=== PATIENT | male | born 1960 | race Caucasian/White ===

== ENCOUNTER 2021-01-13 13:12 | Outpatient (CLI) | payer MEDICARE, MEDICAID, SELFPAY ==
--- NOTE | ~2021-01-13 | CT_ITS ---
EXAMINATION: CT lumbar spine wo con DATE: 01/13/2021 13:51 INDICATION: Low back pain. TECHNIQUE: Computed tomography (CT) of the lumbar spine was performed without intravenous contrast. A utomated exposure control and iterative reconstruction technique were employed. The dose-length produ ct was 1297.72 mGy-cm. COMPARISON: CT lumbar spine 07/30/2016 FINDINGS: There is 3 degrees levocurvature of lumbar spine. There are changes of anterior fusion proc edures from L3-L4 through L5-S1 with interbody devices and L5-S1 plate and screws. There are changes of posterior fusion procedure from L3 to S1 with pedicle screws from L3-L5 on the right and L3-S1 on the left. There are lucencies around the left S1 screw, consistent with loosening. There are L3-L5 la minectomies. Vertebral body heights are normal. Intervertebral disc heights are normal. Central spina l canal is developmentally small at L2. The following disc levels are specifically discussed: L1-L2: The disc does not extend beyond the endplate margin. There is severe right and mild left facet joint osteoarthritis. There is no neural foraminal stenosis. There is no central canal stenosis. L2-L3: The disc does not extend beyond the endplate margin. There is mild bilateral facet joint osteo arthritis. There is no neural foraminal stenosis. There is mild central canal stenosis. L3-L4: There is mild bilateral facet joint hypertrophy. There is moderate right and mild left neural foraminal stenosis. There is mild central canal stenosis with posterior decompression. L4-L5: There is moderate right facet joint hypertrophy. There is moderate bilateral neural foraminal stenosis. There is mild central canal stenosis with posterior decompression. L5-S1: There is mild right and moderate left facet joint hypertrophy. There is mild bilateral neural foraminal stenosis. There is mild central canal stenosis with posterior decompression. IMPRESSION: 1. Anterior fusion procedures from L3-L4 through L5-S1. 2. Posterior fusion procedure from L3 to S1 with lucency around the left S1 screw, consistent with lo osening. 3. Moderate lumbar spondylosis. Reviewed, dictated and finalized at location A. IMPRESSION: 1. Anterior fusion procedures from L3-L4 through L5-S1. 2. Posterior fusion procedure from L3 to S1 with lucency around the left S1 scr ew, consistent with loosening. 3. Moderate lumbar spondylosis.
== END 2021-01-13 13:13 | disposition home or self-care (01) ==
DX: M47.817 Spondylosis without myelopathy or radiculopathy, lumbosacral region (principal); M54.40 Lumbago with sciatica, unspecified side; Z98.1 Arthrodesis status; M47.815 Spondylosis without myelopathy or radiculopathy, thoracolumbar region; M48.05 Spinal stenosis, thoracolumbar region; M48.07 Spinal stenosis, lumbosacral region
CPT/HCPCS: 72131

== ENCOUNTER 2021-04-01 08:59 | Outpatient (CLI) | payer MEDICARE, MEDICAID, SELFPAY ==
--- NOTE | 2021-04-01 06:57 | NEURO_ITS ---
PATIENT NUMBER: [id number] IMPRESSION: # Known diabetic with history of two lower back surgeries. Complains of pain and numbness lower extremities, left greater than right. # Neuropathy motor and sensory axonal type. # Needle/EMG exam revealed neurogenic changes in muscles. # Suggestive of diabetic neuropathy with lower root involvement as well. Nerve Conduction Studies Anti Sensory Summary Table Stim Site NR Peak (ms) P-T Amp (?V) Site1 Site2 Delta-P (ms) Dist (cm) Jeremy (m/s) Left Sup Fibular Anti Sensory (Ant Lat Mall) 14 cm 3.9 19.6 14 cm Ant Lat Mall 3.9 16.0 41 Right Sup Fibular Anti Sensory (Ant Lat Mall) 14 cm 3.0 25.9 14 cm Ant Lat Mall 3.0 16.0 53 Left Sural Anti Sensory (Lat Mall) Calf NR Calf Lat Mall 16.0 Right Sural Anti Sensory (Lat Mall) Calf 3.6 12.5 Calf Lat Mall 3.6 16.0 44 Motor Summary Table Stim Site NR Onset (ms) O-P Amp (mV) Site1 Site2 Delta-0 (ms) Dist (cm) Jeremy (m/s) Left Peroneal Motor (Vastus Med) Ankle 5.1 0.1 Popit Ankle 11.2 40.0 36 Popit 16.3 0.0 Right Peroneal Motor (Vastus Med) Ankle 5.2 0.4 Popit Ankle 10.5 39.0 37 Popit 15.7 0.4 Left Tibial Motor (Abd Mata Brev) Ankle 5.7 0.0 Knee Ankle 10.9 45.0 41 Knee 16.6 0.5 Right Tibial Motor (Abd Mata Brev) Ankle 6.4 0.1 Knee Ankle 12.0 44.0 37 Knee 18.4 0.2 F Wave Studies NR F-Lat (ms) L-R F-Lat (ms) Left Peroneal (Mrkrs) (EDB) 66.67 6.00 Right Peroneal (Mrkrs) (EDB) 72.67 6.00 Left Tibial (Mrkrs) (Abd Hallucis) 66.00 9.33 Right Tibial (Mrkrs) (Abd Hallucis) 75.33 9.33 EMG Side Muscle Nerve Root Ins Act Fibs Amp Dur Recrt Comment Right AntTibialis Dp Br Fibular L4-5 Nml Nml Nml >12ms Reduced Right Gastroc Tibial S1-2 Nml Nml Nml >12ms Reduced Right Fibularis Long Sup Br Fibular L5-S1 Nml Nml Nml >12ms Reduced Right Flex Dig Long Tibial L5-S2 Nml Nml Nml >12ms Reduced Right Ext Dig Brev Dp Br Fibular L5, S1 Nml Nml Nml >12ms Reduced Left AntTibialis Dp Br Fibular L4-5 Nml Nml Nml >12ms Reduced Left Gastroc Tibial S1-2 Nml Nml Nml >12ms Reduced Left Fibularis Long Sup Br Fibular L5-S1 Nml Nml Nml >12ms Reduced Left Flex Dig Long Tibial L5-S2 Nml Nml Nml >12ms Reduced Left Ext Dig Brev Dp Br Fibular L5, S1 Nml Nml Nml >12ms Reduced MTDD
== END 2021-04-01 09:00 | disposition home or self-care (01) ==
PROVIDERS: PCP Internal Medicine; Visit Provider Neurological Surgery
DX: M54.41 Lumbago with sciatica, right side (principal); M54.42 Lumbago with sciatica, left side; G62.89 Other specified polyneuropathies
CPT/HCPCS: 95886; 95910

== ENCOUNTER 2021-10-29 16:21 | Outpatient (CLI) | payer MEDICARE, MEDICAID, SELFPAY ==
[2021-10-29 18:53] LABS: SARS-CoV-2 RNA PCR Negative (Negative)
== END 2021-10-29 16:22 | disposition home or self-care (01) ==
LOC: CHSLAB 16:25
DX: R05.9 Cough, unspecified (principal); Z20.822 Contact with and (suspected) exposure to COVID-19
CPT/HCPCS: C9803; U0003; U0005

== ENCOUNTER 2022-02-03 12:32 | Outpatient (CLI) | payer MEDICARE, MEDICAID, SELFPAY ==
--- NOTE | ~2022-02-03 | MR_ITS ---
EXAMINATION: MR lumbar spine wo/w con DATE: 02/03/2022 13:32 INDICATION: Low back pain. Lumbar nephropathy. TECHNIQUE: Magnetic resonance imaging (MRI) of the lumbar spine was performed without and with 18 mL MultiHance intravenous contrast. Sequences included sagittal T2-weighted FSE, sagittal T2-weighted FS FSE, and sagittal and axial T1-weighted FSE. Postcontrast sequences included axial T2-weighted FSE a nd axial and sagittal T1-weighted FS FSE. COMPARISON: Lumbar spine MRI 11/22/2019 FINDINGS: Bone alignment is normal. Vertebral body heights are normal. There are changes of anterior and posterior fusion procedures from L3 to S1 with discectomies, interbody devices, and pedicle screw s. The distal spinal cord signal intensity is normal. The conus medullaris is at L1. The following di sc levels are specifically discussed: L1-L2: The disc does not extend beyond the endplate margin. There is moderate right and mild left fac et joint osteoarthritis. There is no neural foraminal stenosis. There is no central canal stenosis. L2-L3: The disc is bulging. There is mild bilateral facet joint osteoarthritis. There is mild bilater al neural foraminal stenosis. There is mild central canal stenosis. L3-L4: There is mild bilateral facet joint hypertrophy. There is mild bilateral neural foraminal sten osis. There is no central canal stenosis. There is posterior decompression. L4-L5: There is moderate bilateral facet joint hypertrophy. There is mild right and moderate left lucio ral foraminal stenosis. There is no central canal stenosis. There is posterior decompression. L5-S1: There is moderate right and severe left facet joint hypertrophy. There is moderate bilateral n eural foraminal stenosis. There is no central canal stenosis. IMPRESSION: 1. Moderate lumbar spondylosis. 2. Anterior posterior fusion procedures from L3 to S1, new from 11/22/2019. Reviewed, dictated and finalized at location A.
[2022-02-03 13:08] LABS: Estimated Glomerular Filt Rate > 60
== END 2022-02-03 12:33 | disposition home or self-care (01) ==
PROVIDERS: PCP Internal Medicine; Visit Provider Nurse Practitioner Family
DX: M47.27 Other spondylosis with radiculopathy, lumbosacral region (principal); M48.07 Spinal stenosis, lumbosacral region; Z98.1 Arthrodesis status
CPT/HCPCS: 72158; A9577

== ENCOUNTER 2022-04-12 10:09 | Emergency (ER) | payer MEDICARE, MEDICAID, SELFPAY ==
[2022-04-12 10:12] VITALS: BP 162/86; PULSE 78; RESP 16; TEMP 36.9; O2SAT 99
--- NOTE | 2022-04-12 10:33 | ED.EYEPROB ---
HPI - Eye Problem General Chief complaint: Eye Problems Stated complaint: both eyes Time Seen by Provider: 04/12/22 10:33 History of Present Illness HPI Narrative: 61-year-old male patient is here with complaints of irritation of both eyes right being the worst than the left. 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 Right after that he worked with the saw and was exposed to some dust. He states that the pain and discomfort and irritation of the eyes started a little while after the exposure and has continued through the night. Patient denies any foreign body sensation in the eyes. He denies any pain. He states that he has significant photophobia and has needed to wear dark glasses throughout the morning. Reports no other injuries. Does not wear contact lenses and does not have any eye surgeries in the past. Related Data Home Medications Medication Instructions Recorded Confirmed buprenorphine 10 mcg/hour weekly 1 patch topical WEEKLY 04/12/22 04/12/22 transdermal patch dulaglutide 1.5 mg/0.5 mL 1.5 mg subcut WEEKLY 04/12/22 04/12/22 subcutaneous pen injector (Trulicity) insulin degludec 200 unit/mL (3 76 unit subcut DAILY 04/12/22 04/12/22 mL) subcutaneous pen (Tresiba FlexTouch U-200 insulin) metformin 850 mg tablet 1 tablet PO BID 04/12/22 04/12/22 pravastatin 20 mg tablet 1 tablet PO DAILY 04/12/22 04/12/22 pregabalin 150 mg capsule 1 cap PO BID 04/12/22 04/12/22 Allergies Allergy/AdvReac Type Severity Reaction Status Date / Time NKA Allergy Unknown Unknown Uncoded 04/12/22 10:40 Review of Systems Review of Systems: All systems reviewed & are unremarkable except as noted in HPI and below PMFSH Past Medical History Medical History (Updated 04/12/22 @ 10:58 by Re Jarvis MD) Diabetes 1.5, 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 Hypercholesterolemia Hypertension Insomnia Low back pain Surgical History Surgical History (Updated 04/12/22 @ 10:52 by Re Jarvis MD) Status post laminectomy Social History Social History Social History: smoking marjauna at night to help with rest Smoking status: Current every day smoker Alcohol intake: never Exam Const: General: healthy appearing, no acute distress and alert Nutritional Appearance: well nourished Orientation/consciousness: patient oriented x3 Limitations: no limitations HENMT: Head: normal to inspection Ears: external ears normal General nose exam: Normal external nose present Eyes: Conjunctivae: conjunctival abnormality ( Conjunctiva injection) bilateral Pupils: Equal, round and reactive pupils present EOM: EOMs intact bilaterally Direct Ophthalmoscopy: photophobia Other: fluorescein uptake is negative Neck: Neck: normal visual inspection Chest: Chest palpation & inspection: normal inspection of the chest Resp: Effort & Inspection: normal respiratory effort Cardio: Rate: regular rate Rhythm: regular rhythm Skin: General skin exam: normal color Rashes: no rashes Wounds: no wounds Neuro: General: patient oriented x3, moves all extremities, no meningeal signs, no focal motor deficits and CN's II-XI intact bilaterally Cranial nerves: Yes Nystagmus not present Speech: normal speech Gait exam (Neuro): Normal gait present Extrem: General: normal to inspection Psych: Mental Status: mental status grossly normal Course Course Emergency Course: welding wiseman to the eyes have been discussed with the patient and the family. The patient has been advised to wear dark glasses to avoid any exposure to light and strain to the eyes. He is also advised to use eye stream to wash his eyes frequently during the day. I will prescribe him and antibacterial ophthalmic solution. He is also advised to use [id number] refresh or Systane. Di
[2022-04-12] MEDS: FLUORESCEIN SOD 1 MG/STRIP (10:48)
[2022-04-12] MEDS: DACRIOSE EYE IRRIGATION 118 ML BOTTLE (10:48)
[2022-04-12] MEDS: TETRACAINE HCL 0.5% OPHTH SOLN 4 ML BTL 1 DROP (10:48)
== END 2022-04-12 11:15 | disposition home or self-care (01) ==
PROVIDERS: Emergency Provider Emergency Medicine; PCP Internal Medicine
DX: H57.13 Ocular pain, bilateral (principal); W89.0XXA Exposure to welding light (arc), initial encounter
CPT/HCPCS: 99283; A9270

== ENCOUNTER 2022-10-14 09:45 | Outpatient (CLI) | payer MEDICARE, MEDICAID, SELFPAY ==
--- NOTE | ~2022-10-14 | NM_ITS ---
EXAM: NM gastric emptying study DATE: 10/14/2022 14:16 INDICATION: Diarrhea. TECHNIQUE: A gastric emptying study was performed using the methodology of Daljit SANTOS, et al. J Nucl Med 2007; 48:568-572. The patient was given a meal consisting of 2 scrambled eggs labeled with 1 mCi Tc-99m sulfur colloid, 2 slices of toast, two packages of jam, and approximately 120 mL of water. Si multaneous anterior and posterior 1-min images of the abdomen were obtained with the patient supine a t multiple time points over a total period of 4 hours. The geometric mean of anterior and posterior v iews was determined, and the percentage retention was calculated for each time point. COMPARISON: None. FINDINGS: Gastric retention of the radiotracer-labeled meal was 102%, 92%, and 66% at the 1-hour, 2- hour, and 4-hour time points, respectively. With this technique, apparent rapid gastric emptying is s uggested by <30% gastric retention at 1 hour. Delayed gastric emptying is defined by gastric retentio n of >90% at 1 hour, >60% retention at 2 hours, or >10% retention at 4 hours. IMPRESSION: 1. Delayed gastric emptying. Reviewed, dictated and finalized at location A. RAM DIRECTOR/TRAFFIC DIRECTOR
== END 2022-10-14 09:46 | disposition home or self-care (01) ==
PROVIDERS: PCP Internal Medicine; Visit Provider Internal Medicine Gastroenterology
DX: R19.7 Diarrhea, unspecified (principal)
CPT/HCPCS: 78264; A9541

== ENCOUNTER 2022-11-24 09:27 | Outpatient (CLI) | payer MEDICARE, MEDICAID, SELFPAY ==
--- NOTE | ~2022-11-24 | CT_ITS ---
EXAMINATION: CT cervical spine wo con DATE: 11/24/2022 10:08 INDICATION: Possible cervical spinal fusion. TECHNIQUE: Computed tomography (CT) of the cervical spine was performed without intravenous contrast. Automated exposure control and iterative reconstruction technique were employed. The dose-length pro duct was 485.14 mGy-cm. COMPARISON: None FINDINGS: Mild reversal of the normal cervical lordosis. There is anterior and posterior fusion without instrum entation at C5-C6. There is severe disc height loss at C6-C7 with appearance suggesting possible atte mpted anterior fusion with likely bone graft material incorporated to the inferior endplate of C6 but without definitive solid osseous fusion to C7. Unfused disc heights are normal. Moderate to severe d isc height loss at C3-C4 and C4-C5. Atherosclerotic calcific a cyst at the bilateral carotid bulbs Ce rvical soft tissues are otherwise unremarkable. Mild paraseptal emphysema at the apices of lungs. The following disc levels are specifically discussed: C2-C3: There is mild bilateral uncovertebral joint osteoarthritis. There is mild left and moderate ri ght facet joint osteoarthritis. There is minimal bilateral neural foraminal stenosis. There is no kenyetta tral canal stenosis. C3-C4: Posterior disc osteophyte complex is present. There is severe left and moderate to severe righ t uncovertebral joint osteoarthritis. There is moderate left and mild to moderate right facet joint o steoarthritis. There is mild right and mild to moderate left neural foraminal stenosis. There is mild central canal stenosis. C4-C5: Disc is bulging. There is severe bilateral uncovertebral joint osteoarthritis. There is mild b ilateral facet joint osteoarthritis. There is moderate right and moderate to severe left neural lizbeth inal stenosis. There is mild to moderate central canal stenosis. C5-C6: Disc space, bilateral uncovertebral and facet joints are fused, all with mild associated hyper trophic changes. There is mild right and minimal left neural foraminal stenosis. There is mild centra l canal stenosis. C6-C7: Posterior endplate osteophytes. There is moderate bilateral uncovertebral joint osteoarthritis . There is mild bilateral facet joint osteoarthritis. There is mild right and moderate left neural fo raminal stenosis. There is mild central canal stenosis. C7-T1: There is minimal bilateral uncovertebral joint osteoarthritis. There is severe left and modera te to severe right facet joint osteoarthritis. There is mild right and mild to moderate left neural f oraminal stenosis. There is no central canal stenosis. IMPRESSION: 1. Moderate to severe cervical spondylosis with solid anterior and posterior spinal fusion at C5-C6. 2. Suggestion of attempted anterior spinal fusion at C6-C7 with incorporation of bone graft to the in ferior aspect of C6 but without solid fusion to C7. Reviewed, dictated and finalized at location B. 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 Moderate to severe cervical spondylosis with solid anterior and posterior sp inal fusion at C5-C6. 2. Suggestion of attempted anterior spinal fusion at C6-C7 with incorporation o f bone graft to the inferior aspect of C6 but without solid fusion to C7.
--- NOTE | ~2022-11-24 | XR_ITS ---
Lumbosacral Spine: AP and lateral views, with neutral, flexion, and extension positioning Clinical History: Pain Findings: No acute fracture or subluxation seen. There is posterior fusion hardware extending from L3 through S1, with bilateral rods and transpedicular screws present. Anterior fixation is present acro ss the L5-S1 disc space. Probable laminectomy defects at L4 and L5. Disc fusion cages are present at the L3-L4, L4-L5, and L5-S1 disc spaces. L1-L2 and L2-L3 disc spaces are preserved. No instability se en on flexion or extension views. The sacroiliac joints are normally outlined. Impression: Extensive postoperative change at the lower lumbar spine, as detailed above. No fracture or subluxation seen. No instability identified. Reviewed, dictated and finalized at [facility]. TIONAL DIRECTOR Impression: Extensive postoperative change at the lower lumbar spine, as detailed above. No fracture or subluxation seen. No instability identified.
== END 2022-11-24 09:28 | disposition home or self-care (01) ==
LOC: CHSIMG 09:30
PROVIDERS: PCP Internal Medicine
DX: M54.16 Radiculopathy, lumbar region (principal); Z98.1 Arthrodesis status; M43.02 Spondylolysis, cervical region
CPT/HCPCS: 72110; 72125

== ENCOUNTER 2023-04-20 10:14 | Outpatient (CLI) | payer MEDICARE, MEDICAID, SELFPAY ==
--- NOTE | ~2023-04-20 | CT_ITS ---
EXAMINATION: CT lung screening DATE: 04/20/2023 10:31 INDICATION: Personal history of nicotine dependence TECHNIQUE: Computed tomography (CT) of the chest was performed without intravenous contrast. The dose -length product was 169.95 mGy-cm. Automated exposure control and iterative reconstruction technique were employed. COMPARISON: None FINDINGS: No significant pleural or pericardial effusion. Heart size normal. There is atherosclerosis of the aorta and coronary arteries. No thoracic lymphadenopathy. There is cirrhosis of the liver. Th ere is emphysema. No focal airspace consolidation. No endobronchial lesions. No pneumothorax. There i s a 3 mm right upper lobe nodule, image 35. There are a few small additional nodules measuring 2 mm o r less bilaterally. Mild thoracic spondylosis. Moderate lower cervical spondylosis. IMPRESSION: 1. Lung-RADS category 2: Benign appearance or behavior. Continue annual screening with noncontrast lo w-dose chest CT in 12 months. Reviewed, dictated and finalized at location [] IMPRESSION: 1. Lung-RADS category 2: Benign appearance or behavior. Continue annual screeni ng with noncontrast low-dose chest CT in 12 months.
== END 2023-04-20 10:15 | disposition home or self-care (01) ==
LOC: CHSIMG 10:16
PROVIDERS: PCP Internal Medicine; Visit Provider Internal Medicine
DX: Z12.2 Encounter for screening for malignant neoplasm of respiratory organs (principal); Z87.891 Personal history of nicotine dependence
CPT/HCPCS: 71271

== ENCOUNTER 2024-01-02 16:23 | Outpatient (CLI) | payer MEDICARE, MEDICAID, SELFPAY ==
--- NOTE | ~2024-01-02 | XR_ITS ---
EXAMINATION: XR hip BI 2V w AP pelvis DATE: 01/02/2024 17:01 INDICATION: Bilateral hip pain TECHNIQUE: Two views of each hip were obtained. COMPARISON: None FINDINGS: Bone alignment is normal. There is no fracture. There is mild osteoarthritis of the hips. S urgical changes are noted in the lumbosacral spine. There is possible asymmetric thickening of the ri ght gluteus muscles compared to the left. IMPRESSION: 1. Mild osteoarthritis of the hips without acute osseous abnormality. Possible asymmetric thickening of the right gluteus muscles compared to the left. Reviewed, dictated and finalized at location L. OW PUMPER
== END 2024-01-02 16:24 | disposition home or self-care (01) ==
LOC: CHSIMG 16:26
PROVIDERS: PCP Nurse Practitioner Acute Care; Visit Provider Nurse Practitioner Acute Care
DX: M16.0 Bilateral primary osteoarthritis of hip (principal); M25.551 Pain in right hip; M25.552 Pain in left hip
CPT/HCPCS: 73521

== ENCOUNTER 2024-04-30 10:06 | Outpatient (CLI) | payer MEDICARE, MEDICAID, SELFPAY ==
--- NOTE | ~2024-04-30 | US_ITS ---
EXAMINATION: US aorta [facility] scrn DATE: 04/30/2024 10:44 INDICATION: Abdominal aortic aneurysm screening TECHNIQUE: Grayscale, color Doppler, and pulsed Doppler images of the aorta and common iliac arteries were obtained. COMPARISON: None. FINDINGS: The proximal aorta measures 2.5 cm. The region of the mid and distal aorta and common iliac arteries is obscured by shadowing bowel gas. IMPRESSION: 1. 2.5 cm diameter proximal abdominal aorta with nondiagnostic assessment of the mid and distal aorta which obscured by shadowing bowel gas. Reviewed, dictated and finalized at location B. IMPRESSION: 1. 2.5 cm diameter proximal abdominal aorta with nondiagnostic assessment of th e mid and distal aorta which obscured by shadowing bowel gas.
--- NOTE | ~2024-04-30 | US_ITS ---
COMPLETE ABDOMINAL ULTRASOUND Ordering provider: Roseanna Yung, History: . screening for AAA/splenomegaly/HX of missy dependence . Comparison: None. FINDINGS: LIVER: Normal size and echotexture. No focal hepatic lesions or perihepatic fluid collections are karla ntified. Normal flow of the portal vein. GALLBLADDER: Multiple stones. No evidence for sludge, gallbladder wall thickening or pericholecystic fluid collections. The wall measures 3.1 mm. . A negative sonographic Cheney's sign was noted. BILIARY DUCTS: No evidence for intra or extrahepatic biliary dilation. Common bile duct measures 3.6 mm in diameter which is within normal limits. PANCREAS: Not well demonstrated. SPLEEN: Normal size, echotexture and contour and measures 15 cm in length. KIDNEYS: Right measures 10.2x 4.4x 4 cm in length and the left 11.9x 4.3x 4.7 cm in length. There is no evidence for hydronephrosis, solid renal mass, renal calculi or perinephric fluid collections. No renal cysts. UPPER ABDOMINAL AORTA: Not visualized. IVC: Not visualized. FREE FLUID: None. IMPRESSION: Cholelithiasis with no evidence of cholecystitis. Splenomegaly. Otherwise, Unremarkable complete ultr asound of the abdomen. Reviewed, dictated and finalized at location A. IMPRESSION: Cholelithiasis with no evidence of cholecystitis. Splenomegaly. Otherwise, Unre markable complete ultrasound of the abdomen.
--- NOTE | ~2024-04-30 | CT_ITS ---
EXAMINATION: CT lung screening DATE: 04/30/2024 10:49 INDICATION: history of nicotine dependence, no chest complaints TECHNIQUE: Computed tomography (CT) of the chest was performed without intravenous contrast. Addition al 3D reconstructions utilizing coronal maximum intensity projection (MIP) were performed. Automated exposure control and iterative reconstruction technique were employed. The dose-length product was 14 6.53 mGy-cm. COMPARISON: 04/20/2023 FINDINGS: Mild emphysema. Interval increase in size of a previously 6 x 4 mm, currently 8 x 5 mm spiculated nod ule at the right apex. Unchanged 2 mm potentially calcified nodule at the superior segment of the lef t lower lobe. No significant change in scattered peripheral predominant irregular septal line thicken ing and mild groundglass opacity in both lungs consistent with chronic interstitial lung disease most consistent with scarring but an interstitial pneumonia (DIP) pattern. No pneumonia, pulmonary edema or pleural effusion. Heart size normal. Atherosclerotic coronary artery calcific lesion. Thoracic aor ta is normal in caliber. No pathologically enlarged thoracic lymphadenopathy. Nodular liver surface c onsistent with cirrhosis. Mild thoracic spondylosis. IMPRESSION: 1. Lung-RADS category 4A: Suspicious, 5-15% chance of malignancy. Recommend 3 month follow-up low-dos e noncontrast chest CT. Reviewed, dictated and finalized at location B. IMPRESSION: 1. Lung-RADS category 4A: Suspicious, 5-15% chance of malignancy. Recommend 3 m onth follow-up low-dose noncontrast chest CT.
== END 2024-04-30 10:07 | disposition home or self-care (01) ==
PROVIDERS: PCP Internal Medicine; Visit Provider Internal Medicine
DX: R16.1 Splenomegaly, not elsewhere classified (principal); Z13.6 Encounter for screening for cardiovascular disorders; Z87.891 Personal history of nicotine dependence; K80.20 Calculus of gallbladder without cholecystitis without obstruction; R91.8 Other nonspecific abnormal finding of lung field
CPT/HCPCS: 71271; 76700; 76706

== ENCOUNTER 2024-07-07 06:57 | Emergency (ER) | payer MEDICARE, MEDICAID, SELFPAY ==
--- NOTE | 2024-07-07 07:01 | ED.BACK ---
HPI - Back Pain/Injury General Chief Complaint: Back Pain/Injury Stated Complaint: Back Pain Time Seen by Provider: 07/07/24 07:00 Source: patient Mode of arrival: ambulatory Limitations: no limitations History of Present Illness HPI Narrative: 63-year-old male with a history of diabetes mellitus, dyslipidemia, chronic back pain status post surgery status post epidural pain injection on 06/19/2024 presents to the ED with --worsening of his low back pain with radiation to the left medial and posterior thigh. -- Muscle cramps involving the thighs the patient does not have any bladder or bowel involvement. No motor or sensory loss of his load lower extremities. The patient is ambulatory. -- Increased frequency of micturition. Patient is on buprenorphine for possible opiate use disorder. MD elicited complaint: back pain Pertinent past history: prior back pain Onset (ago): day(s) Timing: constant and progressively worsening Severity: severe Similar Symptoms Previously: Yes Quality: burning Location: lumbar spine Radiation: buttocks Exacerbating factors: movement Relieving factors: other ( Leaning forwards) Associated symptoms: denies other symptoms and increased urinary frequency Work related injury: No Related Data Home Medications Medication Instructions Recorded Confirmed buprenorphine 10 mcg/hour weekly 1 patch topical WEEKLY 04/12/22 04/12/22 transdermal patch dulaglutide 1.5 mg/0.5 mL 1.5 mg subcut WEEKLY 04/12/22 04/12/22 subcutaneous pen injector (Trulicity) insulin degludec 200 unit/mL (3 76 unit subcut DAILY 04/12/22 04/12/22 mL) subcutaneous pen (Tresiba FlexTouch U-200 insulin) metformin 850 mg tablet 1 tablet PO BID 04/12/22 04/12/22 pravastatin 20 mg tablet 1 tablet PO DAILY 04/12/22 04/12/22 pregabalin 150 mg capsule 1 cap PO BID 04/12/22 04/12/22 Allergies Allergy/AdvReac Type Severity Reaction Status Date / Time No Known Allergies Allergy Verified 07/07/24 07:25 Review of Systems Review of Systems: All systems reviewed & are unremarkable except as noted in HPI and below Constitutional: Constitutional: Reports as per HPI and Reports no additional constitutional complaints Eyes: Eyes: Reports as per HPI and Reports no additional eye complaints ENT: Reports system reviewed and no additional complaints, except as documented and Reports as per HPI Cardiovascular: Cardiovascular: Reports as per HPI and Reports no additional cardiovascular complaints Respiratory: Respiratory: Reports as per HPI and Reports no additional respiratory complaints Gastrointestinal: Gastrointestinal: Reports as per HPI and Reports no additional gastrointestinal complaints Genitourinary: Genitourinary: Reports no additional male genitourinary complaints and Reports as per HPI Musculoskeletal: Musculoskeletal: Reports no additional musculoskeletal complaints and Reports as per HPI Integumentary/Breasts: Skin/Breast: Reports system reviewed and no additional complaints, except as docu and Reports as per HPI Neurologic: Reports system reviewed and no additional complaints, except as documented and Reports as per HPI Psychiatric: Psychiatric: Reports no additional psychiatric complaints and Reports as per HPI Endocrine: Endocrine: Reports no additional endocrine complaints, Reports as per HPI and Reports polyuria Hematologic/Lymphatic: Hematologic/Lymphatic: Reports no additional hematologic/lymphatic complaints and Reports as per HPI Allergic/Immunologic: Allergic/Immunologic: Reports no additional allergic/immunologic complaints and Reports as per HPI PMFSH Past Medical History Medical History Diabetes 1.5, 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 Hypercholesterolemia Hypertension Insomnia Low back pain Surgical History Surgical History Status post laminectomy Social History Socia
[2024-07-07 07:03] VITALS: BP 154/99; PULSE 96; RESP 20; TEMP 36.6; O2SAT 96
[2024-07-07 07:20] LABS: Glucose Point of Care 429 mg/dl (65-105)
[2024-07-07 07:29] LABS: Appearance Urine Clear (Clear); Color Urine Yellow (Yellow); Specific Grav Ur 1.015 (1.010-1.020)
[2024-07-07 07:30] LABS: Add Urine Microscopic? NO; Bilirubin Urine Negative (Negative); Blood Urine Negative (Negative); Glucose Urine UA 3+ (Negative); Ketones Urine Negative (Negative); Leukocyte Esterase Ur Negative LEU/UL (Negative); Nitrate Urine Negative (Negative); Protein Urine Negative (Negative); Urobilinogen Urine Negative mg/dL (0.2-1.0)
[2024-07-07] MEDS: HYDROmorphone HCL INJ (*CRX) 2 MG/ML VIAL 1 MG IM (07:43)
[2024-07-07] MEDS: ONDANSETRON HCL ODT 4 MG TABLET PO (07:46)
[2024-07-07] MEDS: INSULIN HUMAN REGULAR (*BKC) 1,000 UNITS/10 ML VIAL 5 UNITS SUB-Q (07:46)
[2024-07-07 08:38] VITALS: BP 135/83; PULSE 89; RESP 18; TEMP 36.8; O2SAT 95
[2024-07-07 11:15] LABS: Creatinine Urine 81.5 mg/dL
[2024-07-07 11:20] LABS: MALB Creatinine Ratio 95.5 mg/g (0-30); Microalbumin Urine Random 77.8 mg/L (0-16.7)
== END 2024-07-07 08:40 | disposition home or self-care (01) ==
PROVIDERS: Emergency Provider Internal Medicine Critical Care Medicine; PCP Internal Medicine
DX: M54.50 Low back pain, unspecified (principal); G89.29 Other chronic pain; E13.65 Other specified diabetes mellitus with hyperglycemia; E78.5 Hyperlipidemia, unspecified; E13.9 Other specified diabetes mellitus without complications; I10 Essential (primary) hypertension
CPT/HCPCS: 81003; 82043; 82948; 96372; 99283; A9270; J1170; J1815

== ENCOUNTER 2024-07-07 08:36 | Outpatient (CLI) | payer MEDICARE, MEDICAID, SELFPAY ==
[2024-07-07 09:04] LABS: Basophils Absolute Auto 0.06 K/mm3 (0.00-0.10); Basophils Percent Auto 0.5 % (0.0-1.0); Eosinophils Absolute Auto 0.12 K/mm3 (0.02-0.50); Eosinophils Percent Auto 1.1 % (1.0-6.0); Hematocrit 44.9 % (37.0-46.0); Hemoglobin 15.3 g/dL (12.4-15.3); Immature Granulocyte Absolute 0.13 K/mm3 (0.00-0.00); Immature Granulocyte Percent A 1.2 % (0.0-0.0); Lymphocytes Absolute Auto 2.22 K/mm3 (1.10-4.50); Lymphocytes Percent Auto 20.2 % (18.0-42.0); Mean Corpuscular HGB Conc 34.1 g/dL (32-36); Mean Corpuscular Hemoglobin 33.8 pg (27.0-31.0); Mean Corpuscular Volume 99.3 fL (78.0-102.0); Mean Platelet Volume 11.2 fl (8.7-11.0); Monocytes Absolute Auto 0.62 K/mm3 (0.10-0.90); Monocytes Percent Auto 5.6 % (2.0-11.0); Neutrophils Absolute Auto 7.86 K/mm3 (1.70-7.20); Neutrophils Percent Auto 71.4 % (50.0-70.0); Platelet Count Result 112 K/mm3 (150-420); Red Blood Count 4.52 M/mm3 (4.70-6.10); Red Cell Distribution Width 13.2 % (11.6-14.4)
[2024-07-07 10:29] LABS: Alanine Aminotransferase 64 U/L (6-50); Albumin Level 4.3 g/dL (3.5-5.1); Alkaline Phosphatase 98 U/L (38-126); Anion Gap 12 mmol/L (4-12); Aspartate Amino Transferase 27 U/L (17-59); Bilirubin,Total 0.7 mg/dL (0.2-1.3); Blood Urea Nitrogen 18 mg/dL (9-20); Calcium 9.4 mg/dL (8.4-10.2); Carbon Dioxide 23 mmol/L (22-30); Chloride 96 mmol/L (98-107); Cholesterol 185 mg/dL (0-200); Estimated Glomerular Filt Rate > 60; Glucose 445 mg/dL (65-110); HDL Direct 43 mg/dL; LDL Cholesterol Calculated 111 mg/dL (<130); Osmolality Calculated 292 mOsm/kg (285-295); Potassium 4.6 mmol/L (3.4-5.0); Sodium 131 mmol/L (137-145); Triglycerides 155 mg/dL (<150)
[2024-07-07 10:41] LABS: Hemoglobin A1C 10.5 % (<5.7)
[2024-07-07 10:54] LABS: Prostate Specific Antigen 0.8 ng/mL (< OR = 4.0)
== END 2024-07-07 08:37 | disposition home or self-care (01) ==
PROVIDERS: PCP Internal Medicine; Visit Provider Internal Medicine
DX: E11.42 Type 2 diabetes mellitus with diabetic polyneuropathy (principal); Z12.5 Encounter for screening for malignant neoplasm of prostate
CPT/HCPCS: 36415; 80053; 80061; 83036; 84153; 85025; G0103

== ENCOUNTER 2024-07-13 15:06 | Emergency (ER) | payer MEDICARE, MEDICAID, SELFPAY ==
--- NOTE | ~2024-07-13 | XR_ITS ---
EXAMINATION: XR chest 2V DATE: 07/13/2024 15:42 INDICATION: Hyperglycemia TECHNIQUE: frontal and lateral views of the chest were obtained. COMPARISON: Chest radiograph dated chest CT dated 04/30/2024 FINDINGS: The lungs are clear with no focal airspace opacities, pulmonary edema, pleural effusion or pneumothor ax. The cardiomediastinal silhouette is normal. Mild thoracic spondylosis. IMPRESSION: 1. No acute cardiopulmonary disease. Reviewed, dictated and finalized at location B.
[2024-07-13 15:15] VITALS: BP 176/93; PULSE 96; RESP 20; TEMP 36.4; O2SAT 98
[2024-07-13 15:15] LABS: Glucose Point of Care > 450 mg/dl (65-105)
--- NOTE | 2024-07-13 15:19 | ECG_ITS ---
Test Date: 2024-07-13 15:52:19 Measurements Intervals [place] Rate: 75 P: 77 CO: 148 QRS: -43 QRSD: 112 T: 69 QT: 364 QTc: 407 Interpretive Statements SINUS RHYTHM LEFT AXIS DEVIATION INTRAVENTRICULAR CONDUCTION DELAY EARLY PRECORDIAL R/S TRANSITION MINIMAL Q WAVES- HIGH LATERAL LEADS BORDERLINE ECG No previous ECG available for comparison Electronically Signed On 07-13-2024 16:11:59 CDT by Karson Ponce D.O.
--- NOTE | 2024-07-13 15:19 | ED.GENADULT ---
HPI - General Adult General Chief complaint: Unspecified Stated complaint: leg pain and elevated blood sugar Time Seen by Provider: 07/13/24 15:19 Source: patient Limitations: no limitations History of Present Illness HPI narrative: Six 4 years [age] white male came to the ED by private car complaining of blood glucose of 550 prior to arrival to the emergency room. His telling me that he have a steroid injection at the lower back on June 19 and his blood glucose been high since got worse today. He denies any fever, chills, nausea, vomiting, abdominal pain or chest pain. patient reports pain behind the left knee and at the top of the left foot been going for the last few days, weeks. Patient was seen at our emergency room 6 days ago for the same complaint and was seen by his family physician 3 days ago for the same complaint who increased his insulin level and started him on baclofen and ibuprofen without improvement. Patient is telling me that he is not able to get hold of his pain management physician. Last lower back MRI more than 1 year ago. Patient been checking his blood glucose 4 times a day Related Data Home Medications Medication Instructions Recorded Confirmed buprenorphine 10 mcg/hour weekly 1 patch topical WEEKLY 04/12/22 07/13/24 transdermal patch dulaglutide 1.5 mg/0.5 mL 1.5 mg subcut WEEKLY 04/12/22 07/13/24 subcutaneous pen injector (Trulicity) insulin degludec 200 unit/mL (3 76 unit subcut DAILY 04/12/22 07/13/24 mL) subcutaneous pen (Tresiba FlexTouch U-200 insulin) baclofen 20 mg tablet 20 mg PO DAILY 07/13/24 07/13/24 ezetimibe 10 mg tablet 10 mg PO DAILY 07/13/24 07/13/24 ibuprofen 800 mg tablet 800 mg PO DAILY 07/13/24 07/13/24 lisinopril 10 mg tablet 10 mg PO DAILY 07/13/24 07/13/24 nortriptyline 25 mg capsule 25 mg PO DAILY 07/13/24 07/13/24 zolpidem 10 mg tablet 10 mg PO DAILY 07/13/24 07/13/24 Allergies Allergy/AdvReac Type Severity Reaction Status Date / Time niacin AdvReac Flushing Verified 07/13/24 15:15 Review of Systems Review of Systems: All systems reviewed & are unremarkable except as noted in HPI and below PMFSH Past Medical History Medical History Diabetes 1.5, 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 Hypercholesterolemia Hypertension Insomnia Low back pain Surgical History Surgical History Status post laminectomy Social History Social History Social History: smoking marjauna at night to help with rest Smoking status: Current every day smoker Alcohol intake: never Exam Narrative: General appearance: Well-developed, well-nourished Skin: Normal color Head: Normocephalic, nontraumatic Eyes: Clear conjunctiva ENT: Oropharynx normal, ears normal, nose normal Neck: Supple, nontender Chest and respiratory: Airway patent, no respiratory distress, no accessory muscle use Heart: Regular rate/rhythm Abdomen: Soft, nontender, no organomegaly, quiet bowel sounds Vascular: Normal peripheral pulses, normal capillary refill. Musculoskeletal: Left lower leg showed diffuse tenderness posteriorly, slightly darker than the right lower leg, 1+ edema, palpable pedal pulse Neurologic: Alert and oriented ?3, Course Vital Signs Vital signs: Vital Signs Oxygen Delivery Room Air 07/13/24 15:06 Temperature 36.4 C 07/13/24 15:27 Pulse Rate 96 07/13/24 15:27 Respiratory Rate 20 07/13/24 15:27 Blood Pressure 176/93 H 07/13/24 15:27 Pulse Oximetry 98 07/13/24 15:27 Oxygen Delivery Room Air 07/13/24
[2024-07-13 15:27] VITALS: BP 176/93; PULSE 96; RESP 20; TEMP 36.4; O2SAT 98
[2024-07-13 15:51] LABS: Basophils Absolute Auto 0.05 K/mm3 (0.00-0.10); Basophils Percent Auto 0.6 % (0.0-1.0); Eosinophils Absolute Auto 0.12 K/mm3 (0.02-0.50); Eosinophils Percent Auto 1.4 % (1.0-6.0); Hematocrit 41.5 % (37.0-46.0); Hemoglobin 14.5 g/dL (12.4-15.3); Immature Granulocyte Absolute 0.14 K/mm3 (0.00-0.00); Immature Granulocyte Percent A 1.7 % (0.0-0.0); Lymphocytes Percent Auto 27.3 % (18.0-42.0); Mean Corpuscular HGB Conc 34.9 g/dL (32-36); Mean Corpuscular Hemoglobin 34.7 pg (27.0-31.0); Mean Corpuscular Volume 99.3 fL (78.0-102.0); Mean Platelet Volume 10.1 fl (8.7-11.0); Monocytes Absolute Auto 0.41 K/mm3 (0.10-0.90); Monocytes Percent Auto 4.9 % (2.0-11.0); Neutrophils Absolute Auto 5.41 K/mm3 (1.70-7.20); Neutrophils Percent Auto 64.1 % (50.0-70.0); Platelet Count Result 110 K/mm3 (150-420); Red Blood Count 4.18 M/mm3 (4.70-6.10); Red Cell Distribution Width 13.2 % (11.6-14.4); White Blood Count 8.4 K/mm3 (4.8-10.8)
[2024-07-13 15:58] LABS: Add Urine Microscopic? NO; Appearance Urine Clear (Clear); Bilirubin Urine Negative (Negative); Blood Urine Negative (Negative); Color Urine Light Yellow (Yellow); Glucose Urine UA 3+ (Negative); Ketones Urine Negative (Negative); Leukocyte Esterase Ur Negative LEU/UL (Negative); Nitrate Urine Negative (Negative); Protein Urine Negative (Negative); Urobilinogen Urine 0.2 mg/dL (0.2-1.0)
[2024-07-13] MEDS: SODIUM CHLORIDE 0.9% IV 2,000 ML 999 ML IV CONT (16:01)
[2024-07-13 16:06] LABS: Alanine Aminotransferase 59 U/L (16-63); Albumin Level 3.8 g/dL (3.4-5.0); Alkaline Phosphatase 128 U/L (46-116); Anion Gap 6 mmol/L (4-12); Aspartate Amino Transferase 18 U/L (15-37); Bilirubin,Total 0.4 mg/dL (0.00-1.00); Blood Urea Nitrogen 16 mg/dL (7-18); Calcium 9.6 mg/dL (8.5-10.1); Carbon Dioxide 31 mmol/L (21-32); Chloride 98 mmol/L (98-108); Estimated CRCL calculation 59 ml/min; Estimated Glomerular Filt Rate > 60; Glucose 392 mg/dL (70-99); Osmolality Calculated 297 mOsm/kg (285-295); Potassium 4.5 mmol/L (3.5-5.1); Sodium 135 mmol/L (136-145); Total Protein 7.7 g/dL (6.4-8.2)
[2024-07-13 16:07] LABS: INR 0.9; Partial Thromboplastin Time 23.3 Sec (23.9-30.70); Prothrombin Time 10.1 Seconds (9.50-12.1)
[2024-07-13 16:08] LABS: HCO3 VBG 23.3 mEq/l (24.0-30.0); PCO2 VBG 39.7 mmHg (42.0-48.0); PO2 VBG 32.7 mmHg (35.0-45.0); pH VBG 7.39 (7.33-7.43)
[2024-07-13 16:09] LABS: Device ROOM AIR
[2024-07-13 16:23] LABS: D Dimer 8.86 mg/L (0.19-0.50)
[2024-07-13] MEDS: INSULIN HUMAN REGULAR (*BKC) 1,000 UNITS/10 ML VIAL 9 UNITS IV PUSH (16:42)
[2024-07-13] MEDS: APIXABAN 2.5 MG TABLET 10 MG PO (16:59)
[2024-07-13 17:18] LABS: Glucose Point of Care 222 mg/dl (65-105)
[2024-07-13 17:52] VITALS: BP 145/85; PULSE 60; RESP 16; TEMP 36.6; O2SAT 98
== END 2024-07-13 17:52 | disposition home or self-care (01) ==
PROVIDERS: Emergency Provider Emergency Medicine; PCP Internal Medicine
DX: E13.65 Other specified diabetes mellitus with hyperglycemia (principal); M79.605 Pain in left leg; I10 Essential (primary) hypertension; Z79.4 Long term (current) use of insulin
CPT/HCPCS: 36415; 71046; 80053; 81003; 82803; 82948; 85025; 85380; 85610; 85730; 93005; 96361; 96374; 99284; A9270; J1815; J7030

== ENCOUNTER 2024-07-16 07:05 | Outpatient (CLI) | payer MEDICARE, MEDICAID, SELFPAY ==
--- NOTE | ~2024-07-16 | US_ITS ---
Duplex Sonography of the left extremity: Indication: Pain and swelling Findings: Sagittal and transverse B-mode images as well as color-flow imaging were performed on the l eft femoral and popliteal veins. B-mode examination was done without and with compression in the tra nsverse plane. There is good visualization of the common femoral, proximal profunda femoral, superfi cial femoral, greater saphenous, and popliteal veins. There is echogenic thrombus occluding the left SFV at its proximal, mid, and distal portions, extendi ng through the left popliteal vein, left gastrocnemius vein, left posterior tibial vein, and left per lozano vein. These vessels are all noncompressible, with absence of flow. The left common femoral vein, left profunda femoral vein, and the proximal portion of the left greate r saphenous vein demonstrate normal flow and compressibility. Impression: Extensive occlusive DVT involving the left SFV, left popliteal vein, and left calf veins, as detailed above. Reviewed, dictated and finalized at location M. Impression: Extensive occlusive DVT involving the left SFV, left popliteal vein, and left c snf veins, as detailed above.
== END 2024-07-16 07:06 | disposition home or self-care (01) ==
LOC: CHSIMG 07:08
PROVIDERS: PCP Internal Medicine; Visit Provider Emergency Medicine
DX: M79.89 Other specified soft tissue disorders (principal); I82.432 Acute embolism and thrombosis of left popliteal vein; I82.492 Acute embolism and thrombosis of other specified deep vein of left lower extremity
CPT/HCPCS: 93971

== ENCOUNTER 2024-07-16 07:38 | Emergency (ER) | payer MEDICARE, MEDICAID, SELFPAY ==
[2024-07-16 07:38] VITALS: BP 150/87; PULSE 88; RESP 20; TEMP 36.6; O2SAT 98
--- NOTE | 2024-07-16 07:50 | ED.LOWEXIN ---
HPI - Extremity Injury (Lower) General Chief Complaint: Extremity Injury, Lower Stated Complaint: DVT Time Seen by Provider: 07/16/24 07:42 History of Present Illness HPI Narrative: Pt was seen here 07/13 for elevated blood sugar and left lower extremity pain and swelling. No ultrasound available so patient given dose of eliquis here and given Rx for 10 mg BID which patient did not get filled due to issue with insurance coverage. Pt denies chest pain or SOB. The pain and swelling in leg has been present for at least a week. Pt returned today for venous doppler which is apparently positive for DVT. Related Data Home Medications Medication Instructions Recorded Confirmed buprenorphine 10 mcg/hour weekly 1 patch topical WEEKLY 04/12/22 07/13/24 transdermal patch dulaglutide 1.5 mg/0.5 mL 1.5 mg subcut WEEKLY 04/12/22 07/13/24 subcutaneous pen injector (Trulicity) insulin degludec 200 unit/mL (3 76 unit subcut DAILY 04/12/22 07/13/24 mL) subcutaneous pen (Tresiba FlexTouch U-200 insulin) baclofen 20 mg tablet 20 mg PO DAILY 07/13/24 07/13/24 ezetimibe 10 mg tablet 10 mg PO DAILY 07/13/24 07/13/24 ibuprofen 800 mg tablet 800 mg PO DAILY 07/13/24 07/13/24 lisinopril 10 mg tablet 10 mg PO DAILY 07/13/24 07/13/24 nortriptyline 25 mg capsule 25 mg PO DAILY 07/13/24 07/13/24 zolpidem 10 mg tablet 10 mg PO DAILY 07/13/24 07/13/24 Allergies Allergy/AdvReac Type Severity Reaction Status Date / Time niacin AdvReac Flushing Verified 07/16/24 07:51 Review of Systems Review of Systems: All systems reviewed & are unremarkable except as noted in HPI and below PMFSH Past Medical History Medical History Diabetes 1.5, 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 Hypercholesterolemia Hypertension Insomnia Low back pain Surgical History Surgical History Status post laminectomy Social History Social History Social History: smoking marjauna at night to help with rest Smoking status: Current every day smoker Alcohol intake: never Exam Const: General: healthy appearing and no acute distress Nutritional Appearance: well nourished Orientation/consciousness: patient oriented x3 Limitations: no limitations Neck: Neck: normal visual inspection Chest: Chest palpation & inspection: normal inspection of the chest Resp: Effort & Inspection: normal respiratory effort Auscultation: clear to auscultation bilaterally Cardio: Rate: regular rate Rhythm: regular rhythm GI: GI Palp: Yes Soft to palpation Auscultation: normal bowel sounds Skin: General skin exam: normal color Rashes: no rashes Wounds: no wounds Neuro: General: patient oriented x3, moves all extremities, no meningeal signs and no focal motor deficits Speech: normal speech Extrem: Other: left leg swollen with mild pitting edema. DP pulses present. Psych: Mental Status: mental status grossly normal Affect: normal affect Attitude: cooperative Course Vital Signs Vital signs: Vital Signs Temperature 97.8 F 07/16/24 07:38 Pulse Rate 88 07/16/24 07:38 Respiratory Rate 20 07/16/24 07:38 Blood Pressure 150/87 H 07/16/24 07:38 Pulse Oximetry 98 07/16/24 07:38 Oxygen Delivery Room Air 07/16/24 07:38 Temperature 97.8 F 07/16/24 07:38 Pulse Rate 88 07/16/24 07:38 Respiratory Rate 20 07/16/24 07:38 Blood Pressure 150/87 H 07/16/24 07:38 Pulse Oximetry 98 07/16/24 07:38 Oxygen Delivery Room Air 07/16/24 07:38 MDM - Extremity Injury (Lower) MDM Narrative Medical decision making narrative: Pt here from ultrasound. Pt has extensive DVT in left leg and has free floating section of thrombus as well. will consult vascular surgery. Pt would prefer [facility] in [place] so will start there. Will repeat some labs and await consult for possible torres
--- NOTE | 2024-07-16 08:21 | PC.NURSE ---
Two 4 and two 6 [place] wraps were applied to pt's left leg, toes to groin, by Kaleigh valencia. Pt has intact sensation, pedal pulse and cap refill after wraps applied. No discomfort noted. Pt states leg feels better with wraps on.
[2024-07-16 08:33] LABS: Basophils Absolute Auto 0.03 K/mm3 (0.00-0.10); Basophils Percent Auto 0.5 % (0.0-1.0); Eosinophils Percent Auto 1.5 % (1.0-6.0); Hematocrit 39.5 % (37.0-46.0); Hemoglobin 13.3 g/dL (12.4-15.3); Immature Granulocyte Absolute 0.08 K/mm3 (0.00-0.00); Immature Granulocyte Percent A 1.2 % (0.0-0.0); Lymphocytes Absolute Auto 1.89 K/mm3 (1.10-4.50); Lymphocytes Percent Auto 28.9 % (18.0-42.0); Mean Corpuscular HGB Conc 33.7 g/dL (32-36); Mean Corpuscular Hemoglobin 33.9 pg (27.0-31.0); Mean Corpuscular Volume 100.8 fL (78.0-102.0); Mean Platelet Volume 10.2 fl (8.7-11.0); Monocytes Percent Auto 6.1 % (2.0-11.0); Neutrophils Absolute Auto 4.03 K/mm3 (1.70-7.20); Neutrophils Percent Auto 61.8 % (50.0-70.0); Platelet Count Result 114 K/mm3 (150-420); Red Blood Count 3.92 M/mm3 (4.70-6.10); Red Cell Distribution Width 13.6 % (11.6-14.4); White Blood Count 6.5 K/mm3 (4.8-10.8)
--- NOTE | 2024-07-16 08:35 | PC.NURSE ---
Pt states that he has to go home and take care of some business at his house before he can be transferred. Doctor talked to pt about risks and benefits of leaving. Pt verbalized understanding and states that he has to leave, but he will return samy. Pt is alert and oriented and understands risks of leaving.
[2024-07-16 08:42] LABS: INR 0.9; Partial Thromboplastin Time 24.4 Sec (23.9-30.70); Prothrombin Time 10.3 Seconds (9.50-12.1)
[2024-07-16 08:44] LABS: Alanine Aminotransferase 46 U/L (16-63); Albumin Level 3.3 g/dL (3.4-5.0); Alkaline Phosphatase 103 U/L (46-116); Anion Gap 8 mmol/L (4-12); Aspartate Amino Transferase 14 U/L (15-37); Bilirubin,Total 0.6 mg/dL (0.00-1.00); Blood Urea Nitrogen 14 mg/dL (7-18); Carbon Dioxide 28 mmol/L (21-32); Chloride 100 mmol/L (98-108); Estimated CRCL calculation 64 ml/min; Estimated Glomerular Filt Rate > 60; Glucose 386 mg/dL (70-99); Osmolality Calculated 298 mOsm/kg (285-295); Potassium 3.8 mmol/L (3.5-5.1); Sodium 136 mmol/L (136-145); Total Protein 6.9 g/dL (6.4-8.2)
--- NOTE | 2024-07-16 09:34 | PC.NURSE ---
Pt just called ER and states that sister is taking him directly to [facility] for admission.
--- NOTE | 2024-07-16 09:41 | PC.NURSE ---
Spoke to Jocy at [facility] and told her that pt left AMA and he called and said is having his sister drive him to [facility].
== END 2024-07-16 08:53 | disposition left against medical advice (07) ==
PROVIDERS: Emergency Provider Emergency Medicine; PCP Internal Medicine
DX: I82.492 Acute embolism and thrombosis of other specified deep vein of left lower extremity (principal); E13.9 Other specified diabetes mellitus without complications; I10 Essential (primary) hypertension; Z79.4 Long term (current) use of insulin; Z79.899 Other long term (current) drug therapy
CPT/HCPCS: 36415; 80053; 85025; 85610; 85730; 99283

== ENCOUNTER 2024-09-11 12:49 | Outpatient (CLI) | payer MEDICARE, MEDICAID, SELFPAY ==
--- NOTE | ~2024-09-11 | CT_ITS ---
EXAMINATION:CT diagnostic chest wo con DATE: 09/11/2024 13:03 INDICATION: Lung nodule. TECHNIQUE: Computed tomography (CT) of the chest was performed without intravenous contrast. Automate d exposure control and iterative reconstruction technique were employed. The dose-length product (DLP ) was 276.88 mGy-cm. COMPARISON: Chest CT 04/30/2024, 04/20/23 FINDINGS: There is mild scarring at the lung apices. There is mild emphysema. There is a 6 mm nodule in right upper lobe. No pleural effusion. The heart size is normal. There are coronary artery calcifi cations. No pericardial effusion. There is ectasia of ascending aorta measuring 4.1 cm. The liver dem onstrates a nodular surface contour, consistent with cirrhosis. There is severe cervical spondylosis and moderate thoracic spondylosis. IMPRESSION: 1. 6 mm pulmonary nodule, stable from 04/30/2024 and increased in size from 08/20/2023, probably benign . Noncontrast low-dose chest CT is recommended in 6 months. 2. Cirrhosis of the liver. Reviewed, dictated and finalized at location A. OR [employer]ER IMPRESSION: 1. 6 mm pulmonary nodule, stable from 04/30/2024 and increased in size from 08/20, probably benign. Noncontrast low-dose chest CT is recommended in 6 month s. 2. Cirrhosis of the liver.
== END 2024-09-11 12:50 | disposition home or self-care (01) ==
PROVIDERS: PCP Internal Medicine; Visit Provider Internal Medicine
DX: R91.8 Other nonspecific abnormal finding of lung field (principal); K74.60 Unspecified cirrhosis of liver
CPT/HCPCS: 71250

== ENCOUNTER 2024-09-14 12:56 | Outpatient (CLI) | payer MEDICARE, MEDICAID, SELFPAY ==
--- NOTE | ~2024-09-14 | CT_ITS ---
EXAMINATION: CT lumbar spine wo con DATE: 09/14/2024 13:16 INDICATION: Degeneration of intervertebral disc of lumbar spine. TECHNIQUE: Computed tomography (CT) of the lumbar spine was performed without intravenous contrast. A utomated exposure control and iterative reconstruction technique were employed. The dose-length produ ct was 1058.88 mGy-cm. COMPARISON: Lumbar spine CT 01/13/2021 FINDINGS: There is 3 degrees levocurvature of thoracic lumbar spine. There are changes of anterior fu hemanth procedure at L5-S1 with interbody device and anterior plate and screws. There is no interbody br idging bone. There are changes of anterior fusion procedures at L3-L4 and L4-L5 with interbody device s and healed interbody bone graft. There are changes of posterior fusion procedure from L3 to S1 with pedicle screws. The following disc levels are specifically discussed: L1-L2: The disc is bulging. There is severe right and moderate left facet joint osteoarthritis. There is mild left neural foraminal stenosis. There is mild central canal stenosis. L2-L3: The disc is bulging. There is severe bilateral facet joint osteoarthritis. There is moderate b ilateral neural foraminal stenosis. There is moderate central canal stenosis. L3-L4: There is mild bilateral facet joint hypertrophy. There is mild bilateral neural foraminal sten osis. There is no central canal stenosis. There is posterior decompression. L4-L5: There is mild right facet joint hypertrophy. There is moderate bilateral neural foraminal sten osis. There is no central canal stenosis. There is posterior decompression. L5-S1: There is severe bilateral facet joint osteoarthritis. There is mild right and moderate left ne ural foraminal stenosis. There is mild central canal stenosis. There is posterior decompression. IMPRESSION: 1. Moderate lumbar spondylosis with interval worsening at L2-L3. 2. Anterior and posterior fusion procedures from L3 to S1. Reviewed, dictated and finalized at location A. T COOPER
== END 2024-09-14 12:57 | disposition home or self-care (01) ==
LOC: CHSIMG 12:57
PROVIDERS: PCP Internal Medicine
DX: M51.369 Other intervertebral disc degeneration, lumbar region without mention of lumbar back pain or lower extremity pain (principal); M43.06 Spondylolysis, lumbar region; Z98.1 Arthrodesis status
CPT/HCPCS: 72131

== ENCOUNTER 2024-09-21 16:08 | Outpatient (RCR) | payer MEDICARE, MEDICAID, SELFPAY ==
--- NOTE | 2024-09-21 16:57 | OPREHPOC ---
Outpatient Therapy Plan of Care This is a Multidisciplinary Plan of Care that may contain components documented by all disciplines (PT, OT, and ST.) PT Problem 1 PT Problem #1 Knowledge Deficit PT Goal 1 Goal / Goal Update 1. independent and compliant with HEP Target Visit 6 PT Problem 2 PT Problem #2 Pain PT Goal 1 Goal / Goal Update 1. decrease pain at worst to 6/10 or less in the lower back and legs Target Visit 12 PT Problem 3 PT Problem #3 Impaired Range of Motion PT Goal 1 Goal / Goal Update 1. patient to display lumbar active flexion to ankles 2. patient to display lumbar active side bending to 30 degrees or better bilat Target Visit 12 PT Problem 4 PT Problem #4 Impaired Strength PT Goal 1 Goal / Goal Update 1. improve bilateral hip strength to 4+/5 or better overall Target Visit 12 PT Problem 5 PT Problem #5 Impaired Functional Mobil PT Goal 1 Goal / Goal Update 1. oswestry to display 40% or less functional deficits 2. patient to ambulate 6 minutes without rest for 800ft or more without L LE circumduction 3. patient to display mild hip flexor and quadriceps tightness or less. Target Visit 12
--- NOTE | 2024-09-21 16:57 | PTOPEVAL1 ---
Assessment and note entered by JT File, PT Evaluation Information Assessment Status Evaluation ICD-10 Condition Codes (PT) Pain in low back M54.50 Other ICD-10 Condition Codes ( Z98.1; M53.3 PT) Onset 09/14/24 Subjective Information patient reports he is coming to PT for back and leg pain. he reports he is struggling to walk due to the increase in pain in his legs. he reports he will become unable to move and then has to bend over/sit to rest to relieve his pain. he reports it is difficult to get around his house without sitting to rest. he reports he did develop some blood clots in the lower legs back in may, but has been treating with medication since. he reports has to sleep on his stomach with 3 pillows under his hips just to get comfortable. he reports he is going to have surgery, but is unable to have it while still on the blood thinners from his clots. he has tried several injections since 2019 that have not helped. Reported Pain Level Pain Score 3: Self Report Assessment PT Clinical Summary mr. springer is a 64 yo man who presents to skilled PT services for evaluation and treatment of lumbar spine pain. he presents today with decreased lumbar rom, pain, paraspinal mm hypertonicity, hip mm tightness, and hip/core weakness. he is limited in ambulation, and displays altered gait mechanics. he shows signs and symptoms consistent with a lumbar spinal stenosis. continued skilled PT is indicated to improve patients objective/functional deficits and return to prior level walking and functional activity performance. Plan of Care Interventions Electrical Stimulation,Gait Training,Hot Pack/Cold Pack,Manual Therapy,Neuro Re-education,Patient/ Caregiver Educati,Therapeutic Activities, Therapeutic Exercise PT Services Indicated Yes Treatment Frequency and 3x weekly for 12 visits Duration These treatments will address the objective and functional deficits as defined above. The patient will be advanced safely and appropriately in order for the patient to progress towards his/her prior level of function. Additional exercises will be introduced and as well as a comprehensive home exercise program upon discharge, if needed, ?to ensure carryover of functional gains achieved in the clinic. This treatment plan has been reviewed and agreement upon by the patient.
--- NOTE | 2024-09-25 17:10 | PCPTNOTE ---
Cancelled session due to pain. Pt reports he has been in pain since his session Tuesday and would like to hold until he sees his doctor tomorrow (09/26/24).
--- NOTE | 2024-11-08 16:00 | OPREHPOC ---
Outpatient Therapy Plan of Care This is a Multidisciplinary Plan of Care that may contain components documented by all disciplines (PT, OT, and ST.) PT Problem 1 PT Problem #1 Knowledge Deficit PT Goal 1 Goal / Goal Update 1. independent and compliant with HEP Target Visit 6 PT Problem 2 PT Problem #2 Pain PT Goal 1 Goal / Goal Update 1. decrease pain at worst to 5/10 or less in the lower back and legs Target Visit 12 PT Problem 3 PT Problem #3 Impaired Range of Motion PT Goal 1 Goal / Goal Update 1. patient to display lumbar active flexion to ankles 2. patient to display lumbar active side bending to 30 degrees or better bilat Target Visit 12 PT Problem 4 PT Problem #4 Impaired Strength PT Goal 1 Goal / Goal Update 1. improve bilateral hip strength to 4+/5 or better overall Target Visit 12 PT Problem 5 PT Problem #5 Impaired Functional Mobility PT Goal 1 Goal / Goal Update 1. oswestry to display 40% or less functional deficits 2. patient to ambulate 6 minutes without rest for 800ft or more without L LE circumduction 3. patient to display mild hip flexor and quadriceps tightness or less. Target Visit 12
--- NOTE | 2024-11-08 16:00 | PTOPREEVAL ---
Assessment and note entered by JT File, PT Evaluation Information Assessment Status Re-evaluation ICD-10 Condition Codes (PT) Pain in low back M54.50 Other ICD-10 Condition Codes ( Z98.1; M53.3 PT) Onset 09/14/24 Subjective Information patient reports he had a lot of pain after his first therapy visit back in August. he reports he was avoiding coming back due to the pain, but just learned that he is not going to be able to get his surgery on the lower back as soon as he thought. he reports he continues to have the most issue with his L hip and cramping down the L LE. he reports pain is the worst with standing, walking, and doing dishes. he reports sitting on the edge of a chair and leaning forward reduces his pain and symptoms. Reported Pain Level Pain Score 3: Self Report Assessment PT Clinical Summary mr. springer is a 64 yo man who returns to skilled PT services after his initial evaluation on 09/21. he was away from PT due to pain caused in the lower back and down the L LE from his initial evaluation. however, he reports he is now willing to try and come back and work on developing other exercises that wont hurt, but will decrease his pain. he presents today with continued lumbar decreased rom, hip mm weakness, and abnormal gait/ posture. continued skilled PT is indicated to improve his objective/functional deficits and improve his quality of life/functional performance leading up to lumbar surgery. Plan of Care Interventions Electrical Stimulation,Gait Training,Hot Pack/Cold Pack,Manual Therapy,Neuro Re-education,Patient/ Caregiver Education,Therapeutic Activities, Therapeutic Exercise PT Services Indicated Yes Treatment Frequency and return to skilled PT 2x weekly for 10 more visits Duration from today (12 total). These treatments will address the objective and functional deficits as defined above. The patient will be advanced safely and appropriately in order for the patient to progress towards his/her prior level of function. Additional exercises will be introduced and as well as a comprehensive home exercise program upon discharge, if needed, ?to ensure carryover of functional gains achieved in the clinic. This treatment plan has been reviewed and agreement upon by the patient.
--- NOTE | 2024-12-13 15:55 | PCPTNOTE ---
Cancelled session today. Reports he cannot make it.
== END 2024-12-20 23:59 | disposition home or self-care (01) ==
LOC: CHSPT 16:08
DX: M51.360 Other intervertebral disc degeneration, lumbar region with discogenic back pain only (principal); M53.3 Sacrococcygeal disorders, not elsewhere classified; Z98.1 Arthrodesis status
CPT/HCPCS: 97014; 97110; 97161; 97164; 97530; G0283

== ENCOUNTER 2024-11-20 19:30 | Emergency (ER) | payer MEDICARE, MEDICAID, SELFPAY ==
--- NOTE | ~2024-11-20 | US_ITS ---
EXAMINATION: US venous doppler [facility] DATE: 11/20/2024 20:19 INDICATION: Left leg pain and swelling TECHNIQUE: Grayscale ultrasound images without and with compression and Doppler ultrasound images of the left lower extremity veins were obtained. COMPARISON: 07/16/2024 FINDINGS: The visualized portions of left common femoral vein, profunda (deep) femoral vein and femoral veins a re patent. Noncompressibility and absence of flow is identified within the left popliteal, posterior tibial and peroneal veins. This is improved from previous examination dated 07/16/2024 when the thrombus included the left femoral vein in addition to the popliteal, posterior tibial and peroneal veins. Greater saphenous vein outflow is patent. IMPRESSION: Recanalization of the femoral vein with persistent thrombus in the popliteal, posterior tibial and pe roneal veins. Reviewed, dictated and finalized at location A. ONAL CARE WORKER IMPRESSION: Recanalization of the femoral vein with persistent thrombus in the popliteal, p osterior tibial and peroneal veins.
[2024-11-20 19:45] VITALS: BP 138/88; PULSE 97; RESP 14; TEMP 36.6; O2SAT 100
--- NOTE | 2024-11-20 21:00 | ED.GENADULT ---
HPI - General Adult General Chief complaint: Extremity Problem,Nontraumatic Stated complaint: leg pain, concern for dvt Time Seen by Provider: 11/20/24 20:56 History of Present Illness HPI narrative: Patient is a 64-year-old gentleman who presents emergency department chief complaint of left leg pain. Patient reports he has prior history of DVT reports that he was diagnosed back in July and is currently on Eliquis the patient reports not miss any doses of his blood thinner reports that he was at physical therapy today and reported that his leg was bothering him a little bit more than normal the patient denies chest pain denies shortness of breath reports he has been compliant with his blood thinner. Related Data Home Medications ?Medication ?Instructions ?Recorded ?Confirmed ?Last Taken ?Type buprenorphine 10 mcg/hour weekly 1 patch topical WEEKLY 04/12/22 07/16/24 Unknown History transdermal patch dulaglutide 1.5 mg/0.5 mL 1.5 mg subcut WEEKLY 04/12/22 07/16/24 Unknown History subcutaneous pen injector (Trulicity) baclofen 20 mg tablet 20 mg PO DAILY 07/13/24 07/16/24 Unknown History ezetimibe 10 mg tablet 10 mg PO DAILY 07/13/24 07/16/24 Unknown History ibuprofen 800 mg tablet 800 mg PO DAILY 07/13/24 07/16/24 Unknown History lisinopril 10 mg tablet 10 mg PO DAILY 07/13/24 07/16/24 Unknown History nortriptyline 25 mg capsule 25 mg PO DAILY 07/13/24 07/16/24 Unknown History zolpidem 10 mg tablet 10 mg PO DAILY 07/13/24 07/16/24 Unknown History Allergies Allergy/AdvReac Type Severity Reaction Status Date / Time niacin AdvReac Flushing Verified 07/16/24 07:51 Review of Systems Review of Systems: A 10 system review of systems was completed on the patient and is negative except for what is stated in the HPI. Nursing and ancillary documentation was reviewed. PMFSH Past Medical History Medical History Low back pain Hypercholesterolemia Hypertension Diabetes 1.5, managed as type 1 Insomnia Failed back syndrome Surgical History Surgical History Status post laminectomy Social History Social History Social History: smoking marjauna at night to help with rest Smoking status: Current every day smoker Alcohol intake: never Exam Narrative: GENERAL: Well-appearing, well-nourished, and in no acute distress. HEAD: Normocephalic, atraumatic. EYES: PERRLA and EOMI. ENT: Nares clear, no rhinorrhea or epistaxis. Mucous membranes moist. NECK: Supple. CHEST: Clear to auscultation. No respiratory distress. HEART: Regular rate and rhythm. No murmur heard. Normal peripheral pulses. ABDOMEN: Soft, nontender, nondistended, normal active bowel sounds. EXTREMITIES: Normal range of motion. No edema. SKIN: Warm, dry, no rash. NEURO: No focal deficits. Alert and oriented x3. PSYCH: Normal mood and affect. Course Vital Signs Vital signs: Vital Signs Temperature 36.6 C 11/20/24 19:45 Pulse Rate 97 11/20/24 19:45 Respiratory Rate 14 11/20/24 19:45 Blood Pressure 138/88 11/20/24 19:45 Pulse Oximetry 100 11/20/24 19:45 Oxygen Delivery Room Air 11/20/24 19:45 Temperature 36.6 C 11/20/24 19:45 Pulse Rate 97 11/20/24 19:45 Respiratory Rate 14 11/20/24 19:45 Blood Pressure 138/88 11/20/24 19:45 Pulse Oximetry 100 11/20/24 19:45 Oxygen Delivery Room Air 11/20/24 19:45 Medical Decision Making [facility] Narrative Medical decision making narrative: Differential diagnosis includes DVT, chronic DVT Ultrasound showed no evidence of acute DVT there was evidence of chronic DVT that is improved from his previous ultrasound Vital Signs Vital Signs: Vital Signs Temperature 36.6 C 11/20/24 19:45 Pulse Rate 97 11/20/24 19:45 Respiratory Rate 14 11/20/24 19:45 Blood Pressure 138/88 11/20/24 19:45 Pulse Oximetry 100 11/20/24 19:45 Oxygen Delivery Room Air 11/20/24 19:45 Temperature 36.6 C 11/20/24 19:45 Pulse Rate 97 11/20/24 19:45 Respiratory Rate 14 11/20/24 19:45 Blood Pressure 138/88 11/20/24 19:45 Pulse Oximetry 100 11/20/24 19:45 Oxygen Delivery Room Air 11/20/24 19:45 Discharge Plan Discharge Clinical Impression: Leg pain, left Patient Disposition: Home, Self-Care Condition: Stable Instructions: Antibiotic Form, Leg Pain (ED) Patient Language: Luxembourgish Prescriptions: No Action buprenorphine 10 mcg/hour patch weekly 1 patch topical WEEKLY Trulicity 1.5 mg/0.5 mL pen injector 1.5 mg SUBCUT WEEKLY ibuprofen 800 mg tablet 800 mg PO DAILY baclofen 20 mg tablet 20 mg PO DAILY nortriptyline 25 mg capsule 25 mg PO DAILY lisinopril 10 mg tablet 10 mg PO DAILY zolpidem 10 mg tablet 10 mg PO DAILY ezetimibe 10 mg tablet 10 mg PO DAILY Eliquis 5 mg tablet 10 mg PO BID Qty: 10 0RF Follow-up/Referrals: UNKNOWN,DOCTOR [Primary Care Provider] - Time of Disposition: 21:02
[2024-11-20 21:12] VITALS: BP 171/94; PULSE 88; RESP 16; O2SAT 95
--- OUTSIDE RECORDS SUMMARY | 2024-11-22 20:27 | XMS_ITS | Patient Health Summary ---
Author Organization [facility] Address [address] [place] [address] Care Team Providers Care Hydrologist Name Role Phone Roseanna Yung MD Primary Care Provider [phone] Note from [facility],non-owned Affiliates and Associated Physician Practices is [facility] organization consisting of ambulatory clinics and hospital sitesin [place], [place], [place] and [place]. This disclosure is being madepursuant to the Care Everywhere program and may not contain all information available regarding this patient. Last updated 18.[facility] Allergies * Hmg-Coa-R Inhibitors(Unknown) * Niacin(Other,Unknown) -Low Criticality Medications * Be aware that medications may not be up to date on this document. Alwaysverify current medications with the patient. * ezetimibe (ZETIA) 10 MG tablet(Started 09/10/2020) Take 10 mg by mouth once daily * glimepiride (AMARYL) 2 MG tablet(Started 11/03/2020) Take 2 mg by mouth 2 times daily * insulin degludec (TRESIBA FLEXTOUCH) 200 UNIT/ML pen(Started 12/06/2019) Tresiba FlexTouch U-200 insulin 200 unit/mL (3 mL) subcutaneous pen * lisinopril (PRINIVIL; ZESTRIL) 20 MG tablet(Started 10/30/2020) Take 20 mg by mouth once daily * metFORMIN (GLUCOPHAGE) 850 MG tablet(Started 01/14/2020) Take 850 mg by mouth 2 times daily * pravastatin (PRAVACHOL) 20 MG tablet(Started 09/10/2020) Take 20 mg by mouth once daily * pregabalin (LYRICA) 150 MG capsule(Started 11/19/2020) Take 150 mg by mouth once daily * zolpidem (AMBIEN) 10 MG tablet(Started 03/13/2021) TAKE ONE TABLET BY MOUTH NIGHTLY AT BEDTIME NEEDED FOR SLEEP * oxyCODONE, immediate release, (OXY-IR) 15 MG tablet(Started 05/05/2021) Social History Tobacco Use Types Packs/Day Years Used Date Smoking Tobacco: Every Day Smokeless Tobacco: Never Alcohol Use Standard Drinks/Week Comments Never 0 (1 standard drink = 0.6 oz pur e alcohol) AUDIT-C Answer Date Recorded Q1: How often do you have a drink containing alc ohol? 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 Scanned Document NEUROLOGY ORDERABLES * IMAGING RADIOLOGY XRAY RESULTS ORDER (01/13/2021) Anatomical Region Laterality Modality Other Narrative 01/13/2021 Ordered by an unspecified provider. Scanned Document IMAGING Care Teams Hydrologist Relationship Specialty Start Date End Date Roseanna Yung MD [facility] [address] [phone] PCP - General 11/20/20
--- OUTSIDE RECORDS SUMMARY | 2024-11-22 20:27 | XMS_ITS | Clinical Summary ---
Author Organization [facility] [employer] Address [address] [place] [address] Care Team Providers Care Microarray Operations Vice President Name Role Phone Roseanna Yung MD Primary Care Provider [phone] Source Comments [facility] [employer],non-owned Affiliates and Associated Physician Practices is amultiple site organization consisting of ambulatory clinics and hospital sitesin [place], [place], [place]. This disclosure is being madepursuant to the Care Everywhere program and may not contain all information available regarding this patient. Last updated 18.[facility] [employer] Allergies Active Allergy Reactions Criticality Noted Date Comments Hmg-Coa-R Inhibitors Unknown 02/27/2019 Niacin Other,Unknown Low 08/11/2015 Hot Flashes Hot flash Medications * Be aware that medications may not be up to date on this document. Alwaysverify current medications with the patient. Medication Sig Dispensed Refills Start Date End Date Status ezetimibe (ZETIA) 10 MG tablet Take 10 mg by mouth once daily 09/10/2020 Active glimepiride (AMARYL) 2 MG tablet Take 2 mg by mouth 2 times daily 11/03/2020 Active insulin degludec (TRESIBA FLEXTOUCH) 200 UNIT/ML pen Tresiba FlexTouch U-200 insulin 200 unit/mL (3 mL) subcutaneous pen 12/06/2019 Active lisinopril (PRINIVIL; ZESTRIL) 20 MG tablet Take 20 mg by mouth once daily 10/30/2020 Active metFORMIN (GLUCOPHAGE) 850 MG tablet Take 850 mg by mouth 2 times daily 01/14/2020 Active pravastatin (PRAVACHOL) 20 MG tablet Take 20 mg by mouth once daily 09/10/2020 Active pregabalin (LYRICA) 150 MG capsule Take 150 mg by mouth once daily 11/19/2020 Active zolpidem (AMBIEN) 10 MG tablet TAKE ONE TABLET BY MOUTH NIGHTLY AT BEDTIME NEEDED FOR SLEEP 03/13/2021 Active oxyCODONE, immediate release, (OXY-IR) 15 MG tablet 05/05/2021 Active Social History Tobacco Use Types Packs/Day Years [...] T Respiratory Rate 18 01/05/2021 11:04 AM 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 Oxygen Saturation 98% 05/11/2021 9:29 AM CDT Inhaled Oxygen Concentration - - Weight 99.3 kg (219 lb) 05/11/2021 9:29 AM CDT Height 180.3 cm (5' 11 ) 05/11/2021 9:29 AM CDT Body Mass Index 30.54 05/11/2021 9:29 AM CDT Plan of Treatment Health Maintenance Due Date Last Done Comments COLOGUARD (AGES 45-75) - COL ON CA SCREENING 1958 COLON MONITORING 1958 COLONOSCOPY - COLON CA SCREENING 1958 CT COLONOGRAPHY - COLON CA SCREENING 1958 Colorectal Cancer Screening 1958 FIT - COLON CA SCREENING 1958 FLEX SIG - COLON CA SCREENING 1958 HEPATITIS C SCREENING 07/03/1976 DTAP/TDAP/TD VACCINES (1 - Tdap) 1977 PNEUMOCOCCAL VACCINE 50+ (1 of 2 - PCV) 1977 ZOSTER VACCINE (1 of 2) 2008 SCREENING FOR DIABETES 01/05/2021 AAA SCREENING 2023 COVID-19 VACCINE (1 - 2023-2 5 season) 2024 INFLUENZA VACCINE (#1) 2024 DEPRESSION SCREENING 10/31/2024 MEDICARE AWV ? CALENDAR YEAR 2024 Respiratory Syncytial Virus (RSV) Vaccine Pt: or over 60 yrs (1 - 1-dose 75+ series) 2033 HEPATITIS B VACCINE Aged Out No longe r eligible based on patient's age to complete this topic HIB VACCINE Aged Out No longer eligi ble based on patient's age to complete this topic HPV VACCINE Aged Out No longer eligi ble based on patient's age to complete this topic MENINGOCOCCAL (Group B) VACCINE Aged Out No longer eligible based on patient's age to complete this topic MENINGOCOCCAL VACCINE Aged Out No rey shay eligible based on patient's age to complete this topic Care Teams Microarray Operations Vice President Relationship Specialty Start Date End Date Roseanna Yung MD [address] [place] [address] [place] [phone] PCP - General 11/20/20
--- OUTSIDE RECORDS SUMMARY | 2024-11-22 20:27 | XMS_ITS | Referral Summary ---
Author Organization [facility] [employer] Address [address] [place] [address] Care Team Providers Care State Comptroller Name Role Phone Roseanna Yung MD Primary Care Provider [phone] Source Comments [facility] [employer],non-owned Affiliates and Associated Physician Practices is amultiple site organization consisting of ambulatory clinics and hospital sitesin [place], [place], [place] and [place]. This disclosure is being madepursuant to the Care Everywhere program and may not contain all information available regarding this patient. 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
--- OUTSIDE RECORDS SUMMARY | 2024-11-22 20:27 | XMS_ITS | CONTINUITY OF CARE DOCUMENT ---
Author Name vernon junior Address Unknown Organization [facility] Address [address] [place] [address] Phone [phone] Care Team Providers Care Straightening Roll Operator Name Role Phone Rolly MAYERS, Harriett Unavailable [phone] TUAN MAYERS, JARAD Unavailable [phone] INSURANCE PROVIDERS Payer name Policy type / Coverage type [place] red democrat [place] [employer] Medicaid 1 [id number] [place] [employer] Medicare [id number]
--- OUTSIDE RECORDS SUMMARY | 2024-11-22 20:28 | XMS_ITS | Referral Summary ---
Author Organization [facility] Address [facility] [place] [address] Care Team Providers Care Stock Checkerer Name Role Phone Roseanna Yung MD Primary Care Provider [phone] Priya Hoyt MD Unavailable Gerald Templeton Ud, MD Unavailable Encounters Date Type Department Care Team Description 11/08/2024 Telephone [facility] Medical [facility] Internal Medicine [address] [place] [address] [address] [place] [address] Angelia Rice RN Diabetes 10/19/2024 Telephone [facility] Internal Medicine [address] [place] [address] [address] [place] [address] Roseanna Yung MD Med Refill 09/14/2024 Telephone [facility] Internal Medicine [address] [place] [address] [address] [place] [address] Roseanna Yung MD 09/14/2024 Orders Only [facility] [address] [place] [address] [address] [place] [address] Alejandro Lawrence MD Degeneration of intervertebral disc of lumbar region with discogenic back pain (Primary Dx); Lumbar pain; Low back pain, unspecified back pain laterality, unspecified chronicity, unspecified whether sciatica present; Sacroiliac joint pain; S/P lumbar and lumbosacral fusion by anterior technique; S/P lumbar fusion 09/12/2024 2:35 PM EXCELLENCE COACH - 09/12/2024 11:59 PM EXCELLENCE COACH Hospital Encounter [facility] Diag Imaging [address] [place] [id number] Degeneration of intervertebral disc of lumbar region Discharge Disposition: Discharge to home or self care 09/12/2024 2:00 PM EXCELLENCE COACH Office Visit [facility] [address] [place] [address] [address] [place] [phone] Alejandro Lawrence MD Lumbar pain (Primary Dx); Degeneration of intervertebral disc of lumbar region 09/11/2024 Orders Only [facility] Health Information Management [address] [place] [address] Roseanna Yung MD 09/11/2024 Telephone [facility] Medical [facility] Internal Medicine [address] [place] [address] [address] [place] [address] Keisha Torres Unsuccessful Phone Call 1 ([facility] Med Adherece - past due) 09/07/2024 ACO Clinical Pharmacist [facility] Accountable Care Organization [address] [place] [address] Enid Quinteros [facility] 08/31/2024 Telephone [facility] Medical [facility] Internal Medicine [address] [place] [address] [address] [place] [address] Roseanna Yung MD Medical Question/Miscellaneou s 08/27/2024 2:45 PM CDT Office Visit [facility] Medical [facility] Internal Medicine [address] [place] [address] [address] [place] [phone] Roseanna Yung MD Hypertension, essential (Primary Dx); DVT (deep venous thrombosis) (CMS/HCC) ([facility]); BMI 27.0-27.9,adult; Degeneration of intervertebral disc of lumbar region with lower extremity pain; Mixed hyperlipidemia; DM type 2 with diabetic peripheral neuropathy ([facility]); Statin myopathy from Last 3 Months Allergies Active Allergy Reactions Criticality Noted Date Comments Niacin Unknown 02/27/2019 Hot flash Utjahgs-Bhp-Ptp Reductase Inhibitors Muscle pain Medium 02/27/2019 Medications pen needle, diabetic (BD Ultra-Fine Mini Pen Needle) 31 gauge x 01/13 needleIndicat ions:DM type 2 with diabetic peripheral neuropathy (HCC) Use four times daily 200 each Active blood glucose diagnostic stripIndicati ons:DM type 2 with diabetic peripheral neuropathy (HCC) Use 4 times daily 200 strip Active apixaban (ELIQUIS) 5 mg tablet Take 1 tablet (5 mg total) by mouth 2 (two) times a day 60 tablet 5 Active nortriptyline (PAMELOR) 25 mg capsule Take 1 capsule (25 mg total) by mouth nightly Active lisinopriL (PRINIVIL,ZES TRIL) 10 mg tablet TAKE ONE TABLET BY MOUTH DAILY 100 tablet 1 024 Active zolpidem (AMBIEN) 5 mg tablet TAKE ONE TABLET BY MOUTH BEDTIME NEEDED FOR SLEEP 30 tablet 2 024 Active ezetimibe (ZETIA) 10 mg tablet TAKE ONE TABLET BY MOUTH DAILY 90 tablet 1 024 Active baclofen (LIORESAL) 20 mg tablet TAKE ONE TABLET BY MOUTH THREE TIMES A DAY 30 tablet 025 Active dulaglutide (Trulicity) 0.75 mg/0.5 mL pen injector INJECT 0.75MG SUBCUTANEOUSLY EVERY 7 DAYS 2 mL 1 025 Active sildenafiL (VIAGRA) 100 mg tablet Take 1 tablet (100 mg total) by mouth as needed for erectile dysfunction 6 tablet 025 Active insulin degludec (TRESIBA) 200 unit/mL (3 mL) pen for injection Inject 0.22 mL (44 Units total) under the skin daily 025 Active varenicline tartrate (CHANTIX ANDREWS) 0.5 mg (11)- 1 mg (42) tablet Use as directed on package instructions, try to quit smoking after 1 week. 53 tablet 3 024 2023 insulin degludec (TRESIBA) 200 unit/mL (3 mL) pen for injection Inject 0.18 mL (36 Units total) under the skin daily 15 mL 3 024 2024 Discontinued Trulicity 0.75 mg/0.5 mL pen injector INJECT 0.75MG SUBCUTANEOUSLY EVERY 7 DAYS 2 mL 5 024 2024 Discontinued baclofen (LIORESAL) 20 mg tablet TAKE ONE TABLET BY MOUTH THREE TIMES A DAY 30 tablet 1 024 2024 Discontinued sildenafiL (VIAGRA) 100 mg tablet TAKE ONE TABLET BY MOUTH DAILY NEEDED FOR ERECTILE DYSFUNCTION 6 tablet 024 2024 Discontinued(R eorder) insulin degludec (TRESIBA) 200 unit/mL (3 mL) pen for injection Inject 0.2 mL (40 Units total) under the skin daily 025 2024 Discontinued Active Problems Problem Noted Date Diagnosed Date DVT (deep venous thrombosis) ([facility]) Assessment & Plan (08/27/2024 3:20 PM CDT): Patient has bilateral leg DVT. He is on Eliquis 5 mg b.i.d.. We will continue treatment for 6 months because of the extent of DVT. Assessment & Plan (07/25/2024 4:15 PM CDT): Patient has bilateral leg DVT. He is on Eliquis 5 mg b.i.d.. We will continue treatment for 6 months because of the extent of DVT. Statin myopathy 07/07/2023 Overview (09/07/2024): Do not recommend statin re-trial given history of intolerance (myopathy). Provider to consider billing statin myopathy (G72.0) with assessment/plan in note on annual basis Assessment & Plan (09/07/2024 12:33 PM EXCELLENCE COACH): Patient has myopathy with statins Assessment & Plan (04/10/2024 7:46 AM CDT): Patient could not take statins because of muscle ache and weakness Assessment & Plan (01/05/2024 2:55 PM EXCELLENCE COACH): Patient could not take statins because of muscle ache and weakness Assessment & Plan (07/07/2023 12:30 PM CDT): Patient has myalgia with statins. Thrombocytopenia 07/06/2023 Assessment & Plan (07/07/2023 7:56 AM CDT): Patient has mild thrombocytopenia. He is asymptomatic. Will continue to monitor platelet count Acute back pain less than 4 weeks duration 05/24 Obesity, Class I, BMI 30-34.9 05/24/2023 Diarrhea 08/23/2022 Assessment & Plan (09/08/2022 1:27 PM EXCELLENCE COACH): Patient continue to have for persistent diarrhea. Stool test was negative. CBC and SMA 7 were unremarkable. We made him a referral to see a sole stapler welt for colonoscopy. He said his appointment is in October. Will see if we can make the appointment sooner. Patient was advised to continue to increase fluid intake Assessment & Plan (08/23/2022 12:06 PM CDT): Patient with diarrhea for the last 3-4 weeks. Will obtain stool for ova and parasite and culture and obtain CBC and SMA 7. Continue to increase fluid intake. Continue Lomotil as needed. Will stop metformin because it can cause diarrhea. Also we will stop pravastatin because he said his symptoms started when the dose of pravastatin was increased from 20-40 mg daily. Will evaluate him again in couple of weeks. Gait disorder 06/22/2022 Assessment & Plan (06/22/2022 3:51 PM CDT): The patient complains of difficulty walking outside the house because of severe lower back pain with radiation down his legs. The patient may benefit from scooter to help him with his daily activities. He has enough strength in his upper extremities to use a scooter. He has enough space in the house for the use of the scooter as well. Will make him a referral with PT to see if he is eligible for scooter Primary insomnia 08/28/2020 Assessment & Plan (07/07/2023 7:55 AM CDT): Controlled on Ambien Assessment & Plan (09/08/2021 4:10 PM EXCELLENCE COACH): Controlled on Ambien Assessment & Plan (12/10/2020 1:17 PM EXCELLENCE COACH): Patient has persistent insomnia. Increase Ambien to 10 mg q.h.s. p.r.n. Assessment & Plan (08/28/2020 12:17 PM CDT): Patient will be started on Ambien 5 mg q.h.s. p.r.n. Pulmonary nodules 06/23/2020 Assessment & Plan (04/10/2024 12:53 PM CDT): Lung scan in March 2023 was benign. Repeat lung scan Assessment & Plan (01/05/2024 2:55 PM EXCELLENCE COACH): Repeat CT scan in March 2024 Assessment & Plan (07/07/2023 12:30 PM CDT): Lung scan in March 2023 was benign Assessment & Plan (04/06/2023 7:41 AM CDT): Advised to have lung scan done soon Assessment & Plan (08/23/2022 8:12 AM CDT): Patient is due for repeated CT lung scan Assessment & Plan (03/22/2022 5:01 PM CDT): Last CT of the chest was in July 2021 with no change in the size of pulmonary nodules Assessment & Plan (12/23/2021 4:35 PM EXCELLENCE COACH): No change in the size of pulmonary nodules on CT scan of the lungs in July 2021 Assessment & Plan (09/08/2021 4:11 PM EXCELLENCE COACH): CT lung screen showed no change in the size of pulmonary nodules in July 2021 Assessment & Plan (06/09/2021 1:33 PM CDT): Repeat CT lung screen Assessment & Plan (03/09/2021 11:58 AM CDT): To pulmonary nodules up to 1.6 cm with no change in size in July 2020 Assessment & Plan (06/23/2020 3:31 PM CDT): Will repeat CT lung screen Mild episode of recurrent major depressive disor gabriele 09/18/2019 Assessment & Plan (04/10/2024 12:52 PM CDT): Stable without medications Assessment & Plan (10/06/2023 7:53 AM EXCELLENCE COACH): Continue duloxetine Assessment & Plan (07/07/2023 7:55 AM CDT): Continue duloxetine Assessment & Plan (04/06/2023 7:40 AM CDT): Continue duloxetine Assessment & Plan (08/23/2022 8:10 AM CDT): Patient with recurrent symptoms of depression. Will start him on Cymbalta 60 mg daily and he will call for persistent symptoms Assessment & Plan (06/22/2022 3:48 PM CDT): Patient with recurrent symptoms of depression. Will start him on Cymbalta 60 mg daily and he will call for persistent symptoms Assessment & Plan (03/22/2022 5:01 PM CDT): Stable without medications Assessment & Plan (03/09/2021 11:56 AM CDT): Stable without medications Assessment & Plan (06/23/2020 3:30 PM CDT): Stable without medications Assessment & Plan (03/05/2020 2:04 PM CDT): Controlled on current medication Assessment & Plan (12/06/2019 3:14 PM EXCELLENCE COACH): Patient feels fine without medications. No suicidal ideations. Assessment & Plan (09/18/2019 3:47 PM EXCELLENCE COACH): The patient has mild depression and we will start him on Wellbutrin 150 mg daily and he can take melatonin as needed for insomnia and will evaluate him again in few months. The patient will call if he has suicidal ideations . Spider bite 07/10/2019 Smoking 06/18/2019 Assessment & Plan (04/10/2024 7:46 AM CDT): Discussed smoking cessation and different methods to help with that. Discussed the risks of smoking including COPD, CAD and lung cancer etc. Total time spent was 4 minutes. Assessment & Plan (01/05/2024 2:58 PM EXCELLENCE COACH): Discussed smoking cessation and different methods to help with that. Discussed the risks of smoking including COPD, CAD and lung cancer etc. Total time spent was 4 minutes. Assessment & Plan (06/22/2022 3:49 PM CDT): Patient continues to smoke. He tried nicotine patches and they did not work for him. He understand risks including cancer Assessment & Plan (03/22/2022 5:01 PM CDT): Discussed smoking cessation and different methods to help with that. Discussed the risks of smoking including COPD, CAD and lung cancer etc. Total time spent was 3 minutes. Assessment & Plan (12/23/2021 4:37 PM EXCELLENCE COACH): Discussed smoking cessation and different methods to help with that. Discussed the risks of smoking including COPD, CAD and lung cancer etc. Total time spent was 4 minutes. Assessment & Plan (09/09/2021 1:57 PM EXCELLENCE COACH): Discussed smoking cessation and different methods to help with that. Discussed the risks of smoking including COPD, CAD and lung cancer etc. Total time spent was 4 minutes. Assessment & Plan (06/09/2021 1:33 PM CDT): Discussed smoking cessation and different methods to help with that. Discussed the risks of smoking including COPD, CAD and lung cancer etc. Total time spent was 3 minutes. Assessment & Plan (03/09/2021 11:55 AM CDT): Patient said that he quit smoking Assessment & Plan (06/23/2020 3:29 PM CDT): Discussed smoking cessation and different methods to help with that. Discussed the risks of smoking including COPD, CAD and lung cancer etc. the patient wants to proceed with Chantix. We will start him on the medication. Side effects were explained. The patient use the medication in the past with good results. Assessment & Plan (12/06/2019 3:13 PM EXCELLENCE COACH): Discussed smoking cessation and different methods to help with that. Discussed the risks of smoking including COPD, CAD and lung cancer etc. Total time spent was 3 minutes. Assessment & Plan (09/18/2019 3:46 PM EXCELLENCE COACH): CT lung screen in May 2019 was benign. Repeat in 1 year Assessment & Plan (06/18/2019 5:22 PM CDT): Discussed smoking cessation and different methods to help with that. Discussed the risks of smoking including COPD, CAD and lung cancer etc. Total time spent was [address] lung screen and we discussed the benefits and risks of the procedure and the patient wants to proceed. Tubular adenoma 06/18/2019 Assessment & Plan (01/05/2024 2:56 PM EXCELLENCE COACH): Colonoscopy in August 2022 showed 1 polyp and repeat in 5 years as per the GI doctor. Assessment & Plan (03/22/2022 5:02 PM CDT): Follow-up with GI doctor for colonoscopy Assessment & Plan (06/09/2021 1:33 PM CDT): Repeat colonoscopy [place] [address] Gandhi Assessment & Plan (12/10/2020 12:55 PM EXCELLENCE COACH): Repeat colonoscopy in [address] Gandhi Assessment & Plan (06/18/2019 5:30 PM CDT): Colonoscopy in March [address] Gandhi and repeat the colonoscopy in 3 years Mixed hyperlipidemia 03/06/2019 Assessment & Plan (08/27/2024 3:20 PM CDT): Controlled on current medications. Continue low-fat diet. Will continue to monitor . Assessment & Plan (04/10/2024 7:46 AM CDT): Controlled on current medications. Continue low-fat diet. Will continue to monitor . Assessment & Plan (01/05/2024 2:55 PM EXCELLENCE COACH): Controlled on current medications. Continue low-fat diet. Will continue to monitor . Assessment & Plan (10/06/2023 7:53 AM EXCELLENCE COACH): Controlled on current medications. Continue low-fat diet. Will continue to monitor . Assessment & Plan (07/07/2023 7:55 AM CDT): Controlled on current medications. Continue low-fat diet. Will continue to monitor . Assessment & Plan (04/06/2023 7:41 AM CDT): Controlled on current medications. Continue low-fat diet. Will continue to monitor . Assessment & Plan (08/23/2022 12:07 PM CDT): I will stop pravastatin temporary because the patient said his symptoms started when the dose of pravastatin was increased to 40 mg daily. Will evaluate him again in 2 weeks Assessment & Plan (06/22/2022 3:49 PM CDT): Increase pravastatin to 40 mg q.h.s. Assessment & Plan (03/22/2022 5:01 PM CDT): Controlled on current medications. Continue low-fat diet. Will continue to monitor . Assessment & Plan (12/23/2021 4:34 PM EXCELLENCE COACH): Resume pravastatin 20 mg q.h.s. and continue Zetia and we discussed diet and will repeat the blood work in few months Assessment & Plan (09/08/2021 4:10 PM EXCELLENCE COACH): Controlled on current medications. Continue low-fat diet. Will continue to monitor . Assessment & Plan (06/09/2021 1:32 PM CDT): Controlled on current medications. Continue low-fat diet. Will continue to monitor . Assessment & Plan (03/09/2021 11:55 AM CDT): Controlled on current medications. Continue low-fat diet. Will continue to monitor . Assessment & Plan (12/10/2020 12:55 PM EXCELLENCE COACH): Controlled on current medications. Continue low-fat diet. Will continue to monitor . Assessment & Plan (06/23/2020 3:30 PM CDT): Controlled on current medications. Continue low-fat diet. Will continue to monitor . Assessment & Plan (03/05/2020 2:04 PM CDT): Controlled on current medications. Continue low-fat diet. Will continue to monitor . He was advised to take fish oil 2 g daily Assessment & Plan (12/06/2019 3:13 PM EXCELLENCE COACH): Discussed diet and exercise. We will add Vascepa 2 g twice daily and repeat blood work in few months Assessment & Plan (09/18/2019 3:46 PM EXCELLENCE COACH): Controlled on current medications. Continue low-fat diet. Will continue to monitor . Assessment & Plan (06/17/2019 5:03 PM CDT): Controlled on current medications. Continue low-fat diet. Will continue to monitor . Assessment & Plan (03/06/2019 4:48 PM CDT): Triglyceride is very high most likely secondary to uncontrolled diabetes mellitus. We had a very lengthy discussion about diet. Patient needs to avoid high fat and high carb diet. We will continue to my DM type 2 with diabetic peripheral neuropathy Assessment & Plan (08/27/2024 3:21 PM CDT): Patient said that his blood sugar readings are much better. They are mainly below 200. He did not start Humalog. He is on Tresiba 30 units daily. Will increase Tresiba to 35 units daily. Continue Trulicity. Continue diet. Assessment & Plan (07/25/2024 4:15 PM CDT): Hemoglobin A1c is 10.9. Patient was started in the hospital on Humalog 10 units before each meal and he thought that he can stop Tresiba so his sugar is running high in the 300 range. I told him to resume Tresiba 30 units daily and continue Humalog before each meal. He will continue Trulicity as well. The patient will call us in 1 week with readings. Discussed the importance of compliance with diet. Assessment & Plan (07/09/2024 4:48 PM CDT): Patient with diabetes mellitus. He received epidural injection recently and his sugar runs in the 400 range. We will start him on Tresiba 30 units daily. He will continue his other medications. He will check his sugar on regular basis. He will call us back with readings in 3-4 days. Assessment & Plan (04/10/2024 12:55 PM CDT): Patient could not find Trulicity at the pharmacy. We will replace it with Ozempic 2 mg subQ once a week, discussed low carbohydrate diet, advised to exercise on regular basis, advised to have annual eye exam. We will continue to monitor. Assessment & Plan (01/05/2024 2:55 PM EXCELLENCE COACH): Hemoglobin A1c 7.2. Increase Trulicity to 3 mg subQ once a week. Discussed the importance of diet. Ambulate as tolerated. Advised to have eye exam. Assessment & Plan (10/06/2023 7:52 AM EXCELLENCE COACH): Continue current medications, discussed low carbohydrate diet, advised to exercise on regular basis, advised to have annual eye exam. We will continue to monitor. Assessment & Plan (07/07/2023 7:55 AM CDT): Continue current medications, discussed low carbohydrate diet, advised to exercise on regular basis, advised to have annual eye exam. We will continue to monitor. Assessment & Plan (04/06/2023 7:40 AM CDT): Continue current medications, discussed low carbohydrate diet, advised to exercise on regular basis, advised to have annual eye exam. We will continue to monitor. Assessment & Plan (08/23/2022 12:06 PM CDT): Will stop metformin because of diarrhea. Continue insulin. Continue to check the sugar on regular basis Assessment & Plan (06/22/2022 3:48 PM CDT): Will cut down Tresiba to 70 units daily and stop glimepiride because of excellent hemoglobin A1c at 5.5. Continue Trulicity and metformin Assessment & Plan (03/22/2022 5:01 PM CDT): Continue current medications, discussed low carbohydrate diet, advised to exercise on regular basis, advised to have annual eye exam. We will continue to monitor. Assessment & Plan (12/23/2021 4:34 PM EXCELLENCE COACH): Patient will be started on Trulicity 0.75 mg once a week for couple of weeks then 1.5 mg once a week and side effects were explained and samples were given and instructions were given. He will continue with other medications. Discussed the importance of diet. Assessment & Plan (09/09/2021 1:56 PM EXCELLENCE COACH): Continue current medications, discussed low carbohydrate diet, advised to exercise on regular basis, advised to have annual eye exam. We Continue current medications, discussed low carbohydrate diet, advised to exercise on regular basis, advised to have annual eye exam. We will continue to monitor. will continue to monitor. Assessment & Plan (06/09/2021 1:32 PM CDT): Continue current medications, discussed low carbohydrate diet, advised to exercise on regular basis, advised to have annual eye exam. We will continue to monitor. Assessment & Plan (03/09/2021 11:55 AM CDT): Increase Basaglar to 75 units daily. Continue other medications. We discussed the importance of diet and increasing activity as tolerated. Advised to have annual eye exam Assessment & Plan (12/10/2020 1:17 PM EXCELLENCE COACH): Increase Tresiba to 70 units daily and advised to continue other medications and watch diet and if the sugar drops he can cut down the dose back to 66 units daily and will obtain A1c before next visit Assessment & Plan (08/28/2020 12:16 PM CDT): Continue current medications, discussed low carbohydrate diet, advised to exercise on regular basis, advised to have annual eye exam. We will continue to monitor. Assessment & Plan (06/23/2020 3:29 PM CDT): Continue current medications, discussed low carbohydrate diet, advised to exercise on regular basis, advised to have annual eye exam. We will continue to monitor. Assessment & Plan (03/05/2020 2:03 PM CDT): Continue current medications, discussed low carbohydrate diet, advised to exercise on regular basis, advised to have annual eye exam. We will continue to monitor. Assessment & Plan (12/06/2019 3:12 PM EXCELLENCE COACH): We discussed again diet and exercise and weight loss. We will increase Tresiba to 66 units daily and repeat A1c before next visit Assessment & Plan (09/18/2019 3:46 PM EXCELLENCE COACH): Continue current medications, discussed low carbohydrate diet, advised to exercise on regular basis, advised to have annual eye exam. We will continue to monitor. Assessment & Plan (06/17/2019 5:02 PM CDT): Continue current medications, discussed low carbohydrate diet, advised to exercise on regular basis, advised to have annual eye exam. We will continue to monitor. Assessment & Plan (03/06/2019 4:46 PM CDT): Blood sugar is not controlled secondary to noncompliance with diet and medications. We had a lengthy discussion about diet and exercise. We will change his insulin to Tresiba 60 units daily for compliance reason. The patient was advised to check his sugars twice a day and call us with readings in 1-2 weeks. Patient was advised to have annual eye exam. Peripheral polyneuropathy 01/04/2018 Assessment & Plan (04/10/2024 7:46 AM CDT): Neuropathy secondary to diabetes mellitus. Continue gabapentin Assessment & Plan (10/06/2023 7:52 AM EXCELLENCE COACH): Neuropathy secondary to diabetes mellitus. 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 Continue gabapentin Assessment & Plan (03/22/2022 5:01 PM CDT): Continue Lyrica Assessment & Plan (12/23/2021 4:34 PM EXCELLENCE COACH): Continue Lyrica Assessment & Plan (09/08/2021 4:10 PM EXCELLENCE COACH): Continue Lyrica Assessment & Plan (06/09/2021 1:32 PM CDT): Controlled on Lyrica Assessment & Plan (03/09/2021 11:55 AM CDT): Continue Lyrica Assessment & Plan (12/06/2019 3:13 PM EXCELLENCE COACH): Patient with chronic neuropathy secondary to diabetes and chronic back pain and he is followed by the neurologist Assessment & Plan (09/18/2019 3:46 PM EXCELLENCE COACH): The patient has mild neuropathy secondary to diabetes. He is not on medications. Assessment & Plan (06/17/2019 5:02 PM CDT): Peripheral neuropathy secondary to diabetes mellitus and it is mild with no change Assessment & Plan (03/06/2019 4:47 PM CDT): The patient is not on medications. He was on Lyrica but it did not help. Degeneration of intervertebral disc of lumbar re gion 12/14/2017 Assessment & Plan (08/27/2024 3:20 PM CDT): Has an appointment to see the neurosurgeon Assessment & Plan (07/25/2024 4:14 PM CDT): Patient with chronic back pain with multiple surgeries and injections and surgical interventions. Patient complains of persistent pain. He tried multiple pain medications in the past as well. We will make him a referral to see a neurosurgeon again. Assessment & Plan (07/09/2024 4:49 PM CDT): Patient with chronic back pain with multiple interventions. It seems that he had recent steroid injection about 2 weeks ago and he complains of severe pain in his lower back with radiation down his left leg. He went to the emergency room for that. Patient is maintained on Butrans. We will start him on ibuprofen 800 mg t.i.d. p.r.n. and baclofen 20 mg t.i.d. p.r.n. and he was advised strongly to call his maintenance painter because of worsened pain and he verbalized understanding. Assessment & Plan (04/10/2024 12:53 PM CDT): Patient with chronic back pain. We will refill Butrans. Follow-up with pain management. Patient had multiple surgeries. He is aids followed by neurosurgeon. He was seen by orthopedic doctors as well. He continues to have pain Assessment & Plan (04/06/2023 9:38 AM CDT): Patient with chronic back pain. We will refill Butrans. Follow-up with pain management. Will make him a referral to see another neurosurgeon. Assessment & Plan (06/22/2022 3:50 PM CDT): Patient with degenerative disc disease of the lumbar spine. Status post multiple laminectomies. Patient is under the care of pain management. Assessment & Plan (10/05/2021 3:05 PM EXCELLENCE COACH): Patient was started to see a new pain management practice recently and he had recent injections and physical therapy with improvement in his symptoms. He likes to get off oxycodone. I told him to discuss that with the pain management. Assessment & Plan (09/09/2021 1:56 PM EXCELLENCE COACH): Will make him a referral to see a neurosurgeon and Pain Management. Will obtain x-rays of the hips to be sure that there is no issues with his hips as a cause of his lower back pain Assessment & Plan (12/10/2020 12:54 PM EXCELLENCE COACH): Status laminectomy. Patient has persistent symptoms and he is followed by pain management Assessment & Plan (08/28/2020 12:16 PM CDT): Status post laminectomy with persistent left leg pain. The patient was advised to follow up with the neurosurgeon because of the severity of the pain. Will make him a referral to see pain management and his neurologist again. Assessment & Plan (06/23/2020 3:31 PM CDT): Status post laminectomy and followed by the neurosurgeon Assessment & Plan (06/17/2019 5:02 PM CDT): The patient with chronic back pain status post multiple epidural injections by Pain Management and previous laminectomy and he is followed by a neurologist Assessment & Plan (03/06/2019 4:46 PM CDT): Followed by pain management Lumbar radicular pain 12/23/2016 Assessment & Plan (01/05/2024 2:57 PM EXCELLENCE COACH): Patient is followed by the pain specialist Assessment & Plan (03/22/2022 5:00 PM CDT): Patient with chronic back pain status post multiple epidural injections and pain medications and laminectomy. He continues to have pain. He has follow-up with the pain management tomorrow. He had recent epidural injection. He had recent MRI of the lumbar spine. Will make him a referral to see a neurosurgeon again for another opinion. Assessment & Plan (12/23/2021 4:34 PM EXCELLENCE COACH): Patient is under the care of pain management Assessment & Plan (12/06/2019 3:13 PM EXCELLENCE COACH): The patient has a chronic back pain with recent MRI that showed large bulged disc and will make him a referral to see the spine surgeon for 2nd opinion Sciatica 10/20/2016 ED (erectile dysfunction) 04/21/2016 Hypertension, essential 10/08/2013 Assessment & Plan (08/27/2024 3:21 PM CDT): Continue lisinopril and low-salt Assessment & Plan (07/25/2024 4:15 PM CDT): Continue current medications. Discussed low-salt diet. Discussed exercise on regular basis. Will continue to monitor Assessment & Plan (04/10/2024 7:45 AM CDT): Continue current medications. Discussed low-salt diet. Discussed exercise on regular basis. Will continue to monitor Assessment & Plan (01/05/2024 2:55 PM EXCELLENCE COACH): Blood pressure is running on the low side. Will cut down lisinopril to 10 mg daily. Discussed low-salt diet. Discussed exercise on regular basis. Will continue to monitor Assessment & Plan (10/06/2023 12:18 PM EXCELLENCE COACH): Blood pressure is running on the low side. Will cut down lisinopril to 10 mg daily. Discussed low-salt diet. Discussed exercise on regular basis. Will continue to monitor Assessment & Plan (07/07/2023 7:55 AM CDT): Continue current medications. Discussed low-salt diet. Discussed exercise on regular basis. Will continue to monitor Assessment & Plan (04/06/2023 7:40 AM CDT): Continue current medications. Discussed low-salt diet. Discussed exercise on regular basis. Will continue to monitor Assessment & Plan (08/23/2022 8:11 AM CDT): Continue current medications. Discussed low-salt diet. Discussed exercise on regular basis. Will continue to monitor Assessment & Plan (06/22/2022 3:48 PM CDT): Continue current medications. Discussed low-salt diet. Discussed exercise on regular basis. Will continue to monitor Assessment & Plan (03/22/2022 5:01 PM CDT): Continue current medications. Discussed low-salt diet. Discussed exercise on regular basis. Will continue to monitor Assessment & Plan (12/23/2021 4:34 PM EXCELLENCE COACH): Continue current medications. Discussed low-salt diet. Discussed exercise on regular basis. Will continue to monitor Assessment & Plan (09/08/2021 4:09 PM EXCELLENCE COACH): Continue current medications. Discussed low-salt diet. Discussed exercise on regular basis. Will continue to monitor Assessment & Plan (06/09/2021 1:32 PM CDT): Continue current medications. Discussed low-salt diet. Discussed exercise on regular basis. Will continue to monitor Assessment & Plan (03/09/2021 11:55 AM CDT): Continue current medications. Discussed low-salt diet. Discussed exercise on regular basis. Will continue to monitor Assessment & Plan (12/10/2020 12:55 PM EXCELLENCE COACH): Continue current medications. Discussed low-salt diet. Discussed exercise on regular basis. Will continue to monitor Assessment & Plan (08/28/2020 12:16 PM CDT): Continue current medications. Discussed low-salt diet. Discussed exercise on regular basis. Will continue to monitor Assessment & Plan (06/23/2020 3:29 PM CDT): Continue current medications. Discussed low-salt diet. Discussed exercise on regular basis. Will continue to monitor Assessment & Plan (03/05/2020 2:04 PM CDT): Continue current medications. Discussed low-salt diet. Discussed exercise on regular basis. Will continue to monitor Assessment & Plan (12/06/2019 3:13 PM EXCELLENCE COACH): Continue current medications. Discussed low-salt diet. Discussed exercise on regular basis. Will continue to monitor Assessment & Plan (06/17/2019 5:03 PM CDT): Continue current medications. Discussed low-salt diet. Discussed exercise on regular basis. Will continue to monitor Assessment & Plan (03/06/2019 4:47 PM CDT): Continue current medications. Discussed low-salt diet. Discussed exercise on regular basis. Will continue to monitor Arthritis 10/08/2013 Immunizations Name Administration Dates Next Due Influenza, Unspecified 08/27/2024(Deferr ed: Patient Refused),04/10/2024(Deferred: Patient Refused),10/06/2023(Deferred: Patient decision),07/07/2023(Deferred: Patient decision),11/04/2022(Deferred: Patient decision) Pfizer SARS-CoV-2 Monovalent Vaccination (12+ Yrs) PURPLE 04/29/2021,04/07/2021 Pneumococcal Conjugate Pcv20 10/06/2023 Social History Tobacco Use Types Packs/Day Years Used Date Smoking Tobacco: Every Day Cigarettes 1 51.1 Started: 1973 Passive Smoke Exposure: Current Smokeless Tobacco: Never Tobacco Cessation:Ready to Q uit: Not Asked; Counseling Given: Not Answered Alcohol Use Standard Drinks/Week Comments Not Currently 0 (1 standard drink = 0.6 oz pur e alcohol) [facility] Utilities Answer Date Recorded In the past 12 months has th e electric, gas, oil, or water company threatened to shut off services in your home? No 07/17/2024 Social Connection and Isolat ion Panel [NHANES] Answer Date Recorded In a typical week, how many times do you talk on the phone with family, friends, or neighbors? More than three times a week 07/17/2024 How often do you get togethe r with friends or relatives? More than three times a week 07/17/2024 How often do you attend chur ch or restorationism services? Never 07/17/2024 Do you belong to any clubs o r organizations such as islam groups, unions, fraternal or athletic groups, or school groups? No 07/17/2024 How often do you attend meet ings of the clubs or organizations you belong to? Never 07/17/2024 Are you , , di vorced, , never , or living with a partner? 07/17/2024 AUDIT-C Answer Date Recorded Q1: How often do you have a drink containing alcohol? Never 08/27/2024 Q2: How many drinks containi ng alcohol do you have on a typical day when you are drinking? Patient does not drink Q3: How often do you have si x or more drinks on one occasion? Never 08/27/2024 Overall Financial Resource Strain (CARDIA) Answe r Date Recorded How hard is it for you to pa y for the very basics like food, housing, medical care, and heating? Not hard at all 07/17/2024 PHQ-2 Answer Date Recorded PHQ-2 Total Score (If total score is 3 or more points, staff should administer the PHQ-9) 2 08/27/2024 Hunger Vital Sign Answer Date Recorded Within the past 12 months, y ou worried that your food would run out before you got the money to buy more. Never true 07/17/20 24 Within the past 12 months, t he food you bought just didn't last and you didn't have money to get more. Never true 07/17/2024 PRAPARE - Transportation Answer Date Re corded In the past 12 months, has l ack of transportation kept you from medical appointments or from getting medications? No 07/01 In the past 12 months, has l ack of transportation kept you from meetings, work, or from getting things needed for daily living? No 07/17/2024 Housing Stability Vital Sign Answer Michael e Recorded In the last 12 months, was t here a time when you were not able to pay the mortgage or rent on time? No 07/17/2024 In the past 12 months, how m any times have you moved where you were living? 0 07/17/2024 At any time in the past 12 m [facility], were you homeless or living in a correction (including now)? No 07/17/2024 Personal Safety Answer Date Recorded Have you ever been in or are you currently in a harmful physical or emotional relationship or is someone making you feel afraid or unsafe? Denies 07/16/2024 Sex and Gender Information Value Date Recorded Sex Assigned at Not on file Legal Sex Male 6:35 AM EXCELLENCE COACH Gender Identity Not on file Sexual Orientation Not on file Occupation Industry Job Start Date Job End Date On Disability Not on file Not on file Not on file Last Filed Vital Signs Vital Sign Reading Time Taken Comments Blood Pressure 134/81 09/12/2024 1:58 PM EXCELLENCE COACH Pulse 82 09/12/2024 1:58 PM EXCELLENCE COACH Temperature 36.6 ??C (97.8 ??F) 08/27/2024 2:50 PM CD T Respiratory Rate 16 08/27/2024 2:50 PM CDT Oxygen Saturation 96% 09/12/2024 1:58 PM EXCELLENCE COACH Inhaled Oxygen Concentration - - Weight 90.1 kg (198 lb 9.6 oz) 09/12/2024 1:58 P M EXCELLENCE COACH Height 177.8 cm (5' 10 ) 09/12/2024 1:58 PM EXCELLENCE COACH Body Mass Index 28.5 09/12/2024 1:58 PM EXCELLENCE COACH Plan of Treatment Not on file Goals Goal Patient Goal Type Associated Problems Recent Progress Patient-Stated? Author CCM Chronic Pain Care Plan Chronic Care Management No Shellie Anna, NATALIE Note: Problem: Chronic Pain Goals: 1. Minimize further functional decline 2. Maximize quality of life 3. Control pain Strategies: - Activity/exercise program recommendation - Conservative stepwise pain medicine strategy with multi-disciplinary approach - Recommend healthy lifestyle strategies and compensatory methods as needed Reduce the likelihood of falling Lifestyle Shellie Milton, RN Note: Below are four things you can do to prevent falls: Begin an exercise program to improve your leg strength & balance Ask your doctor or pharmacist to review your medicines Get annual eye check-ups & update your eyeglasses Make your home safer by: Removing clutter & tripping hazards Putting railings on all stairs & adding grab bars in the bathroom Having good lighting, especially on stairs Contact your local community or [facility] for information on exercise, fall prevention programs, or options for improving home safety. Procedures Procedure Name Priority Date/Time Associated Diagnosis Comments XR LUMBAR SPINE ROUTINE W FLEX EXT Schedule Routine, Read Routine (OP Routine) 09/12/2024 2:53 PM EXCELLENCE COACH Degeneration of intervertebral disc of lumbar region XR SCOLIOSIS AP LAT Schedule Routine, Read Routine (OP Routine) 09/12/2024 2:53 PM EXCELLENCE COACH Degeneration of intervertebral disc of lumbar region SCAN - RADIOLOGY/IMAGING 09/11/2024 EGFR Routine 07/18/2024 1:44 AM CDT HEMOGLOBIN A1C Routine 07/16/2024 11:02 PM CDT LIPID PANEL Routine 01/04/2024 9:04 AM EXCELLENCE COACH DM type 2 with diabetic peripheral neuropathy (CMS/HCC) (HCC) Mixed hyperlipidemia ALBUMIN CREATININE RATIO, URINE Routine 06/16/2023 11:22 AM CDT DM type 2 with diabetic peripheral neuropathy (CMS/HCC) (HCC) PSA SCREEN Routine 06/16/2023 11:22 AM CDT Prostate cancer screening HM LUNG CANCER SCREENING Routine 04/20/2023 COLONOSCOPY Routine 09/16/2022 HEPATITIS C ANTIBODY Routine 06/09/2022 12:00 PM CDT DIABETIC EYE EXAM Routine 06/04/2022 DIABETES FOOT EXAM Routine 12/23/2021 from Last 3 Months or Most Recently Relevant to Health Maintenance Results * XR Spine Lumbar Incl Bending Views 6 or More Views (09/12/2024 2:53 PM EXCELLENCE COACH) Anatomical Region Laterality Modality L-spine N/A Computed Radiogr aphy 09/12/2024 8:58 PM EXCELLENCE COACH Narrative 09/12/2024 9:00 PM EXCELLENCE COACH EXAM DESCRIPTION: XR SCOLIOSIS AP AND LATERAL; XR SPINE LUMBAR INCL BENDING VIEWS 6 OR MORE VIEWS REASON FOR STUDY: back pain ?? Pt sts lower back pain since surgery in April of 2020. Pt ambulatory. ?? ; lumbar pain ?? Pt sts lower back pain since surgery in April of 2020. Pt ambulatory. ? FINDINGS: Two views thoracolumbar spine and subsequently 6 views lumbar spine submitted with comparison 04/20/2024. There is long segment dextrocurvature of the thoracic spine. ??No acute fractures are identified. ??There is bnnw-yk-qkmyxhdv multilevel thoracic degenerative disc disease. ??L3-S1 combined anterior posterior spinal fusion is present. ??There is mild L2-L3 degenerative disc disease. ??Arterial atherosclerosis is present. ??Prior posterior decompression is noted. ?? Flexion-extension views demonstrate mild anterolisthesis of L2 on L3. IMPRESSION: L3-S1 combined anterior posterior spinal fusion with posterior decompression. Mild L2-L3 degenerative disc disease with mild anterolisthesis on flexion-extension views. Mcmf-yg-ttrhdglj multilevel thoracic degenerative disc disease. Long segment dextrocurvature of the thoracic spine. THIS IS AN ELECTRONICALLY VERIFIED FINAL REPORT 09/12/2024 9:00 PM - Electronically signed by ??Teddy Brar M.D. D: ??09/12/2024 9:00 PM T: Report ID: [id number] Reading Location: ??[id number] Procedure Note Teddy Brar MD - 09/12/2024 EXAM DESCRIPTION: XR SCOLIOSIS AP AND LATERAL; XR SPINE LUMBAR INCL BENDING VIEWS 6 OR MORE VIEWS REASON FOR STUDY: back pain Pt sts lower back pain since surgery in April of 2020. Pt ambulatory. ; lumbar pain Pt sts lower back pain since surgery in April of 2020. Pt ambulatory. FINDINGS: Two views thoracolumbar spine and subsequently 6 views lumbarspine submitted with comparison 04/20/2024. There is long segment dextrocurvature of the thoracic spine. No acute fractures are identified. There is hhbj-rb-opxqsfgm multilevel thoracic degenerative disc disease. L3-S1 combined anterior posterior spinalfusion is present. There is mild L2-L3 degenerative disc disease. Arterial atherosclerosis is present. Prior posterior decompression is noted. Flexion-extension views demonstrate mild anterolisthesis of L2 on L3. IMPRESSION: L3-S1 combined anterior posterior spinal fusion with posteriordecompression. Mild L2-L3 degenerative disc disease with mild anterolisthesis on flexion-extension views. Ewss-tw-ypgyexhp multilevel thoracic degenerative disc disease. Long segment dextrocurvature of the thoracic spine. THIS IS AN ELECTRONICALLY VERIFIED FINAL REPORT 09/12/2024 9:00 PM - Electronically signed by Teddy Brar M.D. T: Report ID: [id number] Reading Location: [place] [id number] us Alejandro Lawrence MD IMG XR PROCEDURES Final Result * XR Scoliosis 2 or 3 Views (09/12/2024 2:53 PM EXCELLENCE COACH) Anatomical Region Laterality Modality Spine N/A Computed Radiogr aphy 09/12/2024 8:58 PM EXCELLENCE COACH Narrative 09/12/2024 9:00 PM EXCELLENCE COACH EXAM DESCRIPTION: XR SCOLIOSIS AP AND LATERAL; XR SPINE LUMBAR INCL BENDING VIEWS 6 OR MORE VIEWS REASON FOR STUDY: back pain ?? Pt sts lower back pain since surgery in April of 2020. Pt ambulatory. ?? ; lumbar pain ?? Pt sts lower back pain since surgery in April of 2020. Pt ambulatory. ? FINDINGS: Two views thoracolumbar spine and subsequently 6 views lumbar spine submitted with comparison 04/20/2024. There is long segment dextrocurvature of the thoracic spine. ??No acute fractures are identified. ??There is mslc-cm-byjhlsbq multilevel thoracic degenerative disc disease. ??L3-S1 combined anterior posterior spinal fusion is present. ??There is mild L2-L3 degenerative disc disease. ??Arterial atherosclerosis is present. ??Prior posterior decompression is noted. ?? Flexion-extension views demonstrate mild anterolisthesis of L2 on L3. IMPRESSION: L3-S1 combined anterior posterior spinal fusion with posterior decompression. Mild L2-L3 degenerative disc disease with mild anterolisthesis on flexion-extension views. Pyli-ky-uwqgklya multilevel thoracic degenerative disc disease. Long segment dextrocurvature of the thoracic spine. THIS IS AN ELECTRONICALLY VERIFIED FINAL REPORT 09/12/2024 9:00 PM - Electronically signed by ??Teddy Brar M.D. D: ??09/12/2024 9:00 PM T: Report ID: [id number] Reading Location: ??[id number] Procedure Note Teddy Brar MD - 09/12/2024 EXAM DESCRIPTION: XR SCOLIOSIS AP AND LATERAL; XR SPINE LUMBAR INCL BENDING VIEWS 6 OR MORE VIEWS REASON FOR STUDY: back pain Pt sts lower back pain since surgery in April of 2020. Pt ambulatory. ; lumbar pain Pt sts lower back pain since surgery in April of 2020. Pt ambulatory. FINDINGS: Two views thoracolumbar spine and subsequently 6 views lumbarspine submitted with comparison 04/20/2024. There is long segment dextrocurvature of the thoracic spine. No acute fractures are identified. There is cdmn-ro-tmjuiyrd multilevel thoracic degenerative disc disease. L3-S1 combined anterior posterior spinalfusion is present. There is mild L2-L3 degenerative disc disease. Arterial atherosclerosis is present. Prior posterior decompression is noted. Flexion-extension views demonstrate mild anterolisthesis of L2 on L3. IMPRESSION: L3-S1 combined anterior posterior spinal fusion with posteriordecompression. Mild L2-L3 degenerative disc disease with mild anterolisthesis on flexion-extension views. Wvsf-zl-xgysjmhr multilevel thoracic degenerative disc disease. Long segment dextrocurvature of the thoracic spine. THIS IS AN ELECTRONICALLY VERIFIED FINAL REPORT 09/12/2024 9:00 PM - Electronically signed by Teddy Brar M.D. T: Report ID: [id number] Reading Location: [id number] us Alejandro Lawrence MD IMG XR PROCEDURES Final Result * SCAN - RADIOLOGY/IMAGING (09/11/2024) Anatomical Region Laterality Modality Other us Roseanna Yung MD Final Resul t * eGFR (07/18/2024 1:44 AM CDT) eGFR >90 >=60 mL/min/1. 73 m2 Comment: Interpretive Data Reference Interval Normal ?>/= 90 mL/min/1.73m2 Mildly decreased* ? 60 - 89 mL/min/1.73m2 Mildly to moderately decreased ?45 - 59 mL/min/1.73m2 Moderately to severely decreased ??30 - 44 mL/min/1.73m2 Severely decreased ?15 - 29 mL/min/1.73m2 Kidney Failure ?< 15 ??mL/min/1.73m2 *Relative to young adult level Estimated glomerular filtration rate is determined by the 2020 CKD-EPI equation recommended by the National Kidney Foundation (A Unifying Approach to GFR Estimation: Recommendations of the NKF-ASK Task Force on Reassessing the Inclusion of Race in Diagnosing Kidney Disease, JASN 202). The CKD-EPI equation should not be used for patients with unstable renal function and has not been validated in children and those over 70. Current interpretive data was last reviewed 2021. Blood 07/18/2024 1:44 AM CDT 07/18/2024 1:58 AM CDT us Ivno Mattson DO LAB BLOOD ORDERABLES Final R esult [facility] [address] [facility] Department [place] [address] * (ABNORMAL) Hemoglobin A1c (07/16/2024 11:02 PM CDT) Hgb A1C 10.9(H) 4.0 - 5.6 % Estimated Average Glucose 266 mg/dL [facility]IR[facility] WALKER Comment: The ADA recommends reporting an estimated Average Glucose (eAG) with all Hemoglobin A1c results using the equation derived from a study of 507 normal and diabetic adults. ??Minority populations were underrepresented and children were not included. ?? (Diabetes Care 31:5703-6961, 2008). ??The eAG is not equivalent to a fasting glucose. Blood 07/16/2024 11:0 2 PM CDT 07/16/2024 11:13 PM CDT us Ivon Mattson DO LAB BLOOD ORDERABLES Final R esult [facility]IRA [address] [facility] Department [place] [address] * (ABNORMAL) Lipid panel (01/04/2024 9:04 AM EXCELLENCE COACH) Pathologist [facility] Cholesterol 178 <200 mg/dL [facility] HDL 28(L) > OR = 40 mg/dL [facility] Triglycerides 157(H) <150 mg/dL [facility] LDL 123(H) mg/dL (calc) [facility] Comment: Reference range: <100 Desirable range <100 mg/dL for primary prevention; ?? <70 mg/dL for patients with CHD or diabetic patients with > or = 2 CHD risk factors. LDL-C is now calculated using the Reinier-Luke calculation, which is a validated novel method providing better accuracy than the Friedewald equation in the estimation of LDL-C. Reinier RENTERIA et al. CONSTANCE. 2013;310(19): 9061-7765 (http://education.Chatous.Follicum/faq/OCL252) Chol/HDL ratio 6.4(H) <5.0 (calc) [facility] Non-HDL, (LDL+VLDL) 150(H) <130 mg/dL (calc) [facility] Comment: For patients with diabetes plus 1 major ASCVD risk factor, treating to a non-HDL-C goal of <100 mg/dL (LDL-C of <70 mg/dL) is considered a therapeutic option. Blood 01/04/2024 9:04 AM EXCELLENCE COACH 01/04/2024 9:05 AM EXCELLENCE COACH Narrative [facility] - 01/05/2024 5:38 AM EXCELLENCE COACH FASTING:YES FASTING: YES Roseanna Yung MD LAB BLOOD ORDERABLES Final Result Performing Organization Address [facility] de Phone Number [facility] [address] [place] [address] * PSA screen (06/16/2023 11:22 AM CDT) PSA 0.52 < OR = 4.00 ng/mL [facility] Comment: The total PSA value from this assay system is standardized against the WHO standard. The test result will be approximately 20% lower when compared to the equimolar-standardized total PSA ([place]). Comparison of serial PSA results should be interpreted with this fact in mind. This test was performed using the Siemens chemiluminescent method. Values obtained from different assay methods cannot be used interchangeably. PSA levels, regardless of value, should not be interpreted as absolute evidence of the presence or absence of disease. Blood 06/16/2023 11:2 2 AM CDT 06/16/2023 11:22 AM CDT Narrative [facility] - 06/17/2023 3:03 PM CDT FASTING:YES FASTING: YES Roseanna Yung MD LAB BLOOD ORDERABLES Final Result Performing Organization Address [facility] de Phone Number [facility] [address] [place] [address] * Albumin Creatinine Ratio, Urine (06/16/2023 11:22 AM CDT) Creatinine, ur 163 20 - 320 mg/dL [facility] Microalbumin, ur 1.3 See Note: mg/dL [facility] Comment: Reference Range: Reference Range Not established Microalbumin/creat ratio 8 <30 mcg/mg creat [facility] Comment: The ADA defines abnormalities in albumin excretion as follows: Albuminuria Category ?Result (mcg/mg creatinine) Normal to Mildly increased ?? <30 Moderately increased ? 30-299 Severely increased ? > OR = 300 The ADA recommends that at least two of three specimens collected within a 3-6 month period be abnormal before considering a patient to be within a diagnostic category. Urine 06/16/2023 11:2 2 AM CDT 06/16/2023 11:22 AM CDT Narrative [facility] - 06/17/2023 3:03 PM CDT FASTING:YES FASTING: YES Roseanna Yung MD LAB URINE ORDERABLES Final Result [facility] [address] [place] [address] * LUNG CANCER SCREENING (04/20/2023) Historical Provider HEALTH MAINTENANCE Final Result * (ABNORMAL) Colonoscopy (09/16/2022) Anatomical Region Laterality Modality Other Impressions 09/16/2022 Tubular adenoma, repeat in 5 years Historical Provider ENDOSCOPY PROCEDURES Evon l Result * Hepatitis C antibody (06/09/2022 12:00 PM CDT) Hep C Ab NON-REACTI VE NON-REACT LAI [facility] SIGNAL TO CUT-OFF 0.01 <1.00 [facility] Comment: HCV antibody was non-reactive. There is no laboratory evidence of HCV infection. In most cases, no further action is required. However, if recent HCV exposure is suspected, a test for HCV RNA (test code 86047) is suggested. For additional information please refer to http://education.Little Bird/faq/XZN43g7 (This link is being provided for informational/ educational purposes only.) 06/09/2022 12:0 0 PM CDT 06/09/2022 12:01 PM CDT Roseanna Yung MD LAB MICROBIOLOGY - GENERAL ORDERABLES Final Result [facility] [id number] [place] [address] * Diabetic Eye Exam (06/04/2022) Narrative Kayla Barriga MA - 06/04/2022 normal Historical Provider HEALTH MAINTENANCE Final Result * DIABETES FOOT EXAM (12/23/2021) SCRIBED DIABETIC FOOT EXAM Normal Historical Provider HEALTH MAINTENANCE Final Result from Last 3 Months or Most Recently Relevant to Health Maintenance Insurance [employer] [facility] MEDIC[facility] Address: [address] [address] [place] [address] MEDICARE SOLUTIONS [employer] Advance Directives For more information, please contact: [phone] * Full Code (Latest Code Status on File) Date Activated Date Inactivated Comments 07/16/2024 6:28 PM 07/18/2024 9:01 PM Care Teams Stock Checkerer Relationship Specialty Start Date End Date Roseanna Yung MD [address] [facility] [address] [place] [address] PCP - General 12/14/17 Priya Hoyt MD [address] [facility] [address] [facility] [facility] [place] [address] Consulting Physician Pain Management 05/13/22 Gerald Templeton Ud, MD [address] [facility] [address] [facility] [place] [address] Consulting Physician Surgery 06/21/23
--- OUTSIDE RECORDS SUMMARY | 2024-11-22 20:28 | XMS_ITS | Encounter Summary ---
Author Organization [facility] Facility Care Team Providers Care Subsystems Engineer Name Role Phone Roseanna Yung MD Primary Care Provider [phone] Priya Hoyt MD Unavailable Gerald Templeton Ud, MD Unavailable Encounter Details Date Type Department Care Team (Latest Contact Info) Description 05/16/2018 Orders Only [facility] Provider, MD Edson [address] [place] [id number] Social History Tobacco Use Types Packs/Day Years Used Date Smoking Tobacco: Every Day Sex and Gender Information Value Date Recorded Sex Assigned at Not on file 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 Historical Provider [facility] RIANA BARDALES Final Result documented in this encounter Visit Diagnoses Not on filedocumented in this encounter Additional Health Concerns Infection Onset Date Last Indicated Resolved Time COVID: Suspected 10/29/2021 10/29/2021 11/12/2021 3:07 AM FIELD SUPERVISOR documented as of this encounter Care Teams Subsystems Engineer Relationship Specialty Start Date End Date Roseanna Yung MD [address] [facility] [address] [place] [address] PCP - General 12/14/17 Priya Hoyt MD [address] [facility] [address] [facility] [address] Consulting Physician Pain Management 05/13/22 Gerald Templeton Ud, MD [address] [facility] [address] [facility] [place], [place] [id number] Consulting Physician Surgery 06/21/23 documented as of this encounter
--- OUTSIDE RECORDS SUMMARY | 2024-11-22 20:28 | XMS_ITS | Encounter Summary ---
Author Organization [facility] Healthcare Address [address] [place] [address] Care Team Providers Care Gaming Cashier Name Role Phone Roseanna Yung MD Primary Care Provider [phone] Priya Hoyt MD Unavailable Gerald Templeton Ud, MD Unavailable Encounter Details Date Type Department Care Team (Late st Contact Info) Description 12/03/2022 Telephone [facility] [address] [place] [address], [address] [place] [address] Hayley Noguera RN Social History Tobacco Use Types Packs/Day Years Used Date Smoking Tobacco: Every Day Cigarettes 0.3 45 Smokeless Tobacco: Never Alcohol Use Standard Drinks/Week Comments Not Currently 0 (1 standard drink = 0.6 oz pur e alcohol) AUDIT-C Answer Date Recorded Q1: How often do you have a drink containing alcohol? Never 09/08/2022 Q2: How many drinks containi ng alcohol do you have on a typical day when you are drinking? Patient does not drink Q3: How often do you have si x or more drinks on one occasion? 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 Gender Identity Not on file Sexual Orientation Not on file documented as of this encounter Plan of Treatment Not on file documented as of this encounter Visit Diagnoses Not on filedocumented in this encounter Care Teams Gaming Cashier Relationship Specialty Start Date End Date Roseanna Yung MD [address] [facility] [address] [place] [address] PCP - General 12/14/17 Priya Hoyt MD [address] [facility] [address] [facility] [place], [place] [id number] Consulting Physician Pain Management 05/13/22 Gerald Templeton Ud, MD [address] [facility] [address] [facility] [place], [place] [id number] Consulting Physician Surgery 06/21/23 documented as of this encounter
--- OUTSIDE RECORDS SUMMARY | 2024-11-22 20:28 | XMS_ITS | Encounter Summary ---
Author Organization [facility] Healthcare Address [address] [place] [address] Care Team Providers Care Oracle Pl Sql Developer Name Role Phone Roseanna Yung MD Primary Care Provider [phone] Priya Hoyt MD Unavailable Gerald Templeton Ud, MD Unavailable Encounter Details Date Type Department Care Team (Late st Contact Info) Description 04/30/2024 Orders Only [facility] [address] [place] [id number] Roseanna Yung MD [address] [facility] [address] [address] Social History Tobacco Use Types Packs/Day Years Used Date Smoking Tobacco: Every Day Cigarettes 1 51.1 Started: 1975 Passive Smoke Exposure: Current Smokeless Tobacco: Never Alcohol Use Standard Drinks/Week Comments Not Currently 0 (1 standard drink = 0.6 oz pur e alcohol) AUDIT-C Answer Date Recorded Q1: How often do you have a drink containing alcohol? Never 04/20/2024 Q2: How many drinks containi ng alcohol do you have on a typical day when you are drinking? Patient does not drink Q3: How often do you have si x or more drinks on one occasion? 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 Gender Identity Not on file Sexual Orientation Not on file Occupation Industry Job Start Date Job End Date On Disability Not on file Not on file Not on file documented as of this encounter Plan of Treatment Not on file documented as of this encounter Procedures Procedure Name Priority Date/Time Associated Diagnosis Comments SCAN - RADIOLOGY/IMAGING 04/30/2024 documented in this encounter Results * SCAN - RADIOLOGY/IMAGING (04/30/2024) Anatomical Region Laterality Modality Other Roseanna Yung MD Edited Resu lt - Final documented in this encounter Visit Diagnoses Not on filedocumented in this encounter Care Teams Oracle Pl Sql Developer Relationship Specialty Start Date End Date Roseanna Yung MD [address] [facility] [address] [place] [address] PCP - General 12/14/17 Priya Hoyt MD [address] [facility] [address] [place] [address] Consulting Physician Pain Management 05/13/22 Gerald Templeton Ud, MD [address] [facility] [address] [place] [address] Consulting Physician Surgery 06/21/23 documented as of this encounter
--- OUTSIDE RECORDS SUMMARY | 2024-11-22 20:28 | XMS_ITS | Clinical Summary ---
Author Organization [facility] at the [facility] Address [address] [place] [address] Care Team Providers Care Pattern Storage Clerk Name Role Phone Roseanna Yung MD Primary Care Provider [phone] Priya Hoyt MD Unavailable Gerald Templeton Ud, MD Unavailable Allergies Active Allergy Reactions Criticality Noted Date Comments Niacin Unknown 02/27/2019 Hot flash Hnbslsj-Yac-Zyi Reductase Inhibitors Muscle pain Medium 02/27/2019 Medications pen needle, diabetic (BD Ultra-Fine Mini Pen Needle) 31 gauge x 3/16 needleIndicat ions:DM type 2 with diabetic peripheral neuropathy (HCC) Use four times daily 200 each Active blood glucose diagnostic stripIndicati ons:DM type 2 with diabetic peripheral neuropathy (HCC) Use 4 times daily 200 strip 024 Active apixaban (ELIQUIS) 5 mg tablet Take 1 tablet (5 mg total) by mouth 2 (two) times a day 60 tablet 5 024 Active nortriptyline (PAMELOR) 25 mg capsule Take 1 capsule (25 mg total) by mouth nightly 024 Active lisinopriL (PRINIVIL,ZES TRIL) 10 mg tablet TAKE ONE TABLET BY MOUTH DAILY 100 tablet 1 024 Active zolpidem (AMBIEN) 5 mg tablet TAKE ONE TABLET BY MOUTH BEDTIME NEEDED FOR SLEEP 30 tablet 2 Active ezetimibe (ZETIA) 10 mg tablet TAKE ONE TABLET BY MOUTH DAILY 90 tablet 1 Active baclofen (LIORESAL) 20 mg tablet TAKE ONE TABLET BY MOUTH THREE TIMES A DAY 30 tablet Active dulaglutide (Trulicity) 0.75 mg/0.5 mL pen injector INJECT 0.75MG SUBCUTANEOUSLY EVERY 7 DAYS 2 mL 1 Active sildenafiL (VIAGRA) 100 mg tablet Take 1 tablet (100 mg total) by mouth as needed for erectile dysfunction 6 tablet Active insulin degludec (TRESIBA) 200 unit/mL (3 mL) pen for injection Inject 0.22 mL (44 Units total) under the skin daily Active varenicline tartrate (CHANTIX ANDREWS) 0.5 mg [...] ERECTILE DYSFUNCTION 6 tablet 024 2024 Discontinued(R ruma) insulin degludec (TRESIBA) 200 unit/mL (3 mL) pen for injection Inject 0.2 mL (40 Units total) under the skin daily 025 2024 Discontinued Active Problems Problem Noted Date Diagnosed Date DVT (deep venous thrombosis) ([facility] [place]) Assessment & Plan (08/27/2024 3:20 PM CDT): [...] basis Assessment & Plan (09/07/2024 12:33 PM MINING PLANT OPERATOR): Patient has myopathy with statins Assessment & Plan (04/10/2024 7:46 AM CDT): Patient could not take statins because of muscle ache and weakness Assessment & Plan (01/05/2024 2:55 PM MINING PLANT OPERATOR): Patient could not take statins because of [...] 08/23/2022 Assessment & Plan (09/08/2022 1:27 PM MINING PLANT OPERATOR): Patient continue to have for persistent diarrhea. Stool test was negative. CBC and SMA 7 were unremarkable. We made him a referral to see a flower planter for colonoscopy. He said his appointment is [...] Ambien Assessment & Plan (09/08/2021 4:10 PM MINING PLANT OPERATOR): Controlled on Ambien Assessment & Plan (12/10/2020 1:17 PM MINING PLANT OPERATOR): Patient has persistent insomnia. Increase Ambien to 10 mg q.h.s. p.r.n. Assessment & Plan (08/28/2020 12:17 PM CDT): Patient will be started on Ambien 5 mg q.h.s. p.r.n. Pulmonary nodules 06/23/2020 Assessment & Plan (04/10/2024 12:53 PM CDT): Lung scan in March 2023 was benign. Repeat lung scan Assessment & Plan (01/05/2024 2:55 PM MINING PLANT OPERATOR): Repeat CT scan in March 2024 Assessment [...] nodules Assessment & Plan (12/23/2021 4:35 PM MINING PLANT OPERATOR): No change in the size of pulmonary nodules on CT scan of the lungs in July 2021 Assessment & Plan (09/08/2021 4:11 PM MINING PLANT OPERATOR): CT lung screen showed no change in [...] medications Assessment & Plan (10/06/2023 7:53 AM MINING PLANT OPERATOR): Continue duloxetine Assessment & Plan (07/07/2023 7:55 [...] medication Assessment & Plan (12/06/2019 3:14 PM MINING PLANT OPERATOR): Patient feels fine without medications. No suicidal ideations. Assessment & Plan (09/18/2019 3:47 PM MINING PLANT OPERATOR): The patient has mild depression and we [...] minutes. Assessment & Plan (01/05/2024 2:58 PM MINING PLANT OPERATOR): Discussed smoking cessation and different methods to [...] minutes. Assessment & Plan (12/23/2021 4:37 PM MINING PLANT OPERATOR): Discussed smoking cessation and different methods to help with that. Discussed the risks of smoking including COPD, CAD and lung cancer etc. Total time spent was 4 minutes. Assessment & Plan (09/09/2021 1:57 PM MINING PLANT OPERATOR): Discussed smoking cessation and different methods to [...] results. Assessment & Plan (12/06/2019 3:13 PM MINING PLANT OPERATOR): Discussed smoking cessation and different methods to help with that. Discussed the risks of smoking including COPD, CAD and lung cancer etc. Total time spent was 3 minutes. Assessment & Plan (09/18/2019 3:46 PM MINING PLANT OPERATOR): CT lung screen in May 2019 was [...] 06/18/2019 Assessment & Plan (01/05/2024 2:56 PM MINING PLANT OPERATOR): Colonoscopy in August 2022 showed 1 polyp and repeat in 5 years as per the GI doctor. Assessment & Plan (03/22/2022 5:02 PM CDT): Follow-up with GI doctor for colonoscopy Assessment & Plan (06/09/2021 1:33 PM CDT): Repeat colonoscopy in [address] Gandhi Assessment & Plan (12/10/2020 12:55 PM MINING PLANT OPERATOR): Repeat colonoscopy in [address] Gandhi [...] . Assessment & Plan (01/05/2024 2:55 PM MINING PLANT OPERATOR): Controlled on current medications. Continue low-fat diet. Will continue to monitor . Assessment & Plan (10/06/2023 7:53 AM MINING PLANT OPERATOR): Controlled on current medications. Continue low-fat diet. [...] . Assessment & Plan (12/23/2021 4:34 PM MINING PLANT OPERATOR): Resume pravastatin 20 mg q.h.s. and continue Zetia and we discussed diet and will repeat the blood work in few months Assessment & Plan (09/08/2021 4:10 PM MINING PLANT OPERATOR): Controlled on current medications. Continue low-fat diet. Will continue to monitor . Assessment & Plan (06/09/2021 1:32 PM CDT): Controlled on current medications. Continue low-fat diet. Will continue to monitor . Assessment & Plan (03/09/2021 11:55 AM CDT): Controlled on current medications. Continue low-fat diet. Will continue to monitor . Assessment & Plan (12/10/2020 12:55 PM MINING PLANT OPERATOR): Controlled on current medications. Continue low-fat diet. [...] daily Assessment & Plan (12/06/2019 3:13 PM MINING PLANT OPERATOR): Discussed diet and exercise. We will add Vascepa 2 g twice daily and repeat blood work in few months Assessment & Plan (09/18/2019 3:46 PM MINING PLANT OPERATOR): Controlled on current medications. Continue low-fat diet. [...] monitor. Assessment & Plan (01/05/2024 2:55 PM MINING PLANT OPERATOR): Hemoglobin A1c 7.2. Increase Trulicity to 3 mg subQ once a week. Discussed the importance of diet. Ambulate as tolerated. Advised to have eye exam. Assessment & Plan (10/06/2023 7:52 AM MINING PLANT OPERATOR): Continue current medications, discussed low carbohydrate diet, [...] monitor. Assessment & Plan (12/23/2021 4:34 PM MINING PLANT OPERATOR): Patient will be started on Trulicity 0.75 mg once a week for couple of weeks then 1.5 mg once a week and side effects were explained and samples were given and instructions were given. He will continue with other medications. Discussed the importance of diet. Assessment & Plan (09/09/2021 1:56 PM MINING PLANT OPERATOR): Continue current medications, discussed low carbohydrate diet, [...] exam Assessment & Plan (12/10/2020 1:17 PM MINING PLANT OPERATOR): Increase Tresiba to 70 units daily and [...] monitor. Assessment & Plan (12/06/2019 3:12 PM MINING PLANT OPERATOR): We discussed again diet and exercise and weight loss. We will increase Tresiba to 66 units daily and repeat A1c before next visit Assessment & Plan (09/18/2019 3:46 PM MINING PLANT OPERATOR): Continue current medications, discussed low carbohydrate diet, [...] gabapentin Assessment & Plan (10/06/2023 7:52 AM MINING PLANT OPERATOR): Neuropathy secondary to diabetes mellitus. 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 Continue gabapentin Assessment & Plan (03/22/2022 5:01 PM CDT): Continue Lyrica Assessment & Plan (12/23/2021 4:34 PM MINING PLANT OPERATOR): Continue Lyrica Assessment & Plan (09/08/2021 4:10 PM MINING PLANT OPERATOR): Continue Lyrica Assessment & Plan (06/09/2021 1:32 PM CDT): Controlled on Lyrica Assessment & Plan (03/09/2021 11:55 AM CDT): Continue Lyrica Assessment & Plan (12/06/2019 3:13 PM MINING PLANT OPERATOR): Patient with chronic neuropathy secondary to diabetes and chronic back pain and he is followed by the neurologist Assessment & Plan (09/18/2019 3:46 PM MINING PLANT OPERATOR): The patient has mild neuropathy secondary to [...] he was advised strongly to call his airbrush painter because of worsened pain and he [...] management. Assessment & Plan (10/05/2021 3:05 PM MINING PLANT OPERATOR): Patient was started to see a new pain management practice recently and he had recent injections and physical therapy with improvement in his symptoms. He likes to get off oxycodone. I told him to discuss that with the pain management. Assessment & Plan (09/09/2021 1:56 PM MINING PLANT OPERATOR): Will make him a referral to see a neurosurgeon and Pain Management. Will obtain x-rays of the hips to be sure that there is no issues with his hips as a cause of his lower back pain Assessment & Plan (12/10/2020 12:54 PM MINING PLANT OPERATOR): Status laminectomy. Patient has persistent symptoms and [...] 12/23/2016 Assessment & Plan (01/05/2024 2:57 PM MINING PLANT OPERATOR): Patient is followed by the pain specialist [...] opinion. Assessment & Plan (12/23/2021 4:34 PM MINING PLANT OPERATOR): Patient is under the care of pain management Assessment & Plan (12/06/2019 3:13 PM MINING PLANT OPERATOR): The patient has a chronic back pain [...] monitor Assessment & Plan (01/05/2024 2:55 PM MINING PLANT OPERATOR): Blood pressure is running on the low side. Will cut down lisinopril to 10 mg daily. Discussed low-salt diet. Discussed exercise on regular basis. Will continue to monitor Assessment & Plan (10/06/2023 12:18 PM MINING PLANT OPERATOR): Blood pressure is running on the low [...] monitor Assessment & Plan (12/23/2021 4:34 PM MINING PLANT OPERATOR): Continue current medications. Discussed low-salt diet. Discussed exercise on regular basis. Will continue to monitor Assessment & Plan (09/08/2021 4:09 PM MINING PLANT OPERATOR): Continue current medications. Discussed low-salt diet. Discussed [...] monitor Assessment & Plan (12/10/2020 12:55 PM MINING PLANT OPERATOR): Continue current medications. Discussed low-salt diet. Discussed [...] monitor Assessment & Plan (12/06/2019 3:13 PM MINING PLANT OPERATOR): Continue current medications. Discussed low-salt diet. Discussed exercise on regular basis. Will continue to monitor Assessment & Plan (06/17/2019 5:03 PM CDT): Continue current medications. Discussed low-salt diet. Discussed exercise on regular basis. Will continue to monitor Assessment & Plan (03/06/2019 4:47 PM CDT): Continue current medications. Discussed low-salt diet. Discussed exercise on regular basis. Will continue to monitor Arthritis 10/08/2013 Encounters Date Type Department Care Team Description 11/08/2024 Telephone [facility] Medical [facility] Internal Medicine [address] [place] [address] [place] [phone] Angelia Rice RN Diabetes 10/19/2024 Telephone [facility] Internal Medicine [address] [place] [address] [place] [phone] Roseanna Yung MD Med Refill 09/14/2024 Telephone [facility] Internal Medicine [address] [place] [address] [place] [phone] Roseanna Yung MD 09/14/2024 Orders Only [facility] Neurosurgery Clinic [address] [place] [address], [address] [place] [phone] Alejandro Lawrence MD Degeneration of intervertebral disc of lumbar region with discogenic back pain (Primary Dx); Lumbar pain; Low back pain, unspecified back pain laterality, unspecified chronicity, unspecified whether sciatica present; Sacroiliac joint pain; S/P lumbar and lumbosacral fusion by anterior technique; S/P lumbar fusion 09/12/2024 2:35 PM MINING PLANT OPERATOR - 09/12/2024 11:59 PM MINING PLANT OPERATOR Hospital Encounter [facility] Di[facility] Imaging [address] [place] [phone] Degeneration of intervertebral disc of lumbar region Discharge Disposition: Discharge to home or self care 09/12/2024 2:00 PM MINING PLANT OPERATOR Office Visit [facility] Neurosurgery [facility] [address] [place] [address], [address] [place] [address] Alejandro Lawrence MD Lumbar pain (Primary Dx); Degeneration of intervertebral disc of lumbar region 09/11/2024 Orders Only [facility] Health Information Management [address] [place] [address] Roseanna Yung MD 09/11/2024 Telephone [facility] Internal Medicine [address] [place] [address] [address] [place] [address] Keisha Torres Unsuccessful Phone Call 1 ([facility] Med Adherece - past due) 09/07/2024 ACO Clinical Pharmacist [facility] Accountable Care Organization [address] [place] [address] Enid Quinteros [facility] 08/31/2024 Telephone [facility] Internal Medicine [address] [place] [address] [address] [place] [address] Roseanna Yung MD Medical Question/Miscellaneou s 08/27/2024 2:45 PM CDT Office Visit [facility] Medical [facility] Internal Medicine [address] [place] [address] [address] [place] [phone] Roseanna Yung MD Hypertension, essential (Primary Dx); DVT (deep venous thrombosis) (CMS/HCC) (HCC); BMI 27.0-27.9,adult; Degeneration of intervertebral disc of lumbar region with lower extremity pain; Mixed hyperlipidemia; DM type 2 with diabetic peripheral neuropathy (HCC); Statin myopathy from Last 3 Months Immunizations Name Administration Dates Next Due Influenza, Unspecified 08/27/2024(Deferr ed: Patient Refused),04/10/2024(Deferred: Patient Refused),10/06/2023(Deferred: Patient decision),07/07/2023(Deferred: Patient decision),11/04/2022(Deferred: Patient decision) Pfizer SARS-CoV-2 Monovalent Vaccination (12+ Yrs) PURPLE 04/29/2021,04/07/2021 Pneumococcal Conjugate Pcv20 10/06/2023 Surgical History Surgery Date Site/Laterality Comments BACK SURGERY 05/27/2020 Back Surgery - (Added by TW Conv) NECK SURGERY 10/31/2002 - 10/30/2003 Neck Surgery - (Added by TRANG Conv) SPINAL FUSION SPINAL CORD STIMULATOR IMPLANT 10/31/2006 - 10/30/2007 APPENDECTOMY 10/31/1967 - 10/30/1968 TONSILLECTOMY 10/31/1965 - 10/30/1966 Medical History Medical History Date Comments HTN (hypertension) Diabetes (HCC) HLD (hyperlipidemia) ED (erectile dysfunction) Low back pain Family History Medical History Relation Name Comments Heart disease Father Family history of cardiac disorder - (Added by TW Conv) Heart disease Mother Family history of cardiac disorder - (Added by TW Conv) Relation Name Status Comments Father Mother Social History Tobacco Use Types Packs/Day Years Used Date Smoking Tobacco: Every Day Cigarettes 1 51.1 Started: 1973 Passive Smoke Exposure: Current Smokeless Tobacco: Never Tobacco Cessation:Ready to Q uit: Not Asked; Counseling Given: Not Answered Alcohol Use Standard Drinks/Week Comments Not Currently 0 (1 standard drink = 0.6 oz pur e alcohol) [facility] Utilities Answer Date Recorded In the past [...] often do you attend chur ch or evangelical services? Never 07/17/2024 Do you belong to any clubs o r organizations such as adventist groups, unions, fraternal or athletic groups, or [...] any time in the past 12 m [facility], were you homeless or living in a half-way (including now)? No 07/17/2024 Personal Safety Answer Date Recorded Have you ever been in or are you currently in a harmful physical or emotional relationship or is someone making you feel afraid or unsafe? Denies 07/16/2024 Sex and Gender Information Value Date Recorded Sex Assigned at Not on file Legal Sex Male 6:35 AM MINING PLANT OPERATOR Gender Identity Not on file Sexual Orientation Not on file Occupation Industry Job Start Date Job End Date On Disability Not on file Not on file Not on file Obstetrics History Last Filed Vital Signs Vital Sign Reading Time Taken Comments Blood Pressure 134/81 09/12/2024 1:58 PM MINING PLANT OPERATOR Pulse 82 09/12/2024 1:58 PM MINING PLANT OPERATOR Temperature 36.6 ??C (97.8 ??F) 08/27/2024 2:50 PM CD T Respiratory Rate 16 08/27/2024 2:50 PM CDT Oxygen Saturation 96% 09/12/2024 1:58 PM MINING PLANT OPERATOR Inhaled Oxygen Concentration - - Weight 90.1 kg (198 lb 9.6 oz) 09/12/2024 1:58 P M MINING PLANT OPERATOR Height 177.8 cm (5' 10 ) 09/12/2024 1:58 PM MINING PLANT OPERATOR Body Mass Index 28.5 09/12/2024 1:58 PM MINING PLANT OPERATOR Plan of Treatment Health Maintenance Due Date Last Done Comments Hepatitis B Screening 1978 Dilated Eye Exam 06/04/2023 06/04/2022, 02/2022, 06/04/2022, Additional history exists Abdominal Aortic Aneurysm (A AA) Screen 2023 Well Visit 65+ 2023 Lung Cancer Screening 04/20/2024 04/20/2023 , 07/27/2021, 07/25/2020, Additional history exists Albumin Creatinine Ratio, Urine 06/16/2024 06/16/2023, 06/09/2022, 12/09/2021, Additional history exists Foot Exam 10/06/2024 10/06/2023, 12/02, 03/09/2021 Lipid Panel 01/03/2025 01/04/2024, 05/31, 06/09/2022, Additional history exists Hemoglobin A1C 01/13/2025 07/16/2024, 03/31, 01/04/2024, Additional history exists Prostate Cancer Screening-PSA 06/16/2025, 03/18/2022, 03/05/2021, Additional history exists eGFR 07/18/2025 07/18/2024, 07/01, 07/17/2024, Additional history exists Depression Screening 08/27/2025 08/27/2024, 07/25/2024, 04/10/2024, Additional history exists Fall Risk Assessment 08/27/2025 08/27/2024, 07/25/2024, 07/18/2024, Additional history exists Colon Cancer Screening-Colonoscopy 09/16/2027 09/16/2022, 03/28/2019, 11/06/2013 Covid-19 Vaccine Discontinued 11/07/2021, , 04/07/2021 Hepatitis C Screening Completed 06/09/2022, 022 Colon Cancer Screening-CT Colonography Discontinued 09/16/2022, 03/28/2019, 11/06/2013 Colon Cancer Screening-DNA Stool Discontinued 09/16/2022, 03/28/2019, 11/06/2013 Colon Cancer Screening-FIT Discontinued 09/16, 03/28/2019, 11/06/2013 Colon Cancer Screening-Sigmoidoscopy Discontinued 09/16/2022, 03/28/2019, 11/06/2013 Pneumococcal vaccine 65+ Completed 10/06/2023 DTaP/Tdap/Td Vaccine Discontinued Influenza Vaccine Discontinued Zoster Vaccine Discontinued Goals Goal Patient Goal Type Associated Problems Recent Progress Patient-Stated? Author CCM Chronic Pain Care Plan Chronic Care Management No Shellie Anna, RN Note: Problem: Chronic Pain Goals: 1. Minimize further functional decline 2. Maximize quality of life 3. Control pain Strategies: - Activity/exercise program recommendation - Conservative stepwise pain medicine strategy with multi-disciplinary approach - Recommend healthy lifestyle strategies and compensatory methods as needed Reduce the likelihood of falling Lifestyle No Shellie Anna, NATALIE Note: Below are four things you can [...] on stairs Contact your local community or [facility] for information on exercise, fall prevention programs, or options for improving home safety. Procedures Procedure Name Priority Date/Time Associated Diagnosis Comments XR LUMBAR SPINE ROUTINE W FLEX EXT Schedule Routine, Read Routine (OP Routine) 09/12/2024 2:53 PM MINING PLANT OPERATOR Degeneration of intervertebral disc of lumbar region XR SCOLIOSIS AP LAT Schedule Routine, Read Routine (OP Routine) 09/12/2024 2:53 PM MINING PLANT OPERATOR Degeneration of intervertebral disc of lumbar region SCAN - RADIOLOGY/IMAGING 09/11/2024 EGFR Routine 07/18/2024 1:44 AM CDT HEMOGLOBIN A1C Routine 07/16/2024 11:02 PM CDT LIPID PANEL Routine 01/04/2024 9:04 AM MINING PLANT OPERATOR DM type 2 with diabetic peripheral neuropathy (CMS/HCC) (HCC) Mixed hyperlipidemia ALBUMIN CREATININE RATIO, URINE Routine 06/16/2023 11:22 AM CDT DM type 2 with diabetic peripheral neuropathy (CMS/HCC) (HCC) PSA SCREEN Routine 06/16/2023 11:22 AM CDT Prostate cancer screening LUNG CANCER SCREENING Routine 04/20/2023 COLONOSCOPY Routine 09/16/2022 HEPATITIS C ANTIBODY Routine 06/09/2022 12:00 PM CDT DIABETIC EYE EXAM Routine 06/04/2022 DIABETES FOOT EXAM Routine 12/23/2021 from Last 3 Months or Most Recently Relevant to Health Maintenance Results * XR Spine Lumbar Incl Bending Views 6 or More Views (09/12/2024 2:53 PM MINING PLANT OPERATOR) Anatomical Region Laterality Modality L-spine N/A Computed Radiogr aphy 09/12/2024 8:58 PM MINING PLANT OPERATOR Narrative 09/12/2024 9:00 PM MINING PLANT OPERATOR EXAM DESCRIPTION: XR SCOLIOSIS AP AND LATERAL; [...] ??No acute fractures are identified. ??There is emcz-vk-acipktoq multilevel thoracic degenerative disc disease. ??L3-S1 combined anterior posterior spinal fusion is present. ??There is mild L2-L3 degenerative disc disease. ??Arterial atherosclerosis is present. ??Prior posterior decompression is noted. ?? Flexion-extension views demonstrate mild anterolisthesis of L2 on L3. IMPRESSION: L3-S1 combined anterior posterior spinal fusion with posterior decompression. Mild L2-L3 degenerative disc disease with mild anterolisthesis on flexion-extension views. Ddlq-fj-irzkyrmk multilevel thoracic degenerative disc disease. Long segment dextrocurvature of the thoracic spine. THIS IS AN ELECTRONICALLY VERIFIED FINAL REPORT 09/12/2024 9:00 PM - Electronically signed by ??Teddy Brar M.D. D: ??09/12/2024 9:00 PM T: Report ID: [id number] Reading Location: ??[id number] Procedure Note Teddy Brar MD - 09/12/2024 [...] No acute fractures are identified. There is mxrg-qv-xswuknbt multilevel thoracic degenerative disc disease. L3-S1 combined anterior posterior spinalfusion is present. There is mild L2-L3 degenerative disc disease. Arterial atherosclerosis is present. Prior posterior decompression is noted. Flexion-extension views demonstrate mild anterolisthesis of L2 on L3. IMPRESSION: L3-S1 combined anterior posterior spinal fusion with posteriordecompression. Mild L2-L3 degenerative disc disease with mild anterolisthesis on flexion-extension views. Xkzf-mz-fpgswghr multilevel thoracic degenerative disc disease. Long segment dextrocurvature of the thoracic spine. THIS IS AN ELECTRONICALLY VERIFIED FINAL REPORT 09/12/2024 9:00 PM - Electronically signed by Teddy Brar M.D. T: Report ID: [id number] Reading Location: [id number] Alejandro Lawrence MD IMG XR PROCEDURES Final Result * XR Scoliosis 2 or 3 Views (09/12/2024 2:53 PM MINING PLANT OPERATOR) Anatomical Region Laterality Modality Spine N/A Computed Radiogr aphy 09/12/2024 8:58 PM MINING PLANT OPERATOR Narrative 09/12/2024 9:00 PM MINING PLANT OPERATOR EXAM DESCRIPTION: XR SCOLIOSIS AP AND LATERAL; [...] ??No acute fractures are identified. ??There is chch-tu-warbyoag multilevel thoracic degenerative disc disease. ??L3-S1 combined anterior posterior spinal fusion is present. ??There is mild L2-L3 degenerative disc disease. ??Arterial atherosclerosis is present. ??Prior posterior decompression is noted. ?? Flexion-extension views demonstrate mild anterolisthesis of L2 on L3. IMPRESSION: L3-S1 combined anterior posterior spinal fusion with posterior decompression. Mild L2-L3 degenerative disc disease with mild anterolisthesis on flexion-extension views. Aygs-of-juwlrasn multilevel thoracic degenerative disc disease. Long segment dextrocurvature of the thoracic spine. THIS IS AN ELECTRONICALLY VERIFIED FINAL REPORT 09/12/2024 9:00 PM - Electronically signed by ??Teddy Brar M.D. D: ??09/12/2024 9:00 PM T: Report ID: [id number] Reading Location: ??[id number] Procedure Note Teddy Brar MD - 09/12/2024 [...] No acute fractures are identified. There is fcof-gb-qfudxheg multilevel thoracic degenerative disc disease. L3-S1 combined anterior posterior spinalfusion is present. There is mild L2-L3 degenerative disc disease. Arterial atherosclerosis is present. Prior posterior decompression is noted. Flexion-extension views demonstrate mild anterolisthesis of L2 on L3. IMPRESSION: L3-S1 combined anterior posterior spinal fusion with posteriordecompression. Mild L2-L3 degenerative disc disease with mild anterolisthesis on flexion-extension views. Apsa-vz-clcqxkje multilevel thoracic degenerative disc disease. Long segment dextrocurvature of the thoracic spine. THIS IS AN ELECTRONICALLY VERIFIED FINAL REPORT 09/12/2024 9:00 PM - Electronically signed by Teddy Brar M.D. T: Report ID: [id number] Reading Location: [place] [address] Alejandro Lawrence MD IMG XR PROCEDURES Final Result * SCAN - RADIOLOGY/IMAGING (09/11/2024) Anatomical Region Laterality Modality Other Roseanna Yung MD Final Resul t * [...] of Race in Diagnosing Kidney Disease, JASN 2020). The CKD-EPI equation should not be used for patients with unstable renal function and has not been validated in children and those over 70. Current interpretive data was last reviewed 2021. Blood 07/18/2024 1:44 AM CDT 07/18/2024 1:58 AM CDT Ivon Mattson LAB BLOOD ORDERABLES Final R esult Performing Organization Address [facility] de Phone Number SHIRA [address] [place], [place] [phone] * (ABNORMAL) Hemoglobin A1c (07/16/2024 11:02 PM CDT) Pathologist [facility] Hgb A1C 10.9(H) 4.0 - 5.6 % Estimated Average Glucose 266 mg/dL SHIRA Comment: The ADA recommends reporting an estimated Average Glucose (eAG) with all Hemoglobin A1c results using the equation derived from a study of 507 normal and diabetic adults. ??Minority populations were underrepresented and children were not included. ?? (Diabetes Care 31:5188-2218, 2008). ??The eAG is not equivalent to a fasting glucose. Blood 07/16/2024 11:0 2 PM CDT 07/16/2024 11:13 PM CDT Ivon Srinivasan LAB BLOOD ORDERABLES Final R esult Performing Organization Address [facility] Co de Phone Number SHIRA [address] [place], [place] [phone] * (ABNORMAL) Lipid panel (01/04/2024 9:04 AM MINING PLANT OPERATOR) [facility] Cholesterol 178 <200 mg/dL [facility] [...] factors. LDL-C is now calculated using the Reinier-Butler calculation, which is a validated novel method providing better accuracy than the Friedewald equation in the estimation of LDL-C. Reinier SS et al. CONSTANCE. 2013;310(19): 6592-2454 (http://education.[employer]/faq/YPH515) Chol/HDL ratio 6.4(H) <5.0 (calc) [facility] Non-HDL, (LDL+VLDL) 150(H) <130 mg/dL (calc) [facility] Comment: For patients with diabetes plus 1 major ASCVD risk factor, treating to a non-HDL-C goal of <100 mg/dL (LDL-C of <70 mg/dL) is considered a therapeutic option. Blood 01/04/2024 9:04 AM MINING PLANT OPERATOR 01/04/2024 9:05 AM MINING PLANT OPERATOR Narrative [facility] - 01/05/2024 5:38 AM MINING PLANT OPERATOR FASTING:YES FASTING: YES us Roseanna Yung MD LAB BLOOD ORDERABLES Final Result [facility] [address] [place] [address] * PSA screen (06/16/2023 11:22 AM CDT) PSA 0.52 < OR = 4.00 ng/mL [facility] Comment: The total PSA value from this assay system is standardized against the WHO standard. The test result will be approximately 20% lower when compared to the equimolar-standardized total PSA (Stefany Kvng). Comparison of serial PSA results should be [...] BLOOD ORDERABLES Final Result Performing Organization Address City/[facility] Co de Phone Number [facility] [address] [place] [address] * Albumin Creatinine Ratio, Urine (06/16/2023 11:22 [...] Yung MD LAB URINE ORDERABLES Final Result Performing Organization Address [facility]/ZIP Co de Phone Number [facility] [address] [address] [facility] [place] [address] * HM LUNG CANCER SCREENING (04/20/2023) Historical Provider HEALTH MAINTENANCE Final Result * (ABNORMAL) Colonoscopy (09/16/2022) Anatomical Region Laterality Modality Other Impressions 09/16/2022 Tubular adenoma, repeat in 5 years Historical Provider ENDOSCOPY PROCEDURES Evon l Result * Hepatitis C antibody (06/09/2022 12:00 PM CDT) Hep C Ab NON-REACTI VE NON-REACT LAI [facility] SIGNAL TO CUT-OFF 0.01 <1.00 [facility] Comment: HCV antibody was non-reactive. There is no laboratory evidence of HCV infection. In most cases, no further action is required. However, if recent HCV exposure is suspected, a test for HCV RNA (test code 36278) is suggested. For additional information please refer to http://education.[employer]/faq/FXU38n9 (This link is being provided for informational/ educational purposes only.) 06/09/2022 12:0 0 PM CDT 06/09/2022 12:01 PM CDT Roseanna Yung MD LAB MICROBIOLOGY - GENERAL ORDERABLES Final Result [facility] [address] [place] [address] * Diabetic Eye Exam (06/04/2022) Narrative Kayla Barriga MA - 06/04/2022 normal Historical Provider HEALTH MAINTENANCE Final Result * DIABETES FOOT EXAM (12/23/2021) SCRIBED DIABETIC FOOT EXAM Normal Historical Provider HEALTH MAINTENANCE Final Result from Last 3 Months or Most Recently Relevant to Health Maintenance Insurance IDPA MEDICARE [employer] MED[employer] SOLUTIONS [facility] MEDICARE SOLUTIONS IDPA Advance Directives For more information, please contact: [phone] * Full Code (Latest Code Status on File) Date Activated Date Inactivated Comments 07/16/2024 6:28 PM 07/18/2024 9:01 PM Care Teams Pattern Storage Clerk Relationship Specialty Start Date End Date Roseanna Yung MD [address] [place] [address] PCP - General 12/14/17 Priya Hoyt MD [address] [place] [address] Consulting Physician Pain Management 05/13/22 Gerald Templeton Ud, MD [address] [place] [address] Consulting Physician Surgery 06/21/23
--- OUTSIDE RECORDS SUMMARY | 2024-11-22 20:35 | XMS_ITS | CONTINUITY OF CARE DOCUMENT ---
Author Name vernon junior Address Unknown Organization [facility] Address [address] [facility] [address] [place] [address] Phone [phone] Care Team Providers Care Clinical Nursing Manager Name Role Phone Rolly MAYERS, Harriett Unavailable TUAN MAYERS, JARAD Unavailable [phone] INSURANCE PROVIDERS Payer name Policy type / Coverage type [place] red democrat ID HEALTHCARE AND FAMILY SERVICES Medicaid 1 [id number] [place] MED[place] Medicare [id number]
== END 2024-11-20 21:15 | disposition home or self-care (01) ==
LOC: ANHED 21:03
PROVIDERS: Emergency Provider Emergency Medicine
DX: M79.662 Pain in left lower leg (principal); Z86.718 Personal history of other venous thrombosis and embolism; Z79.01 Long term (current) use of anticoagulants; E78.00 Pure hypercholesterolemia, unspecified; I10 Essential (primary) hypertension; E13.9 Other specified diabetes mellitus without complications; Z79.85 Long-term (current) use of injectable non-insulin antidiabetic drugs
CPT/HCPCS: 93971; 99284

== ENCOUNTER 2024-12-25 15:03 | Outpatient (RCR) | payer MEDICARE, MEDICAID, SELFPAY | END 2024-12-25 20:00 | disposition home or self-care (01) | LOC: CHSPT 15:03 | DX: M51.360 Other intervertebral disc degeneration, lumbar region with discogenic back pain only (principal); M53.3 Sacrococcygeal disorders, not elsewhere classified; Z98.1 Arthrodesis status | CPT/HCPCS: 99199 ==

== ENCOUNTER 2025-02-02 10:02 | Outpatient (CLI) | payer MEDICARE, MEDICAID, SELFPAY ==
--- OUTSIDE RECORDS SUMMARY | 2025-02-02 10:09 | XMS_ITS | CONTINUITY OF CARE DOCUMENT ---
Author Name vernon junior Address Unknown Organization [facility] Address [address] [address] [facility] [address] [place] [address] Phone [phone] Care Team Providers Care Entertainment Agent Name Role Phone Rolly MAYERS, Harriett Unavailable TUAN MAYERS, JARAD Unavailable [phone] INSURANCE PROVIDERS Payer name Policy type / Coverage type [place] red alliance party ID HEALTHCARE AND FAMILY SERVICES Medicaid 1 [id number] [place] MEDIC[place] Medicare [id number]
--- OUTSIDE RECORDS SUMMARY | 2025-02-02 10:09 | XMS_ITS | Encounter Summary ---
Author Organization [facility] Healthcare Address [address] [place] [address] Care Team Providers Care Real Estate Photographer Name Role Phone Roseanna Yung MD Primary Care Provider [phone] Priya Hoyt MD Unavailable Gerald Templeton Ud, MD Unavailable Encounter Details Date Type Department Care Team (Late st Contact Info) Description 04/30/2024 Orders Only [facility] Health Information Management [address] [place] [address] Roseanna Yung MD [address] [facility] [address] [address] Social History Tobacco Use Types Packs/Day Years Used Date Smoking Tobacco: Every Day Cigarettes 1 51.3 Started: 1973 Passive Smoke Exposure: Current Smokeless [...] on file 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 Gender Identity Not on file Sexual Orientation Not on file Occupation Industry Job Start Date Job End Date On Disability Not on file Not on file Not on file documented as of this encounter Plan of Treatment Upcoming Encounters Date Type Department Care Team (Latest Contact Info) Description 02/26/2025 7:30 AM CDT Hospital Encounter [facility] [place] [address] [place] [address] Alejandro Lawrence MD [address] [place] [address] 02/26/2025 7:30 AM CDT Anesthesia Event [facility] [place] [address] [place] [address] Zully Salgado, SANJANA [address] [place] [address] 02/26/2025 7:30 AM CDT - 02/26/2025 9:30 AM CDT Surgery [facility] [place] [address] [place] [address] Alejandro Lawrence MD [address] [place] [address] LUMBAR 2-LUMBAR 3 MINIMALLY INVASIVE DECOMPRESSION Scheduled Procedures Name Priority Associated Diagnoses Date/Ti me DECOMPRESSION LUMBAR LAMINECTOMY Adjacent segment disease of lumbar spine with history of fusion procedure S/P lumbar spinal fusion Neurogenic claudication due to lumbar spinal stenosis 02/26/2025 7:30 AM CDT documented as of this encounter Procedures Procedure Name Priority Date/Time Associated Diagnosis Comments SCAN - RADIOLOGY/IMAGING 04/30/2024 documented in this encounter Results * SCAN - RADIOLOGY/IMAGING (04/30/2024) Anatomical Region Laterality Modality Other us Roseanna Yung MD Edited Resu lt - Final documented in this encounter Visit Diagnoses Not on filedocumented in this encounter Care Teams Real Estate Photographer Relationship Specialty Start Date End Date Roseanna Yung MD [address] [facility] [address] [address] PCP - General 12/14/17 Priya Hoyt MD [address] [facility], [address] [address] Consulting Physician Pain Management 05/13/22 Gerald Templeton Ud, MD [facility], [address] [address] Consulting Physician Surgery 06/21/23 documented as of this encounter
--- OUTSIDE RECORDS SUMMARY | 2025-02-02 10:09 | XMS_ITS | Encounter Summary ---
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 Gender Identity Not on file Sexual Orientation Not on file documented as of this encounter Plan of Treatment Upcoming Encounters Date Type Department Care Team (Latest Contact Info) Description 02/26/2025 7:30 AM CDT Hospital Encounter [facility] OR [address] [place] [address] Alejandro Lawrence MD [address] [place] [address] 02/26/2025 7:30 AM CDT Anesthesia Event [facility] [place] [address] [place] [address] Zully Salgado NP [address] [facility] [address] 02/26/2025 7:30 AM CDT - 02/26/2025 9:30 AM CDT Surgery [facility] [place] [address] [place] [address] Alejandro Lawrence MD [address] [place] [address] LUMBAR 2-LUMBAR 3 MINIMALLY INVASIVE DECOMPRESSION Scheduled Procedures Name Priority Associated Diagnoses Date/Ti me DECOMPRESSION LUMBAR LAMINECTOMY Adjacent segment disease of lumbar spine with history of fusion procedure S/P lumbar spinal fusion Neurogenic claudication due to lumbar spinal stenosis 02/26/2025 7:30 AM CDT documented as of this encounter Visit Diagnoses Not on filedocumented in this encounter Care Teams Cmv Driver Relationship Specialty Start Date End Date Roseanna Yung MD [address] [facility] [address] [address] PCP - General 12/14/17 Priya Hoyt MD [address] [facility], [address] [address] Consulting Physician Pain Management 05/13/22 Gerald Templeton Ud, MD [address] [facility], [place] [address] Consulting Physician Surgery 06/21/23 documented as of this encounter
--- OUTSIDE RECORDS SUMMARY | 2025-02-02 10:09 | XMS_ITS | Encounter Summary ---
Author Organization [facility] Facility Care Team Providers Care Discharge Door Operator Name Role Phone Roseanna Yung MD Primary Care Provider [phone] Priya Hoyt MD Unavailable Gerald Templeton Ud, MD Unavailable Encounter Details Date Type Department Care Team (Latest Contact Info) Description 05/16/2018 Orders Only [facility] Provider, MD Edson [address] [place] [address] Social History Tobacco Use Types Packs/Day Years Used Date Smoking Tobacco: Every Day Sex and Gender Information Value Date Recorded Sex Assigned at Not on file Legal Sex 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 Gender Identity Not on file Sexual Orientation Not on file documented as of this encounter Plan of Treatment Upcoming Encounters Date Type Department Care Team (Latest Contact Info) Description 02/26/2025 7:30 AM CDT Hospital Encounter [facility] [place] [address] [place] [address] Alejandro Lawrence MD [address] [place] [address] 02/26/2025 7:30 AM CDT Anesthesia Event [facility] [place] [address] [place] [address] Zully Salgado, ESL INSTRUCTIONAL ASSISTANT [address] [facility] [place] [address] 02/26/2025 7:30 AM CDT - 02/26/2025 9:30 AM CDT Surgery [facility] [place] [address] [place] [address] Alejandro Lawrence MD [address] [facility] [address] [place] [address] LUMBAR 2-LUMBAR 3 MINIMALLY INVASIVE DECOMPRESSION Scheduled [...] COVID: Suspected 10/29/2021 10/29/2021 11/12/2021 3:07 AM 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 documented as of this encounter Care Teams Discharge Door Operator Relationship Specialty Start Date End Date Roseanna Yung MD [address] [facility] [address] [place] [address] PCP - General 12/14/17 Priya Hoyt MD [address] [facility], [facility] [address] [place] [address] Consulting Physician Pain Management 05/13/22 JarethGerald ragland Ud, MD [address] [facility], [place] [address] Consulting Physician Surgery 06/21/23 documented as of this encounter
--- OUTSIDE RECORDS SUMMARY | 2025-02-02 10:09 | XMS_ITS | Referral Summary ---
Author Organization [facility] Address [address] [place] [address] Care Team Providers Care River Tester Name Role Phone Roseanna Yung MD Primary Care Provider [phone] Priya Hoyt MD Unavailable Gerald Templeton Ud, MD Unavailable Encounters Date Type Department Care Team Description 01/28/2025 ACO Clinical Pharmacist [facility] Care Organization [address] [place] [id number] Enid Quinteros RPh 01/24/2025 Documentation [facility] [address] [place] [address] 3, [address] [place] [address] Melissa Starr RN 01/21/2025 2:30 PM CDT Office Visit [facility] [address] [place] [address] 3, [address] [place] [address] Luis Porter PA Adjacent segment disease of lumbar spine with history of fusion procedure (Primary Dx); S/P lumbar spinal fusion; S/P lumbar and lumbosacral fusion by anterior technique; Neurogenic claudication due to lumbar spinal stenosis 01/17/2025 2:30 PM CDT Office Visit [facility] Internal [facility] [address] [place] [address] Roseanna Yung MD DM type 2 with diabetic peripheral neuropathy (HCC) (Primary Dx); DVT (deep venous thrombosis) (HCC); Mixed hyperlipidemia; Hypertension, essential; Statin myopathy; BMI 29.0-29.9,adult; Prostate cancer screening; Pulmonary nodules; Primary insomnia; Degeneration of intervertebral disc of lumbar region with discogenic back pain; Smoking 01/14/2025 Telephone [facility] Internal Medicine [address] [place] [phone] Roseanna Yung MD Diabetes 01/04/2025 ACO Clinical Pharmacist [address] [address] Aliyah Javier [facility] 12/18/2024 Telephone [facility] Internal Medicine [address] [place] [phone] Roseanna Yung MD Diabetes 12/17/2024 Telephone [facility] Internal Medicine [address] [place] [phone] Roseanna Yung MD 11/29/2024 Telephone [facility] Internal Medicine [address] [place] [phone] Roseanna Yung MD Diabetes 11/23/[address] [address] Farzana Kline Successful Phone Call ([facility]) 11/08/2024 Telephone [facility] Medical [facility] Internal Medicine [address] [place] [phone] Angelia Rice RN Diabetes from Last 3 Months Allergies Active Allergy Reactions Criticality Noted Date Comments Niacin Unknown 02/27/2019 Hot flash Hodmoyf-Fke-Zor Reductase Inhibitors Muscle pain Medium 02/27/2019 Medications [...] TABLET BY MOUTH DAILY 100 tablet 1 Active ezetimibe (ZETIA) 10 mg tablet TAKE ONE TABLET BY MOUTH DAILY 90 tablet 1 Active baclofen (LIORESAL) 20 mg tablet Take 1 tablet (20 mg total) by mouth 3 (three) times a day 30 tablet Active insulin degludec (TRESIBA) 200 unit/mL (3 mL) pen for injection Inject 0.3 mL (60 Units total) under the skin daily 15 mL 2 Active sildenafiL (VIAGRA) 100 mg tablet TAKE 1 TABLET (100 MG TOTAL) BY MOUTH NEEDED FOR ERECTILE DYSFUNCTION 6 tablet 1 Active zolpidem (AMBIEN) 5 mg tablet TAKE ONE TABLET BY MOUTH BEDTIME NEEDED 30 tablet 2 Active dulaglutide (Trulicity) 0.75 mg/0.5 mL pen injector Inject 0.5 mL (0.75 mg total) under the skin every 7 days 2 mL 5 Active varenicline tartrate (CHANTIX) 1 mg tabletIndicat ions:Smoking Cessation Take 1 tablet (1 mg total) by mouth 2 (two) times a day Take with full glass of water. 60 tablet 3 025 2024 Active sildenafiL (VIAGRA) 100 mg tablet Take 1 tablet (100 mg total) by mouth as needed for erectile dysfunction 6 tablet 3 025 2024 Discontinued zolpidem (AMBIEN) 5 mg tablet TAKE ONE TABLET BY MOUTH BEDTIME NEEDED 30 tablet 025 2024 Discontinued insulin degludec (TRESIBA) 200 unit/mL (3 mL) pen for injection Inject 0.29 mL (58 Units total) under the skin daily 025 2024 Discontinued dulaglutide (Trulicity) 0.75 mg/0.5 mL pen injector INJECT 0.75 MG SUBCUTANEOUSLY ONCE A WEEK 2 mL 025 2024 Discontinued(R eorder) Active Problems Problem Noted Date Diagnosed Date S/P lumbar spinal fusion 01/24/2025 DVT (deep venous thrombosis) 07/16/2024 Assessment & Plan (01/17/2025 5:08 PM CDT): Patient is maintained on Eliquis. Will continue Eliquis for the time being Assessment & Plan (08/27/2024 3:20 PM CDT): [...] extent of DVT. Statin myopathy 07/07/2023 Overview (01/28/2025): Stable off statin. Must bill annually to remove from statin quality measure. Assessment & Plan (01/17/2025 5:09 PM CDT): Patient has myopathy with statins Assessment & Plan (09/07/2024 12:33 PM CATALYST SUPERVISOR): Patient has myopathy with statins Assessment & Plan (04/10/2024 7:46 AM CDT): Patient could not take statins because of muscle ache and weakness Assessment & Plan (01/05/2024 2:55 PM CATALYST SUPERVISOR): Patient could not take statins because of muscle ache and weakness Assessment & Plan (07/07/2023 12:30 PM CDT): Patient has myalgia with statins. Thrombocytopenia 07/06/2023 Assessment & Plan (07/07/2023 7:56 AM CDT): Patient has mild thrombocytopenia. He is asymptomatic. Will continue to monitor platelet count Neurogenic claudication due to lumbar spinal jose nosis 05/24/2023 Obesity, Class I, BMI 30-34.9 05/24/2023 Diarrhea 08/23/2022 Assessment & Plan (09/08/2022 1:27 PM CATALYST SUPERVISOR): Patient continue to have for persistent diarrhea. Stool test was negative. CBC and SMA 7 were unremarkable. We made him a referral to see a perishable freight inspector for colonoscopy. He said his appointment is [...] scooter Primary insomnia 08/28/2020 Assessment & Plan (01/17/2025 5:09 PM CDT): Controlled on Ambien Assessment & Plan (07/07/2023 7:55 AM CDT): Controlled on Ambien Assessment & Plan (09/08/2021 4:10 PM CATALYST SUPERVISOR): Controlled on Ambien Assessment & Plan (12/10/2020 1:17 PM CATALYST SUPERVISOR): Patient has persistent insomnia. Increase Ambien to 10 mg q.h.s. p.r.n. Assessment & Plan (08/28/2020 12:17 PM CDT): Patient will be started on Ambien 5 mg q.h.s. p.r.n. Pulmonary nodules 06/23/2020 Assessment & Plan (01/17/2025 5:09 PM CDT): Repeat lung scan in February 2025 Assessment & Plan (04/10/2024 12:53 PM CDT): Lung scan in March 2023 was benign. Repeat lung scan Assessment & Plan (01/05/2024 2:55 PM CATALYST SUPERVISOR): Repeat CT scan in March 2024 Assessment [...] nodules Assessment & Plan (12/23/2021 4:35 PM CATALYST SUPERVISOR): No change in the size of pulmonary nodules on CT scan of the lungs in July 2021 Assessment & Plan (09/08/2021 4:11 PM CATALYST SUPERVISOR): CT lung screen showed no change in [...] medications Assessment & Plan (10/06/2023 7:53 AM CATALYST SUPERVISOR): Continue duloxetine Assessment & Plan (07/07/2023 7:55 [...] medication Assessment & Plan (12/06/2019 3:14 PM CATALYST SUPERVISOR): Patient feels fine without medications. No suicidal ideations. Assessment & Plan (09/18/2019 3:47 PM CATALYST SUPERVISOR): The patient has mild depression and we will start him on Wellbutrin 150 mg daily and he can take melatonin as needed for insomnia and will evaluate him again in few months. The patient will call if he has suicidal ideations . Spider bite 07/10/2019 Smoking 06/18/2019 Assessment & Plan (01/17/2025 5:11 PM CDT): Discussed again the importance of complete smoking cessation. He had good results with Chantix in the past. He likes to start Chantix again. Prescription was given. Assessment & Plan (04/10/2024 7:46 AM CDT): Discussed smoking cessation and different methods to help with that. Discussed the risks of smoking including COPD, CAD and lung cancer etc. Total time spent was 4 minutes. Assessment & Plan (01/05/2024 2:58 PM CATALYST SUPERVISOR): Discussed smoking cessation and different methods to [...] minutes. Assessment & Plan (12/23/2021 4:37 PM CATALYST SUPERVISOR): Discussed smoking cessation and different methods to help with that. Discussed the risks of smoking including COPD, CAD and lung cancer etc. Total time spent was 4 minutes. Assessment & Plan (09/09/2021 1:57 PM CATALYST SUPERVISOR): Discussed smoking cessation and different methods to [...] results. Assessment & Plan (12/06/2019 3:13 PM CATALYST SUPERVISOR): Discussed smoking cessation and different methods to help with that. Discussed the risks of smoking including COPD, CAD and lung cancer etc. Total time spent was 3 minutes. Assessment & Plan (09/18/2019 3:46 PM CATALYST SUPERVISOR): CT lung screen in May 2019 was [...] 06/18/2019 Assessment & Plan (01/05/2024 2:56 PM CATALYST SUPERVISOR): Colonoscopy in August 2022 showed 1 polyp and repeat in 5 years as per the GI doctor. Assessment & Plan (03/22/2022 5:02 PM CDT): Follow-up with GI doctor for colonoscopy Assessment & Plan (06/09/2021 1:33 PM CDT): Repeat colonoscopy in [address] Gandhi Assessment & Plan (12/10/2020 12:55 PM CATALYST SUPERVISOR): Repeat colonoscopy in [address] Gandhi Assessment & Plan (06/18/2019 5:30 PM CDT): Colonoscopy in March [address] Gandhi and repeat the colonoscopy in 3 years Mixed hyperlipidemia 03/06/2019 Overview (01/28/2025): Do not recommend statin re-trial given history of intolerance (myopathy). Provider to bill Statin myopathy (G72.0) with assessment/plan in note annually to remove patient from statin quality measure(s). Consider non-statin therapy (e.g., Repatha, Praulent, Leqvio) to improve LDL. Cuauhtemoc available for cost assistance through [employer]. Phone number to enroll or online at [email or web address] Assessment & Plan (01/17/2025 5:09 PM CDT): Controlled on current medications. Continue low-fat diet. Will continue to monitor . Assessment & Plan (08/27/2024 3:20 PM CDT): Controlled on current medications. Continue low-fat diet. Will continue to monitor . Assessment & Plan (04/10/2024 7:46 AM CDT): Controlled on current medications. Continue low-fat diet. Will continue to monitor . Assessment & Plan (01/05/2024 2:55 PM CATALYST SUPERVISOR): Controlled on current medications. Continue low-fat diet. Will continue to monitor . Assessment & Plan (10/06/2023 7:53 AM CATALYST SUPERVISOR): Controlled on current medications. Continue low-fat diet. [...] . Assessment & Plan (12/23/2021 4:34 PM CATALYST SUPERVISOR): Resume pravastatin 20 mg q.h.s. and continue Zetia and we discussed diet and will repeat the blood work in few months Assessment & Plan (09/08/2021 4:10 PM CATALYST SUPERVISOR): Controlled on current medications. Continue low-fat diet. Will continue to monitor . Assessment & Plan (06/09/2021 1:32 PM CDT): Controlled on current medications. Continue low-fat diet. Will continue to monitor . Assessment & Plan (03/09/2021 11:55 AM CDT): Controlled on current medications. Continue low-fat diet. Will continue to monitor . Assessment & Plan (12/10/2020 12:55 PM CATALYST SUPERVISOR): Controlled on current medications. Continue low-fat diet. [...] daily Assessment & Plan (12/06/2019 3:13 PM CATALYST SUPERVISOR): Discussed diet and exercise. We will add Vascepa 2 g twice daily and repeat blood work in few months Assessment & Plan (09/18/2019 3:46 PM CATALYST SUPERVISOR): Controlled on current medications. Continue low-fat diet. [...] with diabetic peripheral neuropathy Assessment & Plan (01/17/2025 5:07 PM CDT): Continue current medications. Blood work was ordered again. Assessment & Plan (08/27/2024 3:21 PM CDT): [...] monitor. Assessment & Plan (01/05/2024 2:55 PM CATALYST SUPERVISOR): Hemoglobin A1c 7.2. Increase Trulicity to 3 mg subQ once a week. Discussed the importance of diet. Ambulate as tolerated. Advised to have eye exam. Assessment & Plan (10/06/2023 7:52 AM CATALYST SUPERVISOR): Continue current medications, discussed low carbohydrate diet, [...] monitor. Assessment & Plan (12/23/2021 4:34 PM CATALYST SUPERVISOR): Patient will be started on Trulicity 0.75 mg once a week for couple of weeks then 1.5 mg once a week and side effects were explained and samples were given and instructions were given. He will continue with other medications. Discussed the importance of diet. Assessment & Plan (09/09/2021 1:56 PM CATALYST SUPERVISOR): Continue current medications, discussed low carbohydrate diet, [...] exam Assessment & Plan (12/10/2020 1:17 PM CATALYST SUPERVISOR): Increase Tresiba to 70 units daily and [...] monitor. Assessment & Plan (12/06/2019 3:12 PM CATALYST SUPERVISOR): We discussed again diet and exercise and weight loss. We will increase Tresiba to 66 units daily and repeat A1c before next visit Assessment & Plan (09/18/2019 3:46 PM CATALYST SUPERVISOR): Continue current medications, discussed low carbohydrate diet, [...] gabapentin Assessment & Plan (10/06/2023 7:52 AM CATALYST SUPERVISOR): Neuropathy secondary to diabetes mellitus. 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 Continue gabapentin Assessment & Plan (03/22/2022 5:01 PM CDT): Continue Lyrica Assessment & Plan (12/23/2021 4:34 PM CATALYST SUPERVISOR): Continue Lyrica Assessment & Plan (09/08/2021 4:10 PM CATALYST SUPERVISOR): Continue Lyrica Assessment & Plan (06/09/2021 1:32 PM CDT): Controlled on Lyrica Assessment & Plan (03/09/2021 11:55 AM CDT): Continue Lyrica Assessment & Plan (12/06/2019 3:13 PM CATALYST SUPERVISOR): Patient with chronic neuropathy secondary to diabetes and chronic back pain and he is followed by the neurologist Assessment & Plan (09/18/2019 3:46 PM CATALYST SUPERVISOR): The patient has mild neuropathy secondary to diabetes. He is not on medications. Assessment & Plan (06/17/2019 5:02 PM CDT): Peripheral neuropathy secondary to diabetes mellitus and it is mild with no change Assessment & Plan (03/06/2019 4:47 PM CDT): The patient is not on medications. He was on Lyrica but it did not help. Adjacent segment disease of lumbar spine with history of fusion procedure 12/14/2017 Assessment & Plan (01/17/2025 5:10 PM CDT): Managed by the neurosurgeon Assessment & Plan (08/27/2024 3:20 PM CDT): [...] he was advised strongly to call his mirror painter because of worsened pain and he [...] management. Assessment & Plan (10/05/2021 3:05 PM CATALYST SUPERVISOR): Patient was started to see a new pain management practice recently and he had recent injections and physical therapy with improvement in his symptoms. He likes to get off oxycodone. I told him to discuss that with the pain management. Assessment & Plan (09/09/2021 1:56 PM CATALYST SUPERVISOR): Will make him a referral to see a neurosurgeon and Pain Management. Will obtain x-rays of the hips to be sure that there is no issues with his hips as a cause of his lower back pain Assessment & Plan (12/10/2020 12:54 PM CATALYST SUPERVISOR): Status laminectomy. Patient has persistent symptoms and [...] 12/23/2016 Assessment & Plan (01/05/2024 2:57 PM CATALYST SUPERVISOR): Patient is followed by the pain specialist [...] opinion. Assessment & Plan (12/23/2021 4:34 PM CATALYST SUPERVISOR): Patient is under the care of pain management Assessment & Plan (12/06/2019 3:13 PM CATALYST SUPERVISOR): The patient has a chronic back pain with recent MRI that showed large bulged disc and will make him a referral to see the spine surgeon for 2nd opinion Sciatica 10/20/2016 ED (erectile dysfunction) 04/21/2016 Hypertension, essential 10/08/2013 Assessment & Plan (01/17/2025 5:08 PM CDT): Continue current medications. Discussed low-salt diet. Discussed exercise on regular basis. Will continue to monitor Assessment & Plan (08/27/2024 3:21 PM CDT): Continue lisinopril and low-salt Assessment & Plan (07/25/2024 4:15 PM CDT): Continue current medications. Discussed low-salt diet. Discussed exercise on regular basis. Will continue to monitor Assessment & Plan (04/10/2024 7:45 AM CDT): Continue current medications. Discussed low-salt diet. Discussed exercise on regular basis. Will continue to monitor Assessment & Plan (01/05/2024 2:55 PM CATALYST SUPERVISOR): Blood pressure is running on the low side. Will cut down lisinopril to 10 mg daily. Discussed low-salt diet. Discussed exercise on regular basis. Will continue to monitor Assessment & Plan (10/06/2023 12:18 PM CATALYST SUPERVISOR): Blood pressure is running on the low [...] monitor Assessment & Plan (12/23/2021 4:34 PM CATALYST SUPERVISOR): Continue current medications. Discussed low-salt diet. Discussed exercise on regular basis. Will continue to monitor Assessment & Plan (09/08/2021 4:09 PM CATALYST SUPERVISOR): Continue current medications. Discussed low-salt diet. Discussed [...] monitor Assessment & Plan (12/10/2020 12:55 PM CATALYST SUPERVISOR): Continue current medications. Discussed low-salt diet. Discussed [...] monitor Assessment & Plan (12/06/2019 3:13 PM CATALYST SUPERVISOR): Continue current medications. Discussed low-salt diet. Discussed exercise on regular basis. Will continue to monitor Assessment & Plan (06/17/2019 5:03 PM CDT): Continue current medications. Discussed low-salt diet. Discussed exercise on regular basis. Will continue to monitor Assessment & Plan (03/06/2019 4:47 PM CDT): Continue current medications. Discussed low-salt diet. Discussed exercise on regular basis. Will continue to monitor Arthritis 10/08/2013 Immunizations Immunization Administration Dates Next Due Influenza, Unspecified 08/27/2024(Deferr ed: Patient Refused),04/10/2024(Deferred: Patient Refused),10/06/2023(Deferred: Patient decision),07/07/2023(Deferred: Patient decision),11/04/2022(Deferred: Patient decision) Pfizer SARS-CoV-2 Monovalent Vaccination (12+ Yrs) PURPLE 04/29/2021,04/07/2021 Pneumococcal Conjugate Pcv20 10/06/2023 Social History Tobacco Use Types Packs/Day Years Used Date Smoking Tobacco: Former Cigarettes 1 51.3 S tarted: 1974 Passive Smoke Exposure: Current Smokeless Tobacco: Never Tobacco Cessation:Counseling Given: Not Answered Passive Exposure Comments:pt reported he quit 2 weeks ago Alcohol Use Standard Drinks/Week Comments Not Currently 0 (1 standard drink = 0.6 oz pur e alcohol) [facility] Utilities Answer Date Recorded In the past 12 months has [employer], gas, oil, or water [employer] threatened to shut off services in your [...] often do you attend chur ch or spiritism services? Never 07/17/2024 Do you belong to [...] you have a drink containing alcohol? Never 01/21/2025 Q2: How many drinks containi ng alcohol do you have on a typical day when you are drinking? Patient does not drink Q3: How often do you have si x or more drinks on one occasion? Never 01/21/2025 Overall Financial Resource Strain (CARDIA) Answe r [...] any time in the past 12 m [facility], were you homeless or living in a alf (including now)? No 07/17/2024 Personal Safety Answer Date Recorded Have you ever been in or are you currently in a harmful physical or emotional relationship or is someone making you feel afraid or unsafe? Denies 07/16/2024 Sex and Gender Information Value Date Recorded Sex Assigned at Not on file Legal Sex Male 6:35 AM CATALYST SUPERVISOR Gender Identity Not on file Sexual Orientation Not on file Occupation Industry Job Start Date Job End Date On Disability Not on file Not on file Not on file Last Filed Vital Signs Vital Sign Reading Time Taken Comments Blood Pressure 120/71 01/21/2025 2:09 PM CDT Pulse 72 01/21/2025 2:09 PM CDT Temperature 36.8 C (98.2 F) 01/17/2025 2:20 PM CDT Respiratory Rate 20 01/21/2025 2:09 PM CDT Oxygen Saturation 96% 01/21/2025 2:09 PM CDT Inhaled Oxygen Concentration - - Weight 93.4 kg (206 lb) 01/21/2025 2:09 PM CDT Height 177.8 cm (5' 10 ) 01/21/2025 2:09 PM CDT Body Mass Index 29.56 01/21/2025 2:09 PM CDT Plan of Treatment Upcoming Encounters Date Type Department Care Team (Latest Contact Info) Description 02/26/2025 7:30 AM CDT Hospital Encounter [facility] [place] [address] [place] [id number] Alejandro Lawrence MD [address] [place] [address] 02/26/2025 7:30 AM CDT Anesthesia Event [address] [address] Zully Salgado NP [address] [place] [address] 02/26/2025 7:30 AM CDT - 02/26/2025 9:30 AM CDT Surgery [facility] [address] [place] [address] Alejandro Lawrence MD [address] [place] [address] LUMBAR 2-LUMBAR 3 MINIMALLY INVASIVE DECOMPRESSION Scheduled Procedures Name Priority Associated Diagnoses Date/Ti me DECOMPRESSION LUMBAR LAMINECTOMY Adjacent segment disease of lumbar spine with history of fusion procedure S/P lumbar spinal fusion Neurogenic claudication due to lumbar spinal stenosis 02/26/2025 7:30 AM CDT Goals Goal Patient Goal Type Associated Problems [...] on stairs Contact your local community or senior center for information on exercise, fall prevention programs, or options for improving home safety. Procedures Procedure Name Priority Date/Time Associated Diagnosis Comments HM DIABETES EYE EXAM Routine 12/13/2024 9:24 AM CATALYST SUPERVISOR EGFR Routine 07/18/2024 1:44 AM CDT HEMOGLOBIN A1C Routine 07/16/2024 11:02 PM CDT LIPID PANEL Routine 01/04/2024 9:04 AM CATALYST SUPERVISOR DM type 2 with diabetic peripheral neuropathy (HCC) Mixed hyperlipidemia ALBUMIN CREATININE RATIO, URINE Routine 06/16/2023 11:22 AM CDT DM type 2 with diabetic peripheral neuropathy (HCC) PSA SCREEN Routine 06/16/2023 11:22 AM CDT Prostate cancer screening COLONOSCOPY Routine 09/16/2022 HEPATITIS C ANTIBODY Routine 06/09/2022 12:00 PM CDT DIABETES FOOT EXAM Routine 12/23/2021 from Last 3 Months or Most Recently Relevant to Health Maintenance Results * DIABETES EYE EXAM (12/13/2024 9:24 AM CATALYST SUPERVISOR) SCRIBED DIABETIC DILATED EYE EXAM Normal us Historical Provider HEALTH MAINTENANCE Final Result * eGFR (07/18/2024 1:44 AM CDT) eGFR >90 >=60 mL/min/1. 73 m2 Comment: Interpretive Data Reference Interval Normal >/= 90 mL/min/1.73m2 Mildly decreased* 60 - 89 mL/min/1.73m2 Mildly to moderately decreased 45 - 59 mL/min/1.73m2 Moderately to severely decreased 30 - 44 mL/min/1.73m2 Severely decreased 15 - 29 mL/min/1.73m2 Kidney Failure < 15 mL/min/1.73m2 *Relative to young adult level Estimated glomerular [...] CDT Ivon Mattson LAB BLOOD ORDERABLES Final [facility] Organization Address [facility] de Phone Number SHIRA [address] [address] * (ABNORMAL) Hemoglobin A1c (07/16/2024 11:02 PM CDT) Pathologist [facility] Hgb A1C 10.9(H) 4.0 - 5.6 % Estimated Average Glucose 266 mg/dL SHIRA Comment: The ADA recommends reporting an estimated Average Glucose (eAG) with all Hemoglobin A1c results using the equation derived from a study of 507 normal and diabetic adults. Minority populations were underrepresented and children were not included. (Diabetes Care 31:7431-6141, 2008). The eAG is not equivalent to a fasting glucose. Blood 07/16/2024 11:0 2 PM CDT 07/16/2024 11:13 PM CDT Ivon Mattson LAB BLOOD ORDERABLES Final [facility] Performing Organization Address [facility] de Phone Number SHIRA [address] [address] * (ABNORMAL) Lipid panel (01/04/2024 9:04 AM CATALYST SUPERVISOR) [facility] Cholesterol 178 <200 mg/dL [facility] HDL 28(L) > OR = 40 mg/dL [facility] Triglycerides 157(H) <150 mg/dL [facility] LDL 123(H) mg/dL (calc) [facility] Comment: Reference range: <100 Desirable range <100 mg/dL for primary prevention; <70 mg/dL for patients with CHD or diabetic patients with > or = 2 CHD risk factors. LDL-C is now calculated using the Leslie calculation, which is a validated novel method providing better accuracy than the Friedewald equation in the estimation of LDL-C. Reinier RENTERIA et al. CONSTANCE. 2013;310(19): 1218-4146 (http://education.[employer]ential.[employer] Data Integrity/faq/ZIP699) Chol/HDL ratio 6.4(H) <5.0 (calc) [facility] Non-HDL, (LDL+VLDL) 150(H) <130 mg/dL (calc) [facility] Comment: For patients with diabetes plus 1 major ASCVD risk factor, treating to a non-HDL-C goal of <100 mg/dL (LDL-C of <70 mg/dL) is considered a therapeutic option. Blood 01/04/2024 9:04 AM CATALYST SUPERVISOR 01/04/2024 9:05 AM CATALYST SUPERVISOR Narrative [facility] - 01/05/2024 5:38 AM CATALYST SUPERVISOR FASTING:YES FASTING: YES Roseanna Yung MD LAB BLOOD ORDERABLES Final Result Performing Organization Address [facility] de Phone Number [facility] [address] [place] [address] * PSA screen (06/16/2023 11:22 AM CDT) PSA 0.52 < OR = 4.00 ng/mL [facility] Comment: The total PSA value from this assay system is standardized against the WHO standard. The test result will be approximately 20% lower when compared to the equimolar-standardized total PSA (Stefany Carlin). Comparison of serial PSA results should be [...] BLOOD ORDERABLES Final Result Performing Organization Address [facility] Co de Phone Number [facility] [address] [address] [address] * Albumin Creatinine Ratio, Urine (06/16/2023 11:22 AM CDT) Creatinine, ur 163 20 - 320 mg/dL [facility] Microalbumin, ur 1.3 See Note: mg/dL [facility] Comment: Reference Range: Reference Range Not established Microalbumin/creat ratio 8 <30 mcg/mg creat [facility] Comment: The ADA defines abnormalities in albumin excretion as follows: Albuminuria Category Result (mcg/mg creatinine) Normal to Mildly increased <30 Moderately increased 30-299 Severely increased > OR = 300 The ADA recommends that at least two of three specimens collected within a 3-6 month period be abnormal before considering a patient to be within a diagnostic category. Urine 06/16/2023 11:2 2 AM CDT 06/16/2023 11:22 AM CDT Narrative [facility] - 06/17/2023 3:03 PM CDT FASTING:YES FASTING: YES Roseanna Yung MD LAB URINE ORDERABLES Final Result [facility] [address] [address] [place] [address] * (ABNORMAL) Colonoscopy (09/16/2022) Anatomical Region Laterality Modality Other Impressions 09/16/2022 Tubular adenoma, repeat in 5 years Historical Provider ENDOSCOPY PROCEDURES Evon l Result * Hepatitis C antibody (06/09/2022 12:00 PM CDT) Hep C Ab NON-REACTI VE NON-REACT LAI [facility] SIGNAL TO CUT-OFF 0.01 <1.00 [facility] Comment: HCV antibody was non-reactive. There is no laboratory evidence of HCV infection. In most cases, no further action is required. However, if recent HCV exposure is suspected, a test for HCV RNA (test code 27448) is suggested. For additional information please refer to http://education.[employer]/faq/FEQ44e0 (This link is being provided for informational/ educational purposes only.) 06/09/2022 12:0 0 PM CDT 06/09/2022 12:01 PM CDT Roseanna Yung MD LAB MICROBIOLOGY - GENERAL ORDERABLES Final Result [facility] [address] [address] [facility] [place] [address] * DIABETES FOOT EXAM (12/23/2021) SCRIBED DIABETIC FOOT EXAM Normal Historical Provider HEALTH MAINTENANCE Final Result from Last 3 Months or Most Recently Relevant to Health Maintenance Insurance IDPA [facility] MEDICARE [facility]VANT[facility] MEDICARE Address: [address] [address] [place] [address] [facility] MEDICARE [facility] MEDICARE Address: [address] [address] [place] [address] [employer] [facility] MEDICARE ADVANTAGE [employer] Advance Directives For more information, please contact: [phone] * Full Code (Latest Code Status on File) Date Activated Date Inactivated Comments 07/16/2024 6:28 PM 07/18/2024 9:01 PM Care Teams River Tester Relationship Specialty Start Date End Date Roseanna Yung MD [address] [facility] [address] [address] PCP - General 12/14/17 Priya Hoyt MD [facility] [address] [facility] [address] Consulting Physician Pain Management 05/13/22 Gerald Templeton Ud, MD [address] [place] [address] [address] [facility] [address] Consulting Physician Surgery 06/21/23
--- OUTSIDE RECORDS SUMMARY | 2025-02-02 10:10 | XMS_ITS | Clinical Summary ---
Author Organization [facility] at the [facility] Address [address] [place] [address] Care Team Providers Care Material Crew Supervisor Name Role Phone Roseanna Yung MD Primary Care Provider [phone] Priya Hoyt MD Unavailable Gerald Templeton Ud, MD Unavailable Allergies Active Allergy Reactions Criticality Noted Date Comments Niacin Unknown 02/27/2019 Hot flash Jzatmmr-Qgl-Dla Reductase Inhibitors Muscle pain Medium 02/27/2019 Medications [...] MOUTH DAILY 100 tablet 1 024 Active ezetimibe (ZETIA) 10 mg tablet TAKE ONE TABLET BY MOUTH DAILY 90 tablet 1 024 Active baclofen (LIORESAL) 20 mg tablet Take [...] NEEDED FOR ERECTILE DYSFUNCTION 6 tablet 1 025 Active zolpidem (AMBIEN) 5 mg tablet TAKE [...] A WEEK 2 mL 025 2024 Discontinued(R eomoon) Active Problems Problem Noted Date Diagnosed Date [...] statins Assessment & Plan (09/07/2024 12:33 PM HARD TILE SETTER): Patient has myopathy with statins Assessment & Plan (04/10/2024 7:46 AM CDT): Patient could not take statins because of muscle ache and weakness Assessment & Plan (01/05/2024 2:55 PM HARD TILE SETTER): Patient could not take statins because of [...] 08/23/2022 Assessment & Plan (09/08/2022 1:27 PM HARD TILE SETTER): Patient continue to have for persistent diarrhea. Stool test was negative. CBC and SMA 7 were unremarkable. We made him a referral to see a information systems security manager for colonoscopy. He said his appointment is [...] Ambien Assessment & Plan (09/08/2021 4:10 PM HARD TILE SETTER): Controlled on Ambien Assessment & Plan (12/10/2020 1:17 PM HARD TILE SETTER): Patient has persistent insomnia. Increase Ambien to [...] scan Assessment & Plan (01/05/2024 2:55 PM HARD TILE SETTER): Repeat CT scan in March 2024 Assessment [...] nodules Assessment & Plan (12/23/2021 4:35 PM HARD TILE SETTER): No change in the size of pulmonary nodules on CT scan of the lungs in July 2021 Assessment & Plan (09/08/2021 4:11 PM HARD TILE SETTER): CT lung screen showed no change in [...] medications Assessment & Plan (10/06/2023 7:53 AM HARD TILE SETTER): Continue duloxetine Assessment & Plan (07/07/2023 7:55 [...] medication Assessment & Plan (12/06/2019 3:14 PM HARD TILE SETTER): Patient feels fine without medications. No suicidal ideations. Assessment & Plan (09/18/2019 3:47 PM HARD TILE SETTER): The patient has mild depression and we [...] minutes. Assessment & Plan (01/05/2024 2:58 PM HARD TILE SETTER): Discussed smoking cessation and different methods to [...] minutes. Assessment & Plan (12/23/2021 4:37 PM HARD TILE SETTER): Discussed smoking cessation and different methods to help with that. Discussed the risks of smoking including COPD, CAD and lung cancer etc. Total time spent was 4 minutes. Assessment & Plan (09/09/2021 1:57 PM HARD TILE SETTER): Discussed smoking cessation and different methods to [...] results. Assessment & Plan (12/06/2019 3:13 PM HARD TILE SETTER): Discussed smoking cessation and different methods to help with that. Discussed the risks of smoking including COPD, CAD and lung cancer etc. Total time spent was 3 minutes. Assessment & Plan (09/18/2019 3:46 PM HARD TILE SETTER): CT lung screen in May 2019 was [...] 06/18/2019 Assessment & Plan (01/05/2024 2:56 PM HARD TILE SETTER): Colonoscopy in August 2022 showed 1 polyp and repeat in 5 years as per the GI doctor. Assessment & Plan (03/22/2022 5:02 PM CDT): Follow-up with GI doctor for colonoscopy Assessment & Plan (06/09/2021 1:33 PM CDT): Repeat colonoscopy in [address] Gandhi Assessment & Plan (12/10/2020 12:55 PM HARD TILE SETTER): Repeat colonoscopy in [address] Gandhi [...] LDL. Cuauhtemoc available for cost assistance through [employer]. Phone number to enroll or online at [email or web address] Assessment & Plan (01/17/2025 5:09 PM CDT): Controlled on current medications. Continue low-fat diet. Will continue to monitor . Assessment & Plan (08/27/2024 3:20 PM CDT): Controlled on current medications. Continue low-fat diet. Will continue to monitor . Assessment & Plan (04/10/2024 7:46 AM CDT): Controlled on current medications. Continue low-fat diet. Will continue to monitor . Assessment & Plan (01/05/2024 2:55 PM HARD TILE SETTER): Controlled on current medications. Continue low-fat diet. Will continue to monitor . Assessment & Plan (10/06/2023 7:53 AM HARD TILE SETTER): Controlled on current medications. Continue low-fat diet. [...] . Assessment & Plan (12/23/2021 4:34 PM HARD TILE SETTER): Resume pravastatin 20 mg q.h.s. and continue Zetia and we discussed diet and will repeat the blood work in few months Assessment & Plan (09/08/2021 4:10 PM HARD TILE SETTER): Controlled on current medications. Continue low-fat diet. Will continue to monitor . Assessment & Plan (06/09/2021 1:32 PM CDT): Controlled on current medications. Continue low-fat diet. Will continue to monitor . Assessment & Plan (03/09/2021 11:55 AM CDT): Controlled on current medications. Continue low-fat diet. Will continue to monitor . Assessment & Plan (12/10/2020 12:55 PM HARD TILE SETTER): Controlled on current medications. Continue low-fat diet. [...] daily Assessment & Plan (12/06/2019 3:13 PM HARD TILE SETTER): Discussed diet and exercise. We will add Vascepa 2 g twice daily and repeat blood work in few months Assessment & Plan (09/18/2019 3:46 PM HARD TILE SETTER): Controlled on current medications. Continue low-fat diet. [...] monitor. Assessment & Plan (01/05/2024 2:55 PM HARD TILE SETTER): Hemoglobin A1c 7.2. Increase Trulicity to 3 mg subQ once a week. Discussed the importance of diet. Ambulate as tolerated. Advised to have eye exam. Assessment & Plan (10/06/2023 7:52 AM HARD TILE SETTER): Continue current medications, discussed low carbohydrate diet, [...] monitor. Assessment & Plan (12/23/2021 4:34 PM HARD TILE SETTER): Patient will be started on Trulicity 0.75 mg once a week for couple of weeks then 1.5 mg once a week and side effects were explained and samples were given and instructions were given. He will continue with other medications. Discussed the importance of diet. Assessment & Plan (09/09/2021 1:56 PM HARD TILE SETTER): Continue current medications, discussed low carbohydrate diet, [...] exam Assessment & Plan (12/10/2020 1:17 PM HARD TILE SETTER): Increase Tresiba to 70 units daily and [...] monitor. Assessment & Plan (12/06/2019 3:12 PM HARD TILE SETTER): We discussed again diet and exercise and weight loss. 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 Continue gabapentin Assessment & Plan (03/22/2022 5:01 PM CDT): Continue Lyrica Assessment & Plan (12/23/2021 4:34 PM HARD TILE SETTER): Continue Lyrica Assessment & Plan (09/08/2021 4:10 PM HARD TILE SETTER): Continue Lyrica Assessment & Plan (06/09/2021 1:32 PM CDT): Controlled on Lyrica Assessment & Plan (03/09/2021 11:55 AM CDT): Continue Lyrica Assessment & Plan (12/06/2019 3:13 PM HARD TILE SETTER): Patient with chronic neuropathy secondary to diabetes and chronic back pain and he is followed by the neurologist Assessment & Plan (09/18/2019 3:46 PM HARD TILE SETTER): The patient has mild neuropathy secondary to [...] he was advised strongly to call his card painter because of worsened pain and he [...] management. Assessment & Plan (10/05/2021 3:05 PM HARD TILE SETTER): Patient was started to see a new pain management practice recently and he had recent injections and physical therapy with improvement in his symptoms. He likes to get off oxycodone. I told him to discuss that with the pain management. Assessment & Plan (09/09/2021 1:56 PM HARD TILE SETTER): Will make him a referral to see a neurosurgeon and Pain Management. Will obtain x-rays of the hips to be sure that there is no issues with his hips as a cause of his lower back pain Assessment & Plan (12/10/2020 12:54 PM HARD TILE SETTER): Status laminectomy. Patient has persistent symptoms and [...] 12/23/2016 Assessment & Plan (01/05/2024 2:57 PM HARD TILE SETTER): Patient is followed by the pain specialist [...] opinion. Assessment & Plan (12/23/2021 4:34 PM HARD TILE SETTER): Patient is under the care of pain management Assessment & Plan (12/06/2019 3:13 PM HARD TILE SETTER): The patient has a chronic back pain [...] monitor Assessment & Plan (01/05/2024 2:55 PM HARD TILE SETTER): Blood pressure is running on the low side. Will cut down lisinopril to 10 mg daily. Discussed low-salt diet. Discussed exercise on regular basis. Will continue to monitor Assessment & Plan (10/06/2023 12:18 PM HARD TILE SETTER): Blood pressure is running on the low [...] monitor Assessment & Plan (12/23/2021 4:34 PM HARD TILE SETTER): Continue current medications. Discussed low-salt diet. Discussed exercise on regular basis. Will continue to monitor Assessment & Plan (09/08/2021 4:09 PM HARD TILE SETTER): Continue current medications. Discussed low-salt diet. Discussed [...] monitor Assessment & Plan (12/10/2020 12:55 PM HARD TILE SETTER): Continue current medications. Discussed low-salt diet. Discussed [...] monitor Assessment & Plan (12/06/2019 3:13 PM HARD TILE SETTER): Continue current medications. Discussed low-salt diet. Discussed [...] Care Team Description 01/28/2025 ACO Clinical Pharmacist [address] [address] Enid Quinteros RPh 01/24/2025 Documentation [facility] Neurosurgery [facility] [address] [place] [address] [address], [address] [place] [address] Melissa Starr RN 01/21/2025 2:30 PM CDT Office Visit [facility] Neuro[facility] [address] [place] [address] 3, [address] [place] [phone] Luis Porter PA Adjacent segment disease of lumbar spine with history of fusion procedure (Primary Dx); S/P lumbar spinal fusion; S/P lumbar and lumbosacral fusion by anterior technique; Neurogenic claudication due to lumbar spinal stenosis 01/17/2025 2:30 PM CDT Office Visit [facility] Internal Medicine [address] [place] [address] [address] [place] [phone] Roseanna Yung MD DM type 2 with diabetic peripheral neuropathy (HCC) (Primary Dx); DVT (deep venous thrombosis) (HCC); Mixed hyperlipidemia; Hypertension, essential; Statin myopathy; BMI 29.0-29.9,adult; Prostate cancer screening; Pulmonary nodules; Primary insomnia; Degeneration of intervertebral disc of lumbar region with discogenic back pain; Smoking 01/14/2025 Telephone [facility] Medicine [address] [place] [address] [address] [place] [phone] Roseanna Yung MD Diabetes 01/04/2025 ACO Clinical Pharmacist [address] [address] Aliyah Javier RPh 12/18/2024 Telephone [facility] Internal Medicine [address] [facility] [facility] [address] [place] [phone] Roseanna Yung MD Diabetes 12/17/2024 Telephone [facility] Internal Medicine [address] [place] [phone] Roseanna Yung MD 11/29/2024 Telephone [facility] Internal Medicine [address] [place] [phone] Roseanna Yung MD Diabetes 11/23/2024 Telephone [facility] Care Organization [address] [place] [address] Farzana Kline Successful Phone Call ([facility]) 11/08/2024 Telephone [facility] Internal Medicine [address] [place] [address] [place] [phone] Angelia Rice, third loader from Last 3 Months Immunizations Immunization Administration Dates Next Due Influenza, Unspecified 08/27/2024(Deferr ed: Patient Refused),04/10/2024(Deferred: Patient Refused),10/06/2023(Deferred: Patient decision),07/07/2023(Deferred: Patient decision),11/04/2022(Deferred: Patient decision) Pfizer SARS-CoV-2 Monovalent Vaccination (12+ Yrs) PURPLE 04/29/2021,04/07/2021 Pneumococcal Conjugate Pcv20 10/06/2023 Surgical History Surgery Date Site/Laterality Comments BACK SURGERY 05/27/2020 Back Surgery - (Added by TRANG Conv) NECK SURGERY 10/31/2002 - 10/30/2003 Neck [...] Tobacco: Former Cigarettes 1 51.3 S tarted: 1973 Passive Smoke Exposure: Current Smokeless Tobacco: Never Tobacco Cessation:Counseling Given: Not Answered Passive Exposure Comments:pt reported he quit 2 weeks ago Alcohol Use Standard Drinks/Week Comments Not Currently 0 (1 standard drink = 0.6 oz pur e alcohol) [facility] Utilities Answer Date Recorded In the past 12 months has th e [employer], gas, oil, or water [employer] threatened to shut off services in your [...] week 07/17/2024 How often do you attend [facility] or druze services? Never 07/17/2024 Do you belong to any clubs o r organizations such as jehovah's witness groups, unions, fraternal or athletic groups, or [...] any time in the past 12 [place], were you homeless or living in a long-term (including now)? No 07/17/2024 Personal Safety Answer Date Recorded Have you ever been in or are you currently in a harmful physical or emotional relationship or is someone making you feel afraid or unsafe? Denies 07/16/2024 Sex and Gender Information Value Date Recorded Sex Assigned at Not on file Legal Sex Male 6:35 AM HARD TILE SETTER Gender Identity Not on file Sexual Orientation [...] Description 02/26/2025 7:30 AM CDT Hospital Encounter [facility] OR [address] [place] [address] Alejandro Lawrence MD [address] [place] [address] 02/26/2025 7:30 AM CDT Anesthesia Event [facility] OR [address] [place] [address] Zully Salgado BAND SAWMILL OPERATOR [address] [place] [address] 02/26/2025 7:30 AM CDT - 02/26/2025 9:30 AM CDT Surgery [facility] OR [address] [place] [address] Alejandro Lawrence MD [address] [place] [address] LUMBAR 2-LUMBAR 3 MINIMALLY INVASIVE DECOMPRESSION Scheduled Procedures Name Priority Associated Diagnoses Date/Ti me DECOMPRESSION LUMBAR LAMINECTOMY Adjacent segment disease of lumbar spine with history of fusion procedure S/P lumbar spinal fusion Neurogenic claudication due to lumbar spinal stenosis 02/26/2025 7:30 AM CDT Health Maintenance Due Date Last Done Comments Hepatitis B Screening 1978 Abdominal Aortic Aneurysm (A AA) Screen 2023 Well Visit 65+ 2023 Albumin Creatinine Ratio, Urine 06/16/2024 06/16/2023, 06/09/2022, [...] 08/27/2025 08/27/2024, 07/25/2024, 07/18/2024, Additional history exists Dilated Eye Exam 12/13/2025 12/13/2024, 02/2022, 06/04/2022, Additional history exists Colon Cancer Screening-Colonoscopy 09/16/2027 [...] likelihood of falling Lifestyle No Shellie Anna, RN Note: Below are four things you [...] on stairs Contact your local community or [facility] for information on exercise, fall prevention programs, or options for improving home safety. Procedures Procedure Name Priority Date/Time Associated Diagnosis Comments DIABETES EYE EXAM Routine 12/13/2024 9:24 AM HARD TILE SETTER EGFR Routine 07/18/2024 1:44 AM CDT HEMOGLOBIN A1C Routine 07/16/2024 11:02 PM CDT LIPID PANEL Routine 01/04/2024 9:04 AM HARD TILE SETTER DM type 2 with diabetic peripheral neuropathy [...] * DIABETES EYE EXAM (12/13/2024 9:24 AM HARD TILE SETTER) SCRIBED DIABETIC DILATED EYE EXAM Normal us [...] AM CDT 07/18/2024 1:58 AM CDT Ivon Srinivasan Pins LAB BLOOD ORDERABLES Final R esult Performing Organization Address [facility] de Phone Number [place] [address] [facility] [place] [address] * (ABNORMAL) Hemoglobin A1c (07/16/2024 11:02 PM CDT) Hgb A1C 10.9(H) 4.0 - 5.6 % Estimated Average Glucose 266 mg/dL SHIRA Comment: The ADA recommends reporting an estimated Average Glucose (eAG) with all Hemoglobin A1c results using the equation derived from a study of 507 normal and diabetic adults. Minority populations were underrepresented and children were not included. (Diabetes Care 31:9791-4944, 2008). The eAG is not equivalent to a fasting glucose. Blood 07/16/2024 11:0 2 PM CDT 07/16/2024 11:13 PM CDT Ivon Srinivasan Pins LAB BLOOD ORDERABLES Final R Real Time Genomicsult Performing Organization Address City/[facility] Co de Phone Number [facility] [address] Department [place] [address] * (ABNORMAL) Lipid panel (01/04/2024 9:04 AM HARD TILE SETTER) Cholesterol 178 <200 mg/dL [facility] [...] LDL-C. Reinier RENTERIA et al. CONSTANCE. 2013;310(19): 9850-8282 (http://education.Gusto/faq/LCJ638) Chol/HDL ratio 6.4(H) <5.0 (calc) [facility] Non-HDL, (LDL+VLDL) 150(H) <130 mg/dL (calc) [facility] Comment: For patients with diabetes plus 1 major ASCVD risk factor, treating to a non-HDL-C goal of <100 mg/dL (LDL-C of <70 mg/dL) is considered a therapeutic option. Blood 01/04/2024 9:04 AM HARD TILE SETTER 01/04/2024 9:05 AM HARD TILE SETTER Narrative [facility] - 01/05/2024 5:38 AM HARD TILE SETTER FASTING:YES FASTING: YES us Roseanna Yung MD LAB BLOOD ORDERABLES Final Result [facility] [address] [address] [address] * PSA screen (06/16/2023 11:22 AM CDT) [...] Final Result Performing Organization Address [facility] Co de Phone Number [facility] [address] [place] [address] * Albumin Creatinine Ratio, Urine (06/16/2023 11:22 AM CDT) Pathologist [facility] Creatinine, ur 163 20 - 320 mg/dL [...] URINE ORDERABLES Final Result Performing Organization Address City/[facility]/ZIP Co de Phone Number [facility] [address] [place] [address] * (ABNORMAL) Colonoscopy (09/16/2022) Anatomical Region Laterality Modality Other Impressions 09/16/2022 Tubular adenoma, repeat in 5 years Historical Provider ENDOSCOPY PROCEDURES Evon l Result * Hepatitis C antibody (06/09/2022 12:00 PM CDT) Hep C Ab NON-REACTI VE NON-REACT LAI [email or web address] SIGNAL TO CUT-OFF 0.01 <1.00 [facility] Comment: HCV antibody was non-reactive. There is no laboratory evidence of HCV infection. In most cases, no further action is required. However, if recent HCV exposure is suspected, a test for HCV RNA (test code 77634) is suggested. For additional information please refer to http://education.Telepo/faq/CGL72x7 (This link is being provided for informational/ educational purposes only.) 06/09/2022 12:0 0 PM CDT 06/09/2022 12:01 PM CDT Roseanna Yung MD LAB MICROBIOLOGY - GENERAL ORDERABLES Final Result [facility] [address] [place] [address] * DIABETES FOOT EXAM (12/23/2021) SCRIBED DIABETIC FOOT EXAM Normal Historical Provider HEALTH MAINTENANCE Final Result from Last 3 Months or Most Recently Relevant to Health Maintenance Insurance IDPA [facility] MEDICARE ADVANTAGE [facility] MEDICARE ADVANTAGE IDPA [facility] MEDICARE ADVANT[facility] Address: [address] [address] [place] [address] IDPA Advance Directives For more information, please contact: [phone] * Full Code (Latest Code Status on File) Date Activated Date Inactivated Comments 07/16/2024 6:28 PM 07/18/2024 9:01 PM Care Teams Material Crew Supervisor Relationship Specialty Start Date End Date Roseanna Yung MD [address] [place] [address] [address] PCP - General 12/14/17 Priya Hoyt MD [address] [place] [address] [facility], [address] [address] Consulting Physician Pain Management 05/13/22 Gerald Templeton Ud, MD [address] [place] [address] [facility], [address] [address] Consulting Physician Surgery 06/21/23
--- OUTSIDE RECORDS SUMMARY | 2025-02-02 10:10 | XMS_ITS | Clinical Summary ---
Author Organization [facility] Address [address] [place] [address] Care Team Providers Care Milling Machine Operator Gear Name Role Phone Roseanna Yung MD Primary Care Provider [phone] Source Comments [facility],non-owned Affiliates and Associated Physician Practices is amultiple site organization consisting of ambulatory clinics and hospital sitesin [place], [place], [place] and [place]. This disclosure is being madepursuant to the Care Everywhere program and may not contain all information available regarding this patient. Last updated 18.[facility] Allergies Active Allergy Reactions Criticality Noted Date [...] 70 05/11/2021 9:29 AM CDT Temperature 36.6 C (97.9 F) 05/11/2021 9:29 AM CDT Respiratory Rate 18 01/05/2021 11:04 AM RN SECURITY Oxygen Saturation 98% 05/11/2021 9:29 AM CDT [...] Tdap) 1977 PNEUMOCOCCAL VACCINE 50+ (1 of 1 - PCV) 2008 ZOSTER VACCINE (1 of 2) 2008 SCREENING FOR DIABETES 01/05/2021 AAA SCREENING 2023 COVID-19 VACCINE (1 - 2023-2 5 season) 2024 DEPRESSION SCREENING 10/31/2024 MEDICARE AWV CALENDAR YEAR 2024 INFLUENZA VACCINE (Season Ended) 2025 Respiratory Syncytial Virus (RSV) Vaccine Pt: or [...] to complete this topic MENINGOCOCCAL (Group B) VACC INE SHARED DECISION-MAKING Aged Out No longer eligibl e based on patient's age to complete this topic MENINGOCOCCAL GROUPS A/C/Y/W VACCINE Aged Out No longer eligible b ased on patient's age to complete this topic Care Teams Milling Machine Operator Gear Relationship Specialty Start Date End Date Roseanna Yung MD [facility] [address] [phone] PCP - General 11/20/20
[2025-02-02 10:58] LABS: Creatinine Urine 339.88 mg/dL (40-278); Total Protein Urine Random 62.2 mg/dL (0.0-11.9); Ur Ttl Prot Creatinine Ratio 0.18 mg/mg (0-0.20)
[2025-02-02 11:04] LABS: Hemoglobin A1C 8.4 % (<5.7)
[2025-02-02 11:44] LABS: Alanine Aminotransferase 50 U/L (16-63); Albumin Level 4.1 g/dL (3.4-5.0); Alkaline Phosphatase 104 U/L (46-116); Anion Gap 7 mmol/L (4-12); Aspartate Amino Transferase 19 U/L (15-37); Bilirubin,Total 0.7 mg/dL (0.00-1.00); Blood Urea Nitrogen 14 mg/dL (7-18); Calcium 9.3 mg/dL (8.5-10.1); Carbon Dioxide 30 mmol/L (21-32); Chloride 102 mmol/L (98-108); Cholesterol 163 mg/dL (0-200); Estimated Glomerular Filt Rate > 60; Glucose 189 mg/dL (70-99); HDL Direct 31 mg/dL (40-60); LDL Cholesterol Calculated 105 mg/dL (<130); Osmolality Calculated 293 mOsm/kg (285-295); Potassium 4.4 mmol/L (3.5-5.1); Prostate Specific Antigen 1.1 ng/mL (< OR = 4.0); Sodium 139 mmol/L (136-145); Total Protein 7.3 g/dL (6.4-8.2); Triglycerides 135 mg/dL (0-150)
== END 2025-02-02 10:03 | disposition home or self-care (01) ==
PROVIDERS: PCP Internal Medicine; Visit Provider Internal Medicine
DX: E11.42 Type 2 diabetes mellitus with diabetic polyneuropathy (principal); Z12.5 Encounter for screening for malignant neoplasm of prostate
CPT/HCPCS: 36415; 80053; 80061; 82570; 83036; 84153; 84156; G0103

== ENCOUNTER 2025-02-21 10:31 | Outpatient (CLI) | payer MEDICARE, MEDICAID, SELFPAY ==
--- NOTE | ~2025-02-21 | US_ITS ---
EXAMINATION: US carotid duplex BI DATE: 02/21/2025 11:04 INDICATION: Left carotid bruit. Preoperative evaluation. TECHNIQUE: Grayscale, color Doppler, and pulsed Doppler images of the cervical carotid arteries were obtained. The degree of vessel stenosis is placed in one of the following categories: normal, <50%, 5 0-69%, >=70% but less than near-occlusion, near-occlusion, or total occlusion. Note that percent sten osis relative to normal distal artery lumen diameter is indirectly measured from velocity measurement s as described by Cuauhtemoc, et al. Radiology 2003; 229:340-346. COMPARISON: None. FINDINGS: RIGHT: The right common carotid artery (CCA) peak systolic velocity (PSV) is 88 cm/s. The right internal car otid artery (ICA) PSV is 448 cm/s. The right ICA end-diastolic velocity (EDV) is 184 cm/s. The right ICA/CCA PSV ratio is 5.1. Grayscale and color Doppler images yield an estimate of >=70% (but less levon n near occlusion) diameter reduction from plaque in the ICA. The external carotid artery (ECA) PSV is 530 cm/s. There is antegrade flow in the right vertebral artery. LEFT: The left CCA PSV is 538 cm/s with severe stenosis in the left common carotid artery proximal to the c arotid bulb. The left ICA PSV is 102 cm/s. The left ICA EDV is 35 cm/s. The left ICA/CCA PSV ratio is 0.19. Grayscale and color Doppler images yield an estimate of <50% diameter reduction from plaque in the ICA. The ECA PSV is 100 cm/s. There is antegrade flow in the left vertebral artery. IMPRESSION: 1. >=70% (but less than near occlusion) stenosis in the right internal carotid artery. 2. <50% stenosis in the left internal carotid artery. 3. Additional severe >=70% stenosis in the left common carotid artery proximal to the bifurcation. Reviewed, dictated and finalized at location A.
--- OUTSIDE RECORDS SUMMARY | 2025-02-21 11:51 | XMS_ITS | Encounter Summary ---
Author Organization [facility] Healthcare Address [address] [place] [address] Care Team Providers Care Legal Billing Analyst Name Role Phone Roseanna Yung MD Primary Care Provider [phone] Priya Hoyt MD Unavailable Gerald Templeton Ud, MD Unavailable Encounter Details Date Type Department Care Team (Late st Contact Info) Description 04/30/2024 Orders Only [facility] Information Management [address] [place] [address] Roseanna Yung MD [address] [facility] [address] [address] Social History Tobacco Use Types [...] on file 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 Gender Identity Not on file Sexual Orientation Not on file Occupation Industry Job Start Date Job End Date On Disability Not on file Not on file Not on file documented as of this encounter Plan of Treatment Upcoming Encounters Date Type Department Care Team (Latest Contact Info) Description 02/26/2025 7:30 AM CDT Hospital Encounter [facility] OR [address] [place] [address] Alejandro Lawrence MD [address] [place] [address] Preop examination (Primary Dx); Subjective carotid bruit 02/26/2025 7:30 AM CDT Anesthesia Event [facility] OR [address] [place] [address] Zully Salgado, ENVIRONMENTAL COMPLIANCE INSPECTOR [address] [place] [address] 02/26/2025 7:30 AM CDT - 02/26/2025 9:30 AM CDT Surgery [facility] OR [address] [place] [address] Alejandro Lawrence MD [address] [place] [address] LUMBAR 2-LUMBAR 3 MINIMALLY INVASIVE DECOMPRESSION Scheduled [...] on filedocumented in this encounter Care Teams Legal Billing Analyst Relationship Specialty Start Date End Date Roseanna Yung MD [address] [facility] [address] [address] PCP - General 12/14/17 Priya Hoyt MD 4700 [facility], [address] [address] Consulting Physician Pain Management 05/13/22 Gerald Templeton Ud, MD 4700 [facility], [address] [address] Consulting Physician Surgery 06/21/23 02/11/25 documented as of this encounter
--- OUTSIDE RECORDS SUMMARY | 2025-02-21 11:51 | XMS_ITS | CONTINUITY OF CARE DOCUMENT ---
Author Name vernon junior Address Unknown Organization [facility] Address [address] [facility] [address] [place] [address] Phone [phone] Care Team Providers Care Vp Site Name Role Phone Rolly MAYERS, Harriett Unavailable TUAN MAYERS, JARAD Unavailable [phone] INSURANCE PROVIDERS Payer name Policy type / Coverage type Jeff red republican [employer] Medicaid 1 [id number] [place] [employer] Medicare [id number]
--- OUTSIDE RECORDS SUMMARY | 2025-02-21 11:51 | XMS_ITS | Encounter Summary ---
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 Gender Identity Not on file Sexual Orientation Not on file documented as of this encounter Plan of Treatment Upcoming Encounters Date Type Department Care Team (Latest Contact Info) Description 02/26/2025 7:30 AM CDT Hospital Encounter [facility] OR [address] [place] [address] Alejandro Lawrence MD [address] [place] [address] Preop examination (Primary Dx); Subjective carotid bruit 02/26/2025 7:30 AM CDT Anesthesia Event [facility] [place] [address] [place] [address] Zully Salgado NP [facility] [place] [address] 02/26/2025 7:30 AM CDT - 02/26/2025 9:30 AM CDT Surgery [facility] [place] [address] [place] [address] Alejandro Lawrence MD [address] [place] [address] LUMBAR 2-LUMBAR 3 MINIMALLY INVASIVE DECOMPRESSION Scheduled Procedures Name Priority Associated Diagnoses Date/Ti me DECOMPRESSION LUMBAR LAMINECTOMY Adjacent segment disease of lumbar spine with history of fusion procedure S/P lumbar spinal fusion Neurogenic claudication due to lumbar spinal stenosis 02/26/2025 7:30 AM CDT documented as of this encounter Visit Diagnoses Not on filedocumented in this encounter Care Teams Configuration Developer Relationship Specialty Start Date End Date Roseanna Yung MD 46[address] [facility] [address] [address] PCP - General 12/14/17 Priya Hoyt MD 47[address] [facility] [address] Consulting Physician Pain Management 05/13/22 Gerald Templeton Ud, MD 4700 [facility], [address] [address] Consulting Physician Surgery 06/21/23 02/11/25 documented as of this encounter
--- OUTSIDE RECORDS SUMMARY | 2025-02-21 11:51 | XMS_ITS | Encounter Summary ---
Author Organization [facility] Facility Care Team Providers Care Bander And Cellophaner Machine Name Role Phone Roseanna Yung MD Primary Care Provider [phone] Priya Hoyt MD Unavailable Gerald Templeton Ud, MD Unavailable Encounter Details Date Type Department Care Team (Latest Contact Info) Description 05/16/2018 Orders Only [facility] Provider, MD Edson [address] [place] [address] Social History Tobacco Use Types Packs/Day Years Used Date Smoking Tobacco: Every Day Sex and Gender Information Value Date Recorded Sex Assigned at Not on file 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 Gender Identity Not on file Sexual Orientation Not on file documented as of this encounter Plan of Treatment Upcoming Encounters Date Type Department Care Team (Latest Contact Info) Description 02/26/2025 7:30 AM CDT Hospital Encounter [facility] OR [address] [place] [address] Alejandro Lawrence MD [facility] [address] [place] [address] Preop examination (Primary Dx); Subjective carotid bruit 02/26/2025 7:30 AM CDT Anesthesia Event [facility] [place] [address] [place] [address] Zully Salgado, PATIENT CARRIER [address] [place] [address] 02/26/2025 7:30 AM CDT - 02/26/2025 9:30 AM CDT Surgery [facility] OR [address] [place] [address] Alejandro Lawrence MD [address] [place] [address] LUMBAR 2-LUMBAR 3 MINIMALLY INVASIVE DECOMPRESSION Scheduled [...] AM CDT Ordered by an unspecified provider. us Historical Provider [facility] RIANA BARDALES Final Result documented in this encounter Visit Diagnoses Not on filedocumented in this encounter Additional Health Concerns Infection Onset Date Last Indicated Resolved Time COVID: Suspected 10/29/2021 10/29/2021 11/12/2021 3:07 AM PILLOWCASE FOLDER documented as of this encounter Care Teams Bander And Cellophaner Machine Relationship Specialty Start Date End Date Roseanna Yung MD [address] [facility] [address] [place] [address] PCP - General 12/14/17 Pirya Hoyt MD [address] [facility], [facility] [address] [place] [address] Consulting Physician Pain Management 05/13/22 Gerald Templeton Ud, MD 47[address] [facility] [place] [address] Consulting Physician Surgery 06/21/23 02/11/25 documented as of this encounter
--- OUTSIDE RECORDS SUMMARY | 2025-02-21 11:52 | XMS_ITS | Clinical Summary ---
Author Organization [facility] (formerly [facility]) at the 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 Name Role Phone Roseanna Yung MD Primary Care Provider [phone] Priya Hoyt MD Unavailable Allergies Active Allergy Reactions Criticality Noted Date Comments Niacin Unknown 02/27/2019 Hot flash Uwegkwh-Ffc-[id number] Reductase Inhibitors Muscle pain Medium 02/27/2019 Medications pen needle, diabetic (BD Ultra-Fine Mini Pen Needle) 31 gauge x 3/16 needleIndicat ions:DM type 2 with diabetic peripheral neuropathy (HCC) Use four times daily 200 each 07/25/20 24 Active blood glucose diagnostic stripIndicati ons:DM type 2 with diabetic peripheral neuropathy (HCC) Use 4 times daily 200 strip 07/25/20 24 Active nortriptyline (PAMELOR) 25 mg capsule Take 1 capsule (25 mg total) by mouth nightly 08/13/20 24 Active lisinopriL (PRINIVIL,ZES TRIL) 10 mg tablet TAKE ONE TABLET BY MOUTH DAILY 100 tablet 1 09/12/20 24 Active Additional Information Patient taking differently:10 mg oralNightly, Informant: Self, Reported on 02/12/2025 ezetimibe (ZETIA) 10 mg tablet TAKE ONE TABLET BY MOUTH DAILY 90 tablet 1 09/17/20 24 Active zolpidem (AMBIEN) 5 mg tablet TAKE ONE TABLET BY MOUTH BEDTIME NEEDED 30 tablet 2 01/18/20 25 Active Additional Information Patient taking differently: 5 mg oral Nightly, Informant: Self, Reported on 02/12/2025 varenicline tartrate (CHANTIX) 1 mg tabletIndicat ions:Smoking Cessation Take 1 tablet (1 mg total) by mouth 2 (two) times a day Take with full glass of water. 60 tablet 3 01/18/20 25 025 Active tirzepatide (Mounjaro) 5 mg/0.5 mL pen injector injection Inject 0.5 mL (5 mg total) under the skin every 7 days 2 mL 5 02/05/20 25 Active Eliquis 5 mg tablet TAKE ONE TABLET BY MOUTH TWICE A DAY 60 tablet 5 02/06/20 25 Active baclofen (LIORESAL) 20 mg tablet TAKE ONE TABLET BY MOUTH THREE TIMES A DAY 30 tablet 02/09/20 25 Active Additional Information Patient taking differently:20 mg oral 3 times daily,Only takes at bedtime, Informant: Self, Reported on 02/12/2025 acetaminophen 500 mg capsule Take 1 capsule (500 mg total) by mouth every 4 (four) hours as needed for mild pain (pain scale 1-4) Active sildenafiL (VIAGRA) 100 mg tablet TAKE ONE TABLET BY MOUTH NEEDED FOR ERECTILE DISFUNCTION 100 tablet 1 02/20/20 25 Active insulin degludec (TRESIBA) 200 unit/mL (3 mL) pen for injection Inject 0.34 mL (68 Units total) under the skin daily 02/22/20 25 Active apixaban (ELIQUIS) 5 mg tablet Take 1 tablet (5 mg total) by mouth 2 (two) times a day 60 tablet 5 08/16/20 24 025 Discontinued baclofen (LIORESAL) 20 mg tablet Take 1 tablet (20 mg total) by mouth 3 (three) times a day 30 tablet 12/11/19 25 025 Discontinued insulin degludec (TRESIBA) 200 unit/mL (3 mL) pen for injection Inject 0.3 mL (60 Units total) under the skin daily 15 mL 2 01/08/20 25 025 Discontinued(Re order) sildenafiL (VIAGRA) 100 mg tablet TAKE 1 TABLET (100 MG TOTAL) BY MOUTH NEEDED FOR ERECTILE DYSFUNCTION 6 tablet 1 01/11/20 25 025 Discontinued dulaglutide (Trulicity) 0.75 mg/0.5 mL pen injector Inject 0.5 mL (0.75 mg total) under the skin every 7 days 2 mL 5 01/18/20 25 025 Discontinued(Th erapy completed) insulin degludec (TRESIBA) 200 unit/mL (3 mL) pen for injection Inject 0.33 mL (66 Units total) under the skin daily 15 mL 2 02/05/20 25 025 Discontinued insulin degludec (TRESIBA) 200 unit/mL (3 mL) pen for injection Inject 0.33 mL (66 Units total) under the skin daily 9 mL 1 02/09/20 25 025 Discontinued Active Problems Problem Noted Date Diagnosed [...] from statin quality measure. Assessment & Plan (02/04/2025 1:02 PM CDT): Patient has myopathy with statins Assessment & Plan (01/17/2025 5:09 PM CDT): Patient has myopathy with statins Assessment & Plan (09/07/2024 12:33 PM SHIP FITTER): Patient has myopathy with statins Assessment & Plan (04/10/2024 7:46 AM CDT): Patient could not take statins because of muscle ache and weakness Assessment & Plan (01/05/2024 2:55 PM SHIP FITTER): Patient could not take statins because of [...] 08/23/2022 Assessment & Plan (09/08/2022 1:27 PM SHIP FITTER): Patient continue to have for persistent diarrhea. Stool test was negative. CBC and SMA 7 were unremarkable. We made him a referral to see a event marketing intern for colonoscopy. He said his appointment is [...] Ambien Assessment & Plan (09/08/2021 4:10 PM SHIP FITTER): Controlled on Ambien Assessment & Plan (12/10/2020 1:17 PM SHIP FITTER): Patient has persistent insomnia. Increase Ambien to 10 mg q.h.s. p.r.n. Assessment & Plan (08/28/2020 12:17 PM CDT): Patient will be started on Ambien 5 mg q.h.s. p.r.n. Pulmonary nodules 06/23/2020 Assessment & Plan (02/04/2025 1:01 PM CDT): Repeat lung scan in February 2025 Assessment & Plan (01/17/2025 5:09 PM CDT): Repeat lung scan in February 2025 Assessment & Plan (04/10/2024 12:53 PM CDT): Lung scan in March 2023 was benign. Repeat lung scan Assessment & Plan (01/05/2024 2:55 PM SHIP FITTER): Repeat CT scan in March 2024 Assessment [...] nodules Assessment & Plan (12/23/2021 4:35 PM SHIP FITTER): No change in the size of pulmonary nodules on CT scan of the lungs in July 2021 Assessment & Plan (09/08/2021 4:11 PM SHIP FITTER): CT lung screen showed no change in [...] medications Assessment & Plan (10/06/2023 7:53 AM SHIP FITTER): Continue duloxetine Assessment & Plan (07/07/2023 7:55 [...] medication Assessment & Plan (12/06/2019 3:14 PM SHIP FITTER): Patient feels fine without medications. No suicidal ideations. Assessment & Plan (09/18/2019 3:47 PM SHIP FITTER): The patient has mild depression and we will start him on Wellbutrin 150 mg daily and he can take melatonin as needed for insomnia and will evaluate him again in few months. The patient will call if he has suicidal ideations . Spider bite 07/10/2019 Tobacco use 06/18/2019 Assessment & Plan (02/04/2025 5:24 PM CDT): Patient said that he quit smoking in December 2024. Patient was encouraged not to start smoking again. Assessment & Plan (01/17/2025 5:11 PM CDT): [...] minutes. Assessment & Plan (01/05/2024 2:58 PM SHIP FITTER): Discussed smoking cessation and different methods to [...] minutes. Assessment & Plan (12/23/2021 4:37 PM SHIP FITTER): Discussed smoking cessation and different methods to help with that. Discussed the risks of smoking including COPD, CAD and lung cancer etc. Total time spent was 4 minutes. Assessment & Plan (09/09/2021 1:57 PM SHIP FITTER): Discussed smoking cessation and different methods to [...] results. Assessment & Plan (12/06/2019 3:13 PM SHIP FITTER): Discussed smoking cessation and different methods to help with that. Discussed the risks of smoking including COPD, CAD and lung cancer etc. Total time spent was 3 minutes. Assessment & Plan (09/18/2019 3:46 PM SHIP FITTER): CT lung screen in May 2019 was [...] 06/18/2019 Assessment & Plan (01/05/2024 2:56 PM SHIP FITTER): Colonoscopy in August 2022 showed 1 polyp and repeat in 5 years as per the GI doctor. Assessment & Plan (03/22/2022 5:02 PM CDT): Follow-up with GI doctor for colonoscopy Assessment & Plan (06/09/2021 1:33 PM CDT): Repeat colonoscopy [place] [address] Gandhi Assessment & Plan (12/10/2020 12:55 PM SHIP FITTER): Repeat colonoscopy in [address] Gandhi [...] LDL. Cuauhtemoc available for cost assistance through [employer]. Phone number to enroll or online at [email or web address] Assessment & Plan (02/04/2025 5:23 PM CDT): Cholesterol is slightly elevated. Patient is on Zetia 10 mg daily. He could not tolerate statins. We discussed nystatin therapy and he wants to try to watch his diet more closely has he does not consume healthy food. Patient understands risks including CAD and CVA. Assessment & Plan (01/17/2025 5:09 PM CDT): Controlled on current medications. Continue low-fat diet. Will continue to monitor . Assessment & Plan (08/27/2024 3:20 PM CDT): Controlled on current medications. Continue low-fat diet. Will continue to monitor . Assessment & Plan (04/10/2024 7:46 AM CDT): Controlled on current medications. Continue low-fat diet. Will continue to monitor . Assessment & Plan (01/05/2024 2:55 PM SHIP FITTER): Controlled on current medications. Continue low-fat diet. Will continue to monitor . Assessment & Plan (10/06/2023 7:53 AM SHIP FITTER): Controlled on current medications. Continue low-fat diet. [...] . Assessment & Plan (12/23/2021 4:34 PM SHIP FITTER): Resume pravastatin 20 mg q.h.s. and continue Zetia and we discussed diet and will repeat the blood work in few months Assessment & Plan (09/08/2021 4:10 PM SHIP FITTER): Controlled on current medications. Continue low-fat diet. Will continue to monitor . Assessment & Plan (06/09/2021 1:32 PM CDT): Controlled on current medications. Continue low-fat diet. Will continue to monitor . Assessment & Plan (03/09/2021 11:55 AM CDT): Controlled on current medications. Continue low-fat diet. Will continue to monitor . Assessment & Plan (12/10/2020 12:55 PM SHIP FITTER): Controlled on current medications. Continue low-fat diet. [...] daily Assessment & Plan (12/06/2019 3:13 PM SHIP FITTER): Discussed diet and exercise. We will add Vascepa 2 g twice daily and repeat blood work in few months Assessment & Plan (09/18/2019 3:46 PM SHIP FITTER): Controlled on current medications. Continue low-fat diet. [...] with diabetic peripheral neuropathy Assessment & Plan (02/04/2025 5:22 PM CDT): Hemoglobin A1c is 8.4. We will increase Tresiba from 60 units daily to 66 units daily. We will stop Trulicity and start him on Mounjaro 2.5 mg subQ once a week and increase the dose to 5 mg subQ once a week and side effects were explained. Continue to check the sugar on regular basis. Assessment & Plan (01/17/2025 5:07 PM CDT): [...] monitor. Assessment & Plan (01/05/2024 2:55 PM SHIP FITTER): Hemoglobin A1c 7.2. Increase Trulicity to 3 mg subQ once a week. Discussed the importance of diet. Ambulate as tolerated. Advised to have eye exam. Assessment & Plan (10/06/2023 7:52 AM SHIP FITTER): Continue current medications, discussed low carbohydrate diet, [...] monitor. Assessment & Plan (12/23/2021 4:34 PM SHIP FITTER): Patient will be started on Trulicity 0.75 mg once a week for couple of weeks then 1.5 mg once a week and side effects were explained and samples were given and instructions were given. He will continue with other medications. Discussed the importance of diet. Assessment & Plan (09/09/2021 1:56 PM SHIP FITTER): Continue current medications, discussed low carbohydrate diet, [...] exam Assessment & Plan (12/10/2020 1:17 PM SHIP FITTER): Increase Tresiba to 70 units daily and [...] monitor. Assessment & Plan (12/06/2019 3:12 PM SHIP FITTER): We discussed again diet and exercise and weight loss. We will increase Tresiba to 66 units daily and repeat A1c before next visit Assessment & Plan (09/18/2019 3:46 PM SHIP FITTER): Continue current medications, discussed low carbohydrate diet, [...] exam. Peripheral polyneuropathy 01/04/2018 Assessment & Plan (02/04/2025 1:01 PM CDT): Neuropathy secondary to diabetes mellitus. Continue gabapentin Assessment & Plan (04/10/2024 7:46 AM CDT): Neuropathy secondary to diabetes mellitus. Continue gabapentin Assessment & Plan (10/06/2023 7:52 AM SHIP FITTER): Neuropathy secondary to diabetes mellitus. 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 Continue gabapentin Assessment & Plan (03/22/2022 5:01 PM CDT): Continue Lyrica Assessment & Plan (12/23/2021 4:34 PM SHIP FITTER): Continue Lyrica Assessment & Plan (09/08/2021 4:10 PM SHIP FITTER): Continue Lyrica Assessment & Plan (06/09/2021 1:32 PM CDT): Controlled on Lyrica Assessment & Plan (03/09/2021 11:55 AM CDT): Continue Lyrica Assessment & Plan (12/06/2019 3:13 PM SHIP FITTER): Patient with chronic neuropathy secondary to diabetes and chronic back pain and he is followed by the neurologist Assessment & Plan (09/18/2019 3:46 PM SHIP FITTER): The patient has mild neuropathy secondary to [...] of fusion procedure 12/14/2017 Assessment & Plan (02/04/2025 1:03 PM CDT): Managed by the neurosurgeon. He is scheduled for decompression Assessment & Plan (01/17/2025 5:10 PM CDT): [...] he was advised strongly to call his automatic paint sprayer operator because of worsened pain and he verbalized [...] management. Assessment & Plan (10/05/2021 3:05 PM SHIP FITTER): Patient was started to see a new pain management practice recently and he had recent injections and physical therapy with improvement in his symptoms. He likes to get off oxycodone. I told him to discuss that with the pain management. Assessment & Plan (09/09/2021 1:56 PM SHIP FITTER): Will make him a referral to see a neurosurgeon and Pain Management. Will obtain x-rays of the hips to be sure that there is no issues with his hips as a cause of his lower back pain Assessment & Plan (12/10/2020 12:54 PM SHIP FITTER): Status laminectomy. Patient has persistent symptoms and [...] 12/23/2016 Assessment & Plan (01/05/2024 2:57 PM SHIP FITTER): Patient is followed by the pain specialist [...] opinion. Assessment & Plan (12/23/2021 4:34 PM SHIP FITTER): Patient is under the care of pain management Assessment & Plan (12/06/2019 3:13 PM SHIP FITTER): The patient has a chronic back pain with recent MRI that showed large bulged disc and will make him a referral to see the spine surgeon for 2nd opinion Sciatica 10/20/2016 ED (erectile dysfunction) 04/21/2016 Hypertension, essential 10/08/2013 Assessment & Plan (02/04/2025 1:01 PM CDT): Continue current medications. Discussed low-salt diet. Discussed exercise on regular basis. Will continue to monitor Assessment & Plan (01/17/2025 5:08 PM CDT): [...] monitor Assessment & Plan (01/05/2024 2:55 PM SHIP FITTER): Blood pressure is running on the low side. Will cut down lisinopril to 10 mg daily. Discussed low-salt diet. Discussed exercise on regular basis. Will continue to monitor Assessment & Plan (10/06/2023 12:18 PM SHIP FITTER): Blood pressure is running on the low [...] monitor Assessment & Plan (12/23/2021 4:34 PM SHIP FITTER): Continue current medications. Discussed low-salt diet. Discussed exercise on regular basis. Will continue to monitor Assessment & Plan (09/08/2021 4:09 PM SHIP FITTER): Continue current medications. Discussed low-salt diet. Discussed [...] monitor Assessment & Plan (12/10/2020 12:55 PM SHIP FITTER): Continue current medications. Discussed low-salt diet. Discussed [...] monitor Assessment & Plan (12/06/2019 3:13 PM SHIP FITTER): Continue current medications. Discussed low-salt diet. Discussed [...] Encounters Date Type Department Care Team Description 02/20/2025 Telephone [facility] Medical [facility] Internal Medicine [address] [place] [phone] Roseanna Yung MD Diabetes 02/12/2025 2:00 PM CDT Pre-Admission Testing [facility] PreAdmission Testing [address] [place] [phone] Adjacent segment disease of lumbar spine with history of fusion procedure; S/P lumbar spinal fusion; Neurogenic claudication due to lumbar spinal stenosis; Type 2 diabetes mellitus without complication, unspecified whether skilled nursing insulin use (HCC); Pain in other specified joint 02/08/2025 Orders Only [facility] PreAdmission Testing [address] [place] [phone] Ifeoma Castro RN 02/04/2025 3:45 PM CDT Office Visit [facility] Medical [facility] Internal Medicine [address] [place] [phone] Roseanna Yung MD DM type 2 with diabetic peripheral neuropathy (HCC) (Primary Dx); Hypertension, essential; Peripheral polyneuropathy; Pulmonary nodules; Statin myopathy; Mixed hyperlipidemia; Adjacent segment disease of lumbar spine with history of fusion procedure; BMI 29.0-29.9,adult; Encounter for abdominal aortic aneurysm (AAA) screening; Personal history of nicotine dependence; Tobacco use 02/02/2025 Orders Only [facility] Information Management [address] [place] [phone] Scanning, Provider 01/28/2025 ACO Clinical Pharmacist [address] [address] Enid Quinteros [facility] 01/24/2025 Documentation [facility] [address] [place] [address] [address], [address] [place] [address] Melissa Starr RN 01/21/2025 2:30 PM CDT Office Visit [facility] Neurosurgery [facility] [address] [place] [address], [address] [place] [address] Luis Porter PA Adjacent segment disease of lumbar spine with history of fusion procedure (Primary Dx); S/P lumbar spinal fusion; S/P lumbar and lumbosacral fusion by anterior technique; Neurogenic claudication due to lumbar spinal stenosis 01/17/2025 2:30 PM CDT Office Visit [facility] Internal Medicine [address] [place] [address] [address] [place] [phone] Roseanna Yung MD DM type 2 with diabetic peripheral neuropathy (HCC) (Primary Dx); DVT (deep venous thrombosis) (HCC); Mixed hyperlipidemia; Hypertension, essential; Statin myopathy; BMI 29.0-29.9,adult; Prostate cancer screening; Pulmonary nodules; Primary insomnia; Degeneration of intervertebral disc of lumbar region with discogenic back pain; Smoking 01/14/2025 Telephone [facility] Internal Medicine [address] [place] [address] [address] [place] [phone] Roseanna Yung MD Diabetes 01/04/2025 ACO Clinical Pharmacist [address] [place] [address] Aliyah Javier Dario 12/18/2024 Telephone [facility] Internal Medicine [address] [place] [address] [place] [phone] Roseanna Yung MD Diabetes 12/17/2024 Telephone [facility] Internal Medicine [address] [place] [phone] Roseanna Yung MD 11/29/2024 Telephone [facility] Internal Medicine [address] [place] [address] [place] [phone] Roseanna Yung MD Diabetes 11/23/[address] [address] Farzana Kline Successful Phone Call ([facility]) from Last 3 Months Immunizations Immunization Administration Dates Next Due Influenza, Unspecified 08/27/2024(Deferr ed: Patient Refused),04/10/2024(Deferred: Patient Refused),10/06/2023(Deferred: Patient decision),07/07/2023(Deferred: Patient decision),11/04/2022(Deferred: Patient decision) Pfizer SARS-CoV-2 Monovalent Vaccination (12+ Yrs) PURPLE 04/29/2021,04/07/2021 Pneumococcal Conjugate Pcv20 10/06/2023 Surgical History Surgery Date Site/Laterality Comments BACK SURGERY 05/27/2020 hardware cage- fusion NECK SURGERY 10/31/2002 - 10/30/2003 Neck Surgery - (Added by TW Conv) C3-4 SPINAL CORD STIMULATOR IMPLANT 10/31/2006 - 10/30/2007 removed APPENDECTOMY 10/31/1967 - 10/30/1968 TONSILLECTOMY 10/31/1965 - 10/30/1966 HAND SURGERY Right LAMINECTOMY 10/31/2006 - 10/30/2007 sometime [id number] HAND SURGERY Right knuckle surgery- infection COLONOSCOPY Medical History Medical History Date Comments HTN (hypertension) HLD (hyperlipidemia) ED (erectile dysfunction) Low back pain Type 2 diabetes mellitus (HCC) I DDM. finger stick, running in the 200's Full dentures History of DVT (deep vein thrombosis) Bilateral leg cramps has to slee p on stomach, takes Baclofen nightly Cervical myelopathy (HCC) Neurogenic claudication Family History Medical History Relation Name Comments Heart disease Father Family history of cardiac disorder - (Added by TW Conv) Heart disease Mother Family history of cardiac disorder - (Added by TW Conv) Relation Name Status Comments Father Mother Social History Tobacco Use Types Packs/Day Years Used Date Smoking Tobacco: Former Cigarettes 1 51.2 1 974 - 01/04/2025 Passive Smoke Exposure: Current Smokeless Tobacco: Never Tobacco Cessation:Counseling Given: Not Answered Comments:Stopped smoking end of december 2024 Passive Exposure Comments:pt reported he quit 2 weeks ago Alcohol Use Standard Drinks/Week Comments Not Currently 0 (1 standard drink = 0.6 oz pur e alcohol) [facility] Utilities Answer Date Recorded In the [...] often do you attend chur ch or buddhist services? Never 07/17/2024 Do you belong to any clubs o r organizations such as samaritan groups, unions, fraternal or athletic groups, or school groups? No 07/17/2024 How often do you attend meet ings of the clubs or organizations you belong to? Never 07/17/2024 Are you , , di vorced, , never , or living with a partner? 07/17/2024 AUDIT-C Answer Date Recorded Q1: How often do you have a drink containing alc ohol? Monthly or less 02/12/2025 Q2: How many drinks containi ng alcohol do you have on a typical day when you are drinking? 1 or 2 02/12/2025 Q3: How often do you have si x or more drinks on one occasion? Never 02/12/2025 Overall Financial Resource Strain (CARDIA) Answe r Date Recorded How hard is it for you to pa y for the very basics like food, housing, medical care, and heating? Not hard at all 07/17/2024 PHQ-2 Answer Date Recorded PHQ-2 Total Score (If total score is 3 or more points, staff should administer the PHQ-9) 0 02/04/2025 Hunger Vital Sign Answer Date Recorded Within [...] any time in the past 12 m [facility], were you homeless or living in a penitentiary (including now)? No 07/17/2024 Personal Safety Answer Date Recorded Have you ever been in or are you currently in a harmful physical or emotional relationship or is someone making you feel afraid or unsafe? Denies 02/12/2025 Sex and Gender Information Value Date Recorded Sex Assigned at Not on file Legal Sex Male 6:35 AM SHIP FITTER Gender Identity Not on file Sexual Orientation Not on file Occupation Industry Job Start Date Job End Date On Disability Not on file Not on file Not on file Obstetrics History Last Filed Vital Signs Vital Sign Reading Time Taken Comments Blood Pressure 141/70 02/12/2025 1:53 PM CDT Pulse 84 02/12/2025 1:53 PM CDT Temperature 36.3 C (97.3 F) 02/12/2025 1:53 PM CDT Respiratory Rate 18 02/12/2025 1:53 PM CDT Oxygen Saturation 97% 02/12/2025 1:53 PM CDT Inhaled Oxygen Concentration - - Weight 90.3 kg (199 lb) 02/12/2025 1:53 PM CDT Height 177.8 cm (5' 10 ) 02/12/2025 1:53 PM CDT Body Mass Index 28.55 02/12/2025 1:53 PM CDT Plan of Treatment Upcoming Encounters Date Type Department Care Team (Latest Contact Info) Description 02/26/2025 7:30 AM CDT Hospital Encounter [facility] [place] [address] [place] [phone] Alejandro Lawrence MD [address] [place] [address] Preop examination (Primary Dx); Subjective carotid bruit 02/26/2025 7:30 AM CDT Anesthesia Event [facility] [place] [address] [place] [phone] Zully Salgado NP [address] [place] [phone] 02/26/2025 7:30 AM CDT - 02/26/2025 9:30 AM CDT Surgery [facility] [place] [address] [place] [phone] Alejandro Lawrence MD [address] [place] [address] LUMBAR 2-LUMBAR 3 MINIMALLY INVASIVE DECOMPRESSION Scheduled Procedures Name Priority Associated Diagnoses Date/Ti me DECOMPRESSION LUMBAR LAMINECTOMY Adjacent segment disease of lumbar spine with history of fusion procedure S/P lumbar spinal fusion Neurogenic claudication due to lumbar spinal stenosis 02/26/2025 7:30 AM CDT Health Maintenance Due Date Last Done Comments Hepatitis B Screening 1978 Abdominal Aortic Aneurysm (A AA) Screen 2023 Lung Cancer Screening 04/20/2024 04/20/2023 , 07/27/2021, 07/25/2020, Additional history exists Albumin Creatinine Ratio, Urine 06/16/2024 06/16/2023, 06/09/2022, 12/09/2021, Additional history exists Foot Exam 10/06/2024 10/06/2023, 12/02, 03/09/2021 Lipid Panel 01/03/2025 01/04/2024, 05/31, 06/09/2022, Additional history exists Prostate Cancer Screening-PSA 06/16/2025, 03/18/2022, 03/05/2021, Additional history exists Hemoglobin A1C 08/14/2025 02/12/2025, 07/01, 04/10/2024, Additional history exists Dilated Eye Exam 12/13/2025 12/13/2024, 02/2022, 06/04/2022, Additional history exists Depression Screening 02/04/2026 02/04/2025, 08/27/2024, 07/25/2024, Additional history exists Well Visit 65+ 02/04/2026 02/04/2025 Fall Risk Assessment 02/12/2026 02/12/2025, 02/04/2025, 08/27/2024, Additional history exists eGFR 02/12/2026 02/12/2025, 07/01, 07/18/2024, Additional history exists Colon Cancer Screening-Colonoscopy [...] Care Plan Chronic Care Management No Shellie Anna RN Note: Problem: Chronic Pain Goals: 1. Minimize further functional decline 2. Maximize quality of life 3. Control pain Strategies: - Activity/exercise program recommendation - Conservative stepwise pain medicine strategy with multi-disciplinary approach - Recommend healthy lifestyle strategies and compensatory methods as needed Reduce the likelihood of falling Lifestyle No Shellie Anna RN Note: Below are four things you [...] on stairs Contact your local community or [facility] for information on exercise, fall prevention programs, or options for improving home safety. Medical Devices Implanted Type Area Knife Operator Device Identifier Shelf Expiration Date Model / Serial / Lot Hardware To Back Back Procedures Procedure Name Priority Date/Time Associated Diagnosis Comments EGFR Routine 02/12/2025 2:03 PM CDT Adjacent segment disease of lumbar spine with history of fusion procedure S/P lumbar spinal fusion Neurogenic claudication due to lumbar spinal stenosis DIFFERENTIAL AUTO Routine 02/12/2025 2:0 3 PM CDT Adjacent segment disease of lumbar spine with history of fusion procedure S/P lumbar spinal fusion Neurogenic claudication due to lumbar spinal stenosis ANTIBODY SCREEN Routine 02/12/2025 2:03 PM CDT Adjacent segment disease of lumbar spine with history of fusion procedure S/P lumbar spinal fusion Neurogenic claudication due to lumbar spinal stenosis ABO/RH Routine 02/12/2025 2:03 PM CDT Adjacent segment disease of lumbar spine with history of fusion procedure S/P lumbar spinal fusion Neurogenic claudication due to lumbar spinal stenosis CBC WITH AUTO DIFFERENTIAL Routine 02/12/2025 2:03 PM CDT Adjacent segment disease of lumbar spine with history of fusion procedure S/P lumbar spinal fusion Neurogenic claudication due to lumbar spinal stenosis PROTIME-INR Routine 02/12/2025 2:03 PM CDT Adjacent segment disease of lumbar spine with history of fusion procedure S/P lumbar spinal fusion Neurogenic claudication due to lumbar spinal stenosis Pain in other specified joint APTT Routine 02/12/2025 2:03 PM CDT Adjacent segment disease of lumbar spine with history of fusion procedure S/P lumbar spinal fusion Neurogenic claudication due to lumbar spinal stenosis Pain in other specified joint COMPREHENSIVE METABOLIC PANEL Routine 02/12/2025 2:03 PM CDT Adjacent segment disease of lumbar spine with history of fusion procedure S/P lumbar spinal fusion Neurogenic claudication due to lumbar spinal stenosis TYPE AND SCREEN 14 DAY Routine 02/12/2025 2:03 PM CDT Adjacent segment disease of lumbar spine with history of fusion procedure S/P lumbar spinal fusion Neurogenic claudication due to lumbar spinal stenosis HEMOGLOBIN A1C Routine 02/12/2025 2:03 PM CDT Adjacent segment disease of lumbar spine with history of fusion procedure S/P lumbar spinal fusion Neurogenic claudication due to lumbar spinal stenosis Type 2 diabetes mellitus without complication, unspecified whether skilled nursing insulin use (HCC) INFECTION PREVENTION MRSA ONLY (STAPHYLOCOCCUS AUREUS) PCR Routine 02/12/2025 2:03 PM CDT Adjacent segment disease of lumbar spine with history of fusion procedure S/P lumbar spinal fusion Neurogenic claudication due to lumbar spinal stenosis SCAN - LABS 02/02/2025 DIABETES EYE EXAM Routine 12/13/2024 9:24 AM SHIP FITTER LIPID PANEL Routine 01/04/2024 9:04 AM SHIP FITTER DM type 2 with diabetic peripheral neuropathy [...] Recently Relevant to Health Maintenance Results * eGFR (02/12/2025 2:03 PM CDT) eGFR 81 >=60 mL/min/1. 73 m2 Comment: Interpretive Data [...] interpretive data was last reviewed 2021. Blood 02/12/2025 2:03 PM CDT 02/12/2025 2:07 PM CDT us Alejandro Lawrence MD LAB BLOOD ORDERABLES Fin al Result [facility] [address] [facility] Department [place] [address] * Differential, auto (02/12/2025 2:03 PM CDT) Neutrophil abs 4.76 1.50 - 6.50 K/cumm Imm gran abs 0.05 0.00 - 0.10 K/cumm [facility] Lymphocyte abs 1.90 0.80 - 3.30 K/cumm [facility] Monocyte abs 0.35 0.20 - 0.80 K/cumm [facility] Eosinophil abs 0.06 0.00 - 0.50 K/cumm [facility] Basophil abs 0.04 0.00 - 0.10 K/cumm [facility] Neutrophil pct 66.5 % [facility] Comment: Interpretive Data Percent cell count reference ranges are not reported, since discordance with absolute values may lead to misinterpretation of CBC data. Current Interpretive Data was last revised on 2018. Imm gran pct 0.7 % [facility] Comment: Interpretive Data Percent cell count reference ranges are not reported, since discordance with absolute values may lead to misinterpretation of CBC data. Current Interpretive Data was last revised on 2018. Lymphocyte pct 26.5 % [facility] Comment: Interpretive Data Percent cell count reference ranges are not reported, since discordance with absolute values may lead to misinterpretation of CBC data. Current Interpretive Data was last revised on 2018. Monocyte pct 4.9 % [facility] Comment: Interpretive Data Percent cell count reference ranges are not reported, since discordance with absolute values may lead to misinterpretation of CBC data. Current Interpretive Data was last revised on 2018. Eosinophil pct 0.8 % [facility] Comment: Interpretive Data Percent cell count reference ranges are not reported, since discordance with absolute values may lead to misinterpretation of CBC data. Current Interpretive Data was last revised on 2018. Basophil pct 0.6 % [facility] Comment: Interpretive Data Percent cell count reference ranges are not reported, since discordance with absolute values may lead to misinterpretation of CBC data. Current Interpretive Data was last revised on 2018. Blood 02/12/2025 2:03 PM CDT 02/12/2025 2:07 PM CDT us Alejandro Lawrence MD LAB BLOOD ORDERABLES Fin al Result [facility] [id number] [facility] Department [place] [address] * Infection Prevention MRSA Only (Staphylococcus aureus) PCR Nasal (02/12/2025 2:03 PM CDT) [facility] PCR Scrn, Methicillin resistant Staphylococcus aureus (MRSA) Not Detected Not Detected Comment: Interpretive Data Testing performed using Nucleic Acid Amplification with the [employer] Xpert MRSA NxG Assay. This assay detects target DNA from mecA, mecC and the SCCmec insertion site of Staphylococcus aureus using Real-Time PCR and has been cleared by the FDA. Performance characteristics have been verified by the [facility]. Current Interpretive Data was last revised on 2023 Nasal 02/12/2025 2:03 PM CDT 02/12/2025 2:07 PM CDT us Alejandro Lawrence MD LAB MICROBIOLOGY - [facility] AL ORDERABLES Final Result [facility] [address] [facility] Department [place] [address] * (ABNORMAL) CBC with auto differential (02/12/2025 2:03 PM CDT) [facility] WBC 7.16 3.80 - 9.90 K/cumm Hgb 13.8 13.0 - 17.5 g/dL [facility] Hct 40.0 38.9 - 50.3 % [facility] Plt 131(L) 150 - 400 K/cumm [facility] MPV 10.5 9.1 - 12.3 fL [facility] RBC 4.08(L) 4.30 - 5.80 M/cumm [facility] MCV 98.0(H) 81.3 - 96.4 fL [facility] MCH 33.8(H) 27.1 - 33.3 pg [facility] MCHC 34.5 32.3 - 35.7 g/dL [facility] RDW CV 13.5 11.1 - 14.9 % [facility] RDW SD 48.2(H) 35.7 - 48.1 fL [facility] NRBC abs 0.00 0.00 - 0.01 K/cumm [facility] Blood 02/12/2025 2:03 PM CDT 02/12/2025 2:07 PM CDT Alejandro Lawrence MD LAB BLOOD ORDERABLES Fin al Result Performing Organization Address [facility] de Phone Number [address] [address] * ABO/Rh (02/12/2025 2:03 PM CDT) ABO/Rh O Positive Blood 02/12/2025 2:03 PM CDT 02/12/2025 2:07 PM CDT Narrative [facility] - 02/12/2025 2:50 PM CDT Is this test being ordered in advance for a procedure?->Yes Expected date of procedure:->02/26/25 Has the patient been transfused in the past 3 months?->No Alejandro Lawrence MD LAB BLOOD BANK TEST ORDE RABLES Final Result Performing Organization Address [facility] de Phone Number [address] [address] * aPTT (02/12/2025 2:03 PM CDT) Pathologist [facility] aPTT 30 22 - 37 sec Comment: Interpretive data aPTT test has not been evaluated for monitoring heparin therapy. The anti-Xa is the preferred test. Current interpretive data was last revised on 2019. Blood 02/12/2025 2:03 PM CDT 02/12/2025 2:07 PM CDT Alejandro Lawrence MD LAB BLOOD ORDERABLES Fin al Result Performing Organization Address [facility] de Phone Number [address] [place] [address] * (ABNORMAL) Protime-INR (02/12/2025 2:03 PM CDT) PT 15.2(H) 12.0 - 14.6 sec Comment:Ref Range High INR 1.2 0.9 - 1.2 [facility] Comment: Ref Range High Interpretive data Oral anticoagulant therapeutic ranges: Venous thromboembolism prophylaxis or treatment: 2.0-3.0 CARDIOLOGY Standard range: 2.0-3.0 High-intensity range: 2.5-3.5 Refer to indication-specific guidelines for appropriate target ranges for prosthetic heart valve replacement. Current interpretive data was last revised on 2019. Blood 02/12/2025 2:03 PM CDT 02/12/2025 2:07 PM CDT Alejandro Lawrence MD LAB BLOOD ORDERABLES Fin al Result Performing Organization Address [facility] Co de Phone Number [address] [place] [address] * Antibody screen (02/12/2025 2:03 PM CDT) Ana, indirect, Gel Interpretation Negative ABSC Blood 02/12/2025 2:03 PM CDT 02/12/2025 2:07 PM CDT Narrative [facility] - 02/12/2025 2:50 PM CDT Is this test being ordered in advance for a procedure?->Yes Expected date of procedure:->02/26/25 Has the patient been transfused in the past 3 months?->No Alejandro Lawrence MD LAB BLOOD BANK TEST ORDE RABLES Final Result Performing Organization Address [facility] de Phone Number [address] [place] [address] * (ABNORMAL) Hemoglobin A1c (02/12/2025 2:03 PM CDT) Hgb A1C 8.7(H) 4.0 - 5.6 % Estimated Average Glucose 203 mg/dL [facility] Comment: The ADA recommends reporting an estimated Average Glucose (eAG) with all Hemoglobin A1c results using the equation derived from a study of 507 normal and diabetic adults. Minority populations were underrepresented and children were not included. (Diabetes Care 31:1912-1339, 2008). The eAG is not equivalent to a fasting glucose. Blood 02/12/2025 2:03 PM CDT 02/12/2025 2:07 PM CDT us Alejandro Lawrence MD LAB BLOOD ORDERABLES Fin al Result [facility] [address] [facility] Department [place] [address] * (ABNORMAL) Comprehensive metabolic panel (02/12/2025 2:03 PM CDT) Sodium 131(L) 135 - 145 mmol/L Potassium, pl 4.5 3.3 - 4.9 mmol/L [facility] Chloride 95(L) 97 - 110 mmol/L [facility] CO2 22 22 - 32 mmol/L [facility] Anion gap 14 2 - 15 mmol/L [facility] BUN 20 6 - 25 mg/dL [facility] Creatinine 1.02 0.80 - 1.30 mg/dL [facility] Glucose 269(H) 70 - 199 mg/dL [facility] Comment: Interpretive Data Fasting glucose >/= 126 mg/dl is diagnostic for diabetes. Fasting is defined as no caloric intake for at least 8 hours. Fasting glucose between 100 mg/dl to 125 mg/dl is diagnostic of prediabetes. In a patient with classic symptoms of hyperglycemia or hyperglycemic crisis, a random glucose >/= 200 mg/dl is diagnostic for diabetes. In the absence of unequivocal hyperglycemia, results should be confirmed by repeat testing. The classification and Diagnosis of Diabetes Diabetes Care 202; 46: S19-S40. Current interpretive data was last revised 2022. Calcium 9.8 8.5 - 10.3 mg/dL [facility] Bilirubin, total 0.8 0.1 - 1.2 mg/dL [facility] Protein, pl 7.2 6.5 - 8.5 g/dL [facility] Albumin 4.3 3.5 - 5.0 g/dL [facility] Alk phos 92 40 - 130 Units/L [facility] ALT 38 7 - 55 Units/L [facility] AST 35 10 - 50 Units/L [facility] Blood 02/12/2025 2:03 PM CDT 02/12/2025 2:07 PM CDT Alejandro Lawrence MD LAB BLOOD ORDERABLES Fin al Result [facility] [address] [facility] Department [place] [address] * SCAN - LABS (02/02/2025) Provider Scanning Final Result * DIABETES EYE EXAM (12/13/2024 9:24 AM SHIP FITTER) SCRIBED DIABETIC DILATED EYE EXAM Normal Historical Provider HEALTH MAINTENANCE Final Result * (ABNORMAL) Lipid panel (01/04/2024 9:04 AM SHIP FITTER) Cholesterol 178 <200 mg/dL [facility] [...] LDL-C. Reinier RENTERIA et al. CONSTANCE. 2013;310(19): 9851-4882 (http://education.VocalizeLocal.Arachno/faq/CZP273) Chol/HDL ratio 6.4(H) <5.0 (calc) [facility] Non-HDL, (LDL+VLDL) 150(H) <130 mg/dL (calc) [facility] Comment: For patients with diabetes plus 1 major ASCVD risk factor, treating to a non-HDL-C goal of <100 mg/dL (LDL-C of <70 mg/dL) is considered a therapeutic option. Blood 01/04/2024 9:04 AM SHIP FITTER 01/04/2024 9:05 AM SHIP FITTER Narrative [facility] - 01/05/2024 5:38 AM SHIP FITTER FASTING:YES FASTING: YES Roseanna Yung MD LAB BLOOD ORDERABLES Final Result Performing Organization Address [facility] de Phone Number [facility] [address] [place] [address] * PSA screen (06/16/2023 11:22 AM CDT) [...] BLOOD ORDERABLES Final Result Performing Organization Address [facility] de Phone Number [facility] [address] [place] [address] * Albumin Creatinine Ratio, Urine (06/16/2023 11:22 [...] URINE ORDERABLES Final Result Performing Organization Address City/[facility] Co de Phone Number [facility] [address] [place] [address] * LUNG CANCER SCREENING (04/20/2023) Historical Provider [...] a test for HCV RNA (test code 83095) is suggested. For additional information please refer to http://education.Tapastreet.Arachno/faq/XLT98h0 (This link is being provided for informational/ educational purposes only.) 06/09/2022 12:0 0 PM CDT 06/09/2022 12:01 PM CDT Roseanna Yung MD LAB MICROBIOLOGY - GENERAL ORDERABLES Final Result [facility] [address] [address] [place] [id number] * DIABETES FOOT EXAM (12/23/2021) SCRIBED DIABETIC FOOT EXAM Normal us Historical Provider MD HEALTH MAINTENANCE Final Result from Last 3 Months or Most Recently Relevant to Health Maintenance Insurance IDPA [facility] MEDICARE ADVANTAGE [facility] MEDICARE ADVANTAGE IDPA [facility] MEDICARE ADVANTAGE IDPA Advance Directives For more information, please contact: [phone] * Full Code (Latest Code Status on File) Date Activated Date Inactivated Comments 07/16/2024 6:28 PM 07/18/2024 9:01 PM Care Teams Supervisor Pipeline Maintenance Relationship Specialty Start Date End Date Roseanna Yung MD [address] [facility] [address] [address] PCP - General 12/14/17 Priya Hoyt MD [address] [facility], [address] [address] Consulting Physician Pain Management 05/13/22
--- OUTSIDE RECORDS SUMMARY | 2025-02-21 11:52 | XMS_ITS | Encounter Summary ---
Author Organization [facility] Healthcare Address [address] [place] [address] Care Team Providers Care Broadcast Journalist Name Role Phone Roseanna Yung MD Primary Care Provider [phone] Priya Hoyt MD Unavailable Reason for Visit * Reason Onset Date Comments Diabetes 02/20/2025 Encounter Details Date Type Department Care Team (Late st Contact Info) Description 02/20/2025 Telephone [facility] Internal Medicine [address] [place] [phone] Roseanna Yung MD [address] [place] [id number] Diabetes Social History Tobacco Use Types Packs/Day Years Used Date Smoking Tobacco: Former Cigarettes 1 51.2 1 974 - 01/04/2025 Passive Smoke Exposure: Current Smokeless Tobacco: Never Comments:Stopped smoking end of december 2024 Passive Exposure Comments:pt reported he quit 2 weeks ago Alcohol Use Standard Drinks/Week Comments Not Currently 0 (1 standard drink = 0.6 oz pur e alcohol) [facility] Utilities Answer Date Recorded In the past 12 months has e electric, gas, oil, or water company [...] often do you attend chur ch or pentecostalism services? Never 07/17/2024 Do you belong to any clubs o r organizations such as jew groups, unions, fraternal or athletic groups, or [...] any time in the past [address] [facility], were you homeless or living in a prison (including now)? No 07/17/2024 Personal Safety Answer Date Recorded Have you ever been in or are you currently in a harmful physical or emotional relationship or is someone making you feel afraid or unsafe? Denies 02/12/2025 Sex and Gender Information Value Date Recorded Sex Assigned at Not on file Legal Sex Male 6:35 AM [employer] Gender Identity Not on file Sexual Orientation Not on file Occupation Industry Job Start Date Job End Date On Disability Not on file Not on file Not on file documented as of this encounter Ordered Prescriptions Prescription Sig Dispense Quantity Refills Last Filled Start Date End Date insulin degludec (TRESIBA) 200 unit/mL (3 mL) pen for injection Inject 0.34 mL (68 Units total) under the skin daily 02/21/2025 documented in this encounter Miscellaneous Notes * Addendum Note - Michelle Nolasco LPN - 02/21/2025 8:09 AM CDTAddended by: MICHELLE NOLASCO on: 02/21/2025 08:09 AM Modules accepted: Orders * Telephone Encounter - Michelle Nolasco LPN - 02/21/2025 8:09 AM CDT Pt notified and dose updated on med list. * Telephone Encounter - Roseanna Yung MD - 02/20/2025 4:48 PM CDT Increase insulin to 68 units daily and call again in 1 week * Telephone Encounter - Angelia Rice RN - 02/20/2025 3:55 PM CDT Good afternoon, Below are BG readings for a mutual patient that is currently enrolled in [facility]s Caresignal Remote Monitoring Program. A telephonically based phone call/text message system developed to help monitor patient???s readings and symptoms between office visits. If adjustments are needed to be made tocurrent regimen, please advise. Otherwise, no further action Is required. Pt is taking antitabetic medications per rx. He did hold mounjaro this past week because he will behaving surgery next week Here are his BG readings for review, please review and advise if needed. 200 No 01-18-2025 12:30PM 183 No 01-21-2025 12:30PM - - 01-22-2025 12:30PM - - 01-23-2025 12:30PM 181 No 01-24-2025 12:30PM - - 01-25-2025 12:30PM - - 01-28-2025 12:30PM 143 No 01-28-2025 03:21PM - - 01-29-2025 12:30PM 162 No 01-29-2025 03:50PM - - 01-30-2025 12:30PM - - 01-31-2025 12:30PM 172 No 01-31-2025 04:31PM - - 02-01-2025 12:30PM 157 No 02-01-2025 09:42PM 201 No 02-04-2025 12:30PM - - 02-05-2025 12:30PM 182 No 02-05-2025 05:00PM - - 02-06-2025 12:30PM - - 02-07-2025 12:30PM 173 No 02-08-2025 12:30PM - - 02-11-2025 12:30PM 192 Yes 02-11-2025 06:50PM - - 02-12-2025 12:30PM 187 No 02-12-2025 03:08PM - - 02-13-2025 12:30PM 200 No 02-13-2025 04:27PM - - 02-14-2025 12:30PM - - 02-15-2025 12:30PM 179 No 02-15-2025 02:52PM - - 02-18-2025 12:30PM 174 No 02-18-2025 07:41PM - - 02-19-2025 12:30PM 143 No 02-20-2025 12:30PM 177 No 02-20-2025 09:45AM Thanks so much, Angelia Rice MEDICAL CODING AUDITOR [facility] Coin Teller [phone] documented in this encounter Plan of Treatment Upcoming Encounters Date Type Department Care Team (Latest Contact Info) Description 02/26/2025 7:30 AM CDT Hospital Encounter [facility] [place] [address] [place] [id number] Alejandro Lawrence MD [address] [place] [address] Preop examination (Primary Dx); Subjective carotid bruit 02/26/2025 7:30 AM CDT Anesthesia Event [facility] [place] [address] [place] [id number] Zully Salgado, SORT WORKER [address] [place] [id number] 02/26/2025 7:30 AM CDT - 02/26/2025 9:30 AM CDT Surgery [facility] [place] [address] [place] [address] Alejandro Lawrence MD [address] [place] [address] LUMBAR 2-LUMBAR 3 MINIMALLY INVASIVE DECOMPRESSION Scheduled Procedures Name Priority Associated Diagnoses Date/Ti me DECOMPRESSION LUMBAR LAMINECTOMY Adjacent segment disease of lumbar spine with history of fusion procedure S/P lumbar spinal fusion Neurogenic claudication due to lumbar spinal stenosis 02/26/2025 7:30 AM CDT documented as of this encounter Goals Goal Patient Goal Type Associated Problems [...] the likelihood of falling Lifestyle Shellie Milton, NATALIE Note: Below are four things you [...] on stairs Contact your local community or [facility] for information on exercise, fall prevention programs, or options for improving home safety. documented as of this encounter Visit Diagnoses Not on filedocumented in this encounter Discontinued Medications Medication Sig Discontinue Reason Start Date End Da te insulin degludec (TRESIBA) 200 unit/mL (3 mL) pen for injection Inject 0.33 mL (66 Units total) under the skin daily 02/08/2025 02/21/2025 documented as of this encounter Care Teams Broadcast Journalist Relationship Specialty Start Date End Date Roseanna Yung MD [address] [facility] [address] [address] PCP - General 12/14/17 Priya Hoyt MD [address] [facility] [address] Consulting Physician Pain Management 05/13/22 documented as of this encounter
--- OUTSIDE RECORDS SUMMARY | 2025-02-21 11:52 | XMS_ITS | Referral Summary ---
Author Organization [facility] Address [address] [place] [address] Care Team Providers Care Shank Burnisher Name Role Phone Roseanan Yung MD Primary Care Provider [phone] Priya Hoyt MD Unavailable Encounters Date Type Department Care Team Description 02/20/2025 Telephone [facility] Medical [facility] Internal Medicine [address] [place] [phone] Roseanna Yung MD Diabetes 02/12/2025 2:00 PM CDT Pre-Admission Testing [facility] PreAdmission Testing [facility] [place] [address] Adjacent segment disease of lumbar spine with history of fusion procedure; S/P lumbar spinal fusion; Neurogenic claudication due to lumbar spinal stenosis; Type 2 diabetes mellitus without complication, unspecified whether terminologist insulin use (HCC); Pain in other specified joint 02/08/2025 Orders Only [facility] PreAdmission Testing [address] [place] [phone] Ifeoma Castro RN 02/04/2025 3:45 PM CDT Office Visit [facility] Medical [facility] Internal Medicine [address] [place] [address] [place] [phone] Roseanna Yung MD DM type 2 with diabetic peripheral neuropathy (HCC) (Primary Dx); Hypertension, essential; Peripheral polyneuropathy; Pulmonary nodules; Statin myopathy; Mixed hyperlipidemia; Adjacent segment disease of lumbar spine with history of fusion procedure; BMI 29.0-29.9,adult; Encounter for abdominal aortic aneurysm (AAA) screening; Personal history of nicotine dependence; Tobacco use 02/02/[address] [facility] Health Information Management [address] [place] [address] Scanning, Provider 01/28/2025 ACO Clinical Pharmacist [address] [address] Enid Quinteros [facility] 01/24/2025 Documentation [facility] [address] [place] [address], [address] [place] [phone] Melissa Starr RN 01/21/2025 2:30 PM CDT Office Visit [facility] [address] [place] [address], [address] [place] [address] Luis Porter PA Adjacent segment disease of lumbar spine with history of fusion procedure (Primary Dx); S/P lumbar spinal fusion; S/P lumbar and lumbosacral fusion by anterior technique; Neurogenic claudication due to lumbar spinal stenosis 01/17/2025 2:30 PM CDT Office Visit [facility] Medical [facility] Internal Medicine [address] [place] [address] [address] [place] [phone] Roseanna Yung MD DM type 2 with diabetic peripheral neuropathy (HCC) (Primary Dx); DVT (deep venous thrombosis) (HCC); Mixed hyperlipidemia; Hypertension, essential; Statin myopathy; BMI 29.0-29.9,adult; Prostate cancer screening; Pulmonary nodules; Primary insomnia; Degeneration of intervertebral disc of lumbar region with discogenic back pain; Smoking 01/14/2025 Telephone [facility] Internal Medicine [address] [place] [address] [address] [place] [phone] Roseanna Yung MD Diabetes 01/04/2025 ACO Clinical Pharmacist [address] [address] Aliyah Javier [facility] 12/18/2024 Telephone [facility] Medical Group Internal Medicine [address] [place] [address] [place] [phone] Roseanna Yung MD Diabetes 12/17/2024 Telephone [facility] Internal Medicine [address] [place] [address] [place] [phone] Roseanna Yung MD 11/29/2024 Telephone [facility] Internal Medicine [address] [place] [address] [place] [phone] Roseanna Yung MD Diabetes 11/23/2024 Telephone [facility] Accountable Care Organization [address] [place] [phone] Farzana Kline Successful Phone Call ([facility] aw[facility]) from Last 3 Months Allergies Active Allergy Reactions Criticality Noted Date Comments Niacin Unknown 02/27/2019 Hot flash Phcgjnm-Emg-Nhz Reductase Inhibitors Muscle pain Medium 02/27/2019 Medications pen needle, diabetic (BD Ultra-Fine Mini Pen Needle) 31 gauge x 3/16 needleIndicat ions:DM type 2 with diabetic peripheral neuropathy (HCC) Use four times daily 200 each 07/25/20 Active blood glucose diagnostic stripIndicati ons:DM type 2 with diabetic peripheral neuropathy (HCC) Use 4 times daily 200 strip 07/25/20 Active nortriptyline (PAMELOR) 25 mg capsule Take 1 capsule (25 mg total) by mouth nightly 08/13/20 Active lisinopriL (PRINIVIL,ZES TRIL) 10 mg tablet TAKE ONE TABLET BY MOUTH DAILY 100 tablet 1 09/12/20 24 Active Additional Information Patient taking differently:10 mg oralNightly, Informant: Self, Reported on 02/12/2025 ezetimibe (ZETIA) 10 mg tablet TAKE ONE TABLET BY MOUTH DAILY 90 tablet 1 09/17/20 Active zolpidem (AMBIEN) 5 mg tablet TAKE ONE TABLET BY MOUTH BEDTIME NEEDED 30 tablet 2 01/18/20 Active Additional Information Patient taking differently: 5 [...] statins Assessment & Plan (09/07/2024 12:33 PM SPICE BLENDER): Patient has myopathy with statins Assessment & Plan (04/10/2024 7:46 AM CDT): Patient could not take statins because of muscle ache and weakness Assessment & Plan (01/05/2024 2:55 PM SPICE BLENDER): Patient could not take statins because of [...] 08/23/2022 Assessment & Plan (09/08/2022 1:27 PM SPICE BLENDER): Patient continue to have for persistent diarrhea. Stool test was negative. CBC and SMA 7 were unremarkable. We made him a referral to see a implant coordinator for colonoscopy. He said his appointment is [...] Ambien Assessment & Plan (09/08/2021 4:10 PM SPICE BLENDER): Controlled on Ambien Assessment & Plan (12/10/2020 1:17 PM SPICE BLENDER): Patient has persistent insomnia. Increase Ambien to [...] scan Assessment & Plan (01/05/2024 2:55 PM SPICE BLENDER): Repeat CT scan in March 2024 Assessment [...] nodules Assessment & Plan (12/23/2021 4:35 PM SPICE BLENDER): No change in the size of pulmonary nodules on CT scan of the lungs in July 2021 Assessment & Plan (09/08/2021 4:11 PM SPICE BLENDER): CT lung screen showed no change in [...] medications Assessment & Plan (10/06/2023 7:53 AM SPICE BLENDER): Continue duloxetine Assessment & Plan (07/07/2023 7:55 [...] medication Assessment & Plan (12/06/2019 3:14 PM SPICE BLENDER): Patient feels fine without medications. No suicidal ideations. Assessment & Plan (09/18/2019 3:47 PM SPICE BLENDER): The patient has mild depression and we [...] minutes. Assessment & Plan (01/05/2024 2:58 PM SPICE BLENDER): Discussed smoking cessation and different methods to [...] minutes. Assessment & Plan (12/23/2021 4:37 PM SPICE BLENDER): Discussed smoking cessation and different methods to help with that. Discussed the risks of smoking including COPD, CAD and lung cancer etc. Total time spent was 4 minutes. Assessment & Plan (09/09/2021 1:57 PM SPICE BLENDER): Discussed smoking cessation and different methods to [...] results. Assessment & Plan (12/06/2019 3:13 PM SPICE BLENDER): Discussed smoking cessation and different methods to help with that. Discussed the risks of smoking including COPD, CAD and lung cancer etc. Total time spent was 3 minutes. Assessment & Plan (09/18/2019 3:46 PM SPICE BLENDER): CT lung screen in May 2019 was [...] 06/18/2019 Assessment & Plan (01/05/2024 2:56 PM SPICE BLENDER): Colonoscopy in August 2022 showed 1 polyp and repeat in 5 years as per the GI doctor. Assessment & Plan (03/22/2022 5:02 PM CDT): Follow-up with GI doctor for colonoscopy Assessment & Plan (06/09/2021 1:33 PM CDT): Repeat colonoscopy [place] [address] Gandhi Assessment & Plan (12/10/2020 12:55 PM SPICE BLENDER): Repeat colonoscopy in [address] Gandhi [...] LDL. Cuauhtemoc available for cost assistance through [employer]. Phone number to enroll or online at [email or web address] Assessment & Plan (02/04/2025 5:23 PM CDT): [...] . Assessment & Plan (01/05/2024 2:55 PM SPICE BLENDER): Controlled on current medications. Continue low-fat diet. Will continue to monitor . Assessment & Plan (10/06/2023 7:53 AM SPICE BLENDER): Controlled on current medications. Continue low-fat diet. [...] . Assessment & Plan (12/23/2021 4:34 PM SPICE BLENDER): Resume pravastatin 20 mg q.h.s. and continue Zetia and we discussed diet and will repeat the blood work in few months Assessment & Plan (09/08/2021 4:10 PM SPICE BLENDER): Controlled on current medications. Continue low-fat diet. Will continue to monitor . Assessment & Plan (06/09/2021 1:32 PM CDT): Controlled on current medications. Continue low-fat diet. Will continue to monitor . Assessment & Plan (03/09/2021 11:55 AM CDT): Controlled on current medications. Continue low-fat diet. Will continue to monitor . Assessment & Plan (12/10/2020 12:55 PM SPICE BLENDER): Controlled on current medications. Continue low-fat diet. [...] daily Assessment & Plan (12/06/2019 3:13 PM SPICE BLENDER): Discussed diet and exercise. We will add Vascepa 2 g twice daily and repeat blood work in few months Assessment & Plan (09/18/2019 3:46 PM SPICE BLENDER): Controlled on current medications. Continue low-fat diet. [...] monitor. Assessment & Plan (01/05/2024 2:55 PM SPICE BLENDER): Hemoglobin A1c 7.2. Increase Trulicity to 3 mg subQ once a week. Discussed the importance of diet. Ambulate as tolerated. Advised to have eye exam. Assessment & Plan (10/06/2023 7:52 AM SPICE BLENDER): Continue current medications, discussed low carbohydrate diet, [...] monitor. Assessment & Plan (12/23/2021 4:34 PM SPICE BLENDER): Patient will be started on Trulicity 0.75 mg once a week for couple of weeks then 1.5 mg once a week and side effects were explained and samples were given and instructions were given. He will continue with other medications. Discussed the importance of diet. Assessment & Plan (09/09/2021 1:56 PM SPICE BLENDER): Continue current medications, discussed low carbohydrate diet, [...] exam Assessment & Plan (12/10/2020 1:17 PM SPICE BLENDER): Increase Tresiba to 70 units daily and [...] monitor. Assessment & Plan (12/06/2019 3:12 PM SPICE BLENDER): We discussed again diet and exercise and weight loss. We will increase Tresiba to 66 units daily and repeat A1c before next visit Assessment & Plan (09/18/2019 3:46 PM SPICE BLENDER): Continue current medications, discussed low carbohydrate diet, [...] gabapentin Assessment & Plan (10/06/2023 7:52 AM SPICE BLENDER): Neuropathy secondary to diabetes mellitus. 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 Continue gabapentin Assessment & Plan (03/22/2022 5:01 PM CDT): Continue Lyrica Assessment & Plan (12/23/2021 4:34 PM SPICE BLENDER): Continue Lyrica Assessment & Plan (09/08/2021 4:10 PM SPICE BLENDER): Continue Lyrica Assessment & Plan (06/09/2021 1:32 PM CDT): Controlled on Lyrica Assessment & Plan (03/09/2021 11:55 AM CDT): Continue Lyrica Assessment & Plan (12/06/2019 3:13 PM SPICE BLENDER): Patient with chronic neuropathy secondary to diabetes and chronic back pain and he is followed by the neurologist Assessment & Plan (09/18/2019 3:46 PM SPICE BLENDER): The patient has mild neuropathy secondary to [...] he was advised strongly to call his paint coating machine operator because of worsened pain and he [...] management. Assessment & Plan (10/05/2021 3:05 PM SPICE BLENDER): Patient was started to see a new pain management practice recently and he had recent injections and physical therapy with improvement in his symptoms. He likes to get off oxycodone. I told him to discuss that with the pain management. Assessment & Plan (09/09/2021 1:56 PM SPICE BLENDER): Will make him a referral to see a neurosurgeon and Pain Management. Will obtain x-rays of the hips to be sure that there is no issues with his hips as a cause of his lower back pain Assessment & Plan (12/10/2020 12:54 PM SPICE BLENDER): Status laminectomy. Patient has persistent symptoms and [...] 12/23/2016 Assessment & Plan (01/05/2024 2:57 PM SPICE BLENDER): Patient is followed by the pain specialist [...] opinion. Assessment & Plan (12/23/2021 4:34 PM SPICE BLENDER): Patient is under the care of pain management Assessment & Plan (12/06/2019 3:13 PM SPICE BLENDER): The patient has a chronic back pain [...] monitor Assessment & Plan (01/05/2024 2:55 PM SPICE BLENDER): Blood pressure is running on the low side. Will cut down lisinopril to 10 mg daily. Discussed low-salt diet. Discussed exercise on regular basis. Will continue to monitor Assessment & Plan (10/06/2023 12:18 PM SPICE BLENDER): Blood pressure is running on the low [...] monitor Assessment & Plan (12/23/2021 4:34 PM SPICE BLENDER): Continue current medications. Discussed low-salt diet. Discussed exercise on regular basis. Will continue to monitor Assessment & Plan (09/08/2021 4:09 PM SPICE BLENDER): Continue current medications. Discussed low-salt diet. Discussed [...] monitor Assessment & Plan (12/10/2020 12:55 PM SPICE BLENDER): Continue current medications. Discussed low-salt diet. Discussed [...] monitor Assessment & Plan (12/06/2019 3:13 PM SPICE BLENDER): Continue current medications. Discussed low-salt diet. Discussed [...] drink = 0.6 oz pur e alcohol) [facility] [employer] Answer Date Recorded In the past 12 months has [employer], gas, oil, or water [employer] threatened to shut off services in your [...] often do you attend chur ch or islam services? Never 07/17/2024 Do you belong to any clubs o r organizations such as zoroastrianism groups, unions, fraternal or athletic groups, or [...] any time in the past 12 m [facility], were you homeless or living in a custodial (including now)? No 07/17/2024 Personal Safety Answer Date Recorded Have you ever been in or are you currently in a harmful physical or emotional relationship or is someone making you feel afraid or unsafe? Denies 02/12/2025 Sex and Gender Information Value Date Recorded Sex Assigned at Not on file Legal Sex Male 6:35 AM SPICE BLENDER Gender Identity Not on file Sexual Orientation [...] Description 02/26/2025 7:30 AM CDT Hospital Encounter [facility] OR [address] [place] [address] Alejandro [place] MD [address] [place] [address] Preop examination (Primary Dx); Subjective carotid bruit 02/26/2025 7:30 AM CDT Anesthesia Event [facility] OR [address] [place] [address] Zully Salgado NP [address] [place] [id number] 02/26/2025 7:30 AM CDT - 02/26/2025 9:30 AM CDT Surgery [facility] OR [address] [place] [address] Alejandro Lawrence MD [address] [place] [address] LUMBAR 2-LUMBAR 3 MINIMALLY INVASIVE DECOMPRESSION Scheduled [...] home safety. Medical Devices Implanted Type Area Front End Java Developer Device Identifier Shelf Expiration Date Model / [...] 2 diabetes mellitus without complication, unspecified whether mcfp insulin use (HCC) INFECTION PREVENTION MRSA ONLY (STAPHYLOCOCCUS AUREUS) PCR Routine 02/12/2025 2:03 PM CDT Adjacent segment disease of lumbar spine with history of fusion procedure S/P lumbar spinal fusion Neurogenic claudication due to lumbar spinal stenosis SCAN - LABS 02/02/2025 DIABETES EYE EXAM Routine 12/13/2024 9:24 AM SPICE BLENDER LIPID PANEL Routine 01/04/2024 9:04 AM SPICE BLENDER DM type 2 with diabetic peripheral neuropathy [...] MD LAB BLOOD ORDERABLES Fin al Result [facility] [address] [facility] Department [place] [address] * Differential, auto (02/12/2025 2:03 PM CDT) Neutrophil abs 4.76 1.50 - 6.50 K/cumm Imm gran abs 0.05 0.00 - 0.10 K/cumm [facility] Lymphocyte abs 1.90 0.80 - 3.30 K/cumm [facility] Monocyte abs 0.35 0.20 - 0.80 K/cumm [facility] Eosinophil abs 0.06 0.00 - 0.50 K/cumm [facility] Basophil abs 0.04 0.00 - 0.10 K/cumm [facility] Neutrophil pct 66.5 % [facility] Comment: Interpretive Data Percent cell count reference ranges are not reported, since discordance with absolute values may lead to misinterpretation of CBC data. Current Interpretive Data was last revised on 2018. Imm gran pct 0.7 % [facility] Comment: Interpretive Data Percent cell count reference ranges are not reported, since discordance with absolute values may lead to misinterpretation of CBC data. Current Interpretive Data was last revised on 2018. Lymphocyte pct 26.5 % [facility] Comment: Interpretive Data Percent cell count reference ranges are not reported, since discordance with absolute values may lead to misinterpretation of CBC data. Current Interpretive Data was last revised on 2018. Monocyte pct 4.9 % [facility] Comment: Interpretive Data Percent cell count reference ranges are not reported, since discordance with absolute values may lead to misinterpretation of CBC data. Current Interpretive Data was last revised on 2018. Eosinophil pct 0.8 % [facility] Comment: Interpretive Data Percent cell count reference ranges are not reported, since discordance with absolute values may lead to misinterpretation of CBC data. Current Interpretive Data was last revised on 2018. Basophil pct 0.6 % [facility] Comment: Interpretive Data Percent cell count reference ranges are not reported, since discordance with absolute values may lead to misinterpretation of CBC data. Current Interpretive Data was last revised on 2018. Blood 02/12/2025 2:03 PM CDT 02/12/2025 2:07 PM CDT Alejandro Lawrence MD LAB BLOOD ORDERABLES Fin al Result Performing Organization Address [facility] de Phone Number [facility] [address] [place] [address] * Infection Prevention MRSA Only (Staphylococcus aureus) PCR Nasal (02/12/2025 2:03 PM CDT) [facility] PCR Scrn, Methicillin resistant Staphylococcus aureus (MRSA) Not Detected Not Detected Comment: Interpretive Data Testing performed using Nucleic Acid Amplification with the [employer] Xpert MRSA NxG Assay. This assay detects target DNA from mecA, mecC and the SCCmec insertion site of Staphylococcus aureus using Real-Time PCR and has been cleared by the FDA. Performance characteristics have been verified by the [facility]. Current Interpretive Data was last revised on 2023 Nasal 02/12/2025 2:03 PM CDT 02/12/2025 2:07 PM CDT Alejandro Lawrence MD LAB MICROBIOLOGY - GENER AL ORDERABLES Final Result Performing Organization Address [facility] de Phone Number [facility] [address] [place] [address] * (ABNORMAL) CBC with auto differential (02/12/2025 2:03 PM CDT) [facility] WBC 7.16 3.80 - 9.90 K/cumm Hgb 13.8 13.0 - 17.5 g/dL [facility] Hct 40.0 38.9 - 50.3 % [facility] Plt 131(L) 150 - 400 K/cumm [facility] MPV 10.5 9.1 - 12.3 fL [facility] RBC 4.08(L) 4.30 - 5.80 M/cumm [facility] MCV 98.0(H) 81.3 - 96.4 fL [facility] MCH 33.8(H) 27.1 - 33.3 pg [facility] MCHC 34.5 32.3 - 35.7 g/dL [facility] RDW CV 13.5 11.1 - 14.9 % [facility] RDW SD 48.2(H) 35.7 - 48.1 fL [facility] NRBC abs 0.00 0.00 - 0.01 K/cumm [facility] Blood 02/12/2025 2:03 PM CDT 02/12/2025 2:07 PM CDT Alejandro Lawrence MD LAB BLOOD ORDERABLES Fin al Result Performing Organization Address [facility] de Phone Number [address] [place] [address] * ABO/Rh (02/12/2025 2:03 PM CDT) ABO/Rh O Positive Blood 02/12/2025 2:03 PM CDT 02/12/2025 2:07 PM CDT Narrative [facility] - 02/12/2025 2:50 PM CDT Is this test being ordered in advance for a procedure?->Yes Expected date of procedure:->02/26/25 Has the patient been transfused in the past 3 months?->No Alejandro Lawrence MD LAB BLOOD BANK TEST ORDE RABLES Final Result Performing Organization Address [facility] Co de Phone Number [address] [employer] [place], [place] [id number] * aPTT (02/12/2025 2:03 PM CDT) aPTT 30 22 - 37 sec Comment: Interpretive data aPTT test has not been evaluated for monitoring heparin therapy. The anti-Xa is the preferred test. Current interpretive data was last revised on 2019. Blood 02/12/2025 2:03 PM CDT 02/12/2025 2:07 PM CDT Alejandro Lawrence MD LAB BLOOD ORDERABLES Fin al Result Performing Organization Address [facility] de Phone Number [address] [address] * (ABNORMAL) Protime-INR (02/12/2025 2:03 PM CDT) PT 15.2(H) 12.0 - 14.6 sec Comment:Ref Range High INR 1.2 0.9 - 1.2 [facility] Comment: Ref Range High Interpretive data Oral [...] ORDERABLES Fin al Result Performing Organization Address [facility] de Phone Number [address] [address] * Antibody screen (02/12/2025 2:03 PM CDT) Ana, indirect, Gel Interpretation Negative ABSC Blood 02/12/2025 2:03 PM CDT 02/12/2025 2:07 PM CDT Narrative [facility] - 02/12/2025 2:50 PM CDT Is this test being ordered in advance for a procedure?->Yes Expected date of procedure:->02/26/25 Has the patient been transfused in the past 3 months?->No Alejandro Lawrence MD LAB BLOOD BANK TEST FABIENNE BREWSTER Final Result Performing Organization Address [facility] Co de Phone Number [facility] [address] [address] * (ABNORMAL) Hemoglobin A1c (02/12/2025 2:03 PM CDT) Hgb A1C 8.7(H) 4.0 - 5.6 % Estimated Average Glucose 203 mg/dL [facility] Comment: The ADA recommends reporting an estimated Average Glucose (eAG) with all Hemoglobin A1c results using the equation derived from a study of 507 normal and diabetic adults. Minority populations were underrepresented and children were not included. (Diabetes Care 31:1481-9230, 2008). The eAG is not equivalent to a fasting glucose. Blood 02/12/2025 2:03 PM CDT 02/12/2025 2:07 PM CDT Alejandro Lawrence MD LAB BLOOD ORDERABLES Fin al Result Performing Organization Address [facility] Co de Phone Number [address] [employer] [address] * (ABNORMAL) Comprehensive metabolic panel (02/12/2025 2:03 PM CDT) [facility] Sodium 131(L) 135 - 145 mmol/L Potassium, pl 4.5 3.3 - 4.9 mmol/L [facility] Chloride 95(L) 97 - 110 mmol/L [facility] CO2 22 22 - 32 mmol/L [facility] Anion gap 14 2 - 15 mmol/L [facility] BUN 20 6 - 25 mg/dL [facility] Creatinine 1.02 0.80 - 1.30 mg/dL [facility] Glucose 269(H) 70 - 199 mg/dL [facility] Comment: Interpretive Data Fasting glucose >/= 126 [...] classification and Diagnosis of Diabetes Diabetes Care 2021; 46: S19-S40. Current interpretive data was last revised 2022. Calcium 9.8 8.5 - 10.3 mg/dL [facility] Bilirubin, total 0.8 0.1 - 1.2 mg/dL [facility] Protein, pl 7.2 6.5 - 8.5 g/dL [facility] Albumin 4.3 3.5 - 5.0 g/dL [facility] Alk phos 92 40 - 130 Units/L [facility] ALT 38 7 - 55 Units/L [facility] AST 35 10 - 50 Units/L [facility] Blood 02/12/2025 2:03 PM CDT 02/12/2025 2:07 PM CDT Alejandro Lawrence MD LAB BLOOD ORDERABLES Fin al Result [facility] [address] [facility] Department [place] [address] * SCAN - LABS (02/02/2025) Provider Scanning Final Result * DIABETES EYE EXAM (12/13/2024 9:24 AM SPICE BLENDER) Pathologist [facility] SCRIBED DIABETIC DILATED EYE EXAM Normal Historical Provider HEALTH MAINTENANCE Final Result * (ABNORMAL) Lipid panel (01/04/2024 9:04 AM SPICE BLENDER) Cholesterol 178 <200 mg/dL [facility] [...] LDL-C. Reinier RENTERIA et al. CONSTANCE. 2013;310(19): 4893-1792 (http://education.Wordeo/faq/ZSR981) Chol/HDL ratio 6.4(H) <5.0 (calc) [facility] Non-HDL, (LDL+VLDL) 150(H) <130 mg/dL (calc) [facility] Comment: For patients with diabetes plus 1 major ASCVD risk factor, treating to a non-HDL-C goal of <100 mg/dL (LDL-C of <70 mg/dL) is considered a therapeutic option. Blood 01/04/2024 9:04 AM SPICE BLENDER 01/04/2024 9:05 AM SPICE BLENDER Narrative [facility] - 01/05/2024 5:38 AM SPICE BLENDER FASTING:YES FASTING: YES us Roseanna Yung MD LAB BLOOD ORDERABLES Final Result [facility] [address] [place] [address] * PSA screen (06/16/2023 11:22 AM CDT) PSA 0.52 < OR = 4.00 ng/mL [facility] Comment: The total PSA value from [...] BLOOD ORDERABLES Final Result Performing Organization Address [facility] Co de Phone Number [facility] [address] [place] [address] * Albumin Creatinine Ratio, Urine (06/16/2023 11:22 [...] URINE ORDERABLES Final Result Performing Organization Address [facility] de Phone Number [facility] [address] [place] [address] * LUNG CANCER SCREENING (04/20/2023) Historical Provider HEALTH MAINTENANCE Final Result * (ABNORMAL) Colonoscopy (09/16/2022) Anatomical Region Laterality Modality Other Impressions 09/16/2022 Tubular adenoma, repeat in 5 years Historical Provider ENDOSCOPY PROCEDURES Evon l Result * Hepatitis C antibody (06/09/2022 12:00 PM CDT) Pathologist [facility] Hep C Ab NON-REACTI VE NON-REACT LAI [facility] SIGNAL TO CUT-OFF 0.01 <1.00 [facility] Comment: HCV antibody was non-reactive. There is no laboratory evidence of HCV infection. In most cases, no further action is required. However, if recent HCV exposure is suspected, a test for HCV RNA (test code 98982) is suggested. For additional information please refer to http://education.Roadhop/faq/JGM67d7 (This link is being provided for informational/ educational purposes only.) 06/09/2022 12:0 0 PM CDT 06/09/2022 12:01 PM CDT Roseanna Yung MD LAB MICROBIOLOGY - GENERAL ORDERABLES Final Result [facility] [address] [place] [address] * DIABETES FOOT EXAM (12/23/2021) SCRIBED DIABETIC FOOT EXAM Normal Historical Provider HEALTH MAINTENANCE Final Result from Last 3 Months or Most Recently Relevant to Health Maintenance Insurance [facility] MEDICARE ADVANTAGE [facility] MEDICARE ADVANTAGE IDPA [facility] MEDICARE ADVANTAGE IDPA Advance Directives For more information, please contact: [phone] * Full Code (Latest Code Status on File) Date Activated Date Inactivated Comments 07/16/2024 6:28 PM 07/18/2024 9:01 PM Care Teams Shank Burnisher Relationship Specialty Start Date End Date Roseanna Yung MD [address] [facility] [address] [address] PCP - General 12/14/17 Priya Hoyt MD [address] [facility] [address] Consulting Physician Pain Management 05/13/22
--- OUTSIDE RECORDS SUMMARY | 2025-02-21 11:52 | XMS_ITS | Clinical Summary ---
Author Organization [facility] [employer] Address [address] [place] [address] Care Team Providers Care Mechanical Sound Technician Name Role Phone Roseanna Yung MD Primary Care Provider [phone] Source Comments [facility] [employer],non-owned Affiliates and Associated Physician Practices is amultiple site organization consisting of ambulatory clinics and hospital sitesin [place], [place], [place] and [place]. This disclosure is being madepursuant to the Care Everywhere program and may not contain all information available regarding this patient. Last updated 18.[employer] Allergies Active Allergy Reactions Criticality Noted Date Comments Hmg-Coa-R Inhibitors Unknown 02/27/2019 Niacin Other,Unknown Low 08/11/2015 Hot Flashes Hot flash Medications * Be aware that medications may not be up to date on this document. Alwaysverify current medications with the patient. ezetimibe (ZETIA) 10 MG tablet Take 10 mg by mouth once daily 0 Active glimepiride (AMARYL) 2 MG tablet Take 2 mg by mouth 2 times daily 1 Active insulin degludec (TRESIBA FLEXTOUCH) 200 UNIT/ML pen Tresiba FlexTouch U-200 insulin 200 unit/mL (3 mL) subcutaneous pen 0 Active lisinopril (PRINIVIL; ZESTRIL) 20 MG tablet Take 20 mg by mouth once daily 0 Active metFORMIN (GLUCOPHAGE) 850 MG tablet Take 850 mg by mouth 2 times daily 0 Active pravastatin (PRAVACHOL) 20 MG tablet Take 20 mg by mouth once daily 0 Active pregabalin (LYRICA) 150 MG capsule Take 150 mg by mouth once daily 1 Active zolpidem (AMBIEN) 10 MG tablet TAKE ONE TABLET BY MOUTH NIGHTLY AT BEDTIME NEEDED FOR SLEEP 1 Active oxyCODONE, immediate release, (OXY-IR) 15 MG tablet 1 Active Social History Tobacco Use Types Packs/Day [...] at Not on file Legal Sex Male 6:28 AM AQUATICS DIRECTOR Gender Identity Not on file Sexual Orientation Not on file Last Filed Vital Signs Vital Sign Reading Time Taken Comments Blood Pressure 149/84 05/11/2021 9:29 AM CDT Pulse 70 05/11/2021 9:29 AM CDT Temperature 36.6 C (97.9 F) 05/11/2021 9:29 AM CDT Respiratory Rate 18 01/05/2021 11:04 AM AQUATICS DIRECTOR Oxygen Saturation 98% 05/11/2021 9:29 AM CDT [...] 2023-2 5 season) 2024 DEPRESSION SCREENING 10/31/2024 INFLUENZA VACCINE (Season Ended) 2025 Respiratory Syncytial [...] on patient's age to complete this topic Insurance [facility] MANAGED MEDICARE ADV Care Teams Mechanical Sound Technician Relationship Specialty Start Date End Date Roseanna Yung MD [facility] [place] [address] [address] PCP - General 11/20/20
== END 2025-02-21 10:32 | disposition home or self-care (01) ==
PROVIDERS: PCP Internal Medicine
DX: Z01.818 Encounter for other preprocedural examination (principal); R09.89 Other specified symptoms and signs involving the circulatory and respiratory systems; I65.23 Occlusion and stenosis of bilateral carotid arteries
CPT/HCPCS: 93880

== ENCOUNTER 2025-06-28 12:24 | Outpatient (CLI) | payer MEDICARE, MEDICAID, SELFPAY ==
--- NOTE | ~2025-06-28 | CT_ITS ---
EXAMINATION: CT diagnostic chest wo con DATE: 06/28/2025 12:53 INDICATION: Abnormal chest CT on prior study TECHNIQUE: Computed tomography (CT) of the chest was performed without intravenous contrast. The dose-length product was 256.91 mGy-cm. Automated exposure control and iterative reconstruction technique were employed. COMPARISON: CT dated 09/11/2024 FINDINGS: No significant pleural or pericardial effusion. No thoracic lymphadenopathy. There is atherosclerosis of the aorta and coronary arteries. Heart size normal. There is cirrhosis of the liver. Spleen appears enlarged although incompletely visualized. Increased size of 9 mm right upper lobe nodule compared with prior study. There is mild interstitial fibrosis. There is emphysema. No endobronchial lesions. No focal lytic or blastic lesions. There is lower cervical spondylosis. IMPRESSION: 1. Increased size of 9 mm right upper lobe nodule which is subsolid. Cannot exclude malignancy. Recommend correlation with pet/CT scan. 2: Cirrhosis. Possible splenomegaly. 3: Emphysema with superimposed chronic interstitial lung disease. Reviewed, dictated and finalized at location O. IMPRESSION: 1. Increased size of 9 mm right upper lobe nodule which is subsolid. Cannot exc lude malignancy. Recommend correlation with pet/CT scan. 2: Cirrhosis. Possible splenomegaly. 3: Emphysema with superimposed chronic interstitial lung disease.
== END 2025-06-28 12:25 | disposition home or self-care (01) ==
LOC: CHSIMG 12:29
PROVIDERS: PCP Internal Medicine; Visit Provider Internal Medicine
DX: R91.8 Other nonspecific abnormal finding of lung field (principal); R91.1 Solitary pulmonary nodule; K74.60 Unspecified cirrhosis of liver; J43.9 Emphysema, unspecified; J84.9 Interstitial pulmonary disease, unspecified
CPT/HCPCS: 71250

== ENCOUNTER 2025-08-03 12:24 | Emergency (ER) | payer MEDICARE, MEDICAID, SELFPAY ==
[2025-08-03 12:26] VITALS: BP 180/84; PULSE 77; RESP 20; TEMP 36.8; O2SAT 100
--- OUTSIDE RECORDS SUMMARY | 2025-08-03 12:26 | XMS_ITS | Encounter Summary ---
Author Organization [facility] Healthcare Address [address] [place] [address] Care Team Providers Care Delivery Of Shopping News Name Role Phone Roseanna Yung MD Primary Care Provider [phone] Priya Hoyt MD Unavailable Teddy Dorsey MD Unavailable [phone] Encounter Details Date Type Department Care Team (Late st Contact Info) Description 07/31/2025 Orders Only [facility] [address], [address] [place] [address] Alejandro Lawrence MD [address] [place] [address] Social History Tobacco Use Types Packs/Day Years Used Date Smoking Tobacco: Some Days Cigarettes Passive Smoke Exposure: Current Smokeless Tobacco: Never Comments:Stopped smoking end of december 2024 not completely states smokes 2 ciggs couple days a week, 1pk day prior to 12/2024 Passive Exposure Comments:pt reported he quit 2 weeks ago Alcohol Use Standard Drinks/Week Comments Not Currently 0 (1 standard drink = 0.6 oz pur e alcohol) [facility] Utilities Answer Date Recorded In the past 12 months has [employer] electric, gas, oil, or water company threatened to shut off services in your home? No 05/10/2025 Social Connection and Isolation Panel Answer Date Recorded In a typical week, how many times do you talk on the phone with family, friends, or neighbors? More than three times a week 05/10/2025 How often do you get togethe r with friends or relatives? More than three times a week 05/10/2025 How often do you attend chur ch or religion services? Never 05/10/2025 Do you belong to any clubs o r organizations such as adventist groups, unions, fraternal or athletic groups, or school groups? No 05/10/2025 How often do you attend meet ings of the clubs or organizations you belong to? Never 05/10/2025 Are you , , di vorced, , never , or living with a partner? 05/10/2025 Overall Financial Resource Strain (CARDIA) Answe r Date Recorded How hard is it for you to pa y for the very basics like food, housing, medical care, and heating? Not hard at all 05/10/2025 PHQ-2 Answer Date Recorded PHQ-2 Total Score (If total score is 3 or more points, staff should administer the PHQ-9) 0 02/04/2025 Hunger Vital Sign Answer Date Recorded Within the past 12 months, y ou worried that your food would run out before you got the money to buy more. Never true 05/10/20 25 Within the past 12 months, t he food you bought just didn't last and you didn't have money to get more. Never true 05/10/2025 PRAPARE - Transportation Answer Date Re corded In the past 12 months, has l ack of transportation kept you from medical appointments or from getting medications? No 04/30 In the past 12 months, has l ack of transportation kept you from meetings, work, or from getting things needed for daily living? No 05/10/2025 Housing Stability Vital Sign Answer Michael e Recorded In the last 12 months, was t here a time when you were not able to pay the mortgage or rent on time? No 05/10/2025 In the past 12 months, how m any times have you moved where you were living? 0 05/10/2025 At any time in the past 12 m [facility], were you homeless or living in a alf (including now)? No 05/10/2025 AUDIT-C Answer Date Recorded Q1: How often do you have a drink containing alcohol? Never 07/30/2025 Q2: How many drinks containi ng alcohol do you have on a typical day when you are drinking? Patient does not drink Q3: How often do you have si x or more drinks on one occasion? Never 07/30/2025 Personal Safety Answer Date Recorded Have you ever been in or are you currently in a harmful physical or emotional relationship or is someone making you feel afraid or unsafe? Denies 07/30/2025 Sex and Gender Information Value Date Recorded Sex Assigned at Not on file Legal Sex Male 6:35 AM PUMPMAN Gender Identity Not on file Sexual Orientation Not on file Occupation Industry Job Start Date Job End Date On Disability Not on file Not on file Not on file documented as of this encounter Ordered Prescriptions Prescription Sig Dispense Quantity Refills Last Filled Start Date End Date oxyCODONE (ROXICODONE) 5 mg immediate release tabletIndications: Pain Take 1 tablet (5 mg total) by mouth every 6 (six) hours as needed for pain for up to 10 days 40 tablet 07/31/2025 08/10/2025 documented in this encounter Plan of Treatment Upcoming Encounters Date Type Department Care Team (Late st Contact Info) Description 08/13/2025 10:00 AM CDT Hospital Encounter [facility] Medical Office Building [address] [address] documented as of this encounter Goals Goal [...] Discontinue Reason Start Date End Da te oxyCODONE (ROXICODONE) 5 mg immediate release tabletIndications:Pain Take 1 tablet (5 mg total) by mouth every 6 (six) hours as needed for pain for up to 10 days Patient Reported 07/30/2025 07/31/2025 documented as of this encounter Care Teams Delivery Of Shopping News Relationship Specialty Start Date End Date Roseanna Yung MD [address] [facility] [address] [address] PCP - General 12/14/17 Priya Hoyt MD [address] [facility] [address] Consulting Physician Pain Management 05/13/22 Teddy Dorsey MD [address] [address] Consulting Physician Cardiology 04/26/25 documented as of this encounter
--- OUTSIDE RECORDS SUMMARY | 2025-08-03 12:26 | XMS_ITS | Encounter Summary ---
Author Organization [facility] Healthcare Address [address] [place] [address] Care Team Providers Care Mobile Home Set Up Person Name Role Phone Roseanna Yung MD Primary Care Provider [phone] Priya Hoyt MD Unavailable Teddy Dorsey MD Unavailable [phone] Encounter Details Date Type Department Care Team (Late st Contact Info) Description 07/23/2025 Results Follow-Up [facility] Internal Medicine [address] [address] Roseanna Yung MD [address] [place] [address] SCAN - RADIOLOGY/IMAGING Social History Tobacco Use Types Packs/Day Years [...] drink = 0.6 oz pur e alcohol) [facility] Utilities Answer Date Recorded In the past 12 months has [employer] electric, gas, oil, or water company threatened [...] often do you attend chur ch or voodoo services? Never 05/10/2025 Do you belong to any clubs o r organizations such as congregational groups, unions, fraternal or athletic groups, or [...] any time in the past 12 m [facility], were you homeless or living in a nursing home (including now)? No 05/10/2025 AUDIT-C Answer Date Recorded Q1: How often do you have a drink containing alcohol? Never 06/27/2025 Q2: How many drinks containi ng alcohol do you have on a typical day when you are drinking? Patient does not drink Q3: How often do you have si x or more drinks on one occasion? Never 06/27/2025 Personal Safety Answer Date Recorded Have you ever been in or are you currently in a harmful physical or emotional relationship or is someone making you feel afraid or unsafe? 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 Gender Identity Not on file Sexual Orientation Not on file Occupation Industry Job Start Date Job End Date On Disability Not on file Not on file Not on file documented as of this encounter Plan of Treatment Upcoming Encounters Date Type Department Care Team (Late st Contact Info) Description 08/13/2025 10:00 AM CDT Hospital Encounter [facility] Medical Office Building [address] [address] documented as of this encounter Goals Goal [...] on stairs Contact your local community or [facility] for information on exercise, fall prevention programs, or options for improving home safety. documented as of this encounter Visit Diagnoses Not on filedocumented in this encounter Care Teams Mobile Home Set Up Person Relationship Specialty Start Date End Date Roseanna Yung MD [address] [facility] [address] [address] PCP - General 12/14/17 Priya Hoyt MD [address] [facility], [address] [address] Consulting Physician Pain Management 05/13/22 Teddy Dorsey MD [address] [id number] Consulting Physician Cardiology 04/26/25 documented as of this encounter
--- OUTSIDE RECORDS SUMMARY | 2025-08-03 12:26 | XMS_ITS | Encounter Summary ---
Author Organization [facility] Healthcare Address [address] [place] [address] Care Team Providers Care Cylinder Handler Name Role Phone Roseanna Yung MD Primary Care Provider [phone] Priya Hoyt MD Unavailable Teddy Dorsey MD Unavailable [phone] Encounter Details Date Type Department Care Team (Late st Contact Info) Description 07/30/2025 Orders Only [facility] [address], [address] [place] [address] Alejandro Lawrence MD [address] [place], [place] [id number] Social History Tobacco Use Types Packs/Day Years [...] Recorded In the past 12 months has [employer] electric, gas, oil, or water company [...] often do you attend chur ch or druze services? Never 05/10/2025 Do you belong to any clubs o r organizations such as temple groups, unions, fraternal or athletic groups, or [...] any time in the past 12 m [facility], were you homeless or living in a senior care (including now)? No 05/10/2025 AUDIT-C Answer Date [...] on file Legal Sex Male 6:35 AM SOFTWARE SYSTEMS ARCHITECT Gender Identity Not on file Sexual Orientation Not on file Occupation Industry Job Start Date Job End Date On Disability Not on file Not on file Not on file documented as of this encounter Functional Status * AUDIT-C Score Answer Date of Assessment Author 0 07/30/2025 7:37 AM Hayley Triplett RN * Question Answer Date of Assessment Author Q1: How often do you have a drink containing alcohol? Never 07/30/2025 7:37 AM Hayley Triplett RN Q2: How many drinks containing alcohol do you have on a typical day when you are drinking? Patient does not drink 07/30/2025 7:37 AM Hayley Triplett RN Q3: How often do you have six or more drinks on one occasion? Never 07/30/2025 7:37 AM Hayley Triplett, NATALIE documented as of this encounter Ordered Prescriptions Prescription Sig Dispense Quantity Refills Last Filled Start Date End Date oxyCODONE (ROXICODONE) 5 mg immediate release tabletIndications: Pain Take 1 tablet (5 mg total) by mouth every 6 (six) hours as needed for pain for up to 10 days 40 tablet 07/30/2025 07/31/2025 documented in this encounter Plan of Treatment Upcoming Encounters Date Type Department Care Team (Late st Contact Info) Description 08/13/2025 10:00 AM CDT Hospital Encounter [facility] Building [address] [address] documented as of this encounter Goals Goal [...] on stairs Contact your local community or [facility] for information on exercise, fall prevention programs, or options for improving home safety. documented as of this encounter Visit Diagnoses Not on filedocumented in this encounter Care Teams Cylinder Handler Relationship Specialty Start Date End Date Roseanna Yung MD [address] [facility] [address] [address] PCP - General 12/14/17 Priya Hoyt MD [address] [facility], [address] [address] Consulting Physician Pain Management 05/13/22 Teddy Dorsey MD [address] [address] Consulting Physician Cardiology 04/26/25 documented as of this encounter
--- OUTSIDE RECORDS SUMMARY | 2025-08-03 12:26 | XMS_ITS | Encounter Summary ---
Author Organization [facility] Healthcare Address [address] [place] [address] Care Team Providers Care Staff Psychologist Name Role Phone Roseanna Yung MD Primary Care Provider [phone] Priya Hoyt MD Unavailable Teddy Dorsey MD Unavailable [phone] Encounter Details Date Type Department Care Team (Late st Contact Info) Description 06/28/2025 Orders Only [facility] Health Information Management [address] [place] [address] Roseanna Yung MD [address] [facility] [address] [address] Social History Tobacco Use Types Packs/Day Years [...] drink = 0.6 oz pur e alcohol) [facility] Utilities Answer Date Recorded In the [...] often do you attend chur ch or scientologist services? Never 05/10/2025 Do you belong to any clubs o r organizations such as uatsdin groups, unions, fraternal or athletic groups, or [...] were you homeless or living in a [place] health care facility (including now)? 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 Medical Office Building [address] [address] documented as of this encounter Goals Goal [...] stairs Contact your local community or [facility] for information on exercise, fall prevention programs, or options for improving home safety. documented as of this encounter Procedures Procedure Name Priority Date/Time Associated Diagnosis Comments SCAN - RADIOLOGY/IMAGING 06/28/2025 documented in this encounter Results * SCAN - RADIOLOGY/IMAGING (06/28/2025) Anatomical Region Laterality Modality Other us Roseanna Yung MD Final Resul t documented in this encounter Visit Diagnoses Not on filedocumented in this encounter Care Teams Staff Psychologist Relationship Specialty Start Date End Date Roseanna Yung MD [address] [facility] [address] [address] PCP - General 12/14/17 Priya Hoyt MD [address] [facility], [address] [address] Consulting Physician Pain Management 05/13/22 Teddy Dorsey MD [address] [address] Consulting Physician Cardiology 04/26/25 documented as of this encounter
--- OUTSIDE RECORDS SUMMARY | 2025-08-03 12:27 | XMS_ITS | Encounter Summary ---
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 Gender Identity Not on file Sexual Orientation Not on file documented as of this encounter Plan of Treatment Upcoming Encounters Date Type Department Care Team (Late st Contact Info) Description 08/13/2025 10:00 AM CDT Hospital Encounter [facility] Medical Office Building [address] [address] documented as of this encounter Visit Diagnoses Not on filedocumented in this encounter Care Teams Chemical Equipment Sales Engineer Relationship Specialty Start Date End Date Roseanna Yung MD [address] [facility] [address] [address] PCP - General 12/14/17 Priya Hoyt MD [address] [facility], [address] [address] Consulting Physician Pain Management 05/13/22 Gerald Templeton Ud, MD [facility], [address] [address] Consulting Physician Surgery 06/21/23 02/11/25 Teddy Dorsey MD [address] [facility] [address] [phone] Consulting Physician Cardiology 04/26/25 documented as of this encounter
--- OUTSIDE RECORDS SUMMARY | 2025-08-03 12:27 | XMS_ITS | Clinical Summary ---
Author Organization [facility] Address [address] [place] [address] Care Team Providers Care Igniter Assembler Name Role Phone Roseanna Yung MD Primary Care Provider [phone] [facility],non-owned Affiliates and Associated Physician Practices is amultiple site organization consisting of ambulatory clinics and hospital sitesin [place], [place], [place] and [place]. This disclosure is being madepursuant to the Care Everywhere program and may not contain all information available regarding this patient. 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 Gender Identity Not on file Sexual Orientation Not on file Last Filed Vital Signs Vital Sign Reading Time Taken Comments Blood Pressure 149/84 05/11/2021 9:29 AM CDT Pulse 70 05/11/2021 9:29 AM CDT Temperature 36.6 C (97.9 F) 05/11/2021 9:29 AM CDT Respiratory Rate 18 01/05/2021 11:04 AM MOTOR COACH BUS DRIVER Oxygen Saturation 98% 05/11/2021 9:29 AM CDT Inhaled Oxygen Concentration - - Weight 99.3 kg (219 lb) 05/11/2021 9:29 AM CDT Height 180.3 cm (5' 11) 05/11/2021 9:29 AM CDT Body Mass Index [...] SCREENING FOR DIABETES 01/05/2021 AAA SCREENING 2023 DEPRESSION SCREENING 10/31/2024 COVID-19 VACCINE (1 - 2023-2 5 season) 2025 INFLUENZA VACCINE (#1) 2025 Respiratory Syncytial Virus (RSV) Vaccine Pt: [...] patient's age to complete this topic Insurance [facility] MANAGED MEDICARE ADV Care Teams Igniter Assembler Relationship Specialty Start Date End Date Roseanna Yung MD [facility] [address] [place] [id number] PCP - General 11/20/20
--- OUTSIDE RECORDS SUMMARY | 2025-08-03 12:27 | XMS_ITS | Encounter Summary ---
Author Organization [facility] Care Team Providers Care Ordnance Keeper Name Role Phone Roseanna Yung MD Primary Care Provider [phone] Priya Hoyt MD Unavailable Gerald Templeton Ud, MD Unavailable Teddy Dorsey MD Unavailable [phone] Encounter Details Date Type Department Care Team (Latest Contact Info) Description 05/16/2018 Orders Only [facility] Provider, MD Edson [address] [place] [id number] Social History Tobacco Use Types Packs/Day Years Used Date Smoking Tobacco: Every Day Sex and Gender Information Value Date Recorded Sex Assigned at Not on file 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 Gender Identity Not on file Sexual Orientation Not on file documented as of this encounter Plan of Treatment Upcoming Encounters Date Type Department Care Team (Late st Contact Info) Description 08/13/2025 10:00 AM CDT Hospital Encounter [facility] Medical Office Building [address] [address] documented as of this encounter Procedures Procedure [...] COVID: Suspected 10/29/2021 10/29/2021 11/12/2021 3:07 AM 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 documented as of this encounter Care Teams Ordnance Keeper Relationship Specialty Start Date End Date Roseanna Yung MD [address] [facility] [address] [address] PCP - General 12/14/17 Priya Hoyt MD [address] [facility], [address] [address] Consulting Physician Pain Management 05/13/22 Gerald Templeton Ud, MD [facility], [address] [address] Consulting Physician Surgery 06/21/23 02/11/25 Teddy Dorsey MD [address] [facility] [address] [phone] Consulting Physician Cardiology 04/26/25 documented as of this encounter
--- OUTSIDE RECORDS SUMMARY | 2025-08-03 12:27 | XMS_ITS | Clinical Summary ---
Author Organization [facility] Address [address] [place] [address] Care Team Providers Care Systems Technologist Name Role Phone Roseanna Yung MD Primary Care Provider [phone] Priya Hoyt MD Unavailable Teddy Dorsey MD Unavailable [phone] Allergies Active Allergy Reactions Criticality Noted Date Comments Niacin Unknown 02/27/2019 Hot flash Moijplq-Ebb-Izh Reductase Inhibitors Muscle pain Medium 02/27/2019 Medications pen needle, diabetic (BD Ultra-Fine Mini Pen Needle) 31 gauge x 3/16 needleIndicat ions:DM type 2 with diabetic peripheral neuropathy (HCC) Use four times daily 200 each 11 024 Active nortriptyline (PAMELOR) 25 mg capsule Take 1 capsule (25 mg total) by mouth nightly 024 Active varenicline tartrate (CHANTIX) 1 mg tabletIndicat ions:Smoking Cessation Take 1 tablet (1 mg total) by mouth 2 (two) times a day Take with full glass of water. 60 tablet 3 01/17/ 025 2025 Active Additional Information Patient taking differently:1 mg oralDaily, Take with full glass of water., Indications: Smoking Cessation, Informant: Self, Reported on 07/30/2025 Eliquis 5 mg tablet TAKE ONE TABLET BY MOUTH TWICE A DAY 60 tablet 5 025 Active Additional Information Patient not taking.Reason: Pt states was instructed by Dr. Yung to quit taking until surgery rescheduled., Informant: Self, Reported on 07/24/2025 acetaminophen 500 mg capsule Take 1 capsule (500 mg total) by mouth every 4 (four) hours as needed for mild pain (pain scale 1-4) Active sildenafiL (VIAGRA) 100 mg tablet TAKE ONE TABLET BY MOUTH NEEDED FOR ERECTILE DISFUNCTION 100 tablet 1 Active aspirin 81 mg enteric coated tablet Take 1 tablet (81 mg total) by mouth daily Active ezetimibe (ZETIA) 10 mg tablet TAKE ONE TABLET BY MOUTH DAILY 90 tablet 1 025 Active Additional Information Patient taking differently:10 mg oralNightly, Reported on 07/30/2025 famotidine (PEPCID) 20 mg tablet Take 1 tablet (20 mg total) by mouth daily as needed for heartburn Active insulin degludec (TRESIBA) 200 unit/mL (3 mL) pen for injection Inject 0.36 mL (72 Units total) under the skin daily 15 mL 3 025 Active Additional Information Patient taking differently:72 Units subcutaneousDaily after lunch, Reported on 07/30/2025 tirzepatide (Mounjaro) 10 mg/0.5 mL pen injector injection Inject 0.5 mL (10 mg total) under the skin once a week 2 mL 5 025 Active blood-glucose ,senior asset manager,con t (Dexcom G7 Shuttle Fixer) miscIndicatio ns:DM type 2 with diabetic peripheral neuropathy (HCC) Dexcom G7 senior asset manager use daily to monitor blood sugar. 1 each 025 Active blood glucose diagnostic stripIndicati ons:DM type 2 with diabetic peripheral neuropathy (HCC) Use 4 times daily 200 strip Active blood-glucose meter misc Use 4 times daily 1 each 025 Active lancets misc Use 4 times daily 200 each 025 Active lisinopriL (PRINIVIL,ZES TRIL) 10 mg tablet TAKE ONE TABLET BY MOUTH DAILY 100 tablet 1 025 Active oxyCODONE (ROXICODONE) 5 mg immediate release tabletIndicat ions:Pain Take 1 tablet (5 mg total) by mouth every 6 (six) hours as needed for pain for up to 10 days 40 tablet 025 2024 Active lisinopriL (PRINIVIL,ZES TRIL) 10 mg tablet TAKE ONE TABLET BY MOUTH DAILY 100 tablet 1 025 2024 Discontinued zolpidem (AMBIEN) 5 mg tablet TAKE ONE TABLET BY MOUTH BEDTIME NEEDED 30 tablet 2 025 2024 Discontinued baclofen (LIORESAL) 20 mg tablet TAKE ONE TABLET BY MOUTH THREE TIMES A DAY 30 tablet 025 2024 Discontinued aspirin/sod bicarb/citric acid (BEV-SELTZER ORIGINAL ORAL) Take 1 tablet by mouth daily as needed 2024 Discontinued(S top Taking at Discharge) baclofen (LIORESAL) 20 mg tablet TAKE ONE TABLET BY MOUTH THREE TIMES A DAY 30 tablet 025 2024 Discontinued(S top Taking at Discharge) zolpidem (AMBIEN) 5 mg tablet TAKE ONE TABLET BY MOUTH AT BEDTIME NEEDED 30 tablet 2 025 2024 Discontinued(S top Taking at Discharge) oxyCODONE (ROXICODONE) 5 mg immediate release tabletIndicat ions:Pain Take 1 tablet (5 mg total) by mouth every 6 (six) hours as needed for pain for up to 10 days 40 tablet 025 2024 Discontinued(P atient Reported) Active Problems Problem Noted Date Diagnosed Date Carotid stenosis, asymptomatic, right 05/09/2025 Assessment & Plan (05/30/2025 3:27 PM CDT): Impression: Patient is status post right carotid endarterectomy with patch angioplasty. He continues to recover well denies any symptoms suggestive of TIA/stroke. Surgical incision site is healing without concern for infection. Plan: Recommend patient to follow-up in 4 weeks for re-evaluation with new baseline carotid duplex. Carotid stenosis, right 04/22/2025 Pre-operative cardiovascular examination Bilateral carotid artery stenosis 03/21/2025 Assessment & Plan (06/27/2025 3:35 PM CDT): Impression: Patient is status post right carotid endarterectomy in April 2025. He remains asymptomatic. Carotid duplex reveals patent bilateral carotid arteries. Plan: Continue ongoing risk factor modifications. -Patient to follow-up in 6 months for re-evaluation with repeat carotid duplex. Assessment & Plan (06/06/2025 7:48 AM CDT): Status post right carotid endarterectomy. He is maintained on aspirin and Eliquis. He is followed with the vascular surgeon. Assessment & Plan (04/05/2025 11:12 AM CDT): Severe greater than 80% stenosis of the right ICA, overall asymptomatic. Discussed findings with Josiane with the recommendation for intervention. We discussed right CEA versus TCAR, his bifurcation is high however his common carotid artery has skipped areas of dense calcific plaque. We will review his imaging further to see which would be more beneficial for him. He did mention the need however for spine surgery in the future which may be prohibitive of a TCAR given the use of Plavix. We did discuss the procedures in clinic, risks benefits alternatives as well risks including bleeding, infection, nerve injury, stroke, need further surgery. He wished proceed. I will call to discuss further with him. Continue ASA and statin therapy. Asymptomatic high-grade stenosis of the proximal left common carotid artery, continue ongoing surveillance and risk factor modification. Assessment & Plan (03/26/2025 7:55 AM CDT): Patient with bilateral carotid artery stenosis. He is followed by the vascular surgeon. He is scheduled for CTA of the neck. He is on aspirin. Assessment & Plan (03/21/2025 12:34 PM CDT): Severe greater than 80% stenosis of the right ICA and severe greater than 70% stenosis of the left common carotid artery. CTA head and neck ordered for further evaluation. Discussed management of carotid artery disease with Josiane including recommendation for intervention if his stenosis is truly greater than 80%. Continue risk factor modification with ASA statin therapy and good blood pressure control. Follow up in the office in 1-2 weeks. S/P lumbar spinal fusion 01/24/2025 DVT (deep venous thrombosis) 07/16/2024 Assessment & Plan (03/26/2025 3:10 PM CDT): Patient with bilateral leg DVT since July 2024. His symptoms started after epidural injections and severe back pain and limited mobility which most likely triggered the DVT. Patient is currently very active. Continue Eliquis for the time being as the patient is scheduled for back surgery and he may need carotid endarterectomy as well. Assessment & Plan (01/17/2025 5:08 PM CDT): [...] months because of the extent of DVT. History of DVT (deep vein thrombosis) 10/31/2023 Statin myopathy 07/07/2023 Overview (01/28/2025): Stable off statin. Must bill annually to remove from statin quality measure. Assessment & Plan (06/06/2025 7:54 AM CDT): Patient has myopathy with statins Assessment & Plan (03/26/2025 7:56 AM CDT): Patient has myopathy with statins Assessment & Plan (02/04/2025 1:02 PM CDT): Patient has myopathy with statins Assessment & Plan (01/17/2025 5:09 PM CDT): Patient has myopathy with statins Assessment & Plan (09/07/2024 12:33 PM PHP SOFTWARE ENGINEER): Patient has myopathy with statins Assessment & Plan (04/10/2024 7:46 AM CDT): Patient could not take statins because of muscle ache and weakness Assessment & Plan (01/05/2024 2:55 PM PHP SOFTWARE ENGINEER): Patient could not take statins because of [...] 08/23/2022 Assessment & Plan (09/08/2022 1:27 PM PHP SOFTWARE ENGINEER): Patient continue to have for persistent diarrhea. Stool test was negative. CBC and SMA 7 were unremarkable. We made him a referral to see a lead janitor for colonoscopy. He said his appointment is [...] Ambien Assessment & Plan (09/08/2021 4:10 PM PHP SOFTWARE ENGINEER): Controlled on Ambien Assessment & Plan (12/10/2020 1:17 PM PHP SOFTWARE ENGINEER): Patient has persistent insomnia. Increase Ambien to 10 mg q.h.s. p.r.n. Assessment & Plan (08/28/2020 12:17 PM CDT): Patient will be started on Ambien 5 mg q.h.s. p.r.n. Pulmonary nodules 06/23/2020 Assessment & Plan (06/06/2025 7:53 AM CDT): Lung scan in August 2024 showed stable 6 mm pulmonary nodule. Will repeat lung scan for further evaluation. Assessment & Plan (03/26/2025 3:11 PM CDT): Lung scan in August 2024 showed stable 6 mm pulmonary nodule. Will repeat lung scan for further evaluation. Assessment & Plan (02/04/2025 1:01 PM CDT): Repeat lung scan in February 2025 Assessment & Plan (01/17/2025 5:09 PM CDT): Repeat lung scan in February 2025 Assessment & Plan (04/10/2024 12:53 PM CDT): Lung scan in March 2023 was benign. Repeat lung scan Assessment & Plan (01/05/2024 2:55 PM PHP SOFTWARE ENGINEER): Repeat CT scan in March 2024 Assessment [...] nodules Assessment & Plan (12/23/2021 4:35 PM PHP SOFTWARE ENGINEER): No change in the size of pulmonary nodules on CT scan of the lungs in July 2021 Assessment & Plan (09/08/2021 4:11 PM PHP SOFTWARE ENGINEER): CT lung screen showed no change in [...] depressive disor gabriele 09/18/2019 Assessment & Plan (03/26/2025 7:56 AM CDT): Stable without medications Assessment & Plan (04/10/2024 12:52 PM CDT): Stable without medications Assessment & Plan (10/06/2023 7:53 AM PHP SOFTWARE ENGINEER): Continue duloxetine Assessment & Plan (07/07/2023 7:55 [...] medication Assessment & Plan (12/06/2019 3:14 PM PHP SOFTWARE ENGINEER): Patient feels fine without medications. No suicidal ideations. Assessment & Plan (09/18/2019 3:47 PM PHP SOFTWARE ENGINEER): The patient has mild depression and we [...] minutes. Assessment & Plan (01/05/2024 2:58 PM PHP SOFTWARE ENGINEER): Discussed smoking cessation and different methods to [...] minutes. Assessment & Plan (12/23/2021 4:37 PM PHP SOFTWARE ENGINEER): Discussed smoking cessation and different methods to help with that. Discussed the risks of smoking including COPD, CAD and lung cancer etc. Total time spent was 4 minutes. Assessment & Plan (09/09/2021 1:57 PM PHP SOFTWARE ENGINEER): Discussed smoking cessation and different methods to [...] results. Assessment & Plan (12/06/2019 3:13 PM PHP SOFTWARE ENGINEER): Discussed smoking cessation and different methods to help with that. Discussed the risks of smoking including COPD, CAD and lung cancer etc. Total time spent was 3 minutes. Assessment & Plan (09/18/2019 3:46 PM PHP SOFTWARE ENGINEER): CT lung screen in May 2019 was [...] 06/18/2019 Assessment & Plan (01/05/2024 2:56 PM PHP SOFTWARE ENGINEER): Colonoscopy in August 2022 showed 1 polyp and repeat in 5 years as per the GI doctor. Assessment & Plan (03/22/2022 5:02 PM CDT): Follow-up with GI doctor for colonoscopy Assessment & Plan (06/09/2021 1:33 PM CDT): Repeat colonoscopy in [address] Gandhi Assessment & Plan (12/10/2020 12:55 PM PHP SOFTWARE ENGINEER): Repeat colonoscopy in [address] Gandhi Assessment & Plan (06/18/2019 5:30 PM CDT): Colonoscopy in March [address] Ahmed and repeat the colonoscopy in 3 years Mixed hyperlipidemia 03/06/2019 Overview (01/28/2025): Do not recommend statin re-trial given history of intolerance (myopathy). Provider to bill Statin myopathy (G72.0) with assessment/plan in note annually to remove patient from statin quality measure(s). Consider non-statin therapy (e.g., Repatha, Praulent, Leqvio) to improve LDL. Cuauhtemoc available for cost assistance through [employer]. Phone number to enroll or online at [email or web address] Assessment & Plan (06/06/2025 7:51 AM CDT): Patient is on Zetia. He could not tolerate statins. Assessment & Plan (04/05/2025 11:12 AM CDT): Recommend statin therapy. Continue Zetia Assessment & Plan (03/26/2025 7:56 AM CDT): Continue Zetia and low-fat diet. Patient could not tolerate statins Assessment & Plan (03/21/2025 12:34 PM CDT): Stable continue Zetia Assessment & Plan (02/04/2025 5:23 PM CDT): [...] . Assessment & Plan (01/05/2024 2:55 PM PHP SOFTWARE ENGINEER): Controlled on current medications. Continue low-fat diet. Will continue to monitor . Assessment & Plan (10/06/2023 7:53 AM PHP SOFTWARE ENGINEER): Controlled on current medications. Continue low-fat diet. [...] . Assessment & Plan (12/23/2021 4:34 PM PHP SOFTWARE ENGINEER): Resume pravastatin 20 mg q.h.s. and continue Zetia and we discussed diet and will repeat the blood work in few months Assessment & Plan (09/08/2021 4:10 PM PHP SOFTWARE ENGINEER): Controlled on current medications. Continue low-fat diet. Will continue to monitor . Assessment & Plan (06/09/2021 1:32 PM CDT): Controlled on current medications. Continue low-fat diet. Will continue to monitor . Assessment & Plan (03/09/2021 11:55 AM CDT): Controlled on current medications. Continue low-fat diet. Will continue to monitor . Assessment & Plan (12/10/2020 12:55 PM PHP SOFTWARE ENGINEER): Controlled on current medications. Continue low-fat diet. [...] daily Assessment & Plan (12/06/2019 3:13 PM PHP SOFTWARE ENGINEER): Discussed diet and exercise. We will add Vascepa 2 g twice daily and repeat blood work in few months Assessment & Plan (09/18/2019 3:46 PM PHP SOFTWARE ENGINEER): Controlled on current medications. Continue low-fat diet. [...] with diabetic peripheral neuropathy Assessment & Plan (06/06/2025 3:52 PM CDT): Patient with diabetes mellitus. It is not controlled. His sugar readings improved. Will increase Mounjaro to 10 mg once a week. Continue Tresiba. Advised to have annual eye exam. Advised to check his sugar on regular basis. Blood work was ordered Assessment & Plan (03/26/2025 3:10 PM CDT): Accu-Chek readings on average are 160. His sugar used to run over 200. Continue Toujeo 72 units daily. Will increase Mounjaro to 7.5 mg once a week. Advised to have annual eye exam. Repeat blood work in few months. Assessment & Plan (02/04/2025 5:22 PM CDT): [...] monitor. Assessment & Plan (01/05/2024 2:55 PM PHP SOFTWARE ENGINEER): Hemoglobin A1c 7.2. Increase Trulicity to 3 mg subQ once a week. Discussed the importance of diet. Ambulate as tolerated. Advised to have eye exam. Assessment & Plan (10/06/2023 7:52 AM PHP SOFTWARE ENGINEER): Continue current medications, discussed low carbohydrate diet, [...] monitor. Assessment & Plan (12/23/2021 4:34 PM PHP SOFTWARE ENGINEER): Patient will be started on Trulicity 0.75 mg once a week for couple of weeks then 1.5 mg once a week and side effects were explained and samples were given and instructions were given. He will continue with other medications. Discussed the importance of diet. Assessment & Plan (09/09/2021 1:56 PM PHP SOFTWARE ENGINEER): Continue current medications, discussed low carbohydrate diet, [...] exam Assessment & Plan (12/10/2020 1:17 PM PHP SOFTWARE ENGINEER): Increase Tresiba to 70 units daily and [...] monitor. Assessment & Plan (12/06/2019 3:12 PM PHP SOFTWARE ENGINEER): We discussed again diet and exercise and weight loss. We will increase Tresiba to 66 units daily and repeat A1c before next visit Assessment & Plan (09/18/2019 3:46 PM PHP SOFTWARE ENGINEER): Continue current medications, discussed low carbohydrate diet, [...] gabapentin Assessment & Plan (10/06/2023 7:52 AM PHP SOFTWARE ENGINEER): Neuropathy secondary to diabetes mellitus. 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 Continue gabapentin Assessment & Plan (03/22/2022 5:01 PM CDT): Continue Lyrica Assessment & Plan (12/23/2021 4:34 PM PHP SOFTWARE ENGINEER): Continue Lyrica Assessment & Plan (09/08/2021 4:10 PM PHP SOFTWARE ENGINEER): Continue Lyrica Assessment & Plan (06/09/2021 1:32 PM CDT): Controlled on Lyrica Assessment & Plan (03/09/2021 11:55 AM CDT): Continue Lyrica Assessment & Plan (12/06/2019 3:13 PM PHP SOFTWARE ENGINEER): Patient with chronic neuropathy secondary to diabetes and chronic back pain and he is followed by the neurologist Assessment & Plan (09/18/2019 3:46 PM PHP SOFTWARE ENGINEER): The patient has mild neuropathy secondary to [...] he was advised strongly to call his industrial painter because of worsened pain and he [...] management. Assessment & Plan (10/05/2021 3:05 PM PHP SOFTWARE ENGINEER): Patient was started to see a new pain management practice recently and he had recent injections and physical therapy with improvement in his symptoms. He likes to get off oxycodone. I told him to discuss that with the pain management. Assessment & Plan (09/09/2021 1:56 PM PHP SOFTWARE ENGINEER): Will make him a referral to see a neurosurgeon and Pain Management. Will obtain x-rays of the hips to be sure that there is no issues with his hips as a cause of his lower back pain Assessment & Plan (12/10/2020 12:54 PM PHP SOFTWARE ENGINEER): Status laminectomy. Patient has persistent symptoms and [...] 12/23/2016 Assessment & Plan (01/05/2024 2:57 PM PHP SOFTWARE ENGINEER): Patient is followed by the pain specialist [...] opinion. Assessment & Plan (12/23/2021 4:34 PM PHP SOFTWARE ENGINEER): Patient is under the care of pain management Assessment & Plan (12/06/2019 3:13 PM PHP SOFTWARE ENGINEER): The patient has a chronic back pain with recent MRI that showed large bulged disc and will make him a referral to see the spine surgeon for 2nd opinion Sciatica 10/20/2016 ED (erectile dysfunction) 04/21/2016 Hypertension, essential 10/08/2013 Assessment & Plan (06/06/2025 7:50 AM CDT): Stable, continue lisinopril Assessment & Plan (04/05/2025 11:12 AM CDT): Stable continue lisinopril Assessment & Plan (03/21/2025 12:34 PM CDT): Stable continue lisinopril Assessment & Plan (02/04/2025 1:01 PM CDT): [...] monitor Assessment & Plan (01/05/2024 2:55 PM PHP SOFTWARE ENGINEER): Blood pressure is running on the low side. Will cut down lisinopril to 10 mg daily. Discussed low-salt diet. Discussed exercise on regular basis. Will continue to monitor Assessment & Plan (10/06/2023 12:18 PM PHP SOFTWARE ENGINEER): Blood pressure is running on the low [...] monitor Assessment & Plan (12/23/2021 4:34 PM PHP SOFTWARE ENGINEER): Continue current medications. Discussed low-salt diet. Discussed exercise on regular basis. Will continue to monitor Assessment & Plan (09/08/2021 4:09 PM PHP SOFTWARE ENGINEER): Continue current medications. Discussed low-salt diet. Discussed [...] monitor Assessment & Plan (12/10/2020 12:55 PM PHP SOFTWARE ENGINEER): Continue current medications. Discussed low-salt diet. Discussed [...] monitor Assessment & Plan (12/06/2019 3:13 PM PHP SOFTWARE ENGINEER): Continue current medications. Discussed low-salt diet. Discussed [...] Encounters Date Type Department Care Team Description 07/31/2025 Orders Only [facility] [address] [facility] [address], [address] [place] [address] Alejandro Lawrence MD 07/30/2025 10:36 AM CDT Anesthesia [place] [facility] [place] [address] [place] [id number] Paulina Tenorio MD Taylor-White, Carlotta A., NP 07/30/2025 9:30 AM CDT - 07/30/2025 11:30 AM CDT Surgery [facility] [place] [address] [place] [address] Alejandro Lawrence MD LUMBAR 2 - LUMBAR 3 MINIMALLY INVASIVE DECOMPRESSION 07/30/2025 7:20 AM CDT - 07/30/2025 1:52 PM CDT Hospital Encounter [facility] [place] [address] [place] [address] Alejandro Lawrence MD Adjacent segment disease of lumbar spine with history of fusion procedure; S/P lumbar spinal fusion; Neurogenic claudication due to lumbar spinal stenosis Discharge Disposition: Discharge to home or self care 07/30/2025 Orders Only [facility] [address] [place] [address] [address], [address] [place] [address] Alejandro Lawrence MD 07/23/2025 Results Follow-Up [facility] Internal Medicine [address] [place] [address] [place] [address] Roseanna Yung MD SCAN - RADIOLOGY/IMAGING 07/22/2025 Telephone [facility] Internal Medicine [address] [place] [address] [address] [place] [address] Roseanna Yung MD Additional Services Or Orders (See referral dated 07/04 ) 07/11/2025 Telephone [facility] Internal Medicine [address] [place] [address] [address] [place] [address] Roseanna Yung MD Diabetes 07/10/2025 Telephone [facility] Internal Medicine [address] [place] [address] [address] [place] [address] Roseanna Yung MD Med Refill 07/09/2025 Documentation [facility] [address] [place] [address] [address], [address] [place] [address] Melissa Starr RN 07/09/2025 Documentation [facility] [address] [place] [address] [address], [address] [place] [address] Melissa Starr RN 07/04/2025 Orders Only [facility] Internal Medicine [address] [place] [address] [address] [place] [address] Roseanna Yung MD Pulmonary nodules (Primary Dx); Hepatic cirrhosis, unspecified hepatic cirrhosis type, unspecified whether ascites present (HCC) 06/28/2025 Orders Only [facility] Health Information Management [address] [place] [address] Roseanna Yung MD 06/27/2025 1:00 PM CDT Pre-Admission Testing [facility] PreAdmission Testing [address] [place] [address] Adjacent segment disease of lumbar spine with history of fusion procedure; S/P lumbar spinal fusion; Neurogenic claudication due to lumbar spinal stenosis; Type 2 diabetes mellitus without complication, unspecified whether chcf insulin use (HCC); Pain in other specified joint 06/26/2025 9:15 AM CDT Office Visit [facility] Vascular at [address] [place] [address] Kathy Hay NP Bilateral carotid artery stenosis (Primary Dx) 06/26/2025 Orders Only [facility] Vascular at [address] [place] [address] Anusha Vazquez MD Aftercare following surgery of the circulatory system (Primary Dx) 06/25/2025 Orders Only [facility] PreAdmission Testing [address] [place] [address] Heather Rush, NATALIE 06/19/2025 Telephone [facility] Vascular and Vein Surgery [address] [facility] [address] [place] [address] Farzana Tyson RN 06/18/2025 11:00 AM CDT Ancillary Procedure [facility]ascular and Vein Surgery at [address] [place] [address] Aftercare following surgery of the circulatory system 06/14/2025 Orders Only [facility] Internal Medicine [address] [facility] [address] [place] [address] Roseanna Yung MD Abnormal CT lung screening (Primary Dx); Pulmonary nodule 06/11/2025 Documentation [facility] Neurosurgery Clinic [address] [facility] [address] [place] [address] Melissa Starr RN 06/10/2025 Telephone [facility] Internal Medicine [address] [place] [address] [address] [place] [address] Roseanna Yung MD Medication Problem 06/06/2025 1:45 PM CDT Office Visit [facility] Internal Medicine [address] [place] [address] [address] [place] [address] Roseanna Yung MD Bilateral carotid artery stenosis (Primary Dx); DM type 2 with diabetic peripheral neuropathy (HCC); Hypertension, essential; Mixed hyperlipidemia; Pulmonary nodules; Statin myopathy; BMI 29.0-29.9,adult; Personal history of nicotine dependence 06/06/2025 Telephone [facility] Internal Medicine [address] [place] [address] [place] [phone] Roseanna Yung MD 06/06/2025 ACO Outreach [address] [address] Neeta Rodriguez RN 05/29/2025 9:00 AM CDT Office Visit [facility] Vascular at [address] [place] [phone] Kathy Hay NP Carotid stenosis, asymptomatic, right (Primary Dx) 05/29/2025 Orders Only [facility] Vascular at [address] [place] [address] Anusha Vazquez MD Aftercare following surgery of the circulatory system (Primary Dx) 05/13/2025 DAVID IP Outreach [address] [address] Mary Goins LPN 05/09/2025 12:35 PM CDT - 05/09/2025 3:10 PM CDT Surgery [facility] OR [facility] [place] [address] Anusha Vazquez MD RIGHT CAROTID ENDARTERECTOMY 05/09/2025 12:33 PM CDT Anesthesia Event [facility] OR [address] [place] [address] Madhu Boyce MD Taylor-White, Carlotta A., DATA SECURITY COORDINATOR 05/09/2025 10:10 AM CDT - 05/10/2025 12:06 PM CDT Hospital Encounter [facility] [address] [place] [address] [place] [address] Anusha Vazquez MD Carotid stenosis, right Discharge Disposition: Discharge to home or self care from Last 3 Months Immunizations Immunization Administration Dates Next Due Influenza, Unspecified 08/27/2024(Deferr ed: Patient Refused),04/10/2024(Deferred: Patient Refused),10/06/2023(Deferred: Patient decision),07/07/2023(Deferred: Patient decision),11/04/2022(Deferred: Patient decision) Pfizer SARS-CoV-2 Monovalent Vaccination (12+ Yrs) PURPLE 04/29/2021,04/07/2021 Pneumococcal Conjugate Pcv20 10/06/2023 Surgical History Surgery Date Site/Laterality Comments ANTERIOR CERVICAL DISCECTOMY 10/31/2002 - 10/30/2003 SPINAL CORD STIMULATOR IMPLANT 10/31/2006 - 10/30/2007 removed APPENDECTOMY 10/31/1967 - 10/30/1968 TONSILLECTOMY 10/31/1965 - 10/30/1966 LUMBAR LAMINECTOMY 10/31/2006 - 10/30/2007 HAND SURGERY 10/31/1977 - 10/30/1978 Right knuckle surgery- infection COLONOSCOPY CAROTID ENDARTERECTOMY 05/09/2025 Right ANTERIOR / POSTERIOR COMBINED FUSION LUMBAR SPINE 04/30/2020 - 05/30/2020 WRIST SURGERY 10/31/1994 - 10/30/1995 Right Removal fractured hook of hamate Medical History Medical History Date Comments HTN (hypertension) HLD (hyperlipidemia) ED (erectile dysfunction) Low back pain Type 2 diabetes mellitus IDDM. f elizabeth stick, running in the 200's Full dentures History of DVT (deep vein thrombosis) 2023 Bilateral leg cramps has to slee p on stomach, takes Baclofen nightly Cervical myelopathy (HCC) Neurogenic claudication Depression Arthritis Carotid stenosis GERD (gastroesophageal reflux disease) Family History Medical History Relation Name Comments Cancer Brother 1 Anthony Smith Heart attack Brother 2 Braden Damonhidayron Hypertension Brother 3 Braden Diabetes Father Shashi Early Father Shashi Heart attack Father Shashi Heart disease Father Shashi Family history of cardiac disorder - (Added by TW Conv) Hypertension Father Shashi Arthritis Mother Landy Cancer Mother Landy Heart disease Mother Landy Family history of cardiac disorder - (Added by TW Conv) COPD Sister Georgina Relation Name Status Comments Brother 1 Anthony Smith Alive Brother 2 Braden Joiner Alive Brother 3 Braden Alive Father Shashi Mother Landy Sister Georgina Alive Social History Tobacco Use Types Packs/Day Years Used Date Smoking Tobacco: Some Days Cigarettes Passive Smoke Exposure: Current Smokeless Tobacco: Never Tobacco Cessation:Ready to Q uit: Not Asked; Counseling Given: Not Answered Comments:Stopped smoking end of december 2024 not completely states smokes 2 ciggs couple days a week, 1pk day prior to 12/2024 Passive Exposure Comments:pt reported he quit 2 weeks ago Alcohol Use Standard Drinks/Week Comments Not Currently 0 (1 standard drink = 0.6 oz pur e alcohol) [facility] Utilities Answer Date Recorded In the past 12 months has Sk[employer] Mom electric, gas, oil, or water [employer] threatened to shut off services in your [...] often do you attend chur ch or scientology services? Never 05/10/2025 Do you belong to any clubs o r organizations such as hindu groups, unions, fraternal or athletic groups, or [...] time in the past 12 m [facility], were you homeless or living in a half-way (including now)? 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 Gender Identity Not on file Sexual Orientation Not on file Occupation Industry Job Start Date Job End Date On Disability Not on file Not on file Not on file Obstetrics History Last Filed Vital Signs Vital Sign Reading Time Taken Comments Blood Pressure 140/58 07/30/2025 1:10 PM CDT Pulse 70 07/30/2025 1:10 PM CDT Temperature 36.6 C (97.8 F) 07/30/2025 12:40 PM CDT Respiratory Rate 20 07/30/2025 1:10 PM CDT Oxygen Saturation 98% 07/30/2025 1:10 PM CDT Inhaled Oxygen Concentration - - Weight 90.2 kg (198 lb 14.4 oz) 07/30/2025 7:38 AM CDT Height 177.8 cm (5' 10) 07/30/2025 7:38 AM CDT Body Mass Index 28.54 07/30/2025 7:38 AM CDT Plan of Treatment Upcoming Encounters Date Type Department Care Team (Late st Contact Info) Description 08/13/2025 10:00 AM CDT Hospital Encounter [facility] Medical Office Building [address] [address] Health Maintenance Due Date Last Done Comments Hepatitis B Screening 1978 Abdominal Aortic Aneurysm (A AA) Screen 2023 Albumin Creatinine Ratio, Urine 06/16/2024 06/16/2023, 06/09/2022, 12/09/2021, Additional history exists Foot Exam 10/06/2024 10/06/2023, 12/02, 03/09/2021 Prostate Cancer Screening-PSA 06/16/2025, 03/18/2022, 03/05/2021, Additional history exists Hemoglobin A1C 12/28/2025 06/27/2025, 041 02/2025, 07/16/2024, Additional history exists Depression Screening 02/04/2026 02/04/2025, 08/27/2024, 07/25/2024, Additional history exists Well Visit 65+ 02/04/2026 02/04/2025 Dilated Eye Exam 02/19/2026 02/19/2025, , 06/04/2022, Additional history exists Lipid Panel 04/10/2026 04/10/2025, 03/0 03/2024, 06/16/2023, Additional history exists eGFR 06/27/2026 06/27/2025, 04/01, 02/12/2025, Additional history exists Fall Risk Assessment 07/30/2026 07/30/2025, 02/04/2025, 08/27/2024, Additional history exists Colon Cancer Screening-Colonoscopy 09/16/2027 [...] home safety. Medical Devices Implanted Type Area Behavioral Health Assistant Device Identifier Shelf Expiration Date Model / Serial / Lot Hardware To Back Back [employer] Patch Vascuguard 0.88cm [id number] - [id number] Implanted:Qty: 1 on 05/09/2025 by Anusha Vazquez MD at [facility] Right: Carotid [employer] [id number] 12/10/2026 [id number] / / [id number] Procedures Procedure Name Priority Date/Time Associated Diagnosis Comments POCT GLUCOSE DEVICE Routine 07/30/2025 1 2:07 PM CDT FL FLUOROSCOPY < 1 HOUR IP Routine 07/30/2025 11:26 AM CDT MA AN PROCEDURE PLACEHOLDER Routine 07/30/2025 10:59 AM CDT MA AN ELECTIVE ENDOTRACHEAL AIRWAY Routine 07/30/2025 10:59 AM CDT DECOMPRESSION LUMBAR LAMINECTOMY 07/30/2025 10:34 AM CDT Adjacent segment disease of lumbar spine with history of fusion procedure S/P lumbar spinal fusion Neurogenic claudication due to lumbar spinal stenosis POCT GLUCOSE DEVICE Routine 07/30/2025 7 :48 AM CDT SCAN - RADIOLOGY/IMAGING 06/28/2025 EGFR Routine 06/27/2025 1:11 PM CDT Adjacent segment disease of lumbar spine with history of fusion procedure S/P lumbar spinal fusion Neurogenic claudication due to lumbar spinal stenosis DIFFERENTIAL AUTO Routine 06/27/2025 1:1 1 PM CDT Adjacent segment disease of lumbar spine with history of fusion procedure S/P lumbar spinal fusion Neurogenic claudication due to lumbar spinal stenosis ANTIBODY SCREEN Routine 06/27/2025 1:11 PM CDT Adjacent segment disease of lumbar spine with history of fusion procedure S/P lumbar spinal fusion Neurogenic claudication due to lumbar spinal stenosis ABO/RH Routine 06/27/2025 1:11 PM CDT Adjacent segment disease of lumbar spine with history of fusion procedure S/P lumbar spinal fusion Neurogenic claudication due to lumbar spinal stenosis CBC WITH AUTO DIFFERENTIAL Routine 06/27/2025 1:11 PM CDT Adjacent segment disease of lumbar spine with history of fusion procedure S/P lumbar spinal fusion Neurogenic claudication due to lumbar spinal stenosis PROTIME-INR Routine 06/27/2025 1:11 PM CDT Adjacent segment disease of lumbar spine with history of fusion procedure S/P lumbar spinal fusion Neurogenic claudication due to lumbar spinal stenosis Pain in other specified joint APTT Routine 06/27/2025 1:11 PM CDT Adjacent segment disease of lumbar spine with history of fusion procedure S/P lumbar spinal fusion Neurogenic claudication due to lumbar spinal stenosis Pain in other specified joint COMPREHENSIVE METABOLIC PANEL Routine 06/27/2025 1:11 PM CDT Adjacent segment disease of lumbar spine with history of fusion procedure S/P lumbar spinal fusion Neurogenic claudication due to lumbar spinal stenosis TYPE AND SCREEN 14 DAY Routine 06/27/2025 1:11 PM CDT Adjacent segment disease of lumbar spine with history of fusion procedure S/P lumbar spinal fusion Neurogenic claudication due to lumbar spinal stenosis HEMOGLOBIN A1C Routine 06/27/2025 1:11 PM CDT Adjacent segment disease of lumbar spine with history of fusion procedure S/P lumbar spinal fusion Neurogenic claudication due to lumbar spinal stenosis Type 2 diabetes mellitus without complication, unspecified whether medical transcription radiology insulin use (HCC) MRSA ONLY (STAPHYLOCOCCUS AUREUS) PCR Routine 06/27/2025 1:11 PM CDT Adjacent segment disease of lumbar spine with history of fusion procedure S/P lumbar spinal fusion Neurogenic claudication due to lumbar spinal stenosis US CAROTIDS DUPLEX BILATERAL Schedule Routine, Read Routine (OP Routine) 06/18/2025 11:46 AM CDT Aftercare following surgery of the circulatory system CT CHEST WO CONTRAST Schedule Routine, Read Routine (OP Routine) 06/14/2025 2:23 PM CDT POCT GLUCOSE DEVICE Routine 05/10/2025 8 :23 AM CDT POCT GLUCOSE DEVICE Routine 05/09/2025 8 :51 PM CDT POCT GLUCOSE DEVICE Routine 05/09/2025 5 :12 PM CDT POCT GLUCOSE DEVICE Routine 05/09/2025 2 :52 PM CDT VASCULAR SURGERY PROCEDURE Routine 05/09/2025 2:45 PM CDT Carotid stenosis, right US CAROTID DUPLEX UNILATERAL RIGHT IP Routine 05/09/2025 2:35 PM CDT Carotid stenosis, right MA AN PROCEDURE PLACEHOLDER Routine 05/09/2025 1:02 PM CDT MA AN ELECTIVE ENDOTRACHEAL AIRWAY Routine 05/09/2025 1:02 PM CDT MA AN PROCEDURE PLACEHOLDER Routine 05/09/2025 1:00 PM CDT POCT GLUCOSE DEVICE Routine 05/09/2025 1 0:52 AM CDT POCT LIPID PANEL Routine 04/10/2025 10:0 6 AM CDT Lipid screening DIABETES EYE EXAM Routine 02/19/2025 ALBUMIN CREATININE RATIO, URINE Routine 06/16/2023 11:22 AM CDT DM type 2 with diabetic peripheral neuropathy (HCC) PSA SCREEN Routine 06/16/2023 11:22 AM CDT Prostate cancer screening COLONOSCOPY Routine 09/16/2022 HEPATITIS C ANTIBODY Routine 06/09/2022 12:00 PM CDT DIABETES FOOT EXAM Routine 12/23/2021 from Last 3 Months or Most Recently Relevant to Health Maintenance Results * POCT glucose (07/30/2025 12:07 PM CDT) Glucose, POC 146 70 - 199 mg/dL Blood 07/30/2025 12:0 7 PM CDT 07/30/2025 12:07 PM CDT Alejandro Lawrence MD LAB POCT ORDERABLES - DE VICE Final Result Performing Organization Address [facility] Co wy Phone Number SHIRA [address] [facility] Department [place] [address] * FL Fluoroscopy < 1 Hour (07/30/2025 11:26 AM CDT) Narrative KATHERINE_MANJULA_MHB_MHE - 07/30/2025 11:36 AM CDT The images from this study are not interpreted by Radiology. Please refer to the physician's procedure / OR operative note. Alejandro Lawrence MD IMG FLUOROSCOPY PROCEDUR ES Final Result Performing Organization Address [facility] Phone Number [email or web address] * MA AN ELECTIVE ENDOTRACHEAL AIRWAY, MA AN PROCEDURE PLACEHOLDER (07/30/2025 10:59 AM CDT) Narrative Kathy Reyes CRNA - 07/30/2025 10:59 AM CDT Kathy Reyes CRNA 07/30/2025 11:01 AM Airway Patient location: OR Urgency: elective Date/time: 07/30/2025 10:43 AM Indications for airway management: anesthesia and airway protection Difficult airway: no Staff: Placed by: GENERATOR SWITCHBOARD OPERATOR: Kathy Reyes CRNA Emergent airway documentation: Risks and benefits discussed: yes Consent obtained: yes Consent given by: patient Airway prep: Preoxygenated: yes Patient position: sniffing Mask difficulty assessment: 2 - vent by mask + OA or adjuvant Spontaneous ventilation during airway: present Sedation level during airway: GA Final airway details: Final airway type: endotracheal airway Tube type: ETT ETT size: 8.0 mm Cuffed: yes Technique used for successful ETT placement: direct laryngoscopy Devices/Methods used in placement: intubating stylet Insertion site: oral Blade type: Lilliana Blade size: 4 Cormack-Lehane (direct): grade I - full view of glottis Cuff volume: 8 mL Cuff inflated with: air ETT to lips: 24 cm Placement verified by: auscultation and CO2 detection Airway secured with: other (pink tape) Number of attempts: 1 Additional comments: Intubated by Seema RIVERA. us Paulina Tenorio MD ANESTHESIA ORDERABLES Final Result * POCT glucose (07/30/2025 7:48 AM CDT) [facility] Glucose, POC 178 70 - 199 mg/dL Blood 07/30/2025 7:48 AM CDT 07/30/2025 7:48 AM CDT us Alejandro Lawrence MD LAB POCT ORDERABLES - DE VICE Final Result [place] [address] [facility] Department [place] [address] * SCAN - RADIOLOGY/IMAGING (06/28/2025) Anatomical Region Laterality Modality Other Roseanna Yung MD Final Resul t * eGFR (06/27/2025 1:11 PM CDT) [facility] eGFR 79 >=60 mL/min/1. 73 m2 Comment: Interpretive Data [...] interpretive data was last reviewed 2021. Blood 06/27/2025 1:11 PM CDT 06/27/2025 1:15 PM CDT us Alejandro Lawrence MD LAB BLOOD ORDERABLES Fin al Result [facility] [address] [facility] Department [place] [address] * Differential, auto (06/27/2025 1:11 PM CDT) Neutrophil abs 3.62 1.50 - 6.50 K/cumm Imm gran abs 0.03 0.00 - 0.10 K/cumm [facility] Lymphocyte abs 2.19 0.80 - 3.30 K/cumm [facility] Monocyte abs 0.38 0.20 - 0.80 K/cumm [facility] Eosinophil abs 0.16 0.00 - 0.50 K/cumm [facility] Basophil abs 0.05 0.00 - 0.10 K/cumm [facility] Neutrophil pct 56.2 % [facility] Comment: Interpretive Data Percent cell count reference ranges are not reported, since discordance with absolute values may lead to misinterpretation of CBC data. Current Interpretive Data was last revised on 2018. Imm gran pct 0.5 % [facility] Comment: Interpretive Data Percent cell count reference ranges are not reported, since discordance with absolute values may lead to misinterpretation of CBC data. Current Interpretive Data was last revised on 2018. Lymphocyte pct 34.1 % [facility] Comment: Interpretive Data Percent cell count reference ranges are not reported, since discordance with absolute values may lead to misinterpretation of CBC data. Current Interpretive Data was last revised on 2018. Monocyte pct 5.9 % [facility] Comment: Interpretive Data Percent cell count reference ranges are not reported, since discordance with absolute values may lead to misinterpretation of CBC data. Current Interpretive Data was last revised on 2018. Eosinophil pct 2.5 % [facility] Comment: Interpretive Data Percent cell count reference ranges are not reported, since discordance with absolute values may lead to misinterpretation of CBC data. Current Interpretive Data was last revised on 2018. Basophil pct 0.8 % [facility] Comment: Interpretive Data Percent cell count reference ranges are not reported, since discordance with absolute values may lead to misinterpretation of CBC data. Current Interpretive Data was last revised on 2018. Blood 06/27/2025 1:11 PM CDT 06/27/2025 1:15 PM CDT Alejandro Lawrence MD LAB BLOOD ORDERABLES Fin al Result Performing Organization Address [facility] Co de Phone Number [address] [employer] [place], [place] [id number] * (ABNORMAL) CBC with auto differential (06/27/2025 1:11 PM CDT) WBC 6.43 3.80 - 9.90 K/cumm Hgb 13.1 13.0 - 17.5 g/dL [facility] Hct 38.7(L) 38.9 - 50.3 % [facility] Plt 133(L) 150 - 400 K/cumm [facility] MPV 10.2 9.1 - 12.3 fL [facility] RBC 3.98(L) 4.30 - 5.80 M/cumm [facility] MCV 97.2(H) 81.3 - 96.4 fL [facility] MCH 32.9 27.1 - 33.3 pg [facility] MCHC 33.9 32.3 - 35.7 g/dL [facility] RDW CV 13.9 11.1 - 14.9 % [facility] RDW SD 49.3(H) 35.7 - 48.1 fL [facility] NRBC abs 0.00 0.00 - 0.01 K/cumm [facility] Blood 06/27/2025 1:11 PM CDT 06/27/2025 1:15 PM CDT Alejandro Lawrence MD LAB BLOOD ORDERABLES Fin al Result Performing Organization Address [facility] Co de Phone Number [facility] [address] [place] [address] * MRSA Only (Staphylococcus aureus) PCR Nasal (06/27/2025 1:11 PM CDT) PCR Scrn, Methicillin resistant Staphylococcus aureus (MRSA) Not Detected Not Detected Comment: Interpretive Data Testing performed using Nucleic Acid Amplification with the [employer] Xpert MRSA NxG Assay. This assay detects target DNA from mecA, mecC and the SCCmec insertion site of Staphylococcus aureus using Real-Time PCR and has been cleared by the FDA. Performance characteristics have been verified by the [facility]. Current Interpretive Data was last revised on 2023 Nasal 06/27/2025 1:11 PM CDT 06/27/2025 1:15 PM CDT Alejandro Lawrence MD LAB MICROBIOLOGY - GENER AL ORDERABLES Final Result Performing Organization Address [facility] Co de Phone Number [place] [address] [place] [address] * ABO/Rh (06/27/2025 1:11 PM CDT) Pathologist [facility] ABO/Rh O Positive Blood 06/27/2025 1:11 PM CDT 06/27/2025 1:15 PM CDT Narrative [facility] - 06/27/2025 2:01 PM CDT Is this test being ordered in advance for a procedure?->Yes Expected date of procedure:->07/09/25 Has the patient been transfused in the past 3 months?->No Alejandro Lawrence MD LAB BLOOD BANK TEST ORDE RABLES Final Result Performing Organization Address City/[facility]/ZIP Co de Phone Number [place] [address] [place] [address] * aPTT (06/27/2025 1:11 PM CDT) aPTT 30 22 - 37 sec Comment: Interpretive data aPTT test has not been evaluated for monitoring heparin therapy. The anti-Xa is the preferred test. Current interpretive data was last revised on 2019. Blood 06/27/2025 1:11 PM CDT 06/27/2025 1:15 PM CDT Result [facility] Alejandro Lawrence MD LAB BLOOD ORDERABLES Fin al Result Performing Organization Address [facility] de Phone Number [address] [address] * Protime-INR (06/27/2025 1:11 PM CDT) PT 13.80 12.00 - 14.60 sec INR 1.04 0.90 - 1.20 SHIRA Comment: Interpretive data Oral anticoagulant therapeutic ranges: Venous thromboembolism prophylaxis or treatment: 2.0-3.0 CARDIOLOGY Standard range: 2.0-3.0 High-intensity range: 2.5-3.5 Refer to indication-specific guidelines for appropriate target ranges for prosthetic heart valve replacement. Current interpretive data was last revised on 2019. Blood 06/27/2025 1:11 PM CDT 06/27/2025 1:15 PM CDT Result [facility] Alejandro Lawrence MD LAB BLOOD ORDERABLES Fin al Result Performing Organization Address [facility] de Phone Number [address] [address] * Antibody screen (06/27/2025 1:11 PM CDT) Ana, indirect, Gel Interpretation Negative ABSC Blood 06/27/2025 1:11 PM CDT 06/27/2025 1:15 PM CDT Narrative SHIRA - 06/27/2025 2:01 PM CDT Is this test being ordered in advance for a procedure?->Yes Expected date of procedure:->07/09/25 Has the patient been transfused in the past 3 months?->No Result [facility] Alejandro Lawrence MD LAB BLOOD BANK TEST ORDE RABLES Final Result Performing Organization Address [facility] de Phone Number [place] [address] [place] [address] * (ABNORMAL) Hemoglobin A1c (06/27/2025 1:11 PM CDT) [facility] Hgb A1C 6.7(H) 4.0 - 5.6 % Estimated Average Glucose 146 mg/dL [facility] Comment: The ADA recommends reporting an estimated Average Glucose (eAG) with all Hemoglobin A1c results using the equation derived from a study of 507 normal and diabetic adults. Minority populations were underrepresented and children were not included. (Diabetes Care 31:7898-0503, 2008). The eAG is not equivalent to a fasting glucose. Blood 06/27/2025 1:11 PM CDT 06/27/2025 1:15 PM CDT Alejandro Lawrence MD LAB BLOOD ORDERABLES Fin al Result Performing Organization Address [facility] de Phone Number [place] [address] [place] [address] * (ABNORMAL) Comprehensive metabolic panel (06/27/2025 1:11 PM CDT) [facility] Sodium 136 135 - 145 mmol/L Potassium, pl 4.4 3.3 - 4.9 mmol/L [facility] Chloride 103 97 - 110 mmol/L [facility] CO2 21(L) 22 - 32 mmol/L [facility] Anion gap 12 2 - 15 mmol/L [facility] BUN 13 6 - 25 mg/dL [facility] Creatinine 1.04 0.80 - 1.30 mg/dL [facility] Glucose 152 70 - 199 mg/dL [facility] Comment: Interpretive Data Fasting glucose >/= [...] interpretive data was last revised 2022. Calcium 9.3 8.5 - 10.3 mg/dL [facility] Bilirubin, total 0.5 0.1 - 1.2 mg/dL [facility] Protein, pl 7.1 6.5 - 8.5 g/dL [facility] Albumin 4.5 3.5 - 5.0 g/dL [facility] Alk phos 85 40 - 130 Units/L [facility] ALT 23 7 - 55 Units/L [facility] AST 22 10 - 50 Units/L [facility] Blood 06/27/2025 1:11 PM CDT 06/27/2025 1:15 PM CDT us Alejandro Lawrence MD LAB BLOOD ORDERABLES Fin al Result [facility] [address] [facility] Department [place] [address] * US Carotids Duplex Bilateral (06/18/2025 11:46 AM CDT) Anatomical Region Laterality Modality Vascular Bilateral Ultrasound 06/18/2025 11:0 3 AM CDT Narrative 06/19/2025 2:51 PM CDT [facility] [address] [place] [address] Carotid Duplex Ultrasound Report Patient Name: JOSIANE JOINER R : 1960 (64y 11m) Study Date: 06/18/2025 11:03:47 AM Gender: M Control Room Technician: JAI Location: [facility] Ref Provider: ANUSHA VAZQUEZ Quality: Adequate Order Provider: ANUSHA VAZQUEZ PROCEDURES: Carotid Report: Carotid duplex examination of the extracranial arteries was performed using 2D, color and spectral Doppler. INDICATIONS: S/P Rt CEA 05/09/25. HISTORY: HTN. DM. Current smoker. COMPARISONS: The previous exam was completed on 02/21/25 @ [place]: Rt >70, Lt <50, Lt CCA >70. MEASUREMENTS: Right Value Left Value RT Prox CCA PSV 92 cm/sec LT Prox CCA PSV 99 cm/sec RT Prox CCA EDV 13 cm/sec LT Prox CCA EDV 26 cm/sec RT Distal CCA PSV 74 cm/sec LT Distal CCA PSV 167 cm/sec RT Distal CCA EDV 21 cm/sec LT Distal CCA EDV 23 cm/sec RT Prox ICA PSV 73 cm/sec LT Prox ICA PSV 80 cm/sec RT Prox ICA EDV 21 cm/sec LT Prox ICA EDV 15 cm/sec RT Mid ICA PSV 98 cm/sec LT Mid ICA PSV 77 cm/sec RT Mid ICA EDV 31 cm/sec LT Mid ICA EDV 25 cm/sec RT Distal ICA PSV 99 cm/sec LT Distal ICA PSV 75 cm/sec RT Distal ICA EDV 29 cm/sec LT Distal ICA EDV 28 cm/sec RT ECA Prx PSV 49 cm/sec LT ECA Prx PSV 81 cm/sec RT ICA/CCA 1.34 ratio LT ICA/CCA 0.48 ratio Rt Vert Dst PSV 14 cm/sec Lt Vert Dst PSV 62 cm/sec FINDINGS: Rt Common Carotid Artery: The plaque in the right CCA appears to be heterogeneous. Hypoechoic, soft appearing plaque noted at distal CCA/bulb. Rt Internal Carotid Artery: The plaque in the right internal carotid artery appears to be heterogeneous and smooth. Atherosclerotic changes of the right internal carotid artery without hemodynamically significant Doppler findings. <50% stenosis. Rt External Carotid Artery: No evidence of color filling and absent Doppler signals within the right external carotid artery consistent with a complete occlusion proximally. Significant atherosclerotic disease present on 2D imaging. Filled by retrograde branch. Rt Vertebral Artery: The right vertebral artery is patent with antegrade flow. Lt Common Carotid Artery: The plaque in the left CCA appears to be heterogeneous. Atherosclerotic changes of the left common carotid artery with hemodynamically significant Doppler findings; elevated peak systolic velocity 294/64 cm/s at mid segment. Lt Internal Carotid Artery: The plaque in the left internal carotid artery appears to be heterogeneous and irregular. Atherosclerotic changes of the left internal carotid artery without hemodynamically significant Doppler findings. <50% stenosis. Lt External Carotid Artery: Patent left external carotid artery with evidence of atherosclerotic disease present. Lt Vertebral Artery: The left vertebral artery is patent with antegrade flow. Comments: Left internal carotid/common carotid artery ratio is falsely decreased due to elevated velocity at distal common carotid artery. CONCLUSIONS: 1. The right internal carotid artery disease is consistent with a less than 50% stenosis. 2. The left internal carotid artery disease is consistent with a less than 50% stenosis. 3. Elevated velocities in the left common carotid artery suggestive of stenosis. Bilateral antegrade vertebral flow. ATTESTATION: I have reviewed and interpreted the pertinent images and measurements of this study. I attest to the conclusions in the final report that is provided above. Electronically Signed By: Anusha Vazquez MD 06/19/2025 2:03:31 PM CDT Procedure Note Anusha Vazquez MD - 06/19/2025 Vascular & Vein Surgery [address] [place] [id number] Carotid Duplex Ultrasound Report Patient Name: JOSIANE JOINER R : 1960 (64y 11m) Study Date: 06/18/2025 11:03:47 AM Gender: M Control Room Technician: Location: [facility] Ref Provider: ANUSHA VAZQUEZ Quality: Adequate Order Provider: ANUSHA VAZQUEZ PROCEDURES: Carotid Report: Carotid duplex examination of the extracranial arterieswas performed using 2D, color and spectral Doppler. INDICATIONS: S/P Rt CEA 05/09/25. HISTORY: HTN. DM. Current smoker. COMPARISONS: The previous exam was completed on 02/21/25 @ [place]: Rt >70, Lt <50, LtCCA >70. MEASUREMENTS: Right Value Left Value RT Prox CCA PSV 92 cm/sec LT Prox CCA PSV 99 cm/sec RT Prox CCA EDV 13 cm/sec LT Prox CCA EDV 26 cm/sec RT Distal CCA PSV 74 cm/sec LT Distal CCA PSV 167 cm/sec RT Distal CCA EDV 21 cm/sec LT Distal CCA EDV 23 cm/sec RT Prox ICA PSV 73 cm/sec LT Prox ICA PSV 80 cm/sec RT Prox ICA EDV 21 cm/sec LT Prox ICA EDV 15 cm/sec RT Mid ICA PSV 98 cm/sec LT Mid ICA PSV 77 cm/sec RT Mid ICA EDV 31 cm/sec LT Mid ICA EDV 25 cm/sec RT Distal ICA PSV 99 cm/sec LT Distal ICA PSV 75 cm/sec RT Distal ICA EDV 29 cm/sec LT Distal ICA EDV 28 cm/sec RT ECA Prx PSV 49 cm/sec LT ECA Prx PSV 81 cm/sec RT ICA/CCA 1.34 ratio LT ICA/CCA 0.48 ratio Rt Vert Dst PSV 14 cm/sec Lt Vert Dst PSV 62 cm/sec FINDINGS: Rt Common Carotid Artery: The plaque in the right CCA appears to beheterogeneous. Hypoechoic, soft appearing plaque noted at distal CCA/bulb. Rt Internal Carotid Artery: The plaque in the right internal carotidartery appears to be heterogeneous and smooth. Atherosclerotic changes of the right internalcarotid artery without hemodynamically significant Doppler findings. <50% stenosis. Rt External Carotid Artery: No evidence of color filling and absentDoppler signals within the right external carotid artery consistent with a completeocclusion proximally. Significant atherosclerotic disease present on 2D imaging. Filled byretrograde branch. Rt Vertebral Artery: The right vertebral artery is patent with antegradeflow. Lt Common Carotid Artery: The plaque in the left CCA appears to beheterogeneous. Atherosclerotic changes of the left common carotid artery withhemodynamically significant Doppler findings; elevated peak systolic velocity 294/64 cm/sat mid segment. Lt Internal Carotid Artery: The plaque in the left internal carotid arteryappears to be heterogeneous and irregular. Atherosclerotic changes of the left internalcarotid artery without hemodynamically significant Doppler findings. <50% stenosis. Lt External Carotid Artery: Patent left external carotid artery withevidence of atherosclerotic disease present. Lt Vertebral Artery: The left vertebral artery is patent with antegradeflow. Comments: Left internal carotid/common carotid artery ratio is falselydecreased due to elevated velocity at distal common carotid artery. CONCLUSIONS: 1. The right internal carotid artery disease is consistent with a lessthan 50% stenosis. 2. The left internal carotid artery disease is consistent with a less than50% stenosis. 3. Elevated velocities in the left common carotid artery suggestive ofstenosis. Bilateral antegrade vertebral flow. ATTESTATION: I have reviewed and interpreted the pertinent images and measurements ofthis study. I attest to the conclusions in the final report that is provided above. Electronically Signed By: Anusha Vazquez MD 06/19/2025 2:03:31 PM CDT Anusha Vazquez MD IMG US PROCEDURES Final Result * (ABNORMAL) CT Chest WO Contrast (06/14/2025 2:23 PM CDT) Anatomical Region Laterality Modality Body N/A Computed Tomogra phy Historical Provider MD SIM CT PROCEDURES Edited Result - Final * POCT glucose (05/10/2025 8:23 AM CDT) Glucose, POC 125 70 - 199 mg/dL Blood 05/10/2025 8:23 AM CDT 05/10/2025 8:23 AM CDT Anusha Vazquez MD LAB POCT ORDERABLES - DEVICE Fin al Result Performing Organization Address [facility] de Phone Number [address] [place] [address] * POCT glucose (05/09/2025 8:51 PM CDT) Glucose, POC 163 70 - 199 mg/dL Glucose comment 1 RN/MD Notified [facility] Blood 05/09/2025 8:51 PM CDT 05/09/2025 8:51 PM CDT Anusha Vazquez MD LAB POCT ORDERABLES - DEVICE Fin al Result Performing Organization Address [facility] de Phone Number [address] [place] [address] * POCT glucose (05/09/2025 5:12 PM CDT) Glucose, POC 173 70 - 199 mg/dL Blood 05/09/2025 5:12 PM CDT 05/09/2025 5:12 PM CDT Anusha Vazquez MD LAB POCT ORDERABLES - DEVICE Fin al Result Performing Organization Address [facility] de Phone Number [address] [place] [address] * (ABNORMAL) POCT glucose (05/09/2025 2:52 PM CDT) Glucose, POC 211(H) 70 - 199 mg/dL Blood 05/09/2025 2:52 PM CDT 05/09/2025 2:52 PM CDT Anusha Vazquez MD LAB POCT ORDERABLES - DEVICE Fin al Result [facility] [address] Department [place] [address] * ENDARTERECTOMY - CAROTID (05/09/2025 2:45 PM CDT) Anatomical Region Laterality Modality X-Ray Angiograph y Anusha Vaqzuez MD CV CARDIAC CATH PROCEDURES Final Result * US Carotid Duplex Unilateral Right (05/09/2025 2:35 PM CDT) Anatomical Region Laterality Modality Vascular Right Ultrasound 05/09/2025 2:20 PM CDT Narrative 05/10/2025 3:26 PM CDT Carotid Duplex Ultrasound Report Patient Name: JOSIANE JOINER R : 1960 (64y 10m) Study Date: 05/09/2025 2:20:55 PM Gender: M Control Room Technician: MG JHA Location: [address] Ref Provider: ANUSHA VAZQUEZ Quality: Adequate Order Provider: ANUSHA VAZQUEZ PROCEDURES: Carotid Report: Carotid duplex examination of the extracranial arteries was performed using 2D, color and spectral Doppler in an intra-operative setting. INDICATIONS: I65.21 Occlusion and stenosis of right carotid artery. HISTORY: Right carotid endarterectomy 05/09/25. MEASUREMENTS: Right Value Rt Bulb PSV 49 cm/sec RT Prox ICA PSV 66 cm/sec RT ECA Prx PSV 0 cm/sec FINDINGS: Rt Internal Carotid Artery: Duplex imaging of the right internal carotid artery is within normal limits without evidence of atherosclerotic disease. No evidence of intimal flap or residual plaque noted during intra-operative scan, s/p carotid endarterectomy. Rt External Carotid Artery: No evidence of color filling and absent Doppler signals within the right external carotid artery consistent with a complete occlusion. Significant atherosclerotic disease present on 2D imaging. CONCLUSIONS: 1. Successful right carotid endarterectomy. No free flaps identified no stenosis. ATTESTATION: I have reviewed and interpreted the pertinent images and measurements of this study. I attest to the conclusions in the final report that is provided above. Electronically Signed By: Anusha Vazquez MD 05/10/2025 2:25:01 PM CDT Procedure Note Anusha Vazquez MD - 05/10/2025 Carotid Duplex Ultrasound Report Patient Name: JOSIANE JOINER R : 1960 (64y 10m) Study Date: 05/09/2025 2:20:55 PM Gender: M Control Room Technician: MG JHA Location: [address] Ref Provider: ANUSHA VAZQUEZ Quality: Adequate Order Provider: ANUSHA VAZQUEZ PROCEDURES: Carotid Report: Carotid duplex examination of the extracranial arterieswas performed using 2D, color and spectral Doppler in an intra-operative setting. INDICATIONS: I65.21 Occlusion and stenosis of right carotid artery. HISTORY: Right carotid endarterectomy 05/09/25. MEASUREMENTS: Right Value Rt Bulb PSV 49 cm/sec RT Prox ICA PSV 66 cm/sec RT ECA Prx PSV 0 cm/sec FINDINGS: Rt Internal Carotid Artery: Duplex imaging of the right internal carotidartery is within normal limits without evidence of atherosclerotic disease. No evidence ofintimal flap or residual plaque noted during intra-operative scan, s/p carotidendarterectomy. Rt External Carotid Artery: No evidence of color filling and absentDoppler signals within the right external carotid artery consistent with a completeocclusion. Significant atherosclerotic disease present on 2D imaging. CONCLUSIONS: 1. Successful right carotid endarterectomy. No free flaps identified nostenosis. ATTESTATION: I have reviewed and interpreted the pertinent images and measurements ofthis study. I attest to the conclusions in the final report that is provided above. Electronically Signed By: Anusha Vazquez MD 05/10/2025 2:25:01 PM CDT Anusha Vazquez MD IM US PROCEDURES Final Result * MA AN ELECTIVE ENDOTRACHEAL AIRWAY, MA AN PROCEDURE PLACEHOLDER (05/09/2025 1:02 PM CDT) Aaron Suresh CRNA - 05/09/2025 1:02 PM CDT Aaron Tim CRNA 05/09/2025 1:03 PM Airway Patient location: OR Urgency: elective Indications for airway management: anesthesia Difficult airway: no Staff: Supervising provider: Madhu Boyce MD Placed by: GENERATOR SWITCHBOARD OPERATOR: Aaron Tim CRNA Emergent airway documentation: Risks and benefits discussed: yes Consent obtained: yes Consent given by: patient Airway prep: Preoxygenated: yes Patient position: sniffing Mask difficulty assessment: 1 - vent by mask Spontaneous ventilation during airway: absent Sedation level during airway: GA Final airway details: Final airway type: endotracheal airway Tube type: ETT ETT size: 8.0 mm Cuffed: yes Technique used for successful ETT placement: direct laryngoscopy Devices/Methods used in placement: intubating stylet Insertion site: oral Blade type: Lilliana Blade size: 4 Cormack-Lehane (direct): grade I - full view of glottis Cuff volume: 6 mL Cuff inflated with: air ETT to lips: 24 cm Placement verified by: CO2 detection Airway secured with: other and silk tape (pink tape) Number of attempts: 1 Planned trial extubation: yes Additional comments: Atraumatic intubation by NICOLE Aguirre. Dentition as preop. Breath sounds clear and equal bilaterally. Consistent and appropriate end-tidal CO2 present. Madhu Boyce MD ANESTHESIA ORDERABLES Final Result * MA AN PROCEDURE PLACEHOLDER (05/09/2025 1:00 PM CDT) Narrative Aaron Tim CRNA - 05/09/2025 1:00 PM CDT Aaron Tim CRNA 05/09/2025 1:01 PM Arterial Line Patient location: OR Indication: continuous blood pressure monitoring Staff: Supervising provider: Madhu Boyce MD Placed by: GENERATOR SWITCHBOARD OPERATOR: Aaron Tim CRNA Procedure prep: Prep solution: povidone-iodine Prep: provider hat/mask Arterial line: Catheter size: 5 Serbian Arterial line catheter length: 1 1\2 Catheter type: wire-guided catheter Seldinger technique: yes Laterality: left Site: radial artery Line secured: tape and Tegaderm Results: good waveform and good blood return Number of attempts: 1 Assessment: Events: patient tolerated procedure well with no complications Additional comments: Placed by NICOLE Aguirre. All needles, wires, and equipment accounted for. Result [facility] Madhu Boyce MD ANESTHESIA ORDERABLES Final Result * POCT glucose (05/09/2025 10:52 AM CDT) Glucose, POC 188 70 - 199 mg/dL Blood 05/09/2025 10:5 2 AM CDT 05/09/2025 10:52 AM CDT Anusha Vazquez MD LAB POCT ORDERABLES - DEVICE Fin al Result [facility] [address] [facility] Department [place] [address] * (ABNORMAL) POCT lipid panel (04/10/2025 10:06 AM CDT) Pathologist [facility] Cholesterol, POC 160 <200 MG/DL HDL, POC 21(A) >=40 mg/dL Triglycerides, POC 99 <=149 mg/dL LDL Cholesterol POC 119 <=129 mg/dL Chol/HDL Ratio, POC 7.6 NONE Non-HDL Cholesterol, POC 139 NONE mg/dL Cholesterol Total, POC 160 30 - 199 mg/dL Capillary blood 04/10/2025 1 0:06 AM CDT Teddy Dorsey MD POINT OF CARE TEST ORDER THANH Final Result * DIABETES EYE EXAM (02/19/2025) Historical Provider HEALTH MAINTENANCE Final Result * PSA screen (06/16/2023 11:22 AM CDT) [facility] PSA 0.52 < OR = 4.00 ng/mL [facility] Comment: The total PSA value [...] LAB BLOOD ORDERABLES Final Result [facility] [address] [place] [address] * Albumin Creatinine Ratio, Urine (06/16/2023 11:22 [...] URINE ORDERABLES Final Result Performing Organization Address City/State/[facility] Co de Phone Number [facility] [address] [place] [address] * (ABNORMAL) Colonoscopy (09/16/2022) Anatomical Region Laterality Modality Other Impressions 09/16/2022 Tubular adenoma, repeat in 5 years [facility] Provider ENDOSCOPY PROCEDURES Evon l Result * Hepatitis C antibody (06/09/2022 12:00 PM CDT) Pathologist [facility] Hep C Ab NON-REACTI VE NON-REACT LAI [facility] SIGNAL TO CUT-OFF 0.01 <1.00 [facility] Comment: HCV antibody was non-reactive. There is no laboratory evidence of HCV infection. In most cases, no further action is required. However, if recent HCV exposure is suspected, a test for HCV RNA (test code 67558) is suggested. For additional information please refer to http://education.Ricebook/faq/CGR07i4 (This link is being provided for informational/ educational purposes only.) 06/09/2022 12:0 0 PM CDT 06/09/2022 12:01 PM CDT Roseanna Yung MD LAB MICROBIOLOGY - GENERAL ORDERABLES Final Result [facility] [id number] [id number] * DIABETES FOOT EXAM (12/23/2021) SCRIBED DIABETIC FOOT EXAM Normal Historical Provider HEALTH MAINTENANCE Final Result from Last 3 Months or Most Recently Relevant to Health Maintenance Insurance [facility] Address: [address] [address] [place] [address] [facility] Address: [address] [address] [place] [address] [employer] [facility] MEDIC[facility] ADVANTAGE HIPA Advance Directives For more information, please contact: [phone] * Full Code (Latest Code Status on File) Date Activated Date Inactivated Comments 05/09/2025 4:09 PM 05/10/2025 4:11 PM * Full Code Date Activated Date Inactivated Comments 07/16/2024 6:28 PM 07/18/2024 9:01 PM Care Teams Systems Technologist Relationship Specialty Start Date End Date Roseanna Yung MD [address] [facility] [address] [address] PCP - General 12/14/17 Priya Hoyt MD [facility], [address] [address] Consulting Physician Pain Management 05/13/22 Teddy Dorsey MD [address] [facility] [address] [place] [address] Consulting Physician Cardiology 04/26/25
--- NOTE | 2025-08-03 12:46 | ED.WOUNDLAC ---
HPI - Wound/Laceration General Chief Complaint: Wound/Laceration Stated Complaint: incision check Source: patient Mode of arrival: ambulatory Limitations: no limitations History of Present Illness HPI narrative: 65 year old male presents to the Emergency Department for post operative wound evaluation. Patient had surgery to his lower back 4 days ago at [facility]. States wound dressing stuck to bed when he rolled over and a piece of dressing fell off that he said he was told was supposed to stay in place for several weeks . He had some drainage. He is unable to contact his surgeon. Denies fever or other problems. Onset (ago): hour(s) Place: home Related Data Home Medications ?Medication ?Instructions ?Recorded ?Confirmed ?Last Taken ?Type buprenorphine 10 mcg/hour weekly 1 patch topical WEEKLY 04/12/22 07/16/24 Unknown History transdermal patch dulaglutide 1.5 mg/0.5 mL 1.5 mg subcut WEEKLY 04/12/22 07/16/24 Unknown History subcutaneous pen injector (Trulicity) baclofen 20 mg tablet 20 mg PO DAILY 07/13/24 07/16/24 Unknown History ezetimibe 10 mg tablet 10 mg PO DAILY 07/13/24 07/16/24 Unknown History ibuprofen 800 mg tablet 800 mg PO DAILY 07/13/24 07/16/24 Unknown History lisinopril 10 mg tablet 10 mg PO DAILY 07/13/24 07/16/24 Unknown History nortriptyline 25 mg capsule 25 mg PO DAILY 07/13/24 07/16/24 Unknown History zolpidem 10 mg tablet 10 mg PO DAILY 07/13/24 07/16/24 Unknown History Allergies Allergy/AdvReac Type Severity Reaction Status Date / Time niacin AdvReac Flushing Verified 07/16/24 07:51 Review of Systems Review of Systems: All systems reviewed & are unremarkable except as noted in HPI and below Constitutional: Constitutional: Reports as per HPI, Denies chills and Denies fever(s) Eyes: Eyes: Reports as per HPI ENT: Reports system reviewed and no additional complaints, except as documented Cardiovascular: Cardiovascular: Reports as per HPI Respiratory: Respiratory: Reports as per HPI Gastrointestinal: Gastrointestinal: Reports as per HPI Genitourinary: Genitourinary: Reports no additional male genitourinary complaints Musculoskeletal: Musculoskeletal: Reports no additional musculoskeletal complaints Integumentary/Breasts: Skin/Breast: Reports system reviewed and no additional complaints, except as docu Neurologic: Reports system reviewed and no additional complaints, except as documented Psychiatric: Psychiatric: Reports no additional psychiatric complaints Endocrine: Endocrine: Reports no additional endocrine complaints Hematologic/Lymphatic: Hematologic/Lymphatic: Reports no additional hematologic/lymphatic complaints Allergic/Immunologic: Allergic/Immunologic: Reports no additional allergic/immunologic complaints PMFSH Past Medical History Medical History Low back pain Hypercholesterolemia Hypertension Diabetes 1.5, managed as type 1 Insomnia Failed back syndrome Surgical History Surgical History Status post laminectomy Social History Social History Social History: smoking marjauna at night to help with rest Smoking status: Current every day smoker Alcohol intake: never Exam Const: General: healthy appearing Nutritional Appearance: well nourished Orientation/consciousness: patient oriented x3 Limitations: no limitations HENMT: Head: normal to inspection Ears: external ears normal Face/Nose/Sinus: Normal external nose present Face and sinus: normal facial exam Mouth: Yes Normal oral and palatal mucosa present Eyes: Pupils: Equal, round and reactive pupils present EOM: EOMs intact bilaterally Direct Ophthalmoscopy: no photophobia Neck: Neck: normal visual inspection Chest: Chest palpation & inspection: normal inspection of the chest Resp: Effort & Inspection: normal respiratory effort Cardio: Rate: regular rate GI: Inspection: non-distended GI Palp: Yes Soft to palpation and No Tenderness to palpation present (GI) Back/Spine/Pelvis: Back: no CVA tenderness Skin: General skin exam: normal color Rashes: no rashes Other: post op surgical sound to lower back appears clean, well approximated, no bleeding, no drainage Neuro: General: patient oriented x3 Cranial nerves: Yes Nystagmus not present Speech: normal speech Gait exam (Neuro): Normal gait present Other: grossly intact Extrem: General: normal to inspection Psych: Mental Status: mental status grossly normal Course Course Emergency Course: 65 y/o male presents to the ED for post op wound check. Patient had part of his dressing he was told would stay on for several weeks fall off. PE: post op wound appears clean, well approximated, no bleeding or drainage Instructions Discharge Plan Discharge Clinical Impression: Encounter for post surgical wound check Patient Disposition: Home Condition: Stable Instructions: Surgical Site Infections (ED) Additional Instructions: There is no evidence of post operative wound infection at this time. Continue with routine post operative care Follow up with your Surgeon Patient Language: Faroese Prescriptions: No Action buprenorphine 10 mcg/hour patch weekly 1 patch topical WEEKLY Trulicity 1.5 mg/0.5 mL pen injector 1.5 mg SUBCUT WEEKLY ibuprofen 800 mg tablet 800 mg PO DAILY baclofen 20 mg tablet 20 mg PO DAILY nortriptyline 25 mg capsule 25 mg PO DAILY lisinopril 10 mg tablet 10 mg PO DAILY zolpidem 10 mg tablet 10 mg PO DAILY ezetimibe 10 mg tablet 10 mg PO DAILY Eliquis 5 mg tablet 10 mg PO BID Qty: 10 0RF Follow-up/Referrals: UNKNOWN,DOCTOR [Primary Care Provider] Time of Disposition: 12:45
--- OUTSIDE RECORDS SUMMARY | 2025-08-03 12:47 | XMS_ITS | Clinical Summary ---
Author Organization [facility] Address [address] [place] [address] Care Team Providers Care Extended Insurance Clerk Name Role Phone Roseanna Yung MD Primary Care Provider [phone] Priya Hoyt MD Unavailable Teddy Dorsey MD Unavailable [phone] Allergies Active Allergy Reactions Criticality Noted Date Comments Niacin Unknown 02/27/2019 Hot flash Kblodtr-Mcl-Gfb Reductase Inhibitors Muscle pain Medium 02/27/2019 Medications [...] week 2 mL 5 025 Active blood-glucose ,mri technologist,con t (Dexcom G7 Manager Quality Compliance) miscIndicatio ns:DM type 2 with diabetic peripheral neuropathy (HCC) Dexcom G7 mri technologist use daily to monitor blood sugar. 1 [...] statins Assessment & Plan (09/07/2024 12:33 PM DELICATESSEN MANAGER): Patient has myopathy with statins Assessment & Plan (04/10/2024 7:46 AM CDT): Patient could not take statins because of muscle ache and weakness Assessment & Plan (01/05/2024 2:55 PM DELICATESSEN MANAGER): Patient could not take statins because of [...] 08/23/2022 Assessment & Plan (09/08/2022 1:27 PM DELICATESSEN MANAGER): Patient continue to have for persistent diarrhea. Stool test was negative. CBC and SMA 7 were unremarkable. We made him a referral to see a cruise consultant for colonoscopy. He said his appointment is [...] Ambien Assessment & Plan (09/08/2021 4:10 PM DELICATESSEN MANAGER): Controlled on Ambien Assessment & Plan (12/10/2020 1:17 PM DELICATESSEN MANAGER): Patient has persistent insomnia. Increase Ambien to [...] scan Assessment & Plan (01/05/2024 2:55 PM DELICATESSEN MANAGER): Repeat CT scan in March 2024 Assessment [...] nodules Assessment & Plan (12/23/2021 4:35 PM DELICATESSEN MANAGER): No change in the size of pulmonary nodules on CT scan of the lungs in July 2021 Assessment & Plan (09/08/2021 4:11 PM DELICATESSEN MANAGER): CT lung screen showed no change in [...] medications Assessment & Plan (10/06/2023 7:53 AM DELICATESSEN MANAGER): Continue duloxetine Assessment & Plan (07/07/2023 7:55 [...] medication Assessment & Plan (12/06/2019 3:14 PM DELICATESSEN MANAGER): Patient feels fine without medications. No suicidal ideations. Assessment & Plan (09/18/2019 3:47 PM DELICATESSEN MANAGER): The patient has mild depression and we [...] minutes. Assessment & Plan (01/05/2024 2:58 PM DELICATESSEN MANAGER): Discussed smoking cessation and different methods to [...] minutes. Assessment & Plan (12/23/2021 4:37 PM DELICATESSEN MANAGER): Discussed smoking cessation and different methods to help with that. Discussed the risks of smoking including COPD, CAD and lung cancer etc. Total time spent was 4 minutes. Assessment & Plan (09/09/2021 1:57 PM DELICATESSEN MANAGER): Discussed smoking cessation and different methods to [...] results. Assessment & Plan (12/06/2019 3:13 PM DELICATESSEN MANAGER): Discussed smoking cessation and different methods to help with that. Discussed the risks of smoking including COPD, CAD and lung cancer etc. Total time spent was 3 minutes. Assessment & Plan (09/18/2019 3:46 PM DELICATESSEN MANAGER): CT lung screen in May 2019 was [...] 06/18/2019 Assessment & Plan (01/05/2024 2:56 PM DELICATESSEN MANAGER): Colonoscopy in August 2022 showed 1 polyp and repeat in 5 years as per the GI doctor. Assessment & Plan (03/22/2022 5:02 PM CDT): Follow-up with GI doctor for colonoscopy Assessment & Plan (06/09/2021 1:33 PM CDT): Repeat colonoscopy [place] [address] Gandhi Assessment & Plan (12/10/2020 12:55 PM DELICATESSEN MANAGER): Repeat colonoscopy in [address] Gandhi [...] LDL. Cuauhtemoc available for cost assistance through [employer]. Phone number to enroll or online at [email or web address] Assessment & Plan (06/06/2025 7:51 AM CDT): [...] . Assessment & Plan (01/05/2024 2:55 PM DELICATESSEN MANAGER): Controlled on current medications. Continue low-fat diet. Will continue to monitor . Assessment & Plan (10/06/2023 7:53 AM DELICATESSEN MANAGER): Controlled on current medications. Continue low-fat diet. [...] . Assessment & Plan (12/23/2021 4:34 PM DELICATESSEN MANAGER): Resume pravastatin 20 mg q.h.s. and continue Zetia and we discussed diet and will repeat the blood work in few months Assessment & Plan (09/08/2021 4:10 PM DELICATESSEN MANAGER): Controlled on current medications. Continue low-fat diet. Will continue to monitor . Assessment & Plan (06/09/2021 1:32 PM CDT): Controlled on current medications. Continue low-fat diet. Will continue to monitor . Assessment & Plan (03/09/2021 11:55 AM CDT): Controlled on current medications. Continue low-fat diet. Will continue to monitor . Assessment & Plan (12/10/2020 12:55 PM DELICATESSEN MANAGER): Controlled on current medications. Continue low-fat diet. [...] daily Assessment & Plan (12/06/2019 3:13 PM DELICATESSEN MANAGER): Discussed diet and exercise. We will add Vascepa 2 g twice daily and repeat blood work in few months Assessment & Plan (09/18/2019 3:46 PM DELICATESSEN MANAGER): Controlled on current medications. Continue low-fat diet. [...] monitor. Assessment & Plan (01/05/2024 2:55 PM DELICATESSEN MANAGER): Hemoglobin A1c 7.2. Increase Trulicity to 3 mg subQ once a week. Discussed the importance of diet. Ambulate as tolerated. Advised to have eye exam. Assessment & Plan (10/06/2023 7:52 AM DELICATESSEN MANAGER): Continue current medications, discussed low carbohydrate diet, [...] monitor. Assessment & Plan (12/23/2021 4:34 PM DELICATESSEN MANAGER): Patient will be started on Trulicity 0.75 mg once a week for couple of weeks then 1.5 mg once a week and side effects were explained and samples were given and instructions were given. He will continue with other medications. Discussed the importance of diet. Assessment & Plan (09/09/2021 1:56 PM DELICATESSEN MANAGER): Continue current medications, discussed low carbohydrate diet, [...] exam Assessment & Plan (12/10/2020 1:17 PM DELICATESSEN MANAGER): Increase Tresiba to 70 units daily and [...] monitor. Assessment & Plan (12/06/2019 3:12 PM DELICATESSEN MANAGER): We discussed again diet and exercise and weight loss. 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 Continue gabapentin Assessment & Plan (03/22/2022 5:01 PM CDT): Continue Lyrica Assessment & Plan (12/23/2021 4:34 PM DELICATESSEN MANAGER): Continue Lyrica Assessment & Plan (09/08/2021 4:10 PM DELICATESSEN MANAGER): Continue Lyrica Assessment & Plan (06/09/2021 1:32 PM CDT): Controlled on Lyrica Assessment & Plan (03/09/2021 11:55 AM CDT): Continue Lyrica Assessment & Plan (12/06/2019 3:13 PM DELICATESSEN MANAGER): Patient with chronic neuropathy secondary to diabetes and chronic back pain and he is followed by the neurologist Assessment & Plan (09/18/2019 3:46 PM DELICATESSEN MANAGER): The patient has mild neuropathy secondary to [...] he was advised strongly to call his sign painter helper because of worsened pain and he verbalized [...] management. Assessment & Plan (10/05/2021 3:05 PM DELICATESSEN MANAGER): Patient was started to see a new pain management practice recently and he had recent injections and physical therapy with improvement in his symptoms. He likes to get off oxycodone. I told him to discuss that with the pain management. Assessment & Plan (09/09/2021 1:56 PM DELICATESSEN MANAGER): Will make him a referral to see a neurosurgeon and Pain Management. Will obtain x-rays of the hips to be sure that there is no issues with his hips as a cause of his lower back pain Assessment & Plan (12/10/2020 12:54 PM DELICATESSEN MANAGER): Status laminectomy. Patient has persistent symptoms and [...] 12/23/2016 Assessment & Plan (01/05/2024 2:57 PM DELICATESSEN MANAGER): Patient is followed by the pain specialist [...] opinion. Assessment & Plan (12/23/2021 4:34 PM DELICATESSEN MANAGER): Patient is under the care of pain management Assessment & Plan (12/06/2019 3:13 PM DELICATESSEN MANAGER): The patient has a chronic back pain [...] monitor Assessment & Plan (01/05/2024 2:55 PM DELICATESSEN MANAGER): Blood pressure is running on the low side. Will cut down lisinopril to 10 mg daily. Discussed low-salt diet. Discussed exercise on regular basis. Will continue to monitor Assessment & Plan (10/06/2023 12:18 PM DELICATESSEN MANAGER): Blood pressure is running on the low [...] monitor Assessment & Plan (12/23/2021 4:34 PM DELICATESSEN MANAGER): Continue current medications. Discussed low-salt diet. Discussed exercise on regular basis. Will continue to monitor Assessment & Plan (09/08/2021 4:09 PM DELICATESSEN MANAGER): Continue current medications. Discussed low-salt diet. Discussed [...] monitor Assessment & Plan (12/10/2020 12:55 PM DELICATESSEN MANAGER): Continue current medications. Discussed low-salt diet. Discussed [...] monitor Assessment & Plan (12/06/2019 3:13 PM DELICATESSEN MANAGER): Continue current medications. Discussed low-salt diet. Discussed [...] 07/31/2025 Orders Only [facility] [address] [place] [address] Alejandro Lawrence MD 07/30/2025 10:36 AM CDT Anesthesia [place] [facility] [place] [address] [place] [address] Paulina Tenorio MD Taylor-White, Carlotta A., NP 07/30/2025 9:30 AM CDT - 07/30/2025 11:30 AM CDT Surgery [facility] [place] [address] [place] [address] Alejandro Lawrence MD LUMBAR 2 - LUMBAR 3 MINIMALLY INVASIVE DECOMPRESSION 07/30/2025 7:20 AM CDT - 07/30/2025 1:52 PM CDT Hospital Encounter [facility] [place] [address] [place] [address] Alejandro Lawrence MD Adjacent segment disease of lumbar spine with history of fusion procedure; S/P lumbar spinal fusion; Neurogenic claudication due to lumbar spinal stenosis Discharge Disposition: Discharge to home or self care 07/30/2025 Orders Only [facility] [address] [place] [address] [address], [address] [place] [address] Alejandro Lawrence MD 07/23/2025 Results Follow-Up [facility] [address] [place] [address] [place] [phone] Roseanna Yung MD SCAN - RADIOLOGY/IMAGING 07/22/2025 Telephone [facility] [address] [place] [address] [address] [place] [address] Roseanna Yung MD Additional Services Or Orders (See referral dated 07/04 ) 07/11/2025 Telephone [facility] [address] [place] [address] [address] [place] [address] Roseanna Yung MD Diabetes 07/10/2025 Telephone [facility] [address] [place] [address] [address] [place] [address] Roseanna Yung MD Med Refill 07/09/2025 Documentation [facility] [address] [place] [address] [address], [address] [place] [address] Melissa Starr RN 07/09/2025 Documentation [facility] [address] [place] [address] [address], [address] [place] [address] Melissa Starr RN 07/04/2025 Orders Only [facility] [address] [place] [address] [address] [place] [address] Roseanna Yung MD Pulmonary nodules (Primary Dx); Hepatic cirrhosis, unspecified hepatic cirrhosis type, unspecified whether ascites present (HCC) 06/28/2025 Orders Only [facility] Health Information Management [address] [place] [address] Roseanna Yung MD 06/27/2025 1:00 PM CDT Pre-Admission Testing [facility] PreAdmission Testing [address] [place] [address] Adjacent segment disease of lumbar spine with history of fusion procedure; S/P lumbar spinal fusion; Neurogenic claudication due to lumbar spinal stenosis; Type 2 diabetes mellitus without complication, unspecified whether fdc insulin use (HCC); Pain in other specified joint 06/26/2025 9:15 AM CDT Office Visit [facility] at [address] [place] [address] Kathy Hay NP Bilateral carotid artery stenosis (Primary Dx) 06/26/2025 Orders Only [facility] [address] [place] [address] Anusha Vazquez MD Aftercare following surgery of the circulatory system (Primary Dx) 06/25/2025 Orders Only [facility] PreAdmission Testing [address] [place] [address] Heather Rush, NATALIE 06/19/2025 Telephone [facility] [address] [place] [address] Farzana Tyson RN 06/18/2025 11:00 AM CDT Ancillary Procedure [facility] at [address] [place] [address] Aftercare following surgery of the circulatory system 06/14/2025 Orders Only [facility] [address] [place] [address] Roseanna Yung MD Abnormal CT lung screening (Primary Dx); Pulmonary nodule 06/11/2025 Documentation [facility] Clinic [address] [place] [address] Melissa Starr RN 06/10/2025 Telephone [facility] [address] [place] [address] [address] [place] [address] Roseanna Yung MD Medication Problem 06/06/2025 1:45 PM CDT Office Visit [facility] [address] [place] [address] [address] [place] [address] Roseanna Yung MD Bilateral carotid artery stenosis (Primary Dx); DM type 2 with diabetic peripheral neuropathy (HCC); Hypertension, essential; Mixed hyperlipidemia; Pulmonary nodules; Statin myopathy; BMI 29.0-29.9,adult; Personal history of nicotine dependence 06/06/2025 Telephone [facility] [address] [place] [address] [place] [address] Roseanna Yung MD 06/06/2025 [facility] [address] [address] Neeta Rodriguez RN 05/29/2025 9:00 AM CDT Office Visit [facility] at [address] [place] [phone] Kathy Hay NP Carotid stenosis, asymptomatic, right (Primary Dx) 05/29/2025 Orders Only [facility] at [address] [place] [address] Anusha Vazquez MD Aftercare following surgery of the circulatory system (Primary Dx) 05/13/2025 [facility] Out[facility] [address] [address] Mary Goins LPN 05/09/2025 12:35 PM CDT - 05/09/2025 3:10 PM CDT Surgery [facility] OR [facility] [place] [address] Anusha Vazquez MD RIGHT CAROTID ENDARTERECTOMY 05/09/2025 12:33 PM CDT Anesthesia Event [facility] [place] [address] [place] [address] Madhu Boyce MD Taylor-White, Carlotta A., MAIL READER 05/09/2025 10:10 AM CDT - 05/10/2025 12:06 PM CDT Hospital Encounter [facility] [address] [place] [address] [place] [address] Anusha Vazquez MD Carotid stenosis, right Discharge [...] Brother 1 Anthony Smith Alive Brother 2 Bradne Joiner Alive Brother 3 Braden Alive Father [...] drink = 0.6 oz pur e alcohol) [facility] Utilities Answer Date Recorded In the past 12 months has [employer] electric, gas, oil, or water [employer] threatened to shut off services in your [...] often do you attend chur ch or latter-day services? Never 05/10/2025 Do you belong to any clubs o r organizations such as mandaen groups, unions, fraternal or athletic groups, or [...] time in the past 12 m [facility], were you homeless or living in a long-term (including now)? No 05/10/2025 AUDIT-C Answer Date [...] on file Legal Sex Male 6:35 AM DELICATESSEN MANAGER Gender Identity Not on file Sexual Orientation [...] Description 08/13/2025 10:00 AM CDT [facility] [address] [address] Health Maintenance Due Date Last Done Comments [...] home safety. Medical Devices Implanted Type Area Real Estate Assistant Device Identifier Shelf Expiration Date Model / Serial / Lot Hardware To Back Back [employer] Em[employer] Patch Vascuguard 0.88cm [id number] - [id number] Implanted:Qty: 1 on 05/09/2025 by Anusha Vazquez MD at [facility] Right: Carotid Spotistic [id number] 12/10/2026 [id number] / / [id number] Procedures Procedure Name Priority Date/Time Associated Diagnosis Comments POCT GLUCOSE DEVICE Routine 07/30/2025 1 2:07 PM CDT FL FLUOROSCOPY < 1 HOUR IP Routine 07/30/2025 11:26 AM CDT NM AN PROCEDURE PLACEHOLDER Routine 07/30/2025 10:59 AM CDT NM AN ELECTIVE ENDOTRACHEAL AIRWAY Routine 07/30/2025 10:59 [...] 2 diabetes mellitus without complication, unspecified whether tank terminal gauger insulin use (HCC) MRSA ONLY (STAPHYLOCOCCUS AUREUS) [...] 05/09/2025 2:35 PM CDT Carotid stenosis, right NM AN PROCEDURE PLACEHOLDER Routine 05/09/2025 1:02 PM CDT NM AN ELECTIVE ENDOTRACHEAL AIRWAY Routine 05/09/2025 1:02 PM CDT NM AN PROCEDURE PLACEHOLDER Routine 05/09/2025 1:00 PM [...] DE VICE Final Result Performing Organization Address [facility] Co fl Phone Number SHIRA [address] Department [place] [address] * FL Fluoroscopy < 1 Hour (07/30/2025 11:26 AM CDT) Narrative KATHERINE_MANJULA_[email or web address] - 07/30/2025 11:36 AM CDT The images from this study are not interpreted by Radiology. Please refer to the physician's procedure / OR operative note. Alejandro Lawrence MD IMG FLUOROSCOPY PROCEDUR ES Final Result Performing Organization Address [facility] Phone Number [email or web address] * NM AN ELECTIVE ENDOTRACHEAL AIRWAY, NM AN PROCEDURE PLACEHOLDER (07/30/2025 10:59 AM CDT) Narrative Kathy Reyes CRNA - 07/30/2025 10:59 AM CDT Kathy Reyes CRNA 07/30/2025 11:01 AM Airway Patient location: OR Urgency: elective Date/time: 07/30/2025 10:43 AM Indications for airway management: anesthesia and airway protection Difficult airway: no Staff: Placed by: TRAFFIC CONTROL SIGNALER: Kathy Reyes CRNA Emergent airway documentation: Risks [...] * POCT glucose (07/30/2025 7:48 AM CDT) [facility] Glucose, POC 178 70 - 199 mg/dL Blood 07/30/2025 7:48 AM CDT 07/30/2025 7:48 AM CDT us Alejandro Lawrence MD LAB POCT ORDERABLES - DE VICE Final Result [place] [id number] [facility] Department [place] [address] * SCAN - RADIOLOGY/IMAGING (06/28/2025) Anatomical Region Laterality Modality Other Roseanna Yung MD Final Resul t * eGFR (06/27/2025 1:11 PM CDT) [facility] eGFR 79 >=60 mL/min/1. 73 m2 Comment: [...] MD LAB BLOOD ORDERABLES Fin al Result [facility] [address] Department [place] [address] * Differential, auto (06/27/2025 1:11 PM CDT) Neutrophil abs 3.62 1.50 - 6.50 K/cumm Imm gran abs 0.03 0.00 - 0.10 K/cumm [facility] Lymphocyte abs 2.19 0.80 - 3.30 K/cumm [facility] Monocyte abs 0.38 0.20 - 0.80 K/cumm [facility] Eosinophil abs 0.16 0.00 - 0.50 K/cumm [facility] Basophil abs 0.05 0.00 - 0.10 K/cumm [facility] Neutrophil pct 56.2 % [facility] Comment: Interpretive Data Percent cell count reference ranges are not reported, since discordance with absolute values may lead to misinterpretation of CBC data. Current Interpretive Data was last revised on 2018. Imm gran pct 0.5 % [facility] Comment: Interpretive Data Percent cell count reference ranges are not reported, since discordance with absolute values may lead to misinterpretation of CBC data. Current Interpretive Data was last revised on 2018. Lymphocyte pct 34.1 % [facility] Comment: Interpretive Data Percent cell count reference ranges are not reported, since discordance with absolute values may lead to misinterpretation of CBC data. Current Interpretive Data was last revised on 2018. Monocyte pct 5.9 % [facility] Comment: Interpretive Data Percent cell count reference ranges are not reported, since discordance with absolute values may lead to misinterpretation of CBC data. Current Interpretive Data was last revised on 2018. Eosinophil pct 2.5 % [facility] Comment: Interpretive Data Percent cell count reference ranges are not reported, since discordance with absolute values may lead to misinterpretation of CBC data. Current Interpretive Data was last revised on 2018. Basophil pct 0.8 % [facility] Comment: Interpretive Data Percent cell count reference ranges are not reported, since discordance with absolute values may lead to misinterpretation of CBC data. Current Interpretive Data was last revised on 2018. Blood 06/27/2025 1:11 PM CDT 06/27/2025 1:15 PM CDT Alejandro Lawrence MD LAB BLOOD ORDERABLES Fin al Result Performing Organization Address [facility] Co de Phone Number [address] [employer] [place], [place] [id number] * (ABNORMAL) CBC with auto differential (06/27/2025 1:11 PM CDT) WBC 6.43 3.80 - 9.90 K/cumm Hgb 13.1 13.0 - 17.5 g/dL [facility] Hct 38.7(L) 38.9 - 50.3 % [facility] Plt 133(L) 150 - 400 K/cumm [facility] MPV 10.2 9.1 - 12.3 fL [facility] RBC 3.98(L) 4.30 - 5.80 M/cumm [facility] MCV 97.2(H) 81.3 - 96.4 fL [facility] MCH 32.9 27.1 - 33.3 pg [facility] MCHC 33.9 32.3 - 35.7 g/dL [facility] RDW CV 13.9 11.1 - 14.9 % [facility] RDW SD 49.3(H) 35.7 - 48.1 fL [facility] NRBC abs 0.00 0.00 - 0.01 K/cumm [facility] Blood 06/27/2025 1:11 PM CDT 06/27/2025 1:15 PM CDT Alejandro Lawrence MD LAB BLOOD ORDERABLES Fin al Result Performing Organization Address City/[facility] Co de Phone Number [facility] [address] [place] [address] * MRSA Only (Staphylococcus aureus) PCR Nasal (06/27/2025 1:11 PM CDT) PCR Scrn, Methicillin resistant Staphylococcus aureus (MRSA) Not Detected Not Detected Comment: Interpretive Data Testing performed using Nucleic Acid Amplification with the [employer] Xpert MRSA NxG Assay. This assay detects target DNA from mecA, mecC and the SCCmec insertion site of Staphylococcus aureus using Real-Time PCR and has been cleared by the FDA. Performance characteristics have been verified by the [facility]. Current Interpretive Data was last revised on 2023 Nasal 06/27/2025 1:11 PM CDT 06/27/2025 1:15 PM CDT Alejandro Lawrence MD LAB MICROBIOLOGY - GENER AL ORDERABLES Final Result Performing Organization Address [facility] Co de Phone Number [place] [phone] [place] [address] * ABO/Rh (06/27/2025 1:11 PM CDT) Pathologist [facility] ABO/Rh O Positive Blood 06/27/2025 1:11 PM CDT 06/27/2025 1:15 PM CDT Narrative [facility] - 06/27/2025 2:01 PM CDT Is this test being ordered in advance for a procedure?->Yes Expected date of procedure:->07/09/25 Has the patient been transfused in the past 3 months?->No Alejandro Lawrence MD LAB BLOOD BANK TEST ORDE RABLES Final Result Performing Organization Address City/[facility]/ZIP Co de Phone Number [id number] [place] [address] * aPTT (06/27/2025 1:11 PM CDT) aPTT 30 22 - 37 sec Comment: Interpretive data aPTT test has not been evaluated for monitoring heparin therapy. The anti-Xa is the preferred test. Current interpretive data was last revised on 2019. Blood 06/27/2025 1:11 PM CDT 06/27/2025 1:15 PM CDT Result [facility] Alejandro Lawrence MD LAB BLOOD ORDERABLES Fin al Result Performing Organization Address [facility] de Phone Number [address] [address] * Protime-INR (06/27/2025 1:11 PM CDT) PT [...] PM CDT 06/27/2025 1:15 PM CDT Result [facility] Alejandro Lawrence MD LAB BLOOD ORDERABLES Fin al Result Performing Organization Address [facility] de Phone Number [address] [address] * Antibody screen (06/27/2025 1:11 PM CDT) Ana, indirect, Gel Interpretation Negative ABSC Blood 06/27/2025 1:11 PM CDT 06/27/2025 1:15 PM CDT Narrative SHIRA - 06/27/2025 2:01 PM CDT Is this test being ordered in advance for a procedure?->Yes Expected date of procedure:->07/09/25 Has the patient been transfused in the past 3 months?->No Result [facility] Alejandro Lawrence MD LAB BLOOD BANK TEST ORDE RABLES Final Result Performing Organization Address [facility] de Phone Number [id number] [place] [address] * (ABNORMAL) Hemoglobin A1c (06/27/2025 1:11 PM CDT) [facility] Hgb A1C 6.7(H) 4.0 - 5.6 % Estimated Average Glucose 146 mg/dL [facility] Comment: The ADA recommends reporting an estimated Average Glucose (eAG) with all Hemoglobin A1c results using the equation derived from a study of 507 normal and diabetic adults. Minority populations were underrepresented and children were not included. (Diabetes Care 31:9474-6250, 2008). The eAG is not equivalent to a fasting glucose. Blood 06/27/2025 1:11 PM CDT 06/27/2025 1:15 PM CDT Alejandro Lawrence MD LAB BLOOD ORDERABLES Fin al Result Performing Organization Address [facility] de Phone Number [phone] [place] [address] * (ABNORMAL) Comprehensive metabolic panel (06/27/2025 1:11 PM CDT) [facility] Sodium 136 135 - 145 mmol/L Potassium, pl 4.4 3.3 - 4.9 mmol/L [facility] Chloride 103 97 - 110 mmol/L [facility] CO2 21(L) 22 - 32 mmol/L [facility] Anion gap 12 2 - 15 mmol/L [facility] BUN 13 6 - 25 mg/dL [facility] Creatinine 1.04 0.80 - 1.30 mg/dL [facility] Glucose 152 70 - 199 mg/dL [facility] Comment: Interpretive Data Fasting glucose >/= [...] 2022. Calcium 9.3 8.5 - 10.3 mg/dL [facility] Bilirubin, total 0.5 0.1 - 1.2 mg/dL [facility] Protein, pl 7.1 6.5 - 8.5 g/dL [facility] Albumin 4.5 3.5 - 5.0 g/dL [facility] Alk phos 85 40 - 130 Units/L [facility] ALT 23 7 - 55 Units/L [facility] AST 22 10 - 50 Units/L [facility] Blood 06/27/2025 1:11 PM CDT 06/27/2025 1:15 PM CDT us Alejandro Lawrence MD LAB BLOOD ORDERABLES Fin al Result [facility] [address] [facility] Department [place] [address] * US Carotids Duplex Bilateral (06/18/2025 11:46 AM CDT) Anatomical Region Laterality Modality Vascular Bilateral Ultrasound 06/18/2025 11:0 3 AM CDT Narrative 06/19/2025 2:51 PM CDT [facility] [address] [place] [address] Carotid Duplex Ultrasound Report Patient Name: JOSIANE JOINER R : 1960 (64y 11m) Study Date: 06/18/2025 11:03:47 AM Gender: M Cloth Printing Utility Worker: JAI Location: [facility] Ref Provider: ANUSHA VAZQUEZ Quality: Adequate Order Provider: ANUSHA VAZQUEZ PROCEDURES: Carotid Report: Carotid duplex examination of the extracranial arteries was performed using 2D, color and spectral Doppler. INDICATIONS: S/P Rt CEA 05/09/25. HISTORY: HTN. DM. Current smoker. COMPARISONS: The previous exam was completed on 02/21/25 @ [facility]: Rt >70, Lt <50, Lt CCA >70. [...] MD - 06/19/2025 [facility] [address] [place] [address] Carotid Duplex Ultrasound Report Patient Name: JOSIANE JOINER R : 1960 (64y 11m) Study Date: 06/18/2025 11:03:47 AM Gender: M Cloth Printing Utility Worker: Location: [facility] Ref Provider: ANUSHA VAZQUEZ Quality: Adequate Order Provider: ANUSHA VAZQUEZ PROCEDURES: Carotid Report: Carotid duplex examination of the extracranial arterieswas performed using 2D, color and spectral Doppler. INDICATIONS: S/P Rt CEA 05/09/25. HISTORY: HTN. DM. Current smoker. COMPARISONS: The previous exam was completed on 02/21/25 @ [facility]: Rt >70, Lt <50, LtCCA >70. MEASUREMENTS: [...] DEVICE Fin al Result Performing Organization Address [facility] de Phone Number [address] [place] [place] [address] * POCT glucose (05/09/2025 8:51 PM CDT) Glucose, POC 163 70 - 199 mg/dL Glucose comment 1 RN/MD Notified [facility] Blood 05/09/2025 8:51 PM CDT 05/09/2025 8:51 PM CDT Anusha Vazquez MD LAB POCT ORDERABLES - DEVICE Fin al Result Performing Organization Address [facility] de Phone Number [address] [place] [place] [address] * POCT glucose (05/09/2025 5:12 PM CDT) Glucose, POC 173 70 - 199 mg/dL Blood 05/09/2025 5:12 PM CDT 05/09/2025 5:12 PM CDT Anusha Vazquez MD LAB POCT ORDERABLES - DEVICE Fin al Result Performing Organization Address [facility] de Phone Number [address] [place] [place] [address] * (ABNORMAL) POCT glucose (05/09/2025 2:52 PM CDT) Glucose, POC 211(H) 70 - 199 mg/dL Blood 05/09/2025 2:52 PM CDT 05/09/2025 2:52 PM CDT Anusha Vazquez MD LAB POCT ORDERABLES - DEVICE Fin al Result [facility] [address] Department [place] [address] * ENDARTERECTOMY - CAROTID (05/09/2025 2:45 PM CDT) Anatomical Region Laterality Modality X-Ray Angiograph y Anusha Vazquez MD CV CARDIAC CATH PROCEDURES Final Result * US Carotid Duplex Unilateral Right (05/09/2025 2:35 PM CDT) Anatomical Region Laterality Modality Vascular Right Ultrasound 05/09/2025 2:20 PM CDT Narrative 05/10/2025 3:26 PM CDT Carotid Duplex Ultrasound Report Patient Name: JOSIANE JOINER R : 1960 (64y 10m) Study Date: 05/09/2025 2:20:55 PM Gender: M Cloth Printing Utility Worker: MG JHA Location: [address] Ref Provider: ANUSHA VAZQUEZ Quality: Adequate Order [...] Study Date: 05/09/2025 2:20:55 PM Gender: M Cloth Printing Utility Worker: MG JHA Location: [address] Ref Provider: ANUSHA VAZQUEZ Quality: Adequate Order [...] MD IM US PROCEDURES Final Result * NM AN ELECTIVE ENDOTRACHEAL AIRWAY, NM AN PROCEDURE PLACEHOLDER (05/09/2025 1:02 PM CDT) Aaron Suresh CRNA - 05/09/2025 1:02 PM CDT Aaron Tim CRNA 05/09/2025 1:03 PM Airway Patient location: OR Urgency: elective Indications for airway management: anesthesia Difficult airway: no Staff: Supervising provider: Madhu Boyce MD Placed by: TRAFFIC CONTROL SIGNALER: Aaron Tim CRNA Emergent airway documentation: Risks [...] Boyce MD ANESTHESIA ORDERABLES Final Result * NM AN PROCEDURE PLACEHOLDER (05/09/2025 1:00 PM CDT) Narrative Aaron Tim CRNA - 05/09/2025 1:00 PM CDT Aaron Tim CRNA 05/09/2025 1:01 PM Arterial Line Patient location: OR Indication: continuous blood pressure monitoring Staff: Supervising provider: Madhu Boyce MD Placed by: TRAFFIC CONTROL SIGNALER: Aaron Tim CRNA Procedure prep: Prep solution: povidone-iodine Prep: provider hat/mask Arterial line: Catheter size: 5 Libyan Arterial line catheter length: 1 1\2 Catheter type: wire-guided catheter Seldinger technique: yes Laterality: left Site: radial artery Line secured: tape and Tegaderm Results: good waveform and good blood return Number of attempts: 1 Assessment: Events: patient tolerated procedure well with no complications Additional comments: Placed by NICOLE Aguirre. All needles, wires, and equipment accounted for. Result [facility] Madhu Boyce MD ANESTHESIA ORDERABLES Final Result * POCT glucose (05/09/2025 10:52 AM CDT) Glucose, POC 188 70 - 199 mg/dL Blood 05/09/2025 10:5 2 AM CDT 05/09/2025 10:52 AM CDT Anusha Vazquez MD LAB POCT ORDERABLES - DEVICE Fin al Result [facility] [address] [facility] Department [place] [address] * (ABNORMAL) POCT lipid panel (04/10/2025 10:06 AM CDT) Pathologist [facility] Cholesterol, POC 160 <200 MG/DL HDL, POC [...] * PSA screen (06/16/2023 11:22 AM CDT) [facility] PSA 0.52 < OR = 4.00 ng/mL [facility] Comment: The total PSA value [...] LAB BLOOD ORDERABLES Final Result [facility] [address] [place] [address] * Albumin Creatinine Ratio, Urine (06/16/2023 11:22 [...] URINE ORDERABLES Final Result Performing Organization Address City/State/[facility] Co de Phone Number [facility] [address] [place] [address] * (ABNORMAL) Colonoscopy (09/16/2022) Anatomical Region Laterality Modality Other Impressions 09/16/2022 Tubular adenoma, repeat in 5 years [facility] Provider ENDOSCOPY PROCEDURES Evon l Result * Hepatitis C antibody (06/09/2022 12:00 PM CDT) Pathologist [facility] Hep C Ab NON-REACTI VE NON-REACT LAI [facility] SIGNAL TO CUT-OFF 0.01 <1.00 [facility] Comment: HCV antibody was non-reactive. There is no laboratory evidence of HCV infection. In most cases, no further action is required. However, if recent HCV exposure is suspected, a test for HCV RNA (test code 26329) is suggested. For additional information please refer to http://education.Zubka/faq/UEJ64x1 (This link is being provided for informational/ educational purposes only.) 06/09/2022 12:0 0 PM CDT 06/09/2022 12:01 PM CDT Roseanna Yung MD LAB MICROBIOLOGY - GENERAL ORDERABLES Final Result [facility] [address] [address] [id number] * DIABETES FOOT EXAM (12/23/2021) SCRIBED DIABETIC FOOT EXAM Normal Historical Provider HEALTH MAINTENANCE Final Result from Last 3 Months or Most Recently Relevant to Health Maintenance Insurance IDPA [facility] MEDICARE ADVANTAGE [facility] MEDICARE ADVANTAGE [employer] [facility] MEDICARE ADVANTAGE [place] Advance Directives For more information, please contact: [phone] * Full Code (Latest Code Status on File) Date Activated Date Inactivated Comments 05/09/2025 4:09 PM 05/10/2025 4:11 PM * Full Code Date Activated Date Inactivated Comments 07/16/2024 6:28 PM 07/18/2024 9:01 PM Care Teams Extended Insurance Clerk Relationship Specialty Start Date End Date Roseanna Yung MD [address] [facility] [address] [address] PCP - General 12/14/17 Priya Hoyt MD [facility], [address] [address] Consulting Physician Pain Management 05/13/22 Teddy Dorsey MD [address] [facility] [address] [place] [address] Consulting Physician Cardiology 04/26/25
--- OUTSIDE RECORDS SUMMARY | 2025-08-03 12:47 | XMS_ITS | Encounter Summary ---
Author Organization [facility] Healthcare Address [address] [place] [address] Care Team Providers Care Tow Car Driver Name Role Phone Roseanna Yung MD Primary Care Provider [phone] Priya Hoyt MD Unavailable Teddy Dorsey MD Unavailable [phone] Encounter Details Date Type Department Care Team (Late st Contact Info) Description 07/23/2025 Results Follow-Up [facility] Medical Group Internal Medicine [address] [address] Roseanna Yung MD [address] [place] [address] SCAN - RADIOLOGY/IMAGING Social History Tobacco [...] drink = 0.6 oz pur e alcohol) [facility] Utilities Answer Date Recorded In the past 12 months has [employer] electric, gas, oil, or water company threatened [...] often do you attend chur ch or pentecostal services? Never 05/10/2025 Do you belong to any clubs o r organizations such as alevism groups, unions, fraternal or athletic groups, or [...] in the past 12 m [facility], were you homeless or living in a intermediate (including now)? 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 Gender Identity Not on file Sexual Orientation Not on file Occupation Industry Job Start Date Job End Date On Disability Not on file Not on file Not on file documented as of this encounter Plan of Treatment Upcoming Encounters Date Type Department Care Team (Late st Contact Info) Description 08/13/2025 10:00 AM CDT Hospital Encounter [facility] Medical Office Building [address] [address] documented as of this encounter Goals Goal [...] on stairs Contact your local community or [facility] for information on exercise, fall prevention programs, or options for improving home safety. documented as of this encounter Visit Diagnoses Not on filedocumented in this encounter Care Teams Tow Car Driver Relationship Specialty Start Date End Date Roseanna Yung MD [address] [facility] [address] [address] PCP - General 12/14/17 Priya Hoyt MD [address] [facility], [address] [address] Consulting Physician Pain Management 05/13/22 Teddy Dorsey MD [address] [id number] Consulting Physician Cardiology 04/26/25 documented as of this encounter
--- OUTSIDE RECORDS SUMMARY | 2025-08-03 12:47 | XMS_ITS | Encounter Summary ---
Author Organization [facility] Healthcare Address [address] [place] [address] Care Team Providers Care Healthcare Social Worker Name Role Phone Roseanna Yung MD Primary Care Provider [phone] Priya Hoyt MD Unavailable Teddy Dorsey MD Unavailable [phone] Encounter Details Date Type Department Care Team (Late st Contact Info) Description 06/28/2025 Orders Only [facility] Health Information Management [address] [place] [address] Roseanna Yung MD [address] [facility] [address] [address] Social History Tobacco Use Types Packs/Day Years [...] 0.6 oz pur e alcohol) [facility] Utilities Answer Date Recorded In the [...] often do you attend chur ch or synagogue services? Never 05/10/2025 Do you belong to any clubs o r organizations such as hinduism groups, unions, fraternal or athletic groups, or [...] any time in the past 12 m [facility], were you homeless or living in a longterm (including now)? 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 Gender Identity Not on file Sexual Orientation Not on file Occupation Industry Job Start Date Job End Date On Disability Not on file Not on file Not on file documented as of this encounter Plan of Treatment Upcoming Encounters Date Type Department Care Team (Late st Contact Info) Description 08/13/2025 10:00 AM CDT Hospital Encounter [facility] Medical Office Building [address] [address] documented as of this encounter Goals Goal [...] stairs Contact your local community or [facility] for information on exercise, fall prevention programs, [...] on filedocumented in this encounter Care Teams Healthcare Social Worker Relationship Specialty Start Date End Date Roseanna Yung MD [address] [facility] [address] [address] PCP - General 12/14/17 Priya Hoyt MD [address] [facility], [address] [address] Consulting Physician Pain Management 05/13/22 Teddy Dorsey MD [address] [address] Consulting Physician Cardiology 04/26/25 documented as of this encounter
--- OUTSIDE RECORDS SUMMARY | 2025-08-03 12:47 | XMS_ITS | Encounter Summary ---
Author Organization [facility] Healthcare Address [address] [place] [address] Care Team Providers Care Plastic Surgery Specialist Name Role Phone Roseanna Yung MD Primary Care Provider [phone] Priya Hoyt MD Unavailable Teddy Dorsey MD Unavailable [phone] Encounter Details Date Type Department Care Team (Late st Contact Info) Description 07/30/2025 Orders Only [facility] [address], [address] [place] [address] Alejandro Lawrence MD [address] [place], [place] [id number] Social History Tobacco Use Types Packs/Day Years [...] drink = 0.6 oz pur e alcohol) [facility] Utilities Answer Date Recorded In the past 12 months has [employer] electric, gas, oil, or water company threatened [...] often do you attend chur ch or sikhism services? 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 documented as of this encounter Visit Diagnoses Not on filedocumented in this encounter Care Teams Plastic Surgery Specialist Relationship Specialty Start Date End Date Roseanna Yung MD [address] [facility] [address] [address] PCP - General 12/14/17 Priya Hoyt MD [address] [facility], [address] [address] Consulting Physician Pain Management 05/13/22 Teddy Dorsey MD [address] [address] Consulting Physician Cardiology 04/26/25 documented as of this encounter
--- OUTSIDE RECORDS SUMMARY | 2025-08-03 12:47 | XMS_ITS | Clinical Summary ---
Author Organization [facility] [email or web address] Address [address] [place] [address] Care Team Providers Care Inspector Metal Can Name Role Phone Roseanna Yung MD Primary Care Provider [phone] Source Comments [facility] [email or web address],non-owned Affiliates and Associated Physician Practices is amultiple site organization consisting of ambulatory clinics and hospital sitesin [place], [place], [place] and [place]. This disclosure is being madepursuant to the Care Everywhere program and may not contain all information available regarding this patient. Last updated [email or web address] Allergies Active Allergy Reactions Criticality Noted Date [...] on file Legal Sex Male 6:28 AM REGISTERED NURSE STEP DOWN Gender Identity Not on file Sexual Orientation Not on file Last Filed Vital Signs Vital Sign Reading Time Taken Comments Blood Pressure 149/84 05/11/2021 9:29 AM CDT Pulse 70 05/11/2021 9:29 AM CDT Temperature 36.6 C (97.9 F) 05/11/2021 9:29 AM CDT Respiratory Rate 18 01/05/2021 11:04 AM REGISTERED NURSE STEP DOWN Oxygen Saturation 98% 05/11/2021 9:29 AM CDT [...] patient's age to complete this topic Insurance [facility] MANAGED MEDICARE ADV Care Teams Inspector Metal Can Relationship Specialty Start Date End Date Roseanna Yung MD [facility] [place] [address] PCP - General 11/20/20
--- OUTSIDE RECORDS SUMMARY | 2025-08-03 12:47 | XMS_ITS | Encounter Summary ---
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 Gender Identity Not on file Sexual Orientation Not on file documented as of this encounter Plan of Treatment Upcoming Encounters Date Type Department Care Team (Late st Contact Info) Description 08/13/2025 10:00 AM CDT Hospital Encounter [facility] Medical Office Building [address] [address] documented as of this encounter Visit Diagnoses Not on filedocumented in this encounter Care Teams Principal Scientist Relationship Specialty Start Date End Date Roseanna Yung MD [address] [facility] [address] [address] PCP - General 12/14/17 Priya Hoyt MD [address] [facility], [address] [address] Consulting Physician Pain Management 05/13/22 Gerald Templeton Ud, MD [facility], [address] [address] Consulting Physician Surgery 06/21/23 02/11/25 Teddy Dorsey MD [address] [facility] [address] [phone] Consulting Physician Cardiology 04/26/25 documented as of this encounter
--- OUTSIDE RECORDS SUMMARY | 2025-08-03 12:47 | XMS_ITS | Encounter Summary ---
Author Organization [facility] Facility Care Team Providers Care Rn Clinical Documentation Specialist Name Role Phone Roseanna Yung MD Primary Care Provider [phone] Priya Hoyt MD Unavailable Gerald Templeton Ud, MD Unavailable Teddy Dorsey MD Unavailable [phone] Encounter Details Date Type Department Care Team (Latest Contact Info) Description 05/16/2018 Orders Only [facility] Provider, MD Edson [address] [place] [address] Social History Tobacco Use Types Packs/Day Years Used Date Smoking Tobacco: Every Day Sex and Gender Information Value Date Recorded Sex Assigned at Not on file 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 Gender Identity Not on file Sexual Orientation Not on file documented as of this encounter Plan of Treatment Upcoming Encounters Date Type Department Care Team (Late st Contact Info) Description 08/13/2025 10:00 AM CDT Hospital Encounter [facility] Medical Office Building [address] [address] documented as of this encounter Procedures Procedure [...] COVID: Suspected 10/29/2021 10/29/2021 11/12/2021 3:07 AM PRESERVATIVE FILLER MACHINE OPERATOR documented as of this encounter Care Teams Rn Clinical Documentation Specialist Relationship Specialty Start Date End Date Roseanna Yung MD [address] [facility] [address] [address] PCP - General 12/14/17 Priya Hoyt MD [address] [facility], [address] [address] Consulting Physician Pain Management 05/13/22 Gerald Templeton Ud, MD [facility], [address] [address] Consulting Physician Surgery 06/21/23 02/11/25 Teddy Dorsey MD [address] [facility] [address] [phone] Consulting Physician Cardiology 04/26/25 documented as of this encounter
== END 2025-08-03 13:00 | disposition home or self-care (01) ==
PROVIDERS: Emergency Provider Emergency Medicine
DX: Z48.00 Encounter for change or removal of nonsurgical wound dressing (principal); F12.90 Cannabis use, unspecified, uncomplicated
CPT/HCPCS: 99282

== ENCOUNTER 2025-09-23 10:59 | Outpatient (CLI) | payer MEDICARE, MEDICAID, SELFPAY ==
[2025-09-23 11:46] LABS: Hemoglobin A1C 6.9 % (<5.7)
[2025-09-23 12:31] LABS: Alanine Aminotransferase 40 U/L (6-50); Albumin Level 4.6 g/dL (3.5-5.1); Alkaline Phosphatase 78 U/L (38-126); Anion Gap 10 mmol/L (4-12); Aspartate Amino Transferase 32 U/L (17-59); Bilirubin,Total 0.7 mg/dL (0.2-1.3); Blood Urea Nitrogen 16 mg/dL (9-20); Calcium 9.4 mg/dL (8.4-10.2); Carbon Dioxide 29 mmol/L (22-30); Chloride 102 mmol/L (98-107); Cholesterol 187 mg/dL (0-200); Estimated Glomerular Filt Rate > 60; Glucose 199 mg/dL (65-110); HDL Direct 37 mg/dL; Osmolality Calculated 299 mOsm/kg (285-295); Potassium 4.5 mmol/L (3.4-5.0); Sodium 141 mmol/L (137-145); Total Protein 7.0 g/dL (6.3-8.2); Triglycerides 147 mg/dL (<150)
--- OUTSIDE RECORDS SUMMARY | 2025-09-23 13:08 | XMS_ITS | Clinical Summary ---
Author Organization [facility] Address [address] [place] [address] Care Team Providers Care Studio Artist Name Role Phone Roseanna Yung MD Primary Care Provider [phone] Priya Hoyt MD Unavailable Teddy Dorsey MD Unavailable [phone] Allergies Active Allergy Reactions Criticality Noted Date Comments Niacin Unknown 02/27/2019 Hot flash Kqoqprv-Ncq-Cwe Reductase Inhibitors Muscle pain Medium 02/27/2019 Medications pen needle, diabetic (BD Ultra-Fine Mini Pen Needle) 31 gauge x 3/16 needleIndicat ions:DM type 2 with diabetic peripheral neuropathy (HCC) Use four times daily 200 each 11 07/25/20 24 Active nortriptyline (PAMELOR) 25 mg capsule Take 1 capsule (25 mg total) by mouth nightly 08/13/20 24 Active varenicline tartrate (CHANTIX) 1 mg tabletIndicat ions:Smoking Cessation Take 1 tablet (1 mg total) by mouth 2 (two) times a day Take with full glass of water. 60 tablet 3 01/18/20 25 026 Active Additional Information Patient taking differently:1 mg oralDaily, Take with full glass of water., Indications: Smoking Cessation, Informant: Self, Reported on 07/30/2025 Eliquis 5 mg tablet TAKE ONE TABLET BY MOUTH TWICE A DAY 60 tablet 5 02/06/20 25 Active Additional Information Patient not taking.Reason: Pt states was instructed by Dr. Yung to quit taking until surgery rescheduled., Informant: Self, Reported on 07/24/2025 sildenafiL (VIAGRA) 100 mg tablet TAKE ONE TABLET BY MOUTH NEEDED FOR ERECTILE DISFUNCTION 100 tablet 1 02/20/20 25 Active aspirin 81 mg enteric coated tablet Take 1 tablet (81 mg total) by mouth daily Active ezetimibe (ZETIA) 10 mg tablet TAKE ONE TABLET BY MOUTH DAILY 90 tablet 1 03/18/20 25 Active famotidine (PEPCID) 20 mg tablet Take 1 tablet (20 mg total) by mouth daily as needed for heartburn Active tirzepatide (Mounjaro) 10 mg/0.5 mL pen injector injection Inject 0.5 mL (10 mg total) under the skin once a week 2 mL 5 06/06/20 25 Active blood-glucose ,vat cleaner,con t (Dexcom G7 Furnace Checker) miscIndicatio ns:DM type 2 with diabetic peripheral neuropathy (HCC) Dexcom G7 vat cleaner use daily to monitor blood sugar. 1 each 06/06/20 25 Active blood glucose diagnostic stripIndicati ons:DM type 2 with diabetic peripheral neuropathy (HCC) Use 4 times daily 200 strip 06/10/20 25 Active blood-glucose meter misc Use 4 times daily 1 each 06/10/20 25 Active lancets misc Use 4 times daily 200 each 06/10/20 25 Active lisinopriL (PRINIVIL,ZES TRIL) 10 mg tablet TAKE ONE TABLET BY MOUTH DAILY 100 tablet 1 07/26/20 25 Active acetaminophen (TYLENOL) 500 mg tablet Take 1 tablet (500 mg total) by mouth every 4 (four) hours as needed for pain 180 tablet 3 08/26/20 25 Active insulin glargine (TOUJEO MAX) 300 unit/mL (3 mL) pen for injection Inject 76 Units under the skin daily 27 mL 5 09/18/20 25 Active acetaminophen 500 mg capsule Take 1 capsule (500 mg total) by mouth every 4 (four) hours as needed for mild pain (pain scale 1-4) 025 Discontinued(Re order) insulin degludec (TRESIBA) 200 unit/mL (3 mL) pen for injection Inject 0.36 mL (72 Units total) under the skin daily 15 mL 3 05/17/20 25 025 Discontinued insulin degludec (TRESIBA) 200 unit/mL (3 mL) pen for injection Inject 0.38 mL (76 Units total) under the skin daily 08/26/20 25 025 Discontinued(Al ternate therapy) Active Problems Problem Noted Date Diagnosed Date [...] up in the office in 1-2 weeks. Status post lumbar spine mitchell alexander for decompression of spinal cord 01/24/2025 DVT (deep venous thrombosis) 07/16/2024 Assessment [...] statins Assessment & Plan (09/07/2024 12:33 PM DOCUMENT SCANNER): Patient has myopathy with statins Assessment & Plan (04/10/2024 7:46 AM CDT): Patient could not take statins because of muscle ache and weakness Assessment & Plan (01/05/2024 2:55 PM DOCUMENT SCANNER): Patient could not take statins because of [...] 08/23/2022 Assessment & Plan (09/08/2022 1:27 PM DOCUMENT SCANNER): Patient continue to have for persistent diarrhea. Stool test was negative. CBC and SMA 7 were unremarkable. We made him a referral to see a tobacco drummer for colonoscopy. He said his appointment is [...] Ambien Assessment & Plan (09/08/2021 4:10 PM DOCUMENT SCANNER): Controlled on Ambien Assessment & Plan (12/10/2020 1:17 PM DOCUMENT SCANNER): Patient has persistent insomnia. Increase Ambien to [...] scan Assessment & Plan (01/05/2024 2:55 PM DOCUMENT SCANNER): Repeat CT scan in March 2024 Assessment [...] nodules Assessment & Plan (12/23/2021 4:35 PM DOCUMENT SCANNER): No change in the size of pulmonary nodules on CT scan of the lungs in July 2021 Assessment & Plan (09/08/2021 4:11 PM DOCUMENT SCANNER): CT lung screen showed no change in [...] medications Assessment & Plan (10/06/2023 7:53 AM DOCUMENT SCANNER): Continue duloxetine Assessment & Plan (07/07/2023 7:55 [...] medication Assessment & Plan (12/06/2019 3:14 PM DOCUMENT SCANNER): Patient feels fine without medications. No suicidal ideations. Assessment & Plan (09/18/2019 3:47 PM DOCUMENT SCANNER): The patient has mild depression and we [...] minutes. Assessment & Plan (01/05/2024 2:58 PM DOCUMENT SCANNER): Discussed smoking cessation and different methods to [...] minutes. Assessment & Plan (12/23/2021 4:37 PM DOCUMENT SCANNER): Discussed smoking cessation and different methods to help with that. Discussed the risks of smoking including COPD, CAD and lung cancer etc. Total time spent was 4 minutes. Assessment & Plan (09/09/2021 1:57 PM DOCUMENT SCANNER): Discussed smoking cessation and different methods to [...] results. Assessment & Plan (12/06/2019 3:13 PM DOCUMENT SCANNER): Discussed smoking cessation and different methods to help with that. Discussed the risks of smoking including COPD, CAD and lung cancer etc. Total time spent was 3 minutes. Assessment & Plan (09/18/2019 3:46 PM DOCUMENT SCANNER): CT lung screen in May 2019 was [...] 06/18/2019 Assessment & Plan (01/05/2024 2:56 PM DOCUMENT SCANNER): Colonoscopy in August 2022 showed 1 polyp and repeat in 5 years as per the GI doctor. Assessment & Plan (03/22/2022 5:02 PM CDT): Follow-up with GI doctor for colonoscopy Assessment & Plan (06/09/2021 1:33 PM CDT): Repeat colonoscopy [place] [address] Gandhi Assessment & Plan (12/10/2020 12:55 PM DOCUMENT SCANNER): Repeat colonoscopy in [address] Gandhi [...] LDL. Cuauhtemoc available for cost assistance through [employer]. Phone number to enroll or online at [email or web address] Assessment & Plan (06/06/2025 7:51 AM CDT): [...] . Assessment & Plan (01/05/2024 2:55 PM DOCUMENT SCANNER): Controlled on current medications. Continue low-fat diet. Will continue to monitor . Assessment & Plan (10/06/2023 7:53 AM DOCUMENT SCANNER): Controlled on current medications. Continue low-fat diet. [...] . Assessment & Plan (12/23/2021 4:34 PM DOCUMENT SCANNER): Resume pravastatin 20 mg q.h.s. and continue Zetia and we discussed diet and will repeat the blood work in few months Assessment & Plan (09/08/2021 4:10 PM DOCUMENT SCANNER): Controlled on current medications. Continue low-fat diet. Will continue to monitor . Assessment & Plan (06/09/2021 1:32 PM CDT): Controlled on current medications. Continue low-fat diet. Will continue to monitor . Assessment & Plan (03/09/2021 11:55 AM CDT): Controlled on current medications. Continue low-fat diet. Will continue to monitor . Assessment & Plan (12/10/2020 12:55 PM DOCUMENT SCANNER): Controlled on current medications. Continue low-fat diet. [...] daily Assessment & Plan (12/06/2019 3:13 PM DOCUMENT SCANNER): Discussed diet and exercise. We will add Vascepa 2 g twice daily and repeat blood work in few months Assessment & Plan (09/18/2019 3:46 PM DOCUMENT SCANNER): Controlled on current medications. Continue low-fat diet. [...] monitor. Assessment & Plan (01/05/2024 2:55 PM DOCUMENT SCANNER): Hemoglobin A1c 7.2. Increase Trulicity to 3 mg subQ once a week. Discussed the importance of diet. Ambulate as tolerated. Advised to have eye exam. Assessment & Plan (10/06/2023 7:52 AM DOCUMENT SCANNER): Continue current medications, discussed low carbohydrate diet, [...] monitor. Assessment & Plan (12/23/2021 4:34 PM DOCUMENT SCANNER): Patient will be started on Trulicity 0.75 mg once a week for couple of weeks then 1.5 mg once a week and side effects were explained and samples were given and instructions were given. He will continue with other medications. Discussed the importance of diet. Assessment & Plan (09/09/2021 1:56 PM DOCUMENT SCANNER): Continue current medications, discussed low carbohydrate diet, [...] exam Assessment & Plan (12/10/2020 1:17 PM DOCUMENT SCANNER): Increase Tresiba to 70 units daily and [...] monitor. Assessment & Plan (12/06/2019 3:12 PM DOCUMENT SCANNER): We discussed again diet and exercise and weight loss. We will increase Tresiba to 66 units daily and repeat A1c before next visit Assessment & Plan (09/18/2019 3:46 PM DOCUMENT SCANNER): Continue current medications, discussed low carbohydrate diet, [...] gabapentin Assessment & Plan (10/06/2023 7:52 AM DOCUMENT SCANNER): Neuropathy secondary to diabetes mellitus. 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 Continue gabapentin Assessment & Plan (03/22/2022 5:01 PM CDT): Continue Lyrica Assessment & Plan (12/23/2021 4:34 PM DOCUMENT SCANNER): Continue Lyrica Assessment & Plan (09/08/2021 4:10 PM DOCUMENT SCANNER): Continue Lyrica Assessment & Plan (06/09/2021 1:32 PM CDT): Controlled on Lyrica Assessment & Plan (03/09/2021 11:55 AM CDT): Continue Lyrica Assessment & Plan (12/06/2019 3:13 PM DOCUMENT SCANNER): Patient with chronic neuropathy secondary to diabetes and chronic back pain and he is followed by the neurologist Assessment & Plan (09/18/2019 3:46 PM DOCUMENT SCANNER): The patient has mild neuropathy secondary to [...] he was advised strongly to call his electrostatic painter because of worsened pain and he [...] management. Assessment & Plan (10/05/2021 3:05 PM DOCUMENT SCANNER): Patient was started to see a new pain management practice recently and he had recent injections and physical therapy with improvement in his symptoms. He likes to get off oxycodone. I told him to discuss that with the pain management. Assessment & Plan (09/09/2021 1:56 PM DOCUMENT SCANNER): Will make him a referral to see a neurosurgeon and Pain Management. Will obtain x-rays of the hips to be sure that there is no issues with his hips as a cause of his lower back pain Assessment & Plan (12/10/2020 12:54 PM DOCUMENT SCANNER): Status laminectomy. Patient has persistent symptoms and [...] 12/23/2016 Assessment & Plan (01/05/2024 2:57 PM DOCUMENT SCANNER): Patient is followed by the pain specialist [...] opinion. Assessment & Plan (12/23/2021 4:34 PM DOCUMENT SCANNER): Patient is under the care of pain management Assessment & Plan (12/06/2019 3:13 PM DOCUMENT SCANNER): The patient has a chronic back pain [...] monitor Assessment & Plan (01/05/2024 2:55 PM DOCUMENT SCANNER): Blood pressure is running on the low side. Will cut down lisinopril to 10 mg daily. Discussed low-salt diet. Discussed exercise on regular basis. Will continue to monitor Assessment & Plan (10/06/2023 12:18 PM DOCUMENT SCANNER): Blood pressure is running on the low [...] monitor Assessment & Plan (12/23/2021 4:34 PM DOCUMENT SCANNER): Continue current medications. Discussed low-salt diet. Discussed exercise on regular basis. Will continue to monitor Assessment & Plan (09/08/2021 4:09 PM DOCUMENT SCANNER): Continue current medications. Discussed low-salt diet. Discussed [...] monitor Assessment & Plan (12/10/2020 12:55 PM DOCUMENT SCANNER): Continue current medications. Discussed low-salt diet. Discussed [...] monitor Assessment & Plan (12/06/2019 3:13 PM DOCUMENT SCANNER): Continue current medications. Discussed low-salt diet. Discussed [...] Encounters Date Type Department Care Team Description 09/20/2025 Telephone [facility] Internal Medicine [address] [place] [address] Roseanna Yung MD Additional Services Or Orders 09/18/2025 Telephone [facility] Internal Medicine [address] [place] [address] [address] [place] [address] Roseanna Yung MD Med Refill 09/17/2025 Telephone [facility] Internal Medicine [address] [place] [address] [address] [place] [address] Roseanna Yung MD Med Refill 09/09/2025 12:26 PM DOCUMENT SCANNER - 09/09/2025 11:59 PM DOCUMENT SCANNER Hospital Encounter [facility] Diagnostic Imaging [address] [place] [address] Alejandro Lawrence MD Status post lumbar spine surgery for decompression of spinal cord Discharge Disposition: Discharge to home or self care 09/09/2025 10:15 AM DOCUMENT SCANNER Office Visit [facility] [address], [address] [place] [address] Alejandro Lawrence MD Status post lumbar spine surgery for decompression of spinal cord (Primary Dx) 08/23/2025 Telephone [facility] Internal Medicine [address] [place] [address] Roseanna Yung MD Diabetes 08/21/2025 Orders Only [facility] Health Information Management [address] [place] [id number] Roseanna Yung MD 08/13/2025 9:49 AM CDT - 08/13/2025 11:59 PM CDT Hospital Encounter [facility] Medical Office Building [address] [place] [address] Roseanna Yung MD Pulmonary nodules Discharge Disposition: Discharge to home or self care 08/13/2025 Results Follow-Up [facility] Internal Medicine [address] [place] [address] [place] [phone] Roseanna Yung MD PET/CT FDG Skull to Thigh 08/05/2025 11:30 AM CDT Office Visit [facility] [address] [place] [address], [address] [place] [address] Luis Porter PA Status post lumbar spine surgery for decompression of spinal cord (Primary Dx) 07/31/2025 Orders Only [facility] [address] [place] [address], [address] [place] [address] Alejandro Lawrence MD 07/30/2025 10:36 AM CDT Anesthesia Event [facility] [place] [address] [place] [address] Paulina Tenorio MD Taylor-White, Carlotta A., NP 07/30/2025 9:30 AM CDT - 07/30/2025 11:30 AM CDT Surgery [facility] OR [address] [place] [address] Alejandro Lawrence MD LUMBAR 2 - LUMBAR 3 MINIMALLY INVASIVE DECOMPRESSION 07/30/2025 7:20 AM CDT - 07/30/2025 1:52 PM CDT Hospital Encounter [facility] OR [address] [place] [phone] Alejandro Lawrence MD Adjacent segment disease of lumbar spine with history of fusion procedure; S/P lumbar spinal fusion; Neurogenic claudication due to lumbar spinal stenosis Discharge Disposition: Discharge to home or self care 07/30/2025 Orders Only [facility] [address] [place] [address] [address], [address] [place] [address] Alejandro Lawrence MD 07/23/2025 Results Follow-Up [facility] Internal Medicine [address] [place] [address] [place] [phone] Roseanna Yung MD SCAN - RADIOLOGY/IMAGING 07/22/2025 Telephone [facility] Internal Medicine [address] [place] [address] [place] [phone] Roseanna Yung MD Additional Services Or Orders (See referral dated 07/04 ) 07/11/2025 Telephone [facility] Internal Medicine [address] [place] [address] [place] [phone] Roseanna Yung MD Diabetes 07/10/2025 Telephone [facility] Internal Medicine [address] [place] [address] [place] [phone] Roseanna Yung MD Med Refill 07/09/2025 [facility] [address] [place] [address] [address], [address] [place] [address] Melissa Starr, RN 07/09/2025 [facility] [address] [place] [address] [address], [address] [place] [address] Melissa Starr, RN 07/04/2025 Orders Only [facility] Internal Medicine [address] [place] [address] [place] [phone] Roseanna Yung MD Pulmonary nodules (Primary Dx); Hepatic cirrhosis, unspecified hepatic cirrhosis type, unspecified whether ascites present (HCC) 06/28/2025 Orders Only [facility] Health Information Management [address] [place] [address] Roseanna Yung MD 06/27/2025 1:00 PM CDT Pre-Admission Testing [facility] PreAdmission Testing [facility] [place] [address] Adjacent segment disease of lumbar spine with history of fusion procedure; S/P lumbar spinal fusion; Neurogenic claudication due to lumbar spinal stenosis; Type 2 diabetes mellitus without complication, unspecified whether intermediate teacher insulin use (HCC); Pain in other specified joint 06/26/2025 9:15 AM CDT Office Visit [facility] at [address] [place] [address] Kathy Hay NP Bilateral carotid artery stenosis (Primary Dx) 06/26/2025 Orders Only [facility] Vascular at [address] [place] [phone] Saurav Vazquez MD Aftercare following surgery of the circulatory system (Primary Dx) 06/25/2025 Orders Only [facility] PreAdmission Testing [address] [place] [address] Heather Rush RN from Last 3 Months Immunizations Immunization Administration [...] Anthony Smith Heart attack Brother 2 Braden Joiner Hypertension Brother 3 Braden Diabetes Father Shashi [...] drink = 0.6 oz pur e alcohol) [facility] Utilities Answer Date Recorded In the past 12 months has [employer] gas, oil, or water [employer] threatened to shut off services in your [...] any clubs o r organizations such as denominational groups, unions, fraternal or athletic groups, or [...] time in the past 12 [place], were you homeless or living in a fci (including now)? No 05/10/2025 AUDIT-C Answer Date [...] on file Legal Sex Male 6:35 AM DOCUMENT SCANNER Gender Identity Not on file Sexual Orientation Not on file Occupation Industry Job Start Date Job End Date On Disability Not on file Not on file Not on file Last Filed Vital Signs Vital Sign Reading Time Taken Comments Blood Pressure 140/58 07/30/2025 1:10 PM CDT Pulse 70 07/30/2025 1:10 PM CDT Temperature 36.6 C (97.8 F) 07/30/2025 12:40 PM CDT Respiratory Rate 18 09/09/2025 9:58 AM DOCUMENT SCANNER Oxygen Saturation 98% 09/09/2025 9:58 AM DOCUMENT SCANNER Inhaled Oxygen Concentration - - Weight 89.8 kg (198 lb) 09/09/2025 9:58 AM DOCUMENT SCANNER Height 177.8 cm (5' 10) 09/09/2025 9:58 AM DOCUMENT SCANNER Body Mass Index 28.41 09/09/2025 9:58 AM DOCUMENT SCANNER Plan of Treatment Health Maintenance Due Date Last Done Comments Hepatitis B Screening 1978 Abdominal Aortic Aneurysm (A AA) Screen 2023 Albumin Creatinine Ratio, Urine 06/16/2024 06/16/2023, 06/09/2022, 12/09/2021, Additional history exists Foot Exam 10/06/2024 10/06/2023, 12/02, 03/09/2021 Prostate Cancer Screening-PSA 06/16/2025, 03/18/2022, 03/05/2021, Additional history exists Hemoglobin A1C 12/28/2025 06/27/2025, 01/29, 07/16/2024, Additional history exists Depression Screening 02/04/2026 [...] home safety. Medical Devices Implanted Type Area Construction Project Engineer Device Identifier Shelf Expiration Date Model / Serial / Lot Hardware To Back Back [employer] Em[employer]dio Patch Vascuguard 0.88cm [id number] - [id number] Implanted:Qty: 1 on 05/09/2025 by Saurav Vazquez MD at [facility] Right: [employer] [id number] 12/10/2026 [id number] / / [id number] Procedures Procedure Name Priority Date/Time Associated Diagnosis Comments XR SPINE LUMBAR 2 OR 3 VIEWS Schedule Routine, Read Routine (OP Routine) 09/09/2025 12:38 PM DOCUMENT SCANNER Status post lumbar spine surgery for decompression of spinal cord SCAN - LABS 08/21/2025 PET/CT FDG SKULL TO THIGH Schedule Routine, Read Routine (OP Routine) 08/13/2025 11:20 AM CDT Pulmonary nodules POCT GLUCOSE DEVICE Routine 08/13/2025 9 :58 AM CDT POCT GLUCOSE DEVICE Routine 07/30/2025 12:07 PM CDT FL FLUOROSCOPY < 1 HOUR IP Routine 07/30/2025 11:26 AM CDT NV AN PROCEDURE PLACEHOLDER Routine 07/30/2025 10:59 AM CDT NV AN ELECTIVE ENDOTRACHEAL AIRWAY Routine 07/30/2025 10:59 [...] 2 diabetes mellitus without complication, unspecified whether intermediate teacher insulin use (HCC) MRSA ONLY (STAPHYLOCOCCUS AUREUS) PCR Routine 06/27/2025 1:11 PM CDT Adjacent segment disease of lumbar spine with history of fusion procedure S/P lumbar spinal fusion Neurogenic claudication due to lumbar spinal stenosis POCT LIPID PANEL Routine 04/10/2025 10:06 AM CDT Lipid screening DIABETES EYE EXAM [...] Health Maintenance Results * XR Spine Lumbar 2 Or 3 View (09/09/2025 12:38 PM DOCUMENT SCANNER) Anatomical Region Laterality Modality Spine N/A Computed Radiogr aphy 09/10/2025 8:21 AM DOCUMENT SCANNER Impressions 09/10/2025 8:21 AM DOCUMENT SCANNER 1. Unchanged L3-S1 combined anterior posterior spinal fusion with lumbar posterior decompression. 2. Mild L2-L3 degenerative disc disease. Electronically signed by: Teddy Brar M.D. Narrative 09/10/2025 8:21 AM DOCUMENT SCANNER EXAMINATION: XR SPINE LUMBAR 2 OR 3 VIEWS HISTORY: s/p L2-3 MIS decompression. Lumbar spondylosis. FINDINGS: 2 views submitted with comparison 09/12/2024. L3-S1 combined anterior posterior spinal fusion is present with lumbar posterior decompression. No acute fracture. Mild L2-L3 degenerative disc disease. Arterial atherosclerosis is present. Procedure Note Teddy Brar MD - 09/10/2025 EXAMINATION: XR SPINE LUMBAR 2 OR 3 VIEWS HISTORY: s/p L2-3 MIS decompression. Lumbar spondylosis. FINDINGS: 2 views submitted with comparison 09/12/2024. L3-S1 combined anterior posterior spinal fusion is present with lumbar posterior decompression. No acute fracture. Mild L2-L3 degenerative disc disease. Arterial atherosclerosis is present. IMPRESSION: 1. Unchanged L3-S1 combined anterior posterior spinal fusion with lumbar posterior decompression. 2. Mild L2-L3 degenerative disc disease. Electronically signed by: Teddy Brar M.D. Alejandro Lawrence MD IMG XR PROCEDURES Final Result * SCAN - LABS (08/21/2025) Roseanna Yung MD Final Resul t * PET/CT FDG Skull to Thigh (08/13/2025 11:20 AM CDT) Anatomical Region Laterality Modality N/A Positron Emissio n Tomography (PET) 08/13/2025 11:4 8 AM CDT Narrative 08/13/2025 12:15 PM CDT EXAM DESCRIPTION: PET/CT FDG SKULL TO THIGH RADIOPHARMACEUTICAL: 11.7 mCi F-18 Fluorodeoxyglucose (FDG) via a right antecubital vein IV site REASON FOR STUDY: Lung nodule. TECHNIQUE: The patient's fasting blood glucose level, measured by glucometer before injection of FDG, was 177 mg/dL. After intravenous administration of FDG, noncontrast CT images were obtained for attenuation correction and for fusion with emission PET images to allow for anatomical localization of PET findings. Emission PET images were then obtained. The reported standardized uptake value maximum (SUVmax) values have been normalized to body weight (SUVbw). The area imaged spanned the region from the skull base to the proximal thighs . The time from injection of FDG to start of imaging was 59 minutes. COMPARISON: CTA head and neck 04/01/2025, CT chest 07/27/2021, 07/25/2020 FINDINGS: For reference, the maximum SUV of the ascending thoracic aorta is 2.5 . The maximum SUV of the liver is 3.3 . Head: Normal FDG uptake is seen in the included portion of the brain. Neck: Physiologic uptake is present in the paired lymphoid structures. No hypermetabolic lymphadenopathy. Chest: No hypermetabolic lymphadenopathy in the axillae, mediastinum, or silvia. Ground-glass nodule measuring 1.3 cm in the medial right lower lobe is unchanged from 2020 and shows no significant FDG uptake. Minimal atelectasis or scarring within lung bases without associated uptake. Noncalcified 0.9 cm nodule lateral right upper is unchanged from most recent CT of the but new 2019. The SUV is 1.4. Moderate pulmonary emphysema. Heart size is within limits. Trace pericardial effusion. Moderate coronary artery calcification. No pleural effusion. Abdomen and Pelvis: Liver surface nodularity can be seen with chronic liver disease/cirrhosis. Focal hypermetabolic liver lesion. No calcified gallstones. Mild splenomegaly measuring 16 cm in craniocaudal dimension. No associated focal hypermetabolic lesion. Normal pancreas without focal FDG activity. No focal hypermetabolic adrenal lesion. Normal genitourinary activity. The bladder is decompressed and incompletely evaluated. Normal gastrointestinal activity is seen. No hypermetabolic lymph nodes in the abdomen or pelvis. Atherosclerotic calcification of the abdominal aorta without aneurysm. Bones: Postoperative change in the lower lumbar spine with multilevel laminectomies and posterior and anterior fixation from L3-S1. No significant associated uptake is seen. IMPRESSION: 1. The 0.9 cm nodule in the lateral right upper lobe is unchanged from the most recent CT but is new from 2019. The SUV is 1.4. This is favored to be post infectious or post inflammatory in etiology. Follow-up CT scan in 3-6 months is recommended. 2. No hypermetabolic thoracic lymphadenopathy. 3. Ground-glass nodule measuring 1.3 cm in the medial right lower lobe is unchanged from 2020 and shows no significant FDG uptake. 4. Liver surface nodularity can be seen with chronic liver disease/cirrhosis. 5. Mild splenomegaly. THIS IS AN ELECTRONICALLY VERIFIED FINAL REPORT 08/13/2025 12:15 PM - Electronically signed by Jordan Galeano M.D. LB: RUTH Report ID: [id number] Reading Location: [id number] Procedure Note Jordan Galeano MD - 08/13/2025 EXAM DESCRIPTION: PET/CT FDG SKULL TO THIGH RADIOPHARMACEUTICAL: 11.7 mCi F-18 Fluorodeoxyglucose (FDG) via a right antecubital vein IV site REASON FOR STUDY: Lung nodule. TECHNIQUE: The patient's fasting blood glucose level, measured byglucometer before injection of FDG, was 177 mg/dL. After intravenous administrationof FDG, noncontrast CT images were obtained for attenuation correction andfor fusion with emission PET images to allow for anatomical localization ofPET findings. Emission PET images were then obtained. The reportedstandardized uptake value maximum (SUVmax) values have been normalized to body weight (SUVbw). The area imaged spanned the region from the skull base to the proximal thighs . The time from injection of FDG to start of imaging was59 minutes. COMPARISON: CTA head and neck 04/01/2025, CT chest 07/27/2021, 07/25/2020 FINDINGS: For reference, the maximum SUV of the ascending thoracic aortais 2.5 . The maximum SUV of the liver is 3.3 . Head: Normal FDG uptake is seen in the included portion of the brain. Neck: Physiologic uptake is present in the paired lymphoid structures. No hypermetabolic lymphadenopathy. Chest: No hypermetabolic lymphadenopathy in the axillae, mediastinum, or silvia. Ground-glass nodule measuring 1.3 cm in the medial right lower lobe is unchanged from 2020 and shows no significant FDG uptake. Minimalatelectasis or scarring within lung bases without associated uptake. Noncalcified 0.9cm nodule lateral right upper is unchanged from most recent CT of the but new 2019. The SUV is 1.4. Moderate pulmonary emphysema. Heart size is within limits. Trace pericardial effusion. Moderatecoronary artery calcification. No pleural effusion. Abdomen and Pelvis: Liver surface nodularity can be seen with chronic liver disease/cirrhosis. Focal hypermetabolic liver lesion. No calcified gallstones. Mild splenomegaly measuring 16 cm in craniocaudal dimension. No associatedfocal hypermetabolic lesion. Normal pancreas without focal FDG activity. No focal hypermetabolic adrenal lesion. Normal genitourinary activity.The bladder is decompressed and incompletely evaluated. Normalgastrointestinal activity is seen. No hypermetabolic lymph nodes in the abdomen orpelvis. Atherosclerotic calcification of the abdominal aorta without aneurysm. Bones: Postoperative change in the lower lumbar spine with multilevellaminectomies and posterior and anterior fixation from L3-S1. No significant associated uptake is seen. IMPRESSION: 1. The 0.9 cm nodule in the lateral right upper lobe is unchanged fromthe most recent CT but is new from 2019. The SUV is 1.4. This is favored to be post infectious or post inflammatory in etiology. Follow-up CT scan in 3-6 months is recommended. 2. No hypermetabolic thoracic lymphadenopathy. 3. Ground-glass nodule measuring 1.3 cm in the medial right lower lobeis unchanged from 2020 and shows no significant FDG uptake. 4. Liver surface nodularity can be seen with chronic liverdisease/cirrhosis. 5. Mild splenomegaly. THIS IS AN ELECTRONICALLY VERIFIED FINAL REPORT 08/13/2025 12:15 PM - Electronically signed by Jordan Galeano M.D. LB: LB Report ID: [id number] Reading Location: [place] [address] Roseanna Yung MD IMG PET PROCEDURES Final Re sult * POCT glucose (08/13/2025 9:58 AM CDT) Glucose, POC 177 70 - 199 mg/dL Comment:Testing performed by : [facility], [address] [place] [address]., [id number] Blood 08/13/2025 9:58 AM CDT 08/13/2025 9:58 AM CDT Roseanna Yung MD LAB POCT ORDERABLES - DEVIC E Final Result Performing Organization Address [facility] Co de Phone Number [place] [id number] [facility] [employer] [place] [address] * POCT glucose (07/30/2025 12:07 PM CDT) Glucose, POC 146 70 - 199 mg/dL Blood 07/30/2025 12:0 7 PM CDT 07/30/2025 12:07 PM CDT Alejandro Lawrence MD LAB POCT ORDERABLES - DE VICE Final Result Performing Organization Address [facility] Co de Phone Number [place] [address] [facility] [place] [address] * FL Fluoroscopy < 1 Hour (07/30/2025 11:26 AM CDT) Narrative YOSEF_MHB_MHE - 07/30/2025 11:36 AM CDT The images from this study are not interpreted by Radiology. Please refer to the physician's procedure / OR operative note. us Alejandro Lawrence MD IMG FLUOROSCOPY PROCEDUR ES Final Result RAD_[id number]_MHE * NV AN ELECTIVE ENDOTRACHEAL AIRWAY, NV AN PROCEDURE PLACEHOLDER (07/30/2025 10:59 AM CDT) Narrative Kathy Reyes CRNA - 07/30/2025 10:59 AM CDT Kathy Reyes CRNA 07/30/2025 11:01 AM Airway Patient location: OR Urgency: elective Date/time: 07/30/2025 10:43 AM Indications for airway management: anesthesia and airway protection Difficult airway: no Staff: Placed by: PVC MONITOR: Kathy Reyes CRNA Emergent airway documentation: Risks [...] * POCT glucose (07/30/2025 7:48 AM CDT) Glucose, POC 178 70 - 199 mg/dL Blood 07/30/2025 7:48 AM CDT 07/30/2025 7:48 AM CDT Alejandro Lawrence MD LAB POCT ORDERABLES - DE VICE Final Result SHIRA [address] [place] [address] * SCAN - RADIOLOGY/IMAGING (06/28/2025) Anatomical Region Laterality Modality Other Roseanna Yung MD Final Resul t * eGFR (06/27/2025 1:11 PM CDT) Pathologist [facility] eGFR 79 >=60 mL/min/1. 73 m2 Comment: [...] LAB BLOOD ORDERABLES Fin al Result SHIRA [facility] [place] [address] * Differential, auto (06/27/2025 1:11 PM CDT) Neutrophil abs 3.62 1.50 - 6.50 K/cumm Imm gran abs 0.03 0.00 - 0.10 K/cumm [facility] Lymphocyte abs 2.19 0.80 - 3.30 K/cumm [facility] Monocyte abs 0.38 0.20 - 0.80 K/cumm [facility] Eosinophil abs 0.16 0.00 - 0.50 K/cumm [facility] Basophil abs 0.05 0.00 - 0.10 K/cumm [facility] Neutrophil pct 56.2 % [facility] Comment: Interpretive Data Percent cell count reference ranges are not reported, since discordance with absolute values may lead to misinterpretation of CBC data. Current Interpretive Data was last revised on 2018. Imm gran pct 0.5 % [facility] Comment: Interpretive Data Percent cell count reference ranges are not reported, since discordance with absolute values may lead to misinterpretation of CBC data. Current Interpretive Data was last revised on 2018. Lymphocyte pct 34.1 % [facility] Comment: Interpretive Data Percent cell count reference ranges are not reported, since discordance with absolute values may lead to misinterpretation of CBC data. Current Interpretive Data was last revised on 2018. Monocyte pct 5.9 % [facility] Comment: Interpretive Data Percent cell count reference ranges are not reported, since discordance with absolute values may lead to misinterpretation of CBC data. Current Interpretive Data was last revised on 2018. Eosinophil pct 2.5 % [facility] Comment: Interpretive Data Percent cell count reference ranges are not reported, since discordance with absolute values may lead to misinterpretation of CBC data. Current Interpretive Data was last revised on 2018. Basophil pct 0.8 % [facility] Comment: Interpretive Data Percent cell count reference ranges are not reported, since discordance with absolute values may lead to misinterpretation of CBC data. Current Interpretive Data was last revised on 2018. Blood 06/27/2025 1:11 PM CDT 06/27/2025 1:15 PM CDT us Alejandro Lawrence MD LAB BLOOD ORDERABLES Fin al Result Performing Organization Address City/[facility] Co de Phone Number [address] [address] * (ABNORMAL) CBC with auto differential (06/27/2025 1:11 PM CDT) [facility] WBC 6.43 3.80 - 9.90 K/cumm Hgb 13.1 13.0 - 17.5 g/dL [facility] Hct 38.7(L) 38.9 - 50.3 % [facility] Plt 133(L) 150 - 400 K/cumm [facility] MPV 10.2 9.1 - 12.3 fL [facility] RBC 3.98(L) 4.30 - 5.80 M/cumm [facility] MCV 97.2(H) 81.3 - 96.4 fL [facility] MCH 32.9 27.1 - 33.3 pg [facility] MCHC 33.9 32.3 - 35.7 g/dL [facility] RDW CV 13.9 11.1 - 14.9 % [facility] RDW SD 49.3(H) 35.7 - 48.1 fL [facility] NRBC abs 0.00 0.00 - 0.01 K/cumm [facility] Blood 06/27/2025 1:11 PM CDT 06/27/2025 1:15 PM CDT Alejandro Lawrence MD LAB BLOOD ORDERABLES Fin al Result Performing Organization Address City/[facility] Co de Phone Number [address] [address] * MRSA Only (Staphylococcus aureus) PCR Nasal (06/27/2025 1:11 PM CDT) [facility] PCR Scrn, Methicillin resistant Staphylococcus aureus (MRSA) Not Detected Not Detected Comment: Interpretive Data Testing performed using Nucleic Acid Amplification with the [employer] Xpert MRSA NxG Assay. This assay detects target DNA from mecA, mecC and the SCCmec insertion site of Staphylococcus aureus using Real-Time PCR and has been cleared by the FDA. Performance characteristics have been verified by the [facility]. Current Interpretive Data was last revised on 2023 Nasal 06/27/2025 1:11 PM CDT 06/27/2025 1:15 PM CDT Alejandro Lawrence MD LAB MICROBIOLOGY - GENER AL ORDERABLES Final Result Performing Organization Address [facility] de Phone Number SHIRA [facility] [employer] [place] [address] * ABO/Rh (06/27/2025 1:11 PM CDT) ABO/Rh O Positive Blood 06/27/2025 1:11 PM CDT 06/27/2025 1:15 PM CDT Narrative SHIRA - 06/27/2025 2:01 PM CDT Is this test being ordered in advance for a procedure?->Yes Expected date of procedure:->07/09/25 Has the patient been transfused in the past 3 months?->No Alejandro Lawrence MD LAB BLOOD BANK TEST ORDE RABLES Final Result Performing Organization Address [facility] de Phone Number [place] [address] [facility] [place] [address] * aPTT (06/27/2025 1:11 PM CDT) aPTT 30 22 - 37 sec Comment: Interpretive data aPTT test has not been evaluated for monitoring heparin therapy. The anti-Xa is the preferred test. Current interpretive data was last revised on 2019. Blood 06/27/2025 1:11 PM CDT 06/27/2025 1:15 PM CDT Alejandro Lawrence MD LAB BLOOD ORDERABLES Fin al Result Performing Organization Address [facility] Co de Phone Number SHIRA [facility] [place] [place] [address] * Protime-INR (06/27/2025 1:11 PM CDT) PT [...] ORDERABLES Fin al Result Performing Organization Address [facility] de Phone Number [address] [place] [address] * Antibody screen (06/27/2025 1:11 PM CDT) [...] ORDE RABLES Final Result Performing Organization Address [facility] Co de Phone Number [address] [place] [address] * (ABNORMAL) Hemoglobin A1c (06/27/2025 1:11 PM CDT) Pathologist [facility] Hgb A1C 6.7(H) 4.0 - 5.6 % Estimated Average Glucose 146 mg/dL SHIRA Comment: The ADA recommends reporting an estimated Average Glucose (eAG) with all Hemoglobin A1c results using the equation derived from a study of 507 normal and diabetic adults. Minority populations were underrepresented and children were not included. (Diabetes Care 31:3635-0397, 2008). The eAG is not equivalent to a fasting glucose. Blood 06/27/2025 1:11 PM CDT 06/27/2025 1:15 PM CDT us Alejandro Lawrence MD LAB BLOOD ORDERABLES Fin al Result [facility] [address] [facility] [place] [address] * (ABNORMAL) Comprehensive metabolic panel (06/27/2025 1:11 PM CDT) Sodium 136 135 - 145 mmol/L Potassium, pl 4.4 3.3 - 4.9 mmol/L [facility] Chloride 103 97 - 110 mmol/L [facility] CO2 21(L) 22 - 32 mmol/L [facility] Anion gap 12 2 - 15 mmol/L [facility] BUN 13 6 - 25 mg/dL [facility] Creatinine 1.04 0.80 - 1.30 mg/dL [facility] Glucose 152 70 - 199 mg/dL [facility] Comment: Interpretive Data Fasting glucose >/= 126 [...] 2022. Calcium 9.3 8.5 - 10.3 mg/dL [facility] Bilirubin, total 0.5 0.1 - 1.2 mg/dL [facility] Protein, pl 7.1 6.5 - 8.5 g/dL [facility] Albumin 4.5 3.5 - 5.0 g/dL [facility] Alk phos 85 40 - 130 Units/L [facility] ALT 23 7 - 55 Units/L [facility] AST 22 10 - 50 Units/L [facility] Blood 06/27/2025 1:11 PM CDT 06/27/2025 1:15 PM CDT Alejandro Lawrence MD LAB BLOOD ORDERABLES Fin al Result SHIRA [address] [facility] [place] [address] * (ABNORMAL) POCT lipid panel (04/10/2025 10:06 AM CDT) Cholesterol, POC 160 <200 MG/DL HDL, POC [...] BLOOD ORDERABLES Final Result Performing Organization Address [facility] de Phone Number [facility] [address] [place] [address] * Albumin Creatinine Ratio, Urine (06/16/2023 11:22 [...] URINE ORDERABLES Final Result Performing Organization Address [facility] de Phone Number [facility] [address] [place] [address] * (ABNORMAL) Colonoscopy (09/16/2022) Anatomical Region Laterality [...] a test for HCV RNA (test code 03382) is suggested. For additional information please refer to http://education.legalPAD/faq/DWK42z8 (This link is being provided for informational/ educational purposes only.) 06/09/2022 12:0 0 PM CDT 06/09/2022 12:01 PM CDT Roseanna Yung MD LAB MICROBIOLOGY - GENERAL ORDERABLES Final Result [facility] [address] [place] [address] * DIABETES FOOT EXAM (12/23/2021) SCRIBED DIABETIC FOOT EXAM Normal Historical Provider HEALTH MAINTENANCE Final Result from Last 3 Months or Most Recently Relevant to Health Maintenance [place] [address] [facility] MEDICARE ADVANTAGE [facility] MEDICARE ADVANTAGE IDPA [facility] MEDICARE ADVANTAGE [place] [id number] IDPA Advance Directives For more information, please contact: [phone] * Full Code (Latest Code Status on File) Date Activated Date Inactivated Comments 05/09/2025 4:09 PM 05/10/2025 4:11 PM * Full Code Date Activated Date Inactivated Comments 07/16/2024 6:28 PM 07/18/2024 9:01 PM Care Teams Studio Artist Relationship Specialty Start Date End Date Roseanna Yung MD [address] [facility] [address] [address] PCP - General 12/14/17 Priya Hoyt MD [facility]0 [facility] [address] Consulting Physician Pain Management 05/13/22 Teddy Dorsey MD [address] [id number] Consulting Physician Cardiology 04/26/25
--- OUTSIDE RECORDS SUMMARY | 2025-09-23 13:08 | XMS_ITS | Encounter Summary ---
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 Gender Identity Not on file Sexual Orientation Not on file documented as of this encounter Plan of Treatment Not on file documented as of this encounter Visit Diagnoses Not on filedocumented in this encounter Care Teams Dog Trainer Relationship Specialty Start Date End Date Roseanna Yung MD [address] [facility] [address] [address] PCP - General 12/14/17 Priya Hoyt MD [facility]0 [facility], [address] [address] Consulting Physician Pain Management 05/13/22 Gerald Templeton Ud, MD [facility]0 [facility], [address] [address] Consulting Physician Surgery 06/21/23 02/11/25 Teddy Dorsey MD [address] [facility] [address] [address] Consulting Physician Cardiology 04/26/25 documented as of this encounter
--- OUTSIDE RECORDS SUMMARY | 2025-09-23 13:08 | XMS_ITS | Encounter Summary ---
Author Organization [facility] Care Team Providers Care Outbound Sales Executive Name Role Phone Roseanna Yung MD Primary Care Provider [phone] Priya Hoyt MD Unavailable Gerald Templeton Ud, MD Unavailable Teddy Dorsey MD Unavailable [phone] Encounter Details Date Type Department Care Team (Latest Contact Info) Description 05/16/2018 Orders Only [facility] ProviderEdson MD [address] [place] [address] Social History Tobacco Use Types Packs/Day Years Used Date Smoking Tobacco: Every Day Sex and Gender Information Value Date Recorded Sex Assigned at Not on file 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 Gender Identity Not on file Sexual [...] COVID: Suspected 10/29/2021 10/29/2021 11/12/2021 3:07 AM ROLL MILL OPERATOR documented as of this encounter Care Teams Outbound Sales Executive Relationship Specialty Start Date End Date Roseanna Yung MD [facility] [address] [address] PCP - General 12/14/17 Priya Hoyt MD [facility]0 [facility], [address] [address] Consulting Physician Pain Management 05/13/22 Gerald Templeton Ud, MD [facility]0 [facility], [address] [address] Consulting Physician Surgery 06/21/23 02/11/25 Teddy Dorsey MD [address] [facility] [address] [phone] Consulting Physician Cardiology 04/26/25 documented as of this encounter
--- OUTSIDE RECORDS SUMMARY | 2025-09-23 13:08 | XMS_ITS | Encounter Summary ---
Author Organization [facility] Healthcare Address [address] [place] [address] Care Team Providers Care Manager Export Name Role Phone Roseanna Yung MD Primary Care Provider [phone] Priya Hoyt MD Unavailable Teddy Dorsey MD Unavailable [phone] Encounter Details Date Type Department Care Team (Late st Contact Info) Description 06/28/[address] [facility] Health Information Management [address] [place] [address] Roseanna Yung MD [address] [facility] [address] [address] Social History Tobacco Use Types Packs/Day Years [...] drink = 0.6 oz pur e alcohol) [facility] Utilities Answer Date Recorded In the [...] often do you attend chur ch or sikh services? Never 05/10/2025 Do you belong to any clubs o r organizations such as pentecostal groups, unions, fraternal or athletic groups, or [...] any time in the past 12 m [facility], were you homeless or living in a detention (including now)? 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 Gender Identity Not on file Sexual Orientation Not on file Occupation Industry Job Start Date Job End Date On Disability Not on file Not on file Not on file documented as of this encounter Plan of Treatment Not on file documented as of this encounter Goals Goal [...] Other Roseanna Yung MD Final Resul t documented in this encounter Visit Diagnoses Not on filedocumented in this encounter Care Teams Manager Export Relationship Specialty Start Date End Date Roseanna Yung MD [address] [facility] [address] [address] PCP - General 12/14/17 Priya Hoyt MD [address] [facility], [address] [address] Consulting Physician Pain Management 05/13/22 Teddy Dorsey MD [address] [facility] [address] [place] [address] Consulting Physician Cardiology 04/26/25 documented as of this encounter
--- OUTSIDE RECORDS SUMMARY | 2025-09-23 13:08 | XMS_ITS | Encounter Summary ---
Author Organization [facility] Healthcare Address [address] [place] [address] Care Team Providers Care Mold Insert Changer Name Role Phone Roseanna Yung MD Primary Care Provider [phone] Priya Hoyt MD Unavailable Teddy Dorsey MD Unavailable [phone] Encounter Details Date Type Department Care Team (Late st Contact Info) Description 07/23/2025 Results Follow-Up [facility] Internal Medicine [address] [phone] Roseanna Yung MD [address] [place] [id number] SCAN - RADIOLOGY/IMAGING Social History Tobacco [...] drink = 0.6 oz pur e alcohol) [facility] Utilities Answer Date Recorded In the past 12 months has [email or web address], gas, oil, or water company threatened [...] often do you attend chur ch or restoration services? 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 Gender Identity Not on file Sexual Orientation Not on file Occupation Industry Job Start Date Job End Date On Disability Not on file Not on file Not on file documented as of this encounter Functional Status * Difference in Last Two Eric Scores Answer Date of Assessment Author 0 07/30/2025 12:40 PM Simran Hamilton RN * Question Answer Date of Assessment Author BP Method Automatic 07/30/2025 12:30 PM Boaz Cartwright RN MAP (mmHg) 66 07/30/2025 12:30 PM Boaz Cartwright RN * Sanchez Fall Risk Question Answer Date of Assessment Author History of Falling 0 07/30/2025 12:40 PM Yari Alcocer RN Secondary Diagnosis 15 07/30/2025 12:40 PM Yari Melara RN Ambulatory Aids 15 07/30/2025 12:40 PM Yari Becerra RN Intravenous Therapy/Heparin/Saline Lock 20 07/30/2025 12:40 PM Simran Hamilton RN Gait/Transferring 0 07/30/2025 12:40 PM Yari Hamilton RN Mental Status 0 07/30/2025 12:40 PM Yari Sigala RN Sanchez Fall Risk Score (Score >= 45 places fall precaution order) 50 07/30/2025 12:40 PM Yari Hamilton RN Prior Fall Event (Autopopulated from EMR) None found 07/30/2025 12:40 PM Diana Hamilton RN * Eric Scale Question Answer Date of Assessment Author Sensory Perceptions 4 07/30/2025 12:40 PM Yari Melara RN Moisture 4 07/30/2025 12:40 PM Yari Rock RN Activity 3 07/30/2025 12:40 PM Yari Rock RN Mobility 4 07/30/2025 12:40 PM Yari Rock RN Nutrition 4 07/30/2025 12:40 PM Yari Rock RN Friction and Shear 3 07/30/2025 12:40 PM Yari Alcocer RN Eric Scale Score 22 07/30/2025 12:40 PM Yari Alcocer RN * BP Location Answer Date of Assessment Author Right arm 09/09/2025 9:58 AM Daron Thompson RN * Fall Risk Interventions Question Answer Date of Assessment Author All Low Fall Interventions Applied Yes 07/30/2025 12:40 PM Yari Hamilton RN All Moderate Fall Interventi ons Applied Yes 07/30/2025 12:40 PM Yari Hamilton RN * AUDIT-C Score Answer Date of Assessment Author 0 07/30/2025 7:37 AM Hayley Triplett RN * Alcohol Use Question Answer Date of Assessment Author Q1: [...] Never 07/30/2025 7:37 AM Hayley Triplett, NATALIE * Integumentary Question Answer Date of Assessment Author Skin Integrity Surgical incision 07/30/2025 1:10 PM Catherine Good RN Integumentary (WDL) X 07/30/2025 1:10 PM Catherine Good RN Skin Location lower back 07/30/2025 1:10 PM CDT Catherine Brown RN * Eric Scale Question Answer Date of Assessment Author Eric Scale Used Eric 07/30/2025 12:40 PM CDT Yari Johnson RN * Question Answer Date of Assessment Author BP Method Automatic 07/30/2025 12:30 PM MELISSAT Boaz Virgen RN * BP Location Answer Date of Assessment Author Right arm 09/09/2025 9:58 AM Daron Thompson RN * Fall Risk Interventions Question Answer Date of Assessment Author All Low Fall Interventions Applied Yes 07/30/2025 12:40 PM Yari Hamilton RN All Moderate Fall Interventi ons Applied Yes 07/30/2025 12:40 PM MELISSAT Yari Johnson RN documented as of this encounter Mental Status * Question Answer Entry Date Author Level of Consciousness Alert;Awake 12:25 PM Boaz Perez RN Orientation Oriented X4 (person, place, time, situation) 07/30/2025 12:25 PM MELISSAT Boaz Peck RN Neuro (WDL) WDL 07/30/2025 1:10 PM CDT Catherine Ellis RN documented in this encounter Plan of Treatment Not on file documented as of this encounter Goals Goal Patient Goal Type Associated Problems Recent Progress Patient-Stated? Author [facility] Chronic Pain Care Plan Chronic Care Management [...] on filedocumented in this encounter Care Teams Mold Insert Changer Relationship Specialty Start Date End Date Roseanna Yung MD [address] [facility] [address] [address] PCP - General 12/14/17 Priya Hoyt MD [address] [facility], [address] [address] Consulting Physician Pain Management 05/13/22 Teddy Dorsey MD [address] [address] Consulting Physician Cardiology 04/26/25 documented as of this encounter
--- OUTSIDE RECORDS SUMMARY | 2025-09-23 13:09 | XMS_ITS | Encounter Summary ---
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 Phone Roseanna Yung MD Primary Care Provider [phone] Priya Hoyt MD Unavailable Teddy Dorsey MD Unavailable [phone] Reason for Referral * MRI/CAT/PET Scan (Routine) - Authorized Specialty Diagnoses / Procedures Referred By Contac t Referred To Contact Radiology Diagnoses Pulmonary nodules Procedures CT Chest WO Contrast Roseanna Yung MD [address] [place] [address] [address] [place] [address] Phone: tel: fax: [id number] [place] [address] Referral ID Status Reason Start Date Expiration Date V isits Requested Visits Authorized [id number] Authorized 08/14/2025 09/13/2026 1 1 Encounter Details Date Type Department Care Team ([facility] Contact Info) Description 08/13/2025 Results Follow-Up [facility] Internal Medicine [address] [phone] Roseanna Yung MD [address] [place] [address] [address] [place] [id number] PET/CT FDG Skull to Thigh Social History Tobacco Use Types Packs/Day Years [...] drink = 0.6 oz pur e alcohol) [facility] Utilities Answer Date Recorded In the past 12 months has [employer], gas, oil, or water [employer] threatened to shut off services in your [...] often do you attend chur ch or mormonism services? 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 Author CCM Chronic Pain Care Plan Chronic Care Management Shellie Milton, RN Note: Problem: Chronic Pain Goals: 1. [...] on stairs Contact your local community or [facility] for information on exercise, fall prevention programs, or options for improving home safety. 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
== END 2025-09-23 11:00 | disposition home or self-care (01) ==
LOC: CHSLAB 11:03
PROVIDERS: PCP Internal Medicine; Visit Provider Internal Medicine
DX: E78.2 Mixed hyperlipidemia (principal); E11.42 Type 2 diabetes mellitus with diabetic polyneuropathy; I10 Essential (primary) hypertension
CPT/HCPCS: 36415; 80053; 80061; 83036

== ENCOUNTER 2025-09-23 15:12 | Outpatient (RCR) | payer MEDICARE, MEDICAID, SELFPAY ==
--- NOTE | 2025-09-23 15:56 | OPREHPOC ---
Outpatient Therapy Plan of Care This is a Multidisciplinary Plan of Care that may contain components documented by all disciplines (PT, OT, and ST.) PT Problem 1 PT Problem #1 Knowledge Deficit PT Goal 1 Goal / Goal Update independent and compliant with HEP Target Visit 5 PT Problem 2 PT Problem #2 Pain PT Goal 1 Goal / Goal Update 2/10 pain or less in the lower back at worst Target Visit 10 PT Problem 3 PT Problem #3 Impaired Strength PT Goal 1 Goal / Goal Update 4+/5 or better bilateral hip strength overall 5/5 bilateral ankle DF 4/5 or better core strength Target Visit 10 PT Problem 4 PT Problem #4 Impaired Functional Mobility PT Goal 1 Goal / Goal Update oswestry to display 20% or less functional deficits patient to complete 6 minutes ambulation test without rest for 1000ft or more patient to safely squat and lift small objects from floor without pain patient to tolerate 45 minutes standing activities without rest or pain Target Visit 10
--- NOTE | 2025-09-23 15:56 | PTOPEVAL1 ---
Assessment and note entered by JT File, PT Evaluation Information Assessment Status Evaluation Diagnosis s/p lumbar surgery ICD-10 Condition Codes (PT) Pain in low back M54.50,Aftercare following joint replacement surgery Z47.1 Onset 05/27/2020 Subjective Information patient reports he had surgery on the lower back on 07/30/2025. he reports since surgery, he has been feeling somewhat better. he reports the first day after surgery he was really good, but that has not stayed. he reports he still is unable to walk very far. he reports he also struggles to bend forward to pick something up from the floor. he reports during walking the legs will get heavy. he is unsure exactly what they did this time other than saying it was a decompression. he has a previous fusion. Reported Pain Level Pain Score 6: Self Report Assessment PT Clinical Summary mr springer presents to skilled PT services for evaluation and treatment of weakness, pain, and decreased functional activity performance following lower back surgery. he displays deficits in rom, LE strength, core strength, and ambulation endurance/functional endurance. continued skilled PT is indicated to improve his objective/functional deficits and progress towards a return to his prior level functional activity performance/quality of life. Plan of Care Interventions Electrical Stimulation,Gait Training,Hot Pack/Cold Pack,Manual Therapy,Neuro Re-education,Patient/ Caregiver Education,Therapeutic Activities, Therapeutic Exercise PT Services Indicated Yes Treatment Frequency and 2x weekly for 10 visits Duration These treatments will address the objective and functional deficits as defined above. The patient will be advanced safely and appropriately in order for the patient to progress towards his/her prior level of function. Additional exercises will be introduced and as well as a comprehensive home exercise program upon discharge, if needed, ?to ensure carryover of functional gains achieved in the clinic. This treatment plan has been reviewed and agreement upon by the patient.
--- NOTE | 2025-10-04 15:14 | PCPTNOTE ---
Cancelled session. Reports his battery .
== END 2025-10-07 20:00 | disposition home or self-care (01) ==
LOC: CHSPT 15:12
DX: M54.50 Low back pain, unspecified (principal); Z98.890 Other specified postprocedural states; Z47.1 Aftercare following joint replacement surgery
CPT/HCPCS: 97014; 97110; 97161; G0283